=== PATIENT | male | born 1940 | race Caucasian/White ===

== ENCOUNTER → 2018-02-23 07:55 | Outpatient (CLI) | payer MEDICARE, SELFPAY ==
[2018-02-23 09:59] LABS: BUN Creatinine Ratio 23.3 (6-22); Blood Urea Nitrogen 21 mg/dL (9-20); Calcium 9.5 mg/dL (8.4-10.2); Carbon Dioxide 29 mmol/L (22-32); Chloride 104 mmol/L (98-107); Estimated Glomerular Filt Rate > 60.0 mL/min (>60); Glucose 141 mg/dL (80-110); HEMOLYSIS < 15 (0-50); Sodium 143 mmol/L (137-145)
== END ==
PROVIDERS: PCP Internal Medicine; Visit Provider Internal Medicine Cardiovascular Disease
DX: I10 Essential (primary) hypertension (principal)
CPT/HCPCS: 36415; 80048

== ENCOUNTER → 2018-03-13 13:53 | Outpatient (CLI) | payer MEDICARE, SELFPAY ==
--- NOTE | 2018-03-14 17:45 | DI.NM.S_ITS ---
DATE OF SERVICE: 03/13/2018 PROCEDURE: Exercise perfusion study. INDICATIONS: Shortness of breath during exertion with underlying diabetes mellitus, hypertension, and hyperlipidemia. RADIOPHARMACEUTICAL: 25.5 mCi of technetium-99m Myoview IV was injected at stress, and 25.0 mCi of technetium-99m Myoview IV was injected at rest. CARDIAC STRESS: Initially, patient attempted walking on Danny protocol. He walked for about 4 minutes 20 seconds; however, he developed hip discomfort and shortness of breath and couldn't walk much. Hence, stress test got converted to IV Lexiscan perfusion study. The patient received IV Lexiscan as per standard protocol under the supervision of an attending staff. Baseline rhythm was sinus with mild sinus bradycardia and first-degree AV block. Stress EKG did not reveal any obvious inducible ischemic changes. There were no significant arrhythmias. During walking, patient achieved about 61% of target heart rate. Blood pressure remained stable. RAW DATA: There was a hot spot seen near the inferolateral border of the heart. Soft tissue shadows seen around heart as well. The patient's weight is 203 pounds. GATED STUDY: Stress LV ejection fraction 66%. I don't see any obvious wall motion abnormalities. Resting end-diastolic volume 178 mL, suggestive of dilated left ventricle. No transient ischemic dilatation. TID ratio is 0.87, which is within normal limits. Lung/heart ratio is 0.31, which is within normal limits. On April 06, 2016, LV end-diastolic volume was about 165 mL. MYOCARDIAL PERFUSION SCAN: Stress supine and resting supine images revealed moderate-sized, moderately severe perfusion defect of the inferior wall and inferoapex extending into the distal inferolateral wall, which significantly improved during prone images. During prone images, there was mildly decreased perfusion of distal inferolateral wall. In addition to that, resting and stress supine images also revealed moderate-sized, moderately decreased perfusion of [id number] anterior wall extending into the distal anteroseptum, which also significantly improved; however, prone images remained to have mildly decreased perfusion of mid anterior wall. I don't see any reversible ischemia. CONCLUSION: No obvious reversible ischemia. Based on above-mentioned description, the patient has predominantly fixed mildly decreased perfusion of distal inferolateral wall as well as mid anterior wall, which was seen during prone images. Rest of the stress and resting supine perfusion defects got resolved during prone images. Mostly we are dealing with tissue attenuation artifact. There is a hot spot seen near the inferolateral border which is responsible for decreased count in the inferolateral area as well. Normal wall motion goes against a diagnosis of previous transmural myocardial infarction; however, one cannot rule out the possibility of small distal inferolateral and mid anterior wall infarction for sure. The patient had a perfusion study in March 2016. At that time, also, the patient had a hot spot. There was a persistent inferoapical defect. At that time, stress LV ejection fraction was 71% and end-diastolic volume 165 mL. Overall, perfusion scan appears to be a low risk myocardial perfusion scan. Clinical correlation is recommended. Delmar Hoff - MANJINDER/rachel/caroline doc#: [id number]/job#: [id number] dd: 03/14/2018 12:43:00 dt: 03/14/2018 17:22:00 DICTATING /COPIES TO: Flako Dejesus MD COPIES MNE: LANDEN
== END ==
PROVIDERS: PCP Internal Medicine; Visit Provider Internal Medicine Cardiovascular Disease
DX: R06.02 Shortness of breath (principal); E11.9 Type 2 diabetes mellitus without complications; I10 Essential (primary) hypertension; E78.5 Hyperlipidemia, unspecified
CPT/HCPCS: 78452; 93016; 93017; 93018; A9502; J2785

== ENCOUNTER → 2018-03-14 08:05 | Outpatient (CLI) | payer MEDICARE, SELFPAY ==
--- NOTE | 2018-03-14 | DI.ECHO.S_ITS ---
[facility] +---------+ : : [address] : [address] [place] : : : : [id number] : : : : Phone: [phone]+ Echocardiogram Report + + :Name: RUBY MEDLEY Study Date: 03/14/2018 Height: 73 in : :[facility] Weight: 207 lb : : Gender: Male BSA: 2.2 m2 : :: 1940 Age: 77 yrs BP: 120/50 mmHg: :Reason For Study: Dyspnea : :Ordering Physician: Laurie : :Andrea Harp Performed By: Carla Louis : :Referring: Dr. Darryl Damon : + + Interpretation Summary 1) Normal left ventricular size, wall motion, and systolic function (EF 55- 60%). 2) Mildly dilated right ventricle with normal function. 3) No significant valvular abnormalities. 4) Severely dilated left atrium. 5) Mildly dilated aortic root (diameter 4.1cm). 6) The right ventricular systolic pressure is estimated at 40 mmHg assuming a right atrial pressure of 3 mm Hg. 7) Compared to the echo done 04/05/2016, no significant change. Procedure: A two-dimensional transthoracic echocardiogram with color flow and Doppler was performed. The study quality was technically adequate. Comparison is made with the echocardiogram of 04-05-16. The heart rate ranged between 46-48 bpm during the study. Left Ventricle: The left ventricle is normal in size. Left ventricular wall thickness is at the upper limits of normal. The ejection fraction is estimated to be 55-60%. Left ventricular systolic function is normal without focal wall motion abnormalities. Right Ventricle: The right ventricle is mildly dilated. The right ventricular systolic function is normal. Atria: The left atrium is severely dilated. The right atrium is moderately dilated. The interatrial septum is intact with no evidence for an atrial septal defect. Mitral Valve: The mitral valve is grossly normal. There is mild mitral regurgitation. Aortic Valve: The aortic valve is trileaflet. The aortic valve opens well. There is no aortic valve stenosis. No aortic regurgitation is present. Tricuspid Valve: The tricuspid valve leaflets are thin and pliable. There is mild tricuspid regurgitation. The right ventricular systolic pressure is estimated at 40 mmHg assuming a right atrial pressure of 3 mm Hg. Pulmonic Valve: The pulmonic valve is not well seen, but is grossly normal. There is mild pulmonic regurgitation. Great Vessels: The aortic root is mildly dilated. The ascending aorta is at the upper limits of normal in size. The IVC is of normal diameter and collapses greater than 50% with a sniff. This suggests a low right atrial pressure of 3 mm Hg. Pericardium/ Pleura There is no pericardial effusion. There is no pleural effusion. MMode/2D Measurements & Calculations LVIDd: 5.7 cm Ao root diam: 4.2 cm LVIDs: 4.2 cm Aortic Jxn: 3.1 cm FS: 25.9 % asc Aorta Diam: 3.9 cm IVSd: 1.1 cm Ao Arch Diam (Prox Trans): 3.4 cm LVPWd: 0.95 cm LV chiu. diameter/BSA (cm/m^2): 2.6 LV sys. diameter/BSA (cm/m^2): 1.9 LA dimension: 5.1 cm RA long axis: 5.9 cm LA A2 area: 28.8 cm2 RA area: 26.2 cm2 LA A4 area: 34.1 cm2 RA vol: 98.3 ml LA length (vol): 6.7 cm RA : 45.0 ml/m2 LA vol: 124.9 ml IVC diam: 1.9 cm LA vol index: 57.2 ml/m2 RVDd major: 6.8 cm RVD1 (basal): 4.2 cm RVD2 (mid): 4.3 cm Doppler Measurements & Calculations Ao V2 max: 124.6 cm/sec MV E max ebenezer: 89.8 cm/sec Ao V2 mean: 79.3 cm/sec MV A max ebenezer: 41.0 cm/sec Ao max P.2 mmHg MV E/A: 2.2 Ao mean P.0 mmHg Med Peak E' Ebenezer: 5.6 cm/sec Ao V2 VTI: 32.1 cm E/E' med: 16.1 Lat Peak E' Ebenezer: 7.9 cm/sec E/E' lat: 11.4 E/e' average: 13.7 MV dec time: 0.26 sec MV P1/2t: 75.8 msec TR max ebenezer: 304.6 cm/sec MV P1/2t max ebenezer: 89.3 cm/sec TR max P.1 mmHg MVA(P1/2t): 2.9 cm2 PA V2 max: 81.2 cm/sec PA V2 mean: 55.1 cm/sec PA mean P.4 mmHg PA Accel Time: 0.17 sec Reading Physician:12:38 PM
== END ==
PROVIDERS: PCP Internal Medicine; Visit Provider Internal Medicine Cardiovascular Disease
DX: R06.00 Dyspnea, unspecified (principal)
CPT/HCPCS: 93306

== ENCOUNTER → 2018-04-08 07:50 | Outpatient (CLI) | payer MEDICARE, SELFPAY ==
[2018-04-08 08:42] LABS: Add Manual Diff / Slide Review NO; Basophils Percent Auto 0.2 % (0-2); Eosinophils Percent Auto 3.6 % (2-4); Hematocrit 39.9 % (41-53); Hemoglobin 13.7 g/dL (13.5-17.5); Lymphocytes Percent Auto 24.7 % (25-40); Mean Corpuscular HGB Conc 34.2 % (30-36); Mean Corpuscular Hemoglobin 31.4 PG (26-34); Mean Corpuscular Volume 91.9 fL (80-100); Monocytes Percent Auto 8.8 % (3-14); Neutrophils Absolute Auto 5000 /uL (3000-5900); Neutrophils Percent Auto 62.7 % (50-75); Platelet Count 153 X10^3/uL (150-400); Red Blood Cell Count 4.35 X10^6/uL (4.5-5.9); White Blood Cell Count 7.9 X10^3/uL (4.5-11.0)
[2018-04-08 09:02] LABS: Hemoglobin A1C% w Est Avg Glu 5.7 % (4.0-6.0)
[2018-04-08 09:08] LABS: Blood Urea Nitrogen 20 mg/dL (9-20); Calcium 9.3 mg/dL (8.4-10.2); Carbon Dioxide 27 mmol/L (22-32); Chloride 106 mmol/L (98-107); Estimated Glomerular Filt Rate > 60.0 mL/min (>60); Glucose 125 mg/dL (80-110); HEMOLYSIS < 15 (0-50); Potassium 4.4 mmol/L (3.4-5.1); Sodium 142 mmol/L (137-145)
== END ==
PROVIDERS: PCP Internal Medicine; Visit Provider Internal Medicine
DX: I10 Essential (primary) hypertension (principal); E11.311 Type 2 diabetes mellitus with unspecified diabetic retinopathy with macular edema
CPT/HCPCS: 36415; 80048; 83036; 85025

== ENCOUNTER → 2018-10-04 12:18 | Outpatient (CLI) | payer MEDICARE, SELFPAY ==
[2018-10-04 13:42] LABS: BUN Creatinine Ratio 24.5 (6-22); Blood Urea Nitrogen 27 mg/dL (9-20); Calcium 9.7 mg/dL (8.4-10.2); Carbon Dioxide 27 mmol/L (22-32); Chloride 108 mmol/L (98-107); Estimated Glomerular Filt Rate > 60.0 mL/min (>60); Glucose 120 mg/dL (80-110); HEMOLYSIS < 15 (0-50); Potassium 5.2 mmol/L (3.4-5.1); Sodium 141 mmol/L (137-145)
== END ==
PROVIDERS: PCP Internal Medicine; Visit Provider Internal Medicine
DX: I10 Essential (primary) hypertension (principal); E11.311 Type 2 diabetes mellitus with unspecified diabetic retinopathy with macular edema
CPT/HCPCS: 36415; 80048; 83036; 84550

== ENCOUNTER → 2019-02-17 07:47 | Outpatient (CLI) | payer MEDICARE, SELFPAY ==
[2019-02-17 09:09] LABS: Add Manual Diff / Slide Review NO; Basophils Absolute Auto 0 /uL (0-100); Basophils Percent Auto 0.2 % (0-2); Eosinophils Absolute Auto 300 /uL (0-450); Eosinophils Percent Auto 3.7 % (2-4); Hematocrit 39.4 % (41-53); Hemoglobin 13.3 g/dL (13.5-17.5); Lymphocytes Absolute Auto 1500 /uL (1100-4500); Lymphocytes Percent Auto 22.4 % (25-40); Mean Corpuscular HGB Conc 33.7 % (30-36); Monocytes Absolute Auto 600 /uL (0-900); Monocytes Percent Auto 9.1 % (3-14); Neutrophils Absolute Auto 4400 /uL (1500-7000); Neutrophils Percent Auto 64.6 % (50-75); Platelet Count 139 X10^3/uL (150-400); Red Blood Cell Count 4.28 X10^6/uL (4.5-5.9); Red Cell Distribution Width 14.1 % (11.6-14.8); White Blood Cell Count 6.9 X10^3/uL (4.5-11.0)
[2019-02-17 09:38] LABS: BUN Creatinine Ratio 25.5 (6-22); Blood Urea Nitrogen 28 mg/dL (9-20); Calcium 9.5 mg/dL (8.4-10.2); Carbon Dioxide 27 mmol/L (22-32); Chloride 107 mmol/L (98-107); Cholesterol 148 mg/dL (140-199); Estimated Glomerular Filt Rate > 60.0 mL/min (>60); Glucose 142 mg/dL (80-110); HDL Cholesterol 41 mg/dL (40-60); HEMOLYSIS < 15 (0-50); LDL Cholesterol Calculated 96 mg/dL (<100); Potassium 4.4 mmol/L (3.4-5.1); Sodium 140 mmol/L (137-145); Triglycerides 56 mg/dL (35-150)
== END ==
PROVIDERS: PCP Internal Medicine; Visit Provider Internal Medicine Cardiovascular Disease
DX: I10 Essential (primary) hypertension (principal)
CPT/HCPCS: 36415; 80048; 80061; 85025

== ENCOUNTER → 2019-06-02 09:00 | Outpatient (CLI) | payer MEDICARE, SELFPAY ==
[2019-06-02 11:06] LABS: Hemoglobin A1C% w Est Avg Glu 5.7 % (4.0-6.0)
[2019-06-02 11:16] LABS: Blood Urea Nitrogen 24 mg/dL (9-20); Calcium 9.4 mg/dL (8.4-10.2); Carbon Dioxide 26 mmol/L (22-32); Chloride 106 mmol/L (98-107); Estimated Glomerular Filt Rate > 60.0 mL/min (>60); Glucose 137 mg/dL (80-110); HEMOLYSIS < 15 (0-50); Potassium 4.8 mmol/L (3.4-5.1); Sodium 139 mmol/L (137-145)
== END ==
PROVIDERS: PCP Internal Medicine; Visit Provider Internal Medicine
DX: I10 Essential (primary) hypertension (principal)
CPT/HCPCS: 36415; 80048; 83036

== ENCOUNTER 2019-09-13 09:41 | Emergency (ER) | payer MEDICARE, SELFPAY ==
[2019-09-13] VITALS (9 sets, daily range): BP systolic 113–155; BP diastolic 48–98; PULSE 33–69; RESP 10–22; TEMP 36.5; O2SAT 98–99; BMI 28.4
--- NOTE | 2019-09-13 09:53 | ED_ITS ---
HPI - General Adult General Chief complaint: Dizziness Stated complaint: heart problems fluttering right now Time Seen by Provider: 09/13/19 09:46 Source: patient Mode of arrival: Ambulatory Limitations: no limitations History of Present Illness HPI narrative: 78-year-old male who states that he was in this emergency department within the past 2 months where he states that he was cardioverted. Discharged home. Since then has had episodes of fast heart rate and becoming lightheaded. He also saw a electric razor assembler. Was placed on Eliquis. He is also on amiodarone she takes in the morning. He states that for the past week he has had episodes where he feels like his heart is beating fast becomes lightheaded a lmost passes out. Is scheduled for an ablation in the middle of next month at the [facility]. Given this morning because he contacted his electric razor assembler who told him to come to the emergency department Related Data Home Medications Medication Instructions Recorded Confirmed allopurinol 300 mg PO BEDTIME 09/13/19 09/13/19 amiodarone 200 mg PO QAM 09/13/19 09/13/19 amlodipine 5 mg PO BEDTIME 09/13/19 09/13/19 apixaban [Eliquis] 5 mg PO BID 09/13/19 09/13/19 carvedilol 25 mg PO BID 09/13/19 09/13/19 lisinopril 40 mg PO BEDTIME 09/13/19 09/13/19 tamsulosin 0.4 mg PO BEDTIME 09/13/19 09/13/19 Allergies Allergy/AdvReac Type Severity Reaction Status Date / Time Sulfa (Sulfonamide AdvReac Mild EXACERBATES Verified 09/13/19 10:33 Antibiotics) GOUT [SULFA (SULFONAMIDE ANTIBIOTICS)] STATINS AdvReac Mild CAUSE PAIN Uncoded 12/26/17 11:59 IN LEGS - ELEC. SHOCK Review of Systems Constitutional Constitutional: Denies fever(s) Cardiovascular Cardiovascular: Denies chest pain, Reports rapid heart rate, Reports irregular heart rhythm, Reports lightheadedness and Reports palpitations Respiratory Respiratory: Denies cough Gastrointestinal Gastrointestinal: Denies abdominal pain, Denies nausea and Denies vomiting Musculoskeletal Musculoskeletal: Denies myalgias and Denies arthralgias Integumentary/Breasts Skin/Breast: Denies rash Neurologic Neurologic: Denies behavioral changes Psychiatric Psychiatric: Denies behavioral changes Endocrine Endocrine: Reports palpitations Hematologic/Lymphatic Comments: On anticoagulation Patient History Medical History Hypertension (Acute) Social History Smoking Status: Never smoker Exam Initial Vital Signs Initial Vital Signs: Vital Signs Temperature 97.7 F 09/13/19 09:48 Pulse Rate 69 09/13/19 09:48 Respiratory Rate 18 09/13/19 09:48 Blood Pressure 155/98 H 09/13/19 09:48 Pulse Oximetry 98 09/13/19 09:48 Const General: cooperative and comfortable Orientation: alert and awake HENMT Head: normal to inspection and normocephalic Resp Effort & Inspection: normal respiratory effort Auscultation: clear to auscultation bilaterally Cardio Rate: regular rate Rhythm: abnormal rhythm Pulses: radial pulses present GI Inspection: non-distended Palpation: soft Skin Lesions: no lesions Rashes: no rashes Neuro General: alert, awake and oriented x3 Extrem General: normal to inspection and capillary refill normal Psych Appearance: grossly normal and well kempt Course Orders Ordered: ED Orders 09/13/19 09:46 EKG-12 Lead Stat 09/13/19 09:49 Complete Blood Count AUTO DIFF Stat Comprehensive Metabolic Panel Stat Lipase Stat Partial Thromboplastin Time Stat Prothrombin Time INR Stat Troponin & CK Cardiac Panel Stat 09/13/19 09:52 XR chest 1V Stat Discontinued Medications Sodium Chloride (Normal Saline 0.9%) 1,000 mls @ 1,000 mls/hr IV BOLUS ONE Stop: 09/13/19 11:54 Last Infusion: 09/13/19 12:14 Dose: 0 mls/hr Documented by: Admin: 09/13/19 10:59 Dose: 1,000 mls/hr Documented by: CRISTINO Vital Signs Vital signs: Vital Signs - 8 hr 09/13/19 09:48 09/13/19 10:04 09/13/19 10:25 Temperature 97.7 F Pulse Rate 69 62 33 L Respiratory Rate 18 22 16 Blood Pressure 155/98 H Blood Pressure [Right Arm] 127/85 Pulse Oximetry 98 09/13/19 10:30 09/13/19 10:44 09/13/19 11:00 Temperature Pulse Rate 56 L 57 L 65 Respiratory Rate 18 10 L 18 Blood Pressure Blood Pressure [Right Arm] 113/48 L 128/51 L 120/57 L Pulse Oximetry 99 99 09/13/19 11:30 09/13/19 12:00 09/13/19 12:30 Temperature Pulse Rate 64 54 L 54 L Respiratory Rate 10 L 15 16 Blood Pressure Blood Pressure [Right Arm] 127/60 131/63 128/61 Pulse Oximetry Medical Decision Making Lab Data Lab results reviewed: Yes I reviewed the patient's lab results. Result diagrams: 09/13/19 09:49 09/13/19 09:49 Labs: Lab Results 09/13/19 09/13/19 09/13/19 Range/Units 09:49 09:49 09:49 WBC 7.6 (4.5-11.0) X10^3/uL RBC 4.67 (4.5-5.9) X10^6/uL Hgb 14.6 (13.5-17.5) g/dL Hct 42.4 (41-53) % MCV 90.8 (80-100) fL MCH 31.3 (26-34) PG MCHC 34.4 (30-36) % RDW 13.9 (11.6-14.8) % Plt Count 151 (150-400) X10^3/uL Neut % (Auto) 64.6 (50-75) % Lymph % (Auto) 20.8 L (25-40) % Cooper % (Auto) 9.6 (3-14) % Eos % (Auto) 4.5 H (2-4) % Baso % (Auto) 0.5 (0-2) % Neut # (Auto) 4900 (8515-0980) /uL Lymph # (Auto) 1600 (4407-2394) /uL Cooper # (Auto) 700 (0-900) /uL Eos # (Auto) 300 (0-450) /uL Baso # (Auto) 0 (0-100) /uL PT 15.5 H (10.1-12.7) SECONDS INR 1.3 (0.9-1.3) APTT 42 H (26.4-36.2) SECONDS Sodium 141 (137-145) mmol/L Potassium 4.7 (3.4-5.1) mmol/L Chloride 106 (98-107) mmol/L Carbon Dioxide 27 (22-32) mmol/L BUN 29 H (9-20) mg/dL Creatinine 1.40 H (0.66-1.25) mg/dL Estimated GFR 48.9 L (>60) mL/min BUN/Creatinine Ratio 20.7 (6-22) Glucose 135 H (80-110) mg/dL Calcium 9.7 (8.4-10.2) mg/dL Total Bilirubin 0.5 (0.2-1.3) mg/dL AST 23 (17-59) IU/L ALT 19 (<50) IU/L Alkaline Phosphatase 82 (38-126) U/L Total Creatine Kinase 49 L (55-170) U/L CK-MB (CK-2) TNP CK-MB (CK-2) Rel Index TNP Troponin I 0.022 (0.01-0.034) ng/mL Total Protein 7.2 (6.3-8.2) g/dL Albumin 4.5 (3.5-5.0) g/dL Globulin 2.7 (1.7-4.1) g/dL Albumin/Globulin Ratio 1.7 (1.0-2.8) Lipase 65 (23-300) U/L Imaging Data Chest x-ray: Radiologist's Impression: [address] [address] XRay Report Signed Patient: Delmar Hoff MMR#: [id number] : 1940Acct:[id number] Age/Sex: 78 / MDate of Service: 09/13/19 Loc: ED Accession Number: [id number] Procedure: XR chest 1V Ordering Provider: Andrew Macias D.O. PROCEDURE: XR CHEST 1V INDICATIONS: chest pain TECHNIQUE: One view of the chest was acquired. COMPARISON: [facility], CR, CHEST 2 VIEW, 06/22/2009, 10:09. [facility], CT, PE STUDY (CTA CHEST), 11/30/2011, 22:01. [facility], CR, CHEST 1 VIEW, 03/07/2016, 6:03. FINDINGS: Surgical changes and devices: None. Lungs and pleura: An incomplete inspiratory result is noted, causing a crowded appearance to the lung markings. No focal infiltrates are seen. No pneumothorax or significant pleural effusions are seen. Mediastinum: Mediastinal contours appear normal. Heart size is at the upper limits of normal. Bones and chest wall: No suspicious bony lesions. Age-appropriate bony degenerative changes are seen. Overlying soft tissues appear unremarkable. IMPRESSION: Limited portable chest examination, without a significant cardiopulmonary abnormality identified. Dictated by: Amando Shoemaker M.D. on 09/13/2019 at 9:25 Approved by: Amando Shoemaker M.D. on 09/13/2019 at 9:26 ECG Data Attestation: I personally reviewed and interpreted this ECG as follows: Prior ECG tracings: not available for review Interpretation: Atrial flutter Ventricular rate 82 QRS [address] T wave changes MDM Narrative Medical decision making narrative: Patient with a flutter on his EKG.. Was in a normal rate. Did have episodes of bradycardia into the 30s some which did seem to correspond to the symptoms the patient was having. I did discuss the case with Dr. Dejesus who recommended cutting the patient's cardiovascular medicines and half. I then discussed the case with Dr. Gallardo who who agreed with this. The patient was able to ambulate. He was observed in the ER was given fluids. Had no further episodes. He is scheduled for a cardioversion next month in an ablation next month. He was given return precautions and follow-up instructions. He expressed understanding and agreement with plan. Discharge Plan Departure Patient Disposition: Home Clinical Impression: Bradycardia Atrial flutter Qualifiers: Atrial flutter type: unspecified Qualified Code(s): I48.92 - Unspecified atrial flutter Instructions: DI for Atrial Flutter Activity Restrictions/Additional Instructions: After discussion with the electric razor assembler the recommendations are that you decrease your carvedilol to 12.5 mg 2 times a day. This is a decrease from the 20/5 mg 2 times a day your taking. They also recommended that you decrease your amiodarone to 100 mg in the morning. This is a decrease from your current dose of 200 mg in the morning. They also recommend that you stop your amlodipine. Keep all of your scheduled medical appointments. Return to the emergency department for any new or worsening symptoms Prescriptions: No Action carvedilol 25 mg tablet 25 mg PO BID RF: 0 amiodarone 200 mg tablet 200 mg PO QAM RF: 0 amlodipine 5 mg tablet 5 mg PO BEDTIME RF: 0 tamsulosin 0.4 mg capsule 0.4 mg PO BEDTIME RF: 0 allopurinol 300 mg tablet 300 mg PO BEDTIME RF: 0 lisinopril 40 mg tablet 40 mg PO BEDTIME RF: 0 Eliquis 5 mg tablet 5 mg PO BID RF: 0 Referrals: Darryl Damon MD [Primary Care Provider] -
[2019-09-13 09:59] LABS: Add Manual Diff / Slide Review NO; Basophils Absolute Auto 0 /uL (0-100); Basophils Percent Auto 0.5 % (0-2); Eosinophils Absolute Auto 300 /uL (0-450); Eosinophils Percent Auto 4.5 % (2-4); Hematocrit 42.4 % (41-53); Hemoglobin 14.6 g/dL (13.5-17.5); Lymphocytes Absolute Auto 1600 /uL (1100-4500); Lymphocytes Percent Auto 20.8 % (25-40); Mean Corpuscular HGB Conc 34.4 % (30-36); Mean Corpuscular Hemoglobin 31.3 PG (26-34); Mean Corpuscular Volume 90.8 fL (80-100); Monocytes Absolute Auto 700 /uL (0-900); Monocytes Percent Auto 9.6 % (3-14); Neutrophils Absolute Auto 4900 /uL (1500-7000); Neutrophils Percent Auto 64.6 % (50-75); Platelet Count 151 X10^3/uL (150-400); Red Blood Cell Count 4.67 X10^6/uL (4.5-5.9); Red Cell Distribution Width 13.9 % (11.6-14.8); White Blood Cell Count 7.6 X10^3/uL (4.5-11.0)
[2019-09-13 10:05] LABS: INR 1.3 (0.9-1.3); Prothrombin Time 15.5 SECONDS (10.1-12.7)
[2019-09-13 10:08] LABS: PTT Partial Thromboplastin Tim 42 SECONDS (26.4-36.2)
[2019-09-13 10:09] LABS: Alanine Aminotransferase 19 IU/L (<50); Albumin 4.5 g/dL (3.5-5.0); Albumin Globulin Ratio 1.7 (1.0-2.8); Alkaline Phosphatase 82 U/L (38-126); Aspartate Aminotransferase 23 IU/L (17-59); BUN Creatinine Ratio 20.7 (6-22); Bilirubin Total 0.5 mg/dL (0.2-1.3); Blood Urea Nitrogen 29 mg/dL (9-20); Calcium 9.7 mg/dL (8.4-10.2); Carbon Dioxide 27 mmol/L (22-32); Chloride 106 mmol/L (98-107); Creatine Kinase 49 U/L (55-170); Estimated Glomerular Filt Rate 48.9 mL/min (>60); Globulin 2.7 g/dL (1.7-4.1); Glucose 135 mg/dL (80-110); HEMOLYSIS < 15 (0-50); Lipase 65 U/L (23-300); Potassium 4.7 mmol/L (3.4-5.1); Sodium 141 mmol/L (137-145); Total Protein 7.2 g/dL (6.3-8.2)
[2019-09-13 10:21] LABS: Troponin I 0.022 ng/mL (0.01-0.034)
[2019-09-13] MEDS: SODIUM CHLORIDE 0.9% 1,000 ML 1000 ML IV (10:59)
== END 2019-09-13 13:18 | disposition home or self-care (01) ==
PROVIDERS: Emergency Provider Emergency Medicine; PCP Internal Medicine
DX: I48.91 Unspecified atrial fibrillation (principal); R00.1 Bradycardia, unspecified
CPT/HCPCS: 36415; 71045; 80053; 82550; 83690; 84484; 85025; 85610; 85730; 93005; 96360; 99284; 99285

== ENCOUNTER 2019-10-13 08:04 | Emergency (ER) | payer MEDICARE, SELFPAY ==
[2019-10-13] VITALS (7 sets, daily range): BP systolic 149–206; BP diastolic 64–89; PULSE 60–66; RESP 13–23; TEMP 36.9; O2SAT 93–98
--- NOTE | 2019-10-13 08:20 | DI.RAD.S_ITS ---
PROCEDURE: XR CHEST 1V INDICATIONS: chest pain TECHNIQUE: One view of the chest was acquired. COMPARISON: [facility], [place], XR CHEST 1V, 09/13/2019, 10:07. [facility], [place], CHEST 1 VIEW, 03/07/2016, 6:03. FINDINGS: Surgical changes and devices: None. Lungs and pleura: Lungs are moderately edematous. No pleural effusions or pneumothorax. Mediastinum: Mediastinal contours appear normal. Heart size is mildly enlarged. Bones and chest wall: No suspicious bony lesions. Overlying soft tissues appear unremarkable. IMPRESSION: Acute exacerbation of chronic CHF pattern. Dictated by: Mello Jones M.D. on 10/13/2019 at 8:59 Approved by: Mello Jones M.D. on 10/13/2019 at 9:00
--- NOTE | 2019-10-13 08:29 | ED.WEAKNESS ---
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 The patient has had multiple cardioversions as well as ablations in the past for atrial fibrillation and rapid ventricular rate. The patient had an ablation 3 days ago at the [facility]. His amiodarone was discontinued. He is currently on Eliquis. He is also on carvedilol and lisinopril. His current monitor reveals that he is in atrial fibrillation with a ventricular rate of 66. He denies any chest pain shortness of breath in theED. However the patient states that when he woke up he was short of breath and walking down a flight of stairs to take care of the dog and he became very weak and tired and could hardly do it. At that time he became very short of breath and he felt lightheaded. He denies any tachycardia or sweating nausea vomiting abdominal pain diarrhea change in bowel habits. He has had no melena hematochezia no urinary symptoms. He denies any fever chills or sweats. His machine operator picker is Dr. Martinez at phone: [phone]. He spoke to Karena this morning who sent him into the emergency department. Related Data Home Medications Medication Instructions Recorded Confirmed allopurinol 300 mg PO BEDTIME 09/13/19 10/13/19 apixaban [Eliquis] 5 mg PO BID 09/13/19 10/13/19 carvedilol 12.5 mg PO BID 09/13/19 10/13/19 lisinopril 40 mg PO BEDTIME 09/13/19 10/13/19 tamsulosin 0.4 mg PO BEDTIME 09/13/19 10/13/19 Allergies Allergy/AdvReac Type Severity Reaction Status Date / Time Sulfa (Sulfonamide AdvReac Mild EXACERBATES Verified 09/13/19 10:33 Antibiotics) GOUT [SULFA (SULFONAMIDE ANTIBIOTICS)] STATINS AdvReac Mild CAUSE PAIN Uncoded 12/26/17 11:59 IN LEGS - ELEC. SHOCK Review of Systems Review of Systems Narrative: The patient is awake alert oriented coherent. All review of systems were negative except for those mentioned in the history of present illness. Patient History Social History Smoking Status: Never smoker Smoking Status: Never smoker Substance Use Type: does not use Exam Narrative Exam Narrative: PHYSICAL EXAM: CONSTITUTIONAL: Awake, Alert, Oriented, Coherent, Cooperative in NAD. Does not appear toxic or ill. HEAD: AT/NC EENT: PERRL, FROM of eyes, no discharge, no nystagmus No epistaxis or nasal drainage Oral mucosa is moist and pink, posterior pharynx is without erythema or exudate. NECK: Supple, no obvious JVD, Trachea is midline without stridor, no palpable LN or masses. SPINE: No gross deformity, no palpable tenderness of the cervical, thoracic, lumbar or sacral spine. No CVA tenderness. THORAX: No deformity, retractions, chest wall tenderness, subcutaneous air or crepitice. LUNGS: Clear with symmetrical breath sounds without respiratory distress HEART: The patient's heart rate is low distant and muffled. It is irregular irregular with variable S1 and S2. I do not appreciate any murmur at this time. ABDOMEN: Soft, non-tender, normal bowel sounds without guarding, rebound, rigidity or palpable mass. EXTREMITIES: No edema, cyanosis, deformity or tenderness. The patient states that he still has plugs in his groin from the ablation. SKIN: No rash, bruising, petechiae or purpura. NEURO: Awake, alert, oriented, conversive, cranial nerves II-XII are symmetrical and normal, moves all 4 extremities and is ambulatory Initial Vital Signs Initial Vital Signs: Vital Signs Temperature 98.5 F 10/13/19 08:05 Pulse Rate 66 10/13/19 08:05 Respiratory Rate 14 10/13/19 08:05 Blood Pressure 160/78 H 10/13/19 08:05 Pulse Oximetry 95 10/13/19 08:05 Course Course Course Narrative: 0900 I spoke with the patient's machine operator picker Dr. Martinez at who does not think that the patient needs [facility] at [facility]. The patient has a history of a prolonged first-degree AV block and does not believe that the patient needs to be put on a anti arrhythmic since covered the low is controlling his rate. An anti rhythmic may cause him to have developed complete heart heart block. He is not concerned about his elevated troponin at 0.467 which is the result of cell from his ablation. He recommends that the patient be cardioverted without and anti arrhythmic. Check to make sure that the patient has received his morning Eliquis and has not missed a dose of Eliquis. Discussed the patient with his local machine operator picker. 0908 the patient's machine operator picker is Dr. Harp who I will call. Dr. Ferrer did not feel that the patient needed to be cardioverted emergently but needs to be cardioverted. I will discuss this with Dr. Harp. The patient insists that he took his his Eliquis this morning. He is awake alert oriented in no acute distress at this time. 0918 on closer examination of the patient's EKG it looked like it was initially in atrial fibrillation but the patient has P waves in leads V1 and V2 that are very prolonged. However I do not see P-waves in the other leads. There are multiple PVCs. On the monitor the patient looks like he is in normal sinus rhythm with a first-degree AV block. We are repeating the EKG with a rhythm strip before I talked to his local cardilogist Dr. Harp. 0939 repeat EKG shows a sinus rhythm with a left bundle branch block and a prolonged first-degree AV block. His HI interval 325 QRS is 140 milliseconds QTC is 457 milliseconds. [place] is left. There are no acute diagnostic ST segment changes no Sgarboza Criteria. A prolonged rhythm strip on the EKG shows that the patient has persistent P waves in leads V1 and V2 with multiple PVCs and a prolonged first-degree AV block. I will discuss the patient with his machine operator picker Dr. Harp. [address] Martinez. Agrees that the patient can be discharged home but follow-up with Dr. Harp his local machine operator picker by the end of the week call and make an appointment. Orders Ordered: Discontinued Medications Sodium Chloride (Normal Saline 0.9%) 1,000 mls @ 150 mls/hr IV CONT IZABEL Last Admin: 10/13/19 09:11 Dose: Not Given Documented by: CRISTINO Vital Signs Vital signs: Vital Signs - 8 hr 10/13/19 08:05 10/13/19 08:30 10/13/19 09:00 Temperature 98.5 F Pulse Rate 66 63 64 Respiratory Rate 14 22 21 Blood Pressure 160/78 H Blood Pressure [Left Arm] 167/64 H 206/86 H Pulse Oximetry 95 95 93 10/13/19 09:30 10/13/19 11:02 10/13/19 11:53 Temperature Pulse Rate 60 63 64 Respiratory Rate 22 13 16 Blood Pressure Blood Pressure [Left Arm] 149/65 H 161/89 H 164/68 H Pulse Oximetry 93 94 98 MDM - Weakness Lab Data Attestation: I reviewed the patient's lab results. Result diagrams: 10/13/19 08:20 10/13/19 08:15 Labs: Lab Results 10/13/19 10/13/19 10/13/19 Range/Units 08:15 08:15 08:15 WBC Cancelled RBC Cancelled Hgb Cancelled Hct Cancelled MCV Cancelled MCH Cancelled MCHC Cancelled RDW Cancelled Plt Count Cancelled Neut % (Auto) Cancelled Lymph % (Auto) Cancelled [place] % (Auto) Cancelled Eos % (Auto) Cancelled Baso % (Auto) Cancelled Neut # (Auto) Cancelled Lymph # (Auto) Cancelled [place] # (Auto) Cancelled Eos # (Auto) Cancelled Baso # (Auto) Cancelled PT 18.5 H (10.1-12.7) SECONDS INR 1.6 H (0.9-1.3) APTT 36 D (26.4-36.2) SECONDS Sodium 139 (137-145) mmol/L Potassium 3.9 (3.4-5.1) mmol/L Chloride 105 (98-107) mmol/L Carbon Dioxide 26 (22-32) mmol/L BUN 19 (9-20) mg/dL Creatinine 1.10 (0.66-1.25) mg/dL Estimated GFR > 60.0 (>60) mL/min BUN/Creatinine Ratio 17.3 (6-22) Glucose 185 H (80-110) mg/dL Calcium 9.4 (8.4-10.2) mg/dL Total Bilirubin 0.8 (0.2-1.3) mg/dL AST 37 (17-59) IU/L ALT 28 (<50) IU/L Alkaline Phosphatase 79 (38-126) U/L Total Creatine Kinase 69 (55-170) U/L CK-MB (CK-2) TNP CK-MB (CK-2) Rel Index TNP Troponin I 0.467 H* (0.01-0.034) ng/mL B-Natriuretic Peptide (<100) Total Protein 6.9 (6.3-8.2) g/dL Albumin 4.0 (3.5-5.0) g/dL Globulin 2.9 (1.7-4.1) g/dL Albumin/Globulin Ratio 1.4 (1.0-2.8) Lipase 47 (23-300) U/L 10/13/19 10/13/19 Range/Units 08:20 08:20 WBC 9.4 RBC 4.09 L Hgb 13.0 L Hct 38.1 L MCV 93.0 MCH 31.7 MCHC 34.1 RDW 14.5 Plt Count 128 L Neut % (Auto) 71.8 Lymph % (Auto) 12.3 L [place] % (Auto) 14.8 H Eos % (Auto) 0.9 L Baso % (Auto) 0.2 Neut # (Auto) 6800 Lymph # (Auto) 1200 [place] # (Auto) 1400 H Eos # (Auto) 100 Baso # (Auto) 0 PT (10.1-12.7) SECONDS INR (0.9-1.3) APTT (26.4-36.2) SECONDS Sodium (137-145) mmol/L Potassium (3.4-5.1) mmol/L Chloride (98-107) mmol/L Carbon Dioxide (22-32) mmol/L BUN (9-20) mg/dL Creatinine (0.66-1.25) mg/dL Estimated GFR (>60) mL/min BUN/Creatinine Ratio (6-22) Glucose (80-110) mg/dL Calcium (8.4-10.2) mg/dL Total Bilirubin (0.2-1.3) mg/dL AST (17-59) IU/L ALT (<50) IU/L Alkaline Phosphatase (38-126) U/L Total Creatine Kinase (55-170) U/L CK-MB (CK-2) CK-MB (CK-2) Rel Index Troponin I (0.01-0.034) ng/mL B-Natriuretic Peptide 149 H (<100) Total Protein (6.3-8.2) g/dL Albumin (3.5-5.0) g/dL Globulin (1.7-4.1) g/dL Albumin/Globulin Ratio (1.0-2.8) Lipase (23-300) U/L ECG Data Attestation: I personally reviewed and interpreted this ECG as follows: Interpretation: The patient's EKG of October 13, 2019 reveals a ventricular rate of 67 with atrial fibrillation as the rhythm. There are premature ventricular complexes present. The QRS duration is prolonged at 139 milliseconds. QTC is borderline at 456 milliseconds left axis deviation. There are nonspecific ST segment changes within inverted T-wave in lead V1. There are no acute diagnostic ischemic ST segment changes. Discharge Plan Departure Patient Disposition: Home Clinical Impression: Weakness Dyspnea Qualifiers: Dyspnea type: dyspnea on exertion Qualified Code(s): R06.09 - Other forms of dyspnea Congestive heart failure Qualifiers: Heart failure type: unspecified Heart failure chronicity: chronic Qualified Code(s): I50.9 - Heart failure, unspecified Discharge Date/Time: 10/13/19 12:16 Instructions: DI for Heart Failure, DI for Atrial Fibrillation, DI for Arrhythmias, DI for Shortness of Breath, DI for Paroxysmal Supraventricular Tachycardia Activity Restrictions/Additional Instructions: Continue current medications as prescribed by your machine operator picker Dr. Martinez. Follow-up with your local machine operator picker Dr. Harp by the end of the week to evaluate your shortness of breath and possible congestive heart failure. No new medications at this time. Prescriptions: No Action carvedilol 25 mg tablet 12.5 mg PO BID RF: 0 tamsulosin 0.4 mg capsule 0.4 mg PO BEDTIME RF: 0 allopurinol 300 mg tablet 300 mg PO BEDTIME RF: 0 lisinopril 40 mg tablet 40 mg PO BEDTIME RF: 0 Eliquis 5 mg tablet 5 mg PO BID RF: 0 Referrals: Darryl Damon MD [Primary Care Provider] -
[2019-10-13 08:36] LABS: Add Manual Diff / Slide Review NO; Basophils Absolute Auto 0 /uL (0-100); Basophils Percent Auto 0.2 % (0-2); Eosinophils Absolute Auto 100 /uL (0-450); Eosinophils Percent Auto 0.9 % (2-4); Hematocrit 38.1 % (41-53); Lymphocytes Absolute Auto 1200 /uL (1100-4500); Lymphocytes Percent Auto 12.3 % (25-40); Mean Corpuscular HGB Conc 34.1 % (30-36); Mean Corpuscular Hemoglobin 31.7 PG (26-34); Monocytes Absolute Auto 1400 /uL (0-900); Monocytes Percent Auto 14.8 % (3-14); Neutrophils Absolute Auto 6800 /uL (1500-7000); Neutrophils Percent Auto 71.8 % (50-75); Platelet Count 128 X10^3/uL (150-400); Red Blood Cell Count 4.09 X10^6/uL (4.5-5.9); Red Cell Distribution Width 14.5 % (11.6-14.8); White Blood Cell Count 9.4 X10^3/uL (4.5-11.0)
[2019-10-13 08:41] LABS: Alanine Aminotransferase 28 IU/L (<50); Albumin Globulin Ratio 1.4 (1.0-2.8); Alkaline Phosphatase 79 U/L (38-126); Aspartate Aminotransferase 37 IU/L (17-59); BUN Creatinine Ratio 17.3 (6-22); Bilirubin Total 0.8 mg/dL (0.2-1.3); Blood Urea Nitrogen 19 mg/dL (9-20); Calcium 9.4 mg/dL (8.4-10.2); Carbon Dioxide 26 mmol/L (22-32); Chloride 105 mmol/L (98-107); Creatine Kinase 69 U/L (55-170); Estimated Glomerular Filt Rate > 60.0 mL/min (>60); Globulin 2.9 g/dL (1.7-4.1); Glucose 185 mg/dL (80-110); HEMOLYSIS < 15 (0-50); Lipase 47 U/L (23-300); Potassium 3.9 mmol/L (3.4-5.1); Sodium 139 mmol/L (137-145); Total Protein 6.9 g/dL (6.3-8.2)
[2019-10-13 08:42] LABS: INR 1.6 (0.9-1.3); PTT Partial Thromboplastin Tim 36 SECONDS (26.4-36.2); Prothrombin Time 18.5 SECONDS (10.1-12.7)
[2019-10-13 08:55] LABS: Troponin I 0.467 ng/mL (0.01-0.034)
--- NOTE | 2019-10-13 09:53 | DI.CT.S_ITS ---
PROCEDURE: CT ANGIO CHEST INDICATIONS: S/P ablation [facility] SOB r/o AV fistula per Dr. Rivera TECHNIQUE: After the administration of intravenous contrast, 2 mm thick sections acquired from the pulmonary apices to the posterior costophrenic angles. 3-dimensional maximum intensity projection (MIP) coronal and sagittal reformats were then acquired through the thorax. For radiation dose reduction, the following was used: automated exposure control, adjustment of mA and/or kV according to patient size. COMPARISON: [facility], EC, EC ECHO DOPPLER COMPLETE, 03/14/2018, 9:42. [facility], CR, XR CHEST 1V, 09/13/2019, 10:07. [facility], CR, XR CHEST 1V, 10/13/2019, 8:37. [facility], CT, PE STUDY (CTA CHEST), 11/30/2011, 22:01. FINDINGS: Image quality: Excellent. Pulmonary arteries: Pulmonary arteries are normal in size, and demonstrate no intraluminal filling defects to suggest central pulmonary embolism. Lungs and pleura: Lungs are minimally abnormal with a slight degree of interstitial prominence as seen on prior chest plain film imaging, and there also is a finding of bilateral small to moderate water density pleural effusions measuring up to 3.5 cm in maximal thickness bilaterally. No pneumothorax. Central and peripheral airways are patent. Note is made of a subsolid 1.1 cm peripheral radiodensity at the right apex, not previously present and also a similar focal radiodensity at the right upper lobe laterally, axial level corresponding to that of the xochitl, measuring up to 1.1 cm. Mediastinum: Heart size is normal, with only a very small pericardial effusion. No mediastinal or hilar adenopathy. Thoracic aorta is normal in caliber and enhancement. Note is made of a supernumerary pulmonary vein bilaterally, tracking to intersect the superior border of each superior pulmonary vein (point of intersection series 4 image 62 on the right and series 4 image 64 on the left). No cardiac chamber, hilar, or mediastinal arteriovenous shunt is suspected. Esophagus is normal in caliber, without hiatal hernia. Bones and chest wall: No suspicious bony lesions. Ribs and thoracic spine appear intact throughout. Thyroid gland appears normal. No axillary or supraclavicular adenopathy. Abdomen: Visualized upper abdominal solid organs appear normal in the early arterial phase of enhancement. IMPRESSION: 1. There is an unexpected finding of 2 separate 1.1 cm subsolid focal radiodensities within the right upper lobe, one near the lateral apex and the second more inferiorly. Each of these may simply represent a focus of inflammatory change. Followup in 6 months is recommended by noncontrast CT scanning. 2. The clinical history indicates that a cardiac ablation procedure has been performed, and there is no evidence of arteriovenous shunt at the cardiac chambers, at the mediastinal vessels, or at the hilar vessels bilaterally. 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 3. Mild interstitial prominence, perhaps reflecting of chronic CHF pattern. Bilateral small to moderate pleural effusions, simple in character. Small pericardial effusion. Dictated by: Mello Jones M.D. on 10/13/2019 at 10:41 Approved by: Mello Jones M.D. on 10/13/2019 at 10:54
[2019-10-13 10:39] LABS: B Type Natriuretic Peptide 149 (<100)
--- NOTE | 2019-10-13 19:45 | PC.NURSE ---
Pt's daughter called stating pt was confused and appears short of breath on the phone. I encouraged her to have patient return to ED for further evaluation.
== END 2019-10-13 12:16 | disposition home or self-care (01) ==
PROVIDERS: Emergency Provider Emergency Medicine; PCP Internal Medicine
DX: R53.1 Weakness (principal); R06.09 Other forms of dyspnea; I50.9 Heart failure, unspecified; R00.0 Tachycardia, unspecified
CPT/HCPCS: 36415; 71045; 71275; 80053; 82550; 83690; 83880; 84484; 85025; 85610; 85730; 93005; 99284; 99285; Q9967

== ENCOUNTER → 2019-10-23 08:13 | Outpatient (CLI) | payer MEDICARE, SELFPAY ==
[2019-10-23 09:03] LABS: BUN Creatinine Ratio 20.9 (6-22); Blood Urea Nitrogen 23 mg/dL (9-20); Carbon Dioxide 28 mmol/L (22-32); Chloride 104 mmol/L (98-107); Estimated Glomerular Filt Rate > 60.0 mL/min (>60); Glucose 142 mg/dL (80-110); HEMOLYSIS < 15 (0-50); Potassium 4.6 mmol/L (3.4-5.1); Sodium 139 mmol/L (137-145)
[2019-10-23 09:21] LABS: Calcium 9.6 mg/dL (8.4-10.2)
== END ==
PROVIDERS: PCP Internal Medicine; Referring Provider Internal Medicine Cardiovascular Disease; Visit Provider Internal Medicine Cardiovascular Disease
DX: I50.32 Chronic diastolic (congestive) heart failure (principal)
CPT/HCPCS: 36415; 80048

== ENCOUNTER → 2019-12-29 09:31 | Outpatient (CLI) | payer MEDICARE, SELFPAY ==
[2019-12-29 10:45] LABS: Blood Urea Nitrogen 25 mg/dL (9-20); Calcium 9.9 mg/dL (8.4-10.2); Carbon Dioxide 30 mmol/L (22-32); Chloride 104 mmol/L (98-107); Estimated Glomerular Filt Rate > 60.0 mL/min (>60); Glucose 135 mg/dL (80-110); HEMOLYSIS < 15 (0-50); Potassium 4.4 mmol/L (3.4-5.1); Sodium 138 mmol/L (137-145)
[2019-12-29 10:50] LABS: Hemoglobin A1C% w Est Avg Glu 6.5 % (4.0-6.0)
== END ==
PROVIDERS: PCP Internal Medicine; Referring Provider Internal Medicine; Visit Provider Internal Medicine
DX: E11.311 Type 2 diabetes mellitus with unspecified diabetic retinopathy with macular edema (principal)
CPT/HCPCS: 36415; 80048; 83036

== ENCOUNTER → 2020-02-11 10:12 | Outpatient (CLI) | payer MEDICARE, SELFPAY ==
--- NOTE | 2020-02-12 05:19 | DI.NM.S_ITS ---
DATE OF SERVICE: 02/11/2020 PROCEDURE: Perfusion study. DATE OF STUDY: 02/11/2020. INDICATIONS: Shortness of breath, history of AFIB, hypertension, hyperlipidemia. RADIOPHARMACEUTICAL: 25.5 millicurie technetium-99m Myoview intravenous was injected at stress and 12.5 millicurie technetium-99m Myoview intravenous was injected at rest. This is a one day protocol. CARDIAC STRESS: The patient initially attempted to walk on treadmill. He was started on modified Danny protocol. However, he was not able to exercise. His balance was poor. He started to go down. He was able to walk only for about a minute. Hence, exercise stress test was changed to pharmacological stress test. The patient received intravenous Lexiscan as per protocol. He remained hemodynamically stable. Baseline rhythm was sinus with first-degree AV block. During stress, patient has frequent PACs without any obvious sustained atrial fibrillation or ventricular tachycardia. Nonspecific ST/T changes. No convincing ischemic changes seen. RAW DATA: There is increased subdiaphragmatic activity. Soft shadow seen around the heart as well. GATED STUDY: Resting LV ejection fraction 57 percent and stress LV ejection fraction 61 percent without any obvious wall motion abnormalities. Resting end- diastolic volume 184 mL. TID ratio 1.17, which is within normal limits. Lung heart ratio 0.39 which is within normal limits. MYOCARDIAL PERFUSION SCAN: Stress supine, resting supine and stress prone images were compared to each other. Stress supine and resting supine images revealed moderate-size moderate to severely decreased perfusion of inferior wall and inferior apex which got significantly improved during prone images. However, distal inferior wall defect got partially improved. In addition to that, resting and stress supine images also reveal moderate size moderately decreased perfusion of mid to distal anterior wall extending into the septum as well. During prone images, septal as well as anterior wall defect got significantly improved as well. However, mid anterior wall remained to have mildly decreased perfusion. No significant reversible ischemia. CONCLUSION: 1. No obvious reversible ischemia. 2. There is significant improvement in inferior wall, septal, as well as anterior wall defect on prone images. However, prone images showed persistently decreased perfusion of distal inferior wall and mid anterior wall. There are no wall motion abnormalities on gated study. Normal wall motion goes against the diagnosis of previous transmural myocardial infarction. The patient's weight is 190 pounds. There is a possibility of persistent tissue attenuation artifact. However, one cannot rule out small non transmural myocardial infarction in distal inferior wall and mid anterior wall. 3. The patient had a perfusion study in February 2018, as well as in March 2016, and that time also he had similar perfusion defect. In February 2018 end-diastolic volume was 178 mL. In this study, 184 mL. As far as perfusion scan is concerned overall, this is not a high risk perfusion scan. Clinical correlation is recommended. Delmar Hoff - MANJINDER/rachel/rgioberto doc#: [id number]/job#: [id number] dd: 02/11/2020 17:07:00 dt: 02/12/2020 05:06:00 DICTATING MD/COPIES TO: Flako Dejesus MD COPIES MNE: LANDEN;
== END ==
PROVIDERS: PCP Internal Medicine; Referring Provider Internal Medicine Cardiovascular Disease; Visit Provider Internal Medicine Cardiovascular Disease
DX: R06.02 Shortness of breath (principal); R06.09 Other forms of dyspnea; I48.91 Unspecified atrial fibrillation; I10 Essential (primary) hypertension; E78.5 Hyperlipidemia, unspecified
CPT/HCPCS: 78452; 93017; A9502; J2785

== ENCOUNTER → 2021-01-11 11:30 | Outpatient (CLI) | payer MEDICARE, SELFPAY ==
[2021-01-11 12:28] LABS: Add Manual Diff / Slide Review NO; Basophils Absolute Auto 0 /uL (0-100); Basophils Percent Auto 0.2 % (0-2); Eosinophils Absolute Auto 300 /uL (0-450); Eosinophils Percent Auto 3.9 % (2-4); Hematocrit 40.2 % (41-53); Hemoglobin 13.5 g/dL (13.5-17.5); Lymphocytes Absolute Auto 1700 /uL (1100-4500); Lymphocytes Percent Auto 26.1 % (25-40); Mean Corpuscular HGB Conc 33.5 % (30-36); Mean Corpuscular Hemoglobin 30.9 PG (26-34); Mean Corpuscular Volume 92.1 fL (80-100); Monocytes Absolute Auto 700 /uL (0-900); Monocytes Percent Auto 10.1 % (3-14); Neutrophils Absolute Auto 4000 /uL (1500-7000); Neutrophils Percent Auto 59.7 % (50-75); Platelet Count 141 X10^3/uL (150-400); Red Blood Cell Count 4.36 X10^6/uL (4.5-5.9); Red Cell Distribution Width 13.7 % (11.6-14.8); White Blood Cell Count 6.7 X10^3/uL (4.5-11.0)
[2021-01-11 13:04] LABS: Alanine Aminotransferase 17 IU/L (<50); Albumin 3.9 g/dL (3.5-5.0); Albumin Globulin Ratio 1.5 (1.0-2.8); Alkaline Phosphatase 80 U/L (38-126); Aspartate Aminotransferase 25 IU/L (17-59); BUN Creatinine Ratio 24.8 (6-22); Bilirubin Total 0.2 mg/dL (0.2-1.3); Blood Urea Nitrogen 26 mg/dL (9-20); Calcium 9.7 mg/dL (8.4-10.2); Carbon Dioxide 28 mmol/L (22-32); Chloride 105 mmol/L (98-107); Estimated Glomerular Filt Rate > 60.0 mL/min (>60); Globulin 2.6 g/dL (1.7-4.1); Glucose 128 mg/dL (80-110); HEMOLYSIS < 15 (0-50); Potassium 4.5 mmol/L (3.4-5.1); Sodium 139 mmol/L (137-145); Total Protein 6.5 g/dL (6.3-8.2)
== END ==
PROVIDERS: PCP Internal Medicine; Referring Provider Internal Medicine; Visit Provider Internal Medicine
DX: E11.311 Type 2 diabetes mellitus with unspecified diabetic retinopathy with macular edema (principal); I10 Essential (primary) hypertension; M10.00 Idiopathic gout, unspecified site
CPT/HCPCS: 36415; 80053; 85025

== ENCOUNTER → 2021-02-10 12:19 | Outpatient (CLI) | payer MEDICARE, SELFPAY ==
[2021-02-10 14:34] LABS: Add Manual Diff / Slide Review NO; Basophils Absolute Auto 0 /uL (0-100); Basophils Percent Auto 0.2 % (0-2); Eosinophils Absolute Auto 200 /uL (0-450); Eosinophils Percent Auto 2.8 % (2-4); Hematocrit 41.4 % (41-53); Lymphocytes Absolute Auto 2100 /uL (1100-4500); Lymphocytes Percent Auto 25.1 % (25-40); Mean Corpuscular HGB Conc 33.8 % (30-36); Mean Corpuscular Hemoglobin 31.3 PG (26-34); Mean Corpuscular Volume 92.6 fL (80-100); Monocytes Absolute Auto 800 /uL (0-900); Monocytes Percent Auto 8.9 % (3-14); Neutrophils Absolute Auto 5300 /uL (1500-7000); Platelet Count 141 X10^3/uL (150-400); Red Blood Cell Count 4.47 X10^6/uL (4.5-5.9); Red Cell Distribution Width 14.3 % (11.6-14.8); White Blood Cell Count 8.4 X10^3/uL (4.5-11.0)
[2021-02-10 14:49] LABS: BUN Creatinine Ratio 25.5 (6-22); Blood Urea Nitrogen 26 mg/dL (9-20); Calcium 9.8 mg/dL (8.4-10.2); Carbon Dioxide 26 mmol/L (22-32); Chloride 108 mmol/L (98-107); Estimated Glomerular Filt Rate > 60.0 mL/min (>60); Glucose 92 mg/dL (80-110); HEMOLYSIS < 15 (0-50); Potassium 5.1 mmol/L (3.4-5.1); Sodium 139 mmol/L (137-145)
== END ==
PROVIDERS: PCP Internal Medicine; Referring Provider Internal Medicine Cardiovascular Disease; Visit Provider Internal Medicine Cardiovascular Disease
DX: I50.32 Chronic diastolic (congestive) heart failure (principal)
CPT/HCPCS: 36415; 80048; 85025

== ENCOUNTER 2021-03-09 19:51 | Inpatient (IN) | payer MEDICARE, SELFPAY ==
[2021-03-09 19:54] VITALS: BP 136/92; PULSE 88; RESP 20; TEMP 37.2; O2SAT 99
--- NOTE | 2021-03-09 21:31 | DI.CT.S_ITS ---
PROCEDURE: CT STROKE INDICATIONS: altered mental status, gait instability, word finding diffic TECHNIQUE: Noncontrast 4.5 mm thick angled axial sections acquired from the foramen magnum to the vertex, with coronal reformats. For radiation dose reduction, the following was used: automated exposure control, adjustment of mA and/or kV according to patient size. COMPARISON: [facility], MR, BRAIN WITHOUT CONTRAST, 05/06/2014, 11:53. FINDINGS: Image quality: Excellent. CSF spaces: Basal cisterns are patent. No extra-axial fluid collections. Lateral ventricles are prominent size, similar to 2013. Brain: No midline shift. No intracranial masses or hemorrhage. No area of hypodensity in a large vascular distribution to suggest acute infarction. Periventricular hypodensity consistent with chronic microvascular ischemic change. Age-related parenchymal loss. Skull and face: Calvarium and visualized facial bones are intact, without suspicious lesions. Sinuses: Mucosal thickening in the left maxillary sinus. Mastoids are clear. IMPRESSION: No acute intracranial abnormality. Comment: Findings were discussed with Carey Ruiz at 9:56 p.m. This study fulfills neurological imaging criteria for inclusion or exclusion of acute stroke therapies based on available published neurological imaging guidelines. Dictated by: Lenin Jain M.D. on 03/09/2021 at 21:55 Approved by: Lenin Jain M.D. on 03/09/2021 at 21:59
--- NOTE | 2021-03-09 21:31 | ED.AMS ---
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 This gentleman lives with his who notes that this morning he seems like his gait was less steady and he was perhaps having some mild dysphagia and word-finding difficulties. The 2 of them thought that he may have been having a stroke so they helped him back into bed where he slept a couple more hours this morning. Between he and his they report no fevers, cough, chills he does no chronic palpitations that are not painful or troublesome, no dyspnea or orthopnea. Apparently his son who lives in [place] called him this afternoon and was concerned enough about his cognitive state that he called 911. Patient and his were surprised when medics showed up but were amenable to coming to the hospital for further evaluation. Related Data Home Medications Medication Instructions Recorded Confirmed allopurinol 300 mg PO BEDTIME 09/13/19 10/13/19 apixaban [Eliquis] 5 mg PO BID 09/13/19 10/13/19 carvedilol 12.5 mg PO BID 09/13/19 10/13/19 lisinopril 40 mg PO BEDTIME 09/13/19 10/13/19 tamsulosin 0.4 mg PO BEDTIME 09/13/19 10/13/19 Allergies Allergy/AdvReac Type Severity Reaction Status Date / Time Sulfa (Sulfonamide AdvReac Mild EXACERBATES Verified 09/13/19 10:33 Antibiotics) GOUT [SULFA (SULFONAMIDE ANTIBIOTICS)] STATINS AdvReac Mild CAUSE PAIN Uncoded 12/26/17 11:59 IN LEGS - ELEC. SHOCK Review of Systems Review of Systems Narrative: Remainder of complete review of systems is otherwise unremarkable except for that included in the HPI. Patient History Medical History Atrial fibrillation and flutter Hyperlipidemia Hypertension Social History household members: spouse Smoking Status: Never smoker alcohol intake: current Smoking Status: Never smoker Substance Use Type: does not use Exam Narrative Exam Narrative: General: Healthy appearing, in no acute distress. Disheveled and unable to stay focused with conversation and questions HEENT: Moist mucous membranes, normal sclera with reactive pupils, extraocular eye movement is intact. No facial droop appreciated Neck: No JVD, supple Respiratory: Lungs are clear to auscultation, no wheezing no rales no rhonchi. Full and symmetrical air movement Cardiac: Iregular rate and rhythm no murmurs no bruits Abdomen: Soft, nontender, good bowel tones, no flank pain Skin: Warm and dry, no rashes Neurologic: Mild word-finding difficulties very minimal dysarthria, wide-based gait somewhat unstable however no gross weakness appreciated in upper lower extremities. NIH score equals 2. Extremities: No trauma, well perfused Psych: confused, tangential, perseverating, poor insight overall Initial Vital Signs Initial Vital Signs: Vital Signs Temperature 99.0 F 03/09/21 19:54 Pulse Rate 88 03/09/21 19:54 Respiratory Rate 20 03/09/21 19:54 Blood Pressure 136/92 H 03/09/21 19:54 Pulse Oximetry 99 03/09/21 19:54 Course Orders Ordered: ED Orders 03/09/21 20:00 Complete Blood Count AUTO DIFF Stat Comprehensive Metabolic Panel Stat Troponin & CK Cardiac Panel Stat 03/09/21 21:31 CT Stroke Stat Urine Drug Screen, Rapid Stat EKG-12 Lead Stat 03/09/21 21:47 COVID19 - ADMIT (RUG LAYER swab/PCR) Stat 03/10/21 01:45 Urinalysis and Microscopic Stat Acetaminophen (Acetaminophen 325 Mg Tablet) 650 mg PO Q6HR PRN PRN Reason: Fever/Mild Pain (1-3) Apixaban (Apixaban 5 Mg Tablet) 5 mg PO BID [facility] Aspirin (Aspirin Ec 81 Mg Tablet) 81 mg PO DAILY I[facility] Atorvastatin Calcium (Atorvastatin 20 Mg Tablet) 80 mg PO BEDTIME I[facility]EL Carvedilol (Carvedilol 12.5 Mg Tablet) 12.5 mg PO BID I[facility]ABEL Sodium Chloride (Normal Saline 0.9%) 1,000 mls @ 150 mls/hr IV CONT IZABEL Last Infusion: 03/10/21 01:34 Dose: 150 mls/hr Documented by: Admin: 03/09/21 21:43 Dose: 150 mls/hr Documented by: CHATA Lisinopril (Lisinopril 20 Mg Tablet) 40 mg PO BEDTIME I[facility]ABEL Naloxone HCl (Naloxone 0.4 Mg/Ml Vial) 0.2 mg IV Q2MIN PRN PRN Reason: Opiate Reversal Ondansetron HCl (Ondansetron 4 Mg/2 Ml Inj) 4 mg IV Q8HR PRN PRN Reason: Nausea And Vomiting Tamsulosin HCl (Tamsulosin 0.4 Mg Capsule) 0.4 mg PO BEDTIME IZABEL Discontinued Medications Non-Formulary Medication (Carvedilol) 12.5 mg PO BID [facility] Ondansetron HCl (Ondansetron 4 Mg/2 Ml Inj) 4 mg IV NOW ONE Stop: 03/09/21 21:38 Last Admin: 03/09/21 21:43 Dose: 4 mg Documented by: CHATA Vital Signs Vital signs: Vital Signs - 8 hr 03/09/21 19:54 03/09/21 21:51 03/09/21 22:00 Temperature 99.0 F Pulse Rate 88 72 69 Respiratory Rate 20 25 H 21 Blood Pressure 136/92 H Pulse Oximetry 99 99 98 03/09/21 22:30 03/09/21 23:00 03/09/21 23:30 Temperature Pulse Rate 70 66 60 Respiratory Rate 12 15 20 Blood Pressure Pulse Oximetry 92 97 93 03/10/21 00:09 Temperature Pulse Rate Respiratory Rate Blood Pressure 143/66 H Pulse Oximetry MDM - Altered Mental Status Medical Records Attestation: I reviewed the patient's medical records. Lab Data Attestation: I reviewed the patient's lab results. Result diagrams: 03/10/21 02:55 03/09/21 20:00 Labs: Lab Results 03/09/21 03/09/21 03/09/21 Range/Units 20:00 20:00 20:00 WBC 10.1 (4.5-11.0) X10^3/uL RBC 4.62 (4.5-5.9) X10^6/uL Hgb 14.3 (13.5-17.5) g/dL Hct 42.7 (41-53) % MCV 92.3 (80-100) fL MCH 31.0 (26-34) PG MCHC 33.6 (30-36) % RDW 13.9 (11.6-14.8) % Plt Count 142 L (150-400) X10^3/uL Neut % (Auto) 80.5 H (50-75) % Lymph % (Auto) 13.3 L (25-40) % [place] % (Auto) 5.7 (3-14) % Eos % (Auto) 0.3 L (2-4) % Baso % (Auto) 0.2 (0-2) % Neut # (Auto) 8200 H (1484-6744) /uL Lymph # (Auto) 1300 (2383-6355) /uL [place] # (Auto) 600 (0-900) /uL Eos # (Auto) 0 (0-450) /uL Baso # (Auto) 0 (0-100) /uL Sodium 138 (137-145) mmol/L Potassium 4.4 (3.4-5.1) mmol/L Chloride 109 H (98-107) mmol/L Carbon Dioxide 22 (22-32) mmol/L BUN 19 (9-20) mg/dL Creatinine 0.82 (0.66-1.25) mg/dL Estimated GFR > 60.0 (>60) mL/min BUN/Creatinine Ratio 23.2 H (6-22) Glucose 159 H (80-110) mg/dL Calcium 9.7 (8.4-10.2) mg/dL Total Bilirubin 1.2 (0.2-1.3) mg/dL AST 70 H (17-59) IU/L ALT 44 (<50) IU/L Alkaline Phosphatase 75 (38-126) U/L Total Creatine Kinase 895 H (55-170) U/L CK-MB (CK-2) 15.40 H (<2.37) ng/mL CK-MB (CK-2) Rel Index 1.7 (1.5-5.0) % Troponin I 0.090 H (0.01-0.034) ng/mL Total Protein 6.8 (6.3-8.2) g/dL Albumin 4.1 (3.5-5.0) g/dL Globulin 2.7 (1.7-4.1) g/dL Albumin/Globulin Ratio 1.5 (1.0-2.8) Ethyl Alcohol < 10 ( - 10) mg/dL SARS-CoV-2 (PCR) (Negative) 03/09/21 Range/Units 21:47 WBC (4.5-11.0) X10^3/uL RBC (4.5-5.9) X10^6/uL Hgb (13.5-17.5) g/dL Hct (41-53) % MCV (80-100) fL MCH (26-34) PG MCHC (30-36) % RDW (11.6-14.8) % Plt Count (150-400) X10^3/uL Neut % (Auto) (50-75) % Lymph % (Auto) (25-40) % [place] % (Auto) (3-14) % Eos % (Auto) (2-4) % Baso % (Auto) (0-2) % Neut # (Auto) (8939-3256) /uL Lymph # (Auto) (5848-8979) /uL [place] # (Auto) (0-900) /uL Eos # (Auto) (0-450) /uL Baso # (Auto) (0-100) /uL Sodium (137-145) mmol/L Potassium (3.4-5.1) mmol/L Chloride (98-107) mmol/L Carbon Dioxide (22-32) mmol/L BUN (9-20) mg/dL Creatinine (0.66-1.25) mg/dL Estimated GFR (>60) mL/min BUN/Creatinine Ratio (6-22) Glucose (80-110) mg/dL Calcium (8.4-10.2) mg/dL Total Bilirubin (0.2-1.3) mg/dL AST (17-59) IU/L ALT (<50) IU/L Alkaline Phosphatase (38-126) U/L Total Creatine Kinase (55-170) U/L CK-MB (CK-2) (<2.37) ng/mL CK-MB (CK-2) Rel Index (1.5-5.0) % Troponin I (0.01-0.034) ng/mL Total Protein (6.3-8.2) g/dL Albumin (3.5-5.0) g/dL Globulin (1.7-4.1) g/dL Albumin/Globulin Ratio (1.0-2.8) Ethyl Alcohol ( - 10) mg/dL SARS-CoV-2 (PCR) Negative (Negative) Imaging Data CT scan - head: Radiologist's Impression: FINDINGS: Image quality: Excellent. CSF spaces: Basal cisterns are patent. No extra-axial fluid collections. Lateral ventricles are prominent size, similar to 2014. Brain: No midline shift. No intracranial masses or hemorrhage. No area of hypodensity in a large vascular distribution to suggest acute infarction. Periventricular hypodensity consistent with chronic microvascular ischemic change. Age-related parenchymal loss. Skull and face: Calvarium and visualized facial bones are intact, without suspicious lesions. Sinuses: Mucosal thickening in the left maxillary sinus. Mastoids are clear. IMPRESSION: No acute intracranial abnormality. Comment: Findings were discussed with Carey Ruiz at 9:56 p.m. This study fulfills neurological imaging criteria for inclusion or exclusion of acute stroke therapies based on available published neurological imaging guidelines. Dictated by: Lenin Jain M.D. on 03/09/2021 at 21:55 ECG Data Attestation: I personally reviewed and interpreted this ECG as follows: Interpretation: Atrial fibrillation at a rate of 77 Interventricular conduction delay Normal axis No acute ischemic changes MDM Narrative Medical decision making narrative: 80-year-old gentleman with altered mental status, gait instability, mild word-finding difficulties and mild dysarthria. He and his seem to agree that it probably got worse this morning but neither of them are definitive regarding this. His son noted that he was clearly different this afternoon and son initiated a [address] does not show masses, edema or intracranial hemorrhage. No suggestion of sepsis or acute infection. 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 Because the diagnosis is unclear and timing is 12-18 hours prior to arrival, he is not a tPA candidate He will be admitted to the medicine service for further evaluation and anticipation of MRI scanning tomorrow. Discharge Plan Departure Patient Disposition: Admitted As Inpatient Clinical Impression: Acute alteration in mental status, Anticoagulated Stroke Qualifiers: CVA mechanism: unspecified Qualified Code(s): I63.9 - Cerebral infarction, unspecified Atrial fibrillation Qualifiers: Atrial fibrillation type: longstanding persistent Qualified Code(s): I48.11 - Longstanding persistent atrial fibrillation Admit Date/Time: 03/10/21 00:13 Admit Provider: Joana Roland
[2021-03-09] MEDS: SODIUM CHLORIDE 0.9% 1,000 ML 150 ML IV (21:43)
[2021-03-09] MEDS: ONDANSETRON 4 MG/2 ML INJ IV (21:43)
[2021-03-09 21:51] VITALS: PULSE 72; RESP 25; O2SAT 99
[2021-03-09 22:00] VITALS: PULSE 69; RESP 21; O2SAT 98
[2021-03-09 22:21] LABS: Add Manual Diff / Slide Review NO; Basophils Absolute Auto 0 /uL (0-100); Basophils Percent Auto 0.2 % (0-2); Eosinophils Absolute Auto 0 /uL (0-450); Eosinophils Percent Auto 0.3 % (2-4); Hematocrit 42.7 % (41-53); Hemoglobin 14.3 g/dL (13.5-17.5); Lymphocytes Absolute Auto 1300 /uL (1100-4500); Lymphocytes Percent Auto 13.3 % (25-40); Mean Corpuscular HGB Conc 33.6 % (30-36); Mean Corpuscular Volume 92.3 fL (80-100); Monocytes Absolute Auto 600 /uL (0-900); Monocytes Percent Auto 5.7 % (3-14); Neutrophils Absolute Auto 8200 /uL (1500-7000); Neutrophils Percent Auto 80.5 % (50-75); Platelet Count 142 X10^3/uL (150-400); Red Blood Cell Count 4.62 X10^6/uL (4.5-5.9); Red Cell Distribution Width 13.9 % (11.6-14.8); White Blood Cell Count 10.1 X10^3/uL (4.5-11.0)
[2021-03-09 22:30] VITALS: PULSE 70; RESP 12; O2SAT 92
[2021-03-09 22:55] LABS: COVID19 - ADMIT (NP swab/PCR) Negative (Negative)
[2021-03-09 23:00] VITALS: PULSE 66; RESP 15; O2SAT 97
[2021-03-09 23:20] LABS: Alanine Aminotransferase 44 IU/L (<50); Albumin 4.1 g/dL (3.5-5.0); Albumin Globulin Ratio 1.5 (1.0-2.8); Alkaline Phosphatase 75 U/L (38-126); BUN Creatinine Ratio 23.2 (6-22); Bilirubin Total 1.2 mg/dL (0.2-1.3); Blood Urea Nitrogen 19 mg/dL (9-20); Calcium 9.7 mg/dL (8.4-10.2); Carbon Dioxide 22 mmol/L (22-32); Chloride 109 mmol/L (98-107); Creatine Kinase 895 U/L (55-170); Estimated Glomerular Filt Rate > 60.0 mL/min (>60); Globulin 2.7 g/dL (1.7-4.1); Glucose 159 mg/dL (80-110); HEMOLYSIS 102 (0-50); Sodium 138 mmol/L (137-145); Total Protein 6.8 g/dL (6.3-8.2)
[2021-03-09 23:21] LABS: Aspartate Aminotransferase 70 IU/L (17-59)
[2021-03-09 23:22] LABS: Potassium 4.4 mmol/L (3.4-5.1)
[2021-03-09 23:30] VITALS: PULSE 60; RESP 20; O2SAT 93
[2021-03-09 23:35] LABS: CKMB % Relative Index 1.7 % (1.5-5.0)
[2021-03-10] VITALS (9 sets, daily range): BP systolic 129–154; BP diastolic 56–68; PULSE 48–68; RESP 16–20; TEMP 36.4–36.9; O2SAT 94–97; BMI 26.1
--- NOTE | 2021-03-10 02:17 | DI.MRI.S_ITS ---
PROCEDURE: MR STROKE Pre- and post-contrast brain MRI, non-contrast brain MR angiogram, pre- and postcontrast neck MR angiogram INDICATIONS: Mental status changes, word finding TECHNIQUE: Brain: Noncontrast axial T1 spin echo, axial T2 fast spin echo, sagittal and axial FLAIR, coronal T2 fast spin echo, axial gradient echo, axial diffusion and ADC through the brain. After the administration of contrast, axial 3D VIBE of the cranial vasculature and brain. Brain MRA: Non-contrast 3-D time of flight MR angiogram, with multiple izfhhnb-jwkhkvrds-ibqhsqrzxr (MIP) reformats performed. Neck MRA: Axial and sagittal TruFISP through the neck. Coronal dynamic MR angiogram during administration of contrast in the arterial and venous phases, with 3-dimenstional xwdcqzp-apweonqnx-yrowngaqyn (MIP) reformats constructed from subtraction images. COMPARISON: MR, BRAIN WITH AND WITHOUT CONTRAS, 04/17/2011, 6:52. [facility], MR, BRAIN WITHOUT CONTRAST, 05/06/2014, 11:53. [facility], CT, CT STROKE, 03/09/2021, 21:40. FINDINGS: Image quality: Excellent. BRAIN: CSF spaces: Ventricles are normal in size and shape. Basal cisterns are patent. No extra-axial fluid collections. Brain: No intracranial bleeds or mass effects. Rios-white matter interface is normal. Diffusion weighted images show no acute ischemic insults. Brainstem appears normal. Normal intravascular flow voids are present. No abnormal intracranial enhancement. Skull and face: Calvarial marrow signal is normal. Orbits appear normal. Sinuses: Mild mucosal thickening noted in the left maxillary sinus. The mastoids are clear. BRAIN MR ANGIOGRAM: Anterior circulation: Intracranial internal carotid arteries are normal in size and enhancement. The flow within the paired anterior cerebral arteries is normal and symmetric. The flow within the middle cerebral arteries is normal and symmetric. The anterior communicating artery is seen. No stenoses, occlusions, or aneurysms. Posterior circulation: The visualized portions of the vertebral arteries demonstrate normal caliber, and join to form a normal appearing basilar artery. The flow within the posterior cerebral arteries is normal and symmetric. No stenoses, occlusions, or aneurysms. NECK MR ANGIOGRAM: Carotids: Great vessels demonstrate a conventional anatomy as they arise from the aortic arch. The origins of the common carotid arteries appear patent. The calibers and courses of both common carotid arteries are normal. The bifurcation regions appear normal bilaterally. The internal carotid arteries demonstrate normal course and caliber. Posterior circulation: The origins of the vertebral arteries appear patent. More superior portions of both vertebral arteries demonstrate normal course and caliber, and join to form a normal appearing basilar artery. Miscellaneous: Subclavian arteries appear patent. Pre-contrast images through the neck show no soft tissue abnormalities. IMPRESSION: BRAIN MRI: 1. No acute intracranial disease process. 2. No areas of acute or chronic infarction. 3. No abnormal intracranial mass or mass effect. 4. No suspicious postcontrast enhancement. 5. Mild, diffuse cerebral volume loss. 6. Mild periventricular and subcortical white matter chronic microvascular ischemic changes. BRAIN MR ANGIOGRAM: Negative examination. NECK MR ANGIOGRAM: Negative examination. Dictated by: Adeline Norwood MD, PhD on 03/10/2021 at 8:14 Approved by: Adeline Norwood MD, PhD on 03/10/2021 at 8:22
[2021-03-10 02:19] LABS: UR Morphine/Opiate cutoff 300 Positive (Negative); Ur Creatinine 20 (Normal); Ur Specific Gravity 1.025 (Normal); Urine Amphetamines Negative (Negative); Urine Barbiturates Negative (Negative); Urine Benzodiazepines Negative (Negative); Urine Cocaine Negative (Negative); Urine MDMA Negative (Negative); Urine Methamphetamines Negative (Negative); Urine Phencyclidine Negative (Negative); Urine Tetrahydrocannabinol Negative (Negative); Urine pH 5 (Normal)
[2021-03-10 02:20] LABS: Urine Methadone Negative (Negative); Urine Oxycodone Positive (Negative); Urine Tricyclic Antidepressant Negative (Negative)
[2021-03-10 02:23] LABS: Bacteria Urine None Seen; WBC Urine None Seen (0-5/HPF)
[2021-03-10 02:25] LABS: Appearance Urine UA CLEAR; Bilirubin Urine UA NEGATIVE (NEGATIVE); Color Urine UA YELLOW; Glucose Urine UA NEGATIVE (Negative); Ketones Urine UA TRACE (NEGATIVE); Leukocyte Esterase Urine UA NEGATIVE (NEGATIVE); Nitrite Urine UA NEGATIVE (Negative); Occult Blood Urine UA 2+ (Negative); Protein Urine UA 2+ (Negative); Specific Gravity Urine UA 1.025 (1.000-1.035); Urobilinogen Urine UA 0.2 E.U./dL (0.2); pH Urine UA 5.5 (4.5-8.0)
[2021-03-10 02:40] LABS: Culture Indicated Urine Cult Not Indicated; Mucus Urine 1+ (Negative); RBC Urine 1-5/HPF (0-5/HPF)
[2021-03-10 02:48] LABS: Ethanol (ETOH) < 10 mg/dL
--- NOTE | 2021-03-10 02:55 | P.HP_ITS ---
History of Present Illness History of Present Illness Date Patient Seen: 03/10/21 Time Patient Seen: 01:00 Chief complaint: Confusion Narrative: Delmar Hoff is an 80-year-old male with a history of cardiac ablation and anticoagulated on apixaban was apparently brought to the emergency department at the request of a friend of his named Nicolas due to what appears to be approximately 2-day-old history of acute mental status changes. Patient is unable to give me history, he has a very tangential speech pattern and perseverates on events that have happened years ago. 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 Per the emergency room provider the patient appeared to be quite confused and was having difficulty word finding. After discussing the patient's case with Lily Hoff his daughter and Andrew Hoff his son, the patient has had word-finding difficulties for the past year or so. They state that his tangential speech pattern has been ongoing for many years and is a source of annoyance to the family. Per his son who speaks to the patient almost daily, the patient was discussing plans to visit the son and his family in the [facility] area and appeared to be very confused on the day of admission. The patient was asking him who he was, who himself was, where he was. Patient per son continues to drive during the day but would of taken a local airport her shuttle to [facility] and then flown to [place] and this is been a trip the patient is made without any issues in the past. Per the emergency room provider, the , Jennifer was present and she was not noted to be fully coherent either. The emergency room provider felt that she was not a very reliable historian. Per his son Andrew when he was on the phone with him yesterday he stated that the patient sounded like he was drugged. He then called back a few minutes later and the patient still continued to be confused and disoriented and did not appear to improve until after he was in the emergency department for several hours. The son states that he believes that the patient's has severe pain issues and is very depressed. Prior to the paramedics arriving at the patient's house, the patient contacted the local police department and told them that they had authorization to enter the house forcibly if necessary to reach his father. The son is very concerned about the 's significant depression and pain issues and when informed that the patient had had a positive toxicology screen for oxycodone the son stated that the patient was very well aware of pain medications, did not take them, and wondered if the might have given him 1 of her medications. During the time I was discussing his changes with his daughter and son, the patient admitted to his nurse that he had oxycodone left over from a prior surgery and had taken the whole bottle in a suicide attempt. I went into see the patient and he informed me that he had been wanting to do this for over 40 years. He states that he had leftover medications from prior surgery of which he never took any of them postoperatively. He states he does not know the amount but he took the whole bottle. States he dissolve thumb in water and drink the water. States when he was woken up by his he was wondering why he was still alive. He cannot guarantee a safe plan. He asked that the nurse and I not share this with anyone else. The patient does endorse having memory issues that seem to have been going on for a long time. He also is hard of hearing of which his right side is is better year, he has a left-sided visual defect and is having issues with his right sided vision. He did state that he had an eaten or drank fluids for the last 2 days. I was not able to obtain any more information for review of systems from him or current symptoms. Head CT in the emergency department did not indicate any acute changes. The patient was afebrile, blood pressure 147/63, heart rate 68, respiratory rate 16, oxygen saturation 96% on room air, he weighs 88.5 kg with a BMI of 26.1. Of concern is rising troponin of 0.090 on admission, 6 hour troponin is 0.154. WBC is 9.9, RBC 4.38, hemoglobin 13.4, hematocrit 39.8, platelet count is a 127, chemistries are unremarkable with exception of a mildly elevated glucose at 1:21 a.m., his hemoglobin A1c is 5.9, magnesium 2.0, AST 70, CK-MB is 15.4, lipid panel largely within normal limits with the exception of a total cholesterol of 124, and a low HDL of 37, UA is negative for a UTI, he was positive for oxycodone in his urine despite not being prescribed this medication nor being administered this medication in the ED, and COVID 19 PCR is negative. Per the patient's son, he does not see his internal medicine provider as ?the patient hates his doctor?. The patient does see Dr. Harp technical producer. Patient History Medical History Atrial fibrillation and flutter Hyperlipidemia Hypertension Surgical History H/O cervical spine surgery Family & Social History Family History Mother Colon cancer Father Unknown family medical history Social History: household members spouse Prior Living Arrangements House Safety & Behavioral: Feels Safe in Current Yes Environment Been Physically Hurt or No Threatened By a Person Suicidal Ideation Description None Suicide Plan Description No Plan Tobacco & Substance use: Smoking Status Never smoker alcohol intake current alcohol intake frequency holiday/special occasion Substance Use Type does not use Meds Home Medications and Allergies Home Medications Medication Instructions Recorded Confirmed Type allopurinol 300 mg PO BEDTIME 09/13/19 03/10/21 History apixaban [Eliquis] 5 mg PO BID 09/13/19 03/10/21 History carvedilol 12.5 mg PO BID 09/13/19 03/10/21 History lisinopril 40 mg PO BEDTIME 09/13/19 03/10/21 History tamsulosin 0.4 mg PO BEDTIME 09/13/19 03/10/21 History furosemide 20 mg PO DAILY 03/10/21 03/10/21 History Allergies Allergy/AdvReac Type Severity Reaction Status Date / Time Sulfa (Sulfonamide AdvReac Mild EXACERBATES Verified 09/13/19 10:33 Antibiotics) GOUT [SULFA (SULFONAMIDE ANTIBIOTICS)] STATINS AdvReac Mild CAUSE PAIN Uncoded 12/26/17 11:59 IN LEGS - ELEC. SHOCK Review of Systems Review of Systems ROS: Yes All systems reviewed with the patient and are negative except as otherwise documented Exam Vital Signs (past 8 hours): - 03/09/21 19:54 03/09/21 21:51 03/09/21 22:00 Temperature 99.0 F Pulse Rate 88 72 69 Respiratory Rate 20 25 H 21 Blood Pressure 136/92 H Pulse Oximetry 99 99 98 03/09/21 22:30 03/09/21 23:00 03/09/21 23:30 Temperature Pulse Rate 70 66 60 Respiratory Rate 12 15 20 Blood Pressure Pulse Oximetry 92 97 93 03/10/21 00:09 Temperature Pulse Rate Respiratory Rate Blood Pressure 143/66 H Pulse Oximetry Oxygen Delivery Method Room Air Narrative Exam Narrative: Gen: Alert, oriented, well-developed 80 y.o. male, appeared to be mildly confused HEENT: normocephalic, atraumatic, conjunctiva clear, sclera non-icteric, oral mucosa pink and moist Neck: supple, full ROM, no JVD, trachea is midline Resp: Lungs CTA, non-labored breathing CV: RRR, no murmur or rubs Abd: soft, non-tender, normoactive BTs Skin: no lesions or rashes, dry and intact Neuro: Alert and oriented X 4 w/no focal deficits. Speech clear and coherent. Extremities: moves all 4 extremities, is ambulatory, negative Perez?s sign Psyche: Tangential speech pattern, easy to redirect but does not stay on point, currently with suicidal ideation. Objective Labs Result Diagrams: 03/10/21 02:55 03/10/21 02:55 Labs: Laboratory Results - last 24 hr 03/09/21 03/09/21 03/09/21 20:00 20:00 20:00 WBC 10.1 RBC 4.62 Hgb 14.3 Hct 42.7 MCV 92.3 MCH 31.0 MCHC 33.6 RDW 13.9 Plt Count 142 L Neut % (Auto) 80.5 H Lymph % (Auto) 13.3 L Lipscomb % (Auto) 5.7 Eos % (Auto) 0.3 L Baso % (Auto) 0.2 Neut # (Auto) 8200 H Lymph # (Auto) 1300 Lipscomb # (Auto) 600 Eos # (Auto) 0 Baso # (Auto) 0 Sodium 138 Potassium 4.4 Chloride 109 H Carbon Dioxide 22 BUN 19 Creatinine 0.82 Estimated GFR > 60.0 BUN/Creatinine Ratio 23.2 H Glucose 159 H Calcium 9.7 Total Bilirubin 1.2 AST 70 H ALT 44 Alkaline Phosphatase 75 Total Creatine Kinase 895 H CK-MB (CK-2) 15.40 H CK-MB (CK-2) Rel Index 1.7 Troponin I 0.090 H Total Protein 6.8 Albumin 4.1 Globulin 2.7 Albumin/Globulin Ratio 1.5 Urine Color Urine Appearance Urine pH Ur Specific [place] Urine Protein Urine Glucose (UA) Urine Ketones Urine Occult Blood Urine Nitrate Urine Bilirubin Urine Urobilinogen Ur Leukocyte Esterase Urine RBC Urine WBC Urine Bacteria Urine Mucus Ur Culture Indicated? U Opiates 300ng/mL cut Ur Oxycodone Screen Urine Methadone Screen Ur Barbiturates Screen U Tricyclic Antidepress Ur Phencyclidine Scrn Ur Amphetamines Screen U Methamphetamines Scrn Ur MDMA Scrn (Ecstasy) U Benzodiazepines Scrn Urine Cocaine Screen U Marijuana (THC) Screen Ethyl Alcohol < 10 SARS-CoV-2 (PCR) 03/09/21 03/10/21 03/10/21 21:47 01:45 01:45 WBC RBC Hgb Hct MCV MCH MCHC RDW Plt Count Neut % (Auto) Lymph % (Auto) Lipscomb % (Auto) Eos % (Auto) Baso % (Auto) Neut # (Auto) Lymph # (Auto) Lipscomb # (Auto) Eos # (Auto) Baso # (Auto) Sodium Potassium Chloride Carbon Dioxide BUN Creatinine Estimated GFR BUN/Creatinine Ratio Glucose Calcium Total Bilirubin AST ALT Alkaline Phosphatase Total Creatine Kinase CK-MB (CK-2) CK-MB (CK-2) Rel Index Troponin I Total Protein Albumin Globulin Albumin/Globulin Ratio Urine Color Yellow Urine Appearance Clear Urine pH 5.5 Ur Specific [place] 1.025 Urine Protein 2+ H Urine Glucose (UA) Negative Urine Ketones Trace H Urine Occult Blood 2+ H Urine Nitrate Negative Urine Bilirubin Negative Urine Urobilinogen 0.2 Ur Leukocyte Esterase Negative Urine RBC 1-5/hpf Urine WBC None seen Urine Bacteria None seen Urine Mucus 1+ H Ur Culture Indicated? Cult not indicated U Opiates 300ng/mL cut Positive H Ur Oxycodone Screen Positive H Urine Methadone Screen Negative Ur Barbiturates Screen Negative U Tricyclic Antidepress Negative Ur Phencyclidine Scrn Negative Ur Amphetamines Screen Negative U Methamphetamines Scrn Negative Ur MDMA Scrn (Ecstasy) Negative U Benzodiazepines Scrn Negative Urine Cocaine Screen Negative U Marijuana (THC) Screen Negative Ethyl Alcohol SARS-CoV-2 (PCR) Negative Assessment & Plan Assessment & Plan narrative: Delmar Hoff is an 80-year-old male with a history of atrial fibrillation previously ablated and anticoagulated on apixaban, hypertension, and hypercholesterolemia is admitted to the inpatient service for what was initially thought to be a CVA and now is likely to be due to an unsuccessful suicide attempt. 1. Suicide attempt, acute, admitted admission interview * Presence of opioids on toxicology screen, not prescribed or administered in the ED * Patient will be moved to an ICU room as I believe there is a shortage of one-to-one sitters * Have placed consult request to Dr. murrieta and to social work * Family will need to be informed of this development as the son is concerned that the might have given him the medication. 1. CVA ruleout, acute, present on admission * Cardiac telemetry * NIH score greater than 5 no * NIH scoring and neuro checks q 4 hours * Dual antiplatelet therapy: No currently anticoagulated w/apixaban * MR stroke scheduled for 03/10 * Complete Echo with bubble study for 03/10 * PT/OT/ST evaluation Hypertension, acute with an admission bp of [], present on admission * Allow for permissive hypertension of 220/110 HR 60 to allow for brain perfusion HLD * Lipid panel indicates low HDL and borderline high total cholesterol * He has an intolerance to statins, so may consider Zetia Risk stratification * A1c 5.9% VTE prophylaxis: Wells risk score: 0 Bilateral SCDs Consults: Dr. Murrieta consult and involvement is appreciated. Patient is admitted under inpatient status with expected length of stay greater than 2 midnights due to severity of presenting symptoms, risk of adverse event, and complexity of treatment plan. FEN: saline lock, heart healthy diet, BMP and magnesium in the am. Dispo: Unknown at this time Code Status: Full Code as discussed with patient Jennifer Hoff his is his POA and surrogate, as stated by his son and daughter, Andrew and Lily Castanon Wells' Criteria for PE Clinical signs and symptoms of DVT: No PE is #1 Dx or equally likely: No Heart rate > 100: No Immobilization at least 3 days or surg in previous 4 weeks: No History of PE or DVT: No Hemoptysis: No Malignancy w/Treatment within 6 months or palliative: No Wells' PE Score total: 0 Quality VTE Deep Vein Thrombosis/Pulmonary Embolism Present on Admission: No MIPS - Admit I confirm the patient?s Advance Care Plan is present, Code status is documented, Surrogate decision maker is in patient?s record [If Yes, STOP here]: Yes
[2021-03-10 03:09] LABS: Add Manual Diff / Slide Review NO; Basophils Absolute Auto 0 /uL (0-100); Basophils Percent Auto 0.3 % (0-2); Eosinophils Absolute Auto 100 /uL (0-450); Eosinophils Percent Auto 1.1 % (2-4); Hematocrit 39.8 % (41-53); Hemoglobin 13.4 g/dL (13.5-17.5); Lymphocytes Absolute Auto 2100 /uL (1100-4500); Lymphocytes Percent Auto 21.5 % (25-40); Mean Corpuscular HGB Conc 33.7 % (30-36); Mean Corpuscular Hemoglobin 30.6 PG (26-34); Mean Corpuscular Volume 90.9 fL (80-100); Monocytes Absolute Auto 900 /uL (0-900); Neutrophils Absolute Auto 6700 /uL (1500-7000); Neutrophils Percent Auto 68.1 % (50-75); Platelet Count 127 X10^3/uL (150-400); Red Blood Cell Count 4.38 X10^6/uL (4.5-5.9); Red Cell Distribution Width 14.1 % (11.6-14.8); White Blood Cell Count 9.9 X10^3/uL (4.5-11.0)
[2021-03-10 03:18] LABS: BUN Creatinine Ratio 19.8 (6-22); Blood Urea Nitrogen 17 mg/dL (9-20); Calcium 9.1 mg/dL (8.4-10.2); Carbon Dioxide 27 mmol/L (22-32); Chloride 109 mmol/L (98-107); Cholesterol 124 mg/dL (140-199); Estimated Glomerular Filt Rate > 60.0 mL/min (>60); Glucose 121 mg/dL (80-110); HDL Cholesterol 37 mg/dL (40-60); HEMOLYSIS < 15 (0-50); LDL Cholesterol Calculated 75 mg/dL (<100); Potassium 3.9 mmol/L (3.4-5.1); Sodium 139 mmol/L (137-145); Triglycerides 59 mg/dL (35-150)
[2021-03-10 04:35] LABS: Troponin I 0.154 ng/mL (0.01-0.034)
[2021-03-10 04:45] LABS: Hemoglobin A1C% w Est Avg Glu 5.9 % (4.0-6.0)
[2021-03-10] MEDS: SODIUM CHLORIDE 0.9% 1,000 ML 150 ML IV (06:59)
--- NOTE | 2021-03-10 07:23 | PC.ADMIT ---
[email or web address] Edgardo Stone Admission Note: Patient arrived to floor able to scoot from stretcher to bed. Acutely confused, able to state name, , age, location, but not situation nor year. Patient speaks clearly but tends to follow tangential lines of thought that does not pertain to the current conversation. Patient repetitive and forgetful but able to follow commands. Patient had difficulty finding words and would replace words when talking- for instance, when discussing his visual deficit, patient would refer to his ears instead of eyes. When discussing living situation, patient was unable to describe where he lived/how to get to his house. In no apparent cardiovascular or respiratory distress. Patient becomes dizzy on standing/sitting up. Denies chest pain or shortness of breath. Able to urinate with no difficulty. NIHSS 3. +CSM ROM, no deficits. No facial droop. Visual portion of NIHSS compromised due to pre-existing retinopathy. A urine sample was obtained and sent down to laboratory for analysis. UDS results came back positive for opiates and oxycodone. Patient experienced bout of confusion after lab ameya blood- patient was convinced that he had been given a medication via the PIV stick. Patient resistant to reassurance that no medication was given and insisted that he had been getting medications against his will. Patient reassured when shown MAR showing Zofran as the only drug administered that night. NIHSS remained 3 and fingerstick glucose measured to be 116. Laboratory called this RN to report increased troponin level of 0.154. Provider Roland informed, and ordered STAT EKG. As this RN was setting up the EKG, this RN decided to ask the patient about any possible opiate use. The patient informed this RN that he had taken an unknown amount of opiates, oxycodone from a prior surgery, and a cocaine derivative in order to commit suicide. It should be noted that prior to this, patient had answered no to questions about substance abuse and any suicidal ideation. This RN further questioned the patient. The patient is the only one that knew about the suicide attempt. The patient was actively trying to kill himself and expresses desire to do so again. The patient does not endorse audio, visual, tactile, or olfactory hallucinations. The patient denies HI and endorses active SI. The patient requested that this RN not tell anyone, however this RN informed him that this must be reported for his own safety and requested that the patient do no further harm to himself. Provider Luan notified, and returned to the room to question the patient. Coordinator made aware of patient safety risk. Patient seemingly more lucid and less confused, answering questions appropriately. When PAIGE Arvizu entered the room with this RN, patient appeared to be in a more confused state, but when PAIGE Arvizu left the room, patient returned to lucidity and once again asked this RN to not tell anyone of his SI. Patient able to confirm medications with this RN. Patient is more than willing to discuss rationale behind suicide attempt with this RN, and has detailed plans on his next attempt, which he states will happen, detailing the use of his boat and possible drowning. No current self-harm behaviors present. This RN remains at bedside 1:1. The patient,Delmar Hoff,80 y/o, was given written information regarding hospital policies, unit procedures and contact persons. Patient's smoking status: Never smoker. Vital Signs - 8 hr 03/09/21 23:30 03/10/21 00:09 03/10/21 00:29 Temperature 97.6 F Pulse Rate 60 68 Respiratory Rate 20 16 Blood Pressure 143/66 H 147/63 H Pulse Oximetry 93 96 03/10/21 07:00 Temperature 98.4 F Pulse Rate 54 L Respiratory Rate 16 Blood Pressure 136/56 L Pulse Oximetry 96
--- NOTE | 2021-03-10 08:22 | PC.NURSE ---
Addendum entered by Shanika Guidry R.N. 03/10/21 10:03: Patient discussing most recent SI attempt with Jennifer at bedside. 1:1 sitter at bedside. Addendum entered by Shanika Guidry R.N. 03/10/21 09:33: Patient seeing TRUCK HOPPER. Patient rec'd phone call from son. This RN called son back during pt's session with TRUCK HOPPER, where son expressed desire to be contacted first regarding patient's care d/t potential unavailability of daughter Lily. Original Note: Patient in bed after MRI, eating breakfast with no difficulty. Passed swallow eval in both ED and AC units. IVF running to provider order. Calm, in no apparent physical distress. Wants to contact but cannot remember phone number.
[2021-03-10] MEDS: carvediloL 12.5 MG TABLET PO (09:55)
[2021-03-10] MEDS: APIXABAN 5 MG TABLET PO (09:55)
[2021-03-10] MEDS: ASPIRIN EC 81 MG TABLET PO (09:55)
--- NOTE | 2021-03-10 10:22 | ST.IPSLE ---
Visit Care Team Role Provider Type Darryl Damon MD Primary Care Provider Physician Specialty: Internal Medicine Address: [address] [place] [address], [address] Email: [email or web address] Paulo Tate MD Other Providers Physician Specialty: Psychiatry Address: [address] [place] [address], [place], [address] Email: [email or web address] Carey Ruiz MD Emergency Provider Physician Referring Provider Specialty: Emergency Medicine Address: [address] [place] [address], [id number] Email: HUMERA Ragland Admit Provider Physician Attending Provider Specialty: Internal Medicine Address: [address] [place] [address], [id number] Email: [email or web address] Current Diagnoses Altered mental status, unspecified (03/10/21) Past Medical History (Last Reviewed 03/10/21 @ 07:44 by HUMERA Ragland) Atrial fibrillation and flutter (Medical) Failed prior cardiac ablation currently on Eliquis Hyperlipidemia (Medical) Hypertension (Medical) Speech-Language Pathology Speech/Language Eval TELEVISION WRITER Adult Cognitive Linguistic Eval Start: 03/10/21 10:07 Freq: Status: Active Protocol: Document 03/10/21 10:07 TLC (Rec: 03/10/21 10:22 TLC [id number]) Adult Cognitive Linguistic Evaluation Session Time Visit Start Time 09:10 Visit Stop Time 09:35 Total Visit Minutes 25 Visit Information Visit Number [address] 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 Shanika GIBSON sitting in room 1:1 with patient. Mental Status Alert,Responsive Assessment Oral Motor Examination Completed Yes Results No motor speech impairments observed. Face and tongue symmetrical at rest. Informal Assessment Receptive Language Normal Yes Expressive Language Normal No Expressive Language Impairment(s) Expression of complex thoughts /ideas Pragmatic Language Normal No Pragmatic Language Impairment(s) Topic maintenance Speech Normal Yes Cognition Normal No Cognitive Impairment(s) Thought organization Formal Assessment Standardized Test/Screener Type Quick Aphasia Battery (QAB) Administration Complete Results The Quick Aphasia Battery ( QAB) aims to provide a reliable and multidimensional assessment of language function in about a quarter of an hour, bridging the gap between comprehensive batteries that are time- consuming to administer, and rapid screening instruments that provide limited detail regarding individual profiles of deficits. The QAB is made up of eight subtests, each comprising sets of items that probe different language domains, vary in difficulty, and are scored with a graded system to maximize the informativeness of each item. From the eight subtests, eight summary measures are derived, which constitute a multidimensional profile of language function, quantifying strengths and weaknesses across core language domains. Word comprehension - 1010 Sentence comprehension - 5.83/ 10 Word finding - 7.67/10 grammtical construction - 9.88/ 10 Speech motor programming - Repetition - 9.58/10 Reading - 06/26 QAB Overall - - mild impairment Findings/Results Language Function Mildly impaired Findings Findings indicate mild linguistic deficits which appear to be patient's baseline according to family members. Patient is tangential in his speech and has mild- moderate word finding difficulty. Patient reports this began ~1 year ago. He says he will get stuck on words/names and will be woken up in the middle of the night when they finally come to him. Patient was oriented to place and time. Ongoing cognitive assessment such as SLUMs is recommended. Cognitive Communication Deficits Self-awareness of Cognitive- Situational awareness ( Communication Deficits recognition of problem in context;in real time) Concomitant Factors Concomitant Factors Hearing loss Impact on Functioning Activity Limits/Particip.Rest. Mild: General Tasks and Demands Household Tasks Community Mod: Interpersonal Interactions Safety Risks Mild: Being Left Alone at Home Reacting to Emergency Mod: Managing Medication Traveling Alone in Community Plan of Care Speech-Language Treatment Yes Frequency 1x/day Patient/Caregiver Education Described results of evaluation Short Term Goals Patient will participate in cognitive assessment to guide plan of care. Patient will participate in various word finding exercises to improve overall communicative effectiveness. Discharge Recommendations Home with Home Health vs. outpatient
--- NOTE | 2021-03-10 12:30 | PC.NURSE ---
pt was doing fine to me, pt was talking about his past job,things he liked to do,his kids,his kids job. pt was present from 11 and left about 12;30 and said she will coming back later today. Pt was talking to his daughter through phone pt daughter was asking about what is really going on and daughter also asks why there was police involved and pt answers to his daughter was (I don't know), pt also mentioned to his daughter that his confused,he can talk good but remembering things is been hard for him to put together and walking is hard for him as well.
[2021-03-10 12:40] LABS: Troponin I 0.169 ng/mL (0.01-0.034)
--- NOTE | 2021-03-10 13:20 | PC.NURSE ---
13:10 Dr. Tate is talking with the patient.
--- NOTE | 2021-03-10 13:33 | PC.NURSE ---
left room at 13:30
--- NOTE | 2021-03-10 13:49 | DI.ECHO.S_ITS ---
Version: 1 Study ID: [id number] [place] [id number] Name: RUBY MEDLEY Study Date: 03/11/2021, 8: 17 AM : 1940 BP: 147 / 63 mmHg Gender: Male Height: 72 in Age: 80 Years Weight: 195 lb BSA: 2.11 mA? Ordering: ATUL LIAO Referring: ATUL LIAO Clinician: Eugene Yepez Reason For Study: Elevated Troponin History: Summary Statements Sinus bradycardia with heart rate 54-60 bpm. Mildly dilated left ventricle with mild global hypokinesis. Ejection fraction is 45-50%. Stage II diastolic dysfunction. No significant valvular abnormalities. Normal chamber sizes. There is a small pericardial effusion. Estimated PA systolic pressure is 69 mmHg assuming right atrial pressure 15 mmHg. Compared to prior study LV is slightly less dynamic and more dilated. PA systolic pressure is up from 53 mmHg to 69 mmHg. Procedure: A two-dimensional transthoracic echocardiogram with color flow and Doppler was performed. The study quality was technically adequate. Comparison is made with the echocardiogram of 10/22/2019. The patient was in sinus rhythm with heart rates between 54-60 bpm during the exam. Left Ventricle: Diastolic parameters suggest a pseudonormalization pattern, consistent with probable elevated filling pressures. Left ventricular systolic function is mildly reduced. The ejection fraction is estimated to be 45-50%. The left ventricle is mildly dilated. There is mild concentric left ventricular hypertrophy. There is mild global hypokinesis of the left ventricle. Right Ventricle: The right ventricle is normal in size and function. Atria: There is no Doppler evidence for an interatrial shunt. Both atria are mildly dilated. Mitral Valve: There is mild mitral regurgitation. The mitral valve is normal in structure and function. Aortic Valve: There is trace aortic regurgitation. The aortic valve is normal in structure and function. Tricuspid Valve: There is mild tricuspid regurgitation. The right ventricular systolic pressure is estimated to be at least 69 mmHg based on an estimated right atrial pressure of 15 mm Hg. The tricuspid valve is normal in structure and function. Pulmonic Valve: There is mild pulmonic regurgitation. The pulmonic valve is normal in structure and function. Great Vessels: The dimensions of the ascending aorta are normal. The aortic root is normal size. The IVC is dilated (diameter is greater than 2.1 cm) and it collapses less than 50% with a sniff. This suggests a high right atrial pressure of 15 mm Hg. Pericardium/ Pleura: There is a small pericardial effusion that is circumferential. There is no pleural effusion. 2D and M-Mode Measurements and Calculations LVIDd: 6.0 cm LVOT diam: 2.26 cm LVIDs: 4.6 cm Ao root diam: 3.9 cm IVSd: 1.34 cm asc Aorta Diam: 3.6 cm LVPWd: 1.21 cm LV chiu. diameter/BSA (cm/m^2): 2.8 LV sys. diameter/BSA (cm/m^2): 2.19 TAPSE: 2.09 cm IVC diam: 2.6 cm LA A4 area: 26.4 clerical adjuster? RA area: 22.2 clerical adjuster? LA A2 area: 21.6 clerical adjuster? RA long axis: 6.1 cm LA length (vol): 6.4 cm RA vol: 68.9 ml LA vol: 75.1 ml RA : 32.7 ml/mA? LA vol index: 35.6 ml/mA? Doppler Measurements and Calculations Ao V2 max: 108.0 cm/sec LVOT Max Ebenezer: 80.9 cm/sec Ao V2 mean: 75.2 cm/sec LV V1 max P.6 mmHg Ao V2 VTI: 23.9 cm LV V1 VTI: 20.2 cm Ao max P.7 mmHg Ao mean P.5 mmHg MICHAEL(I,D): 3.4 clerical adjuster? MICHAEL(V,D): 3.0 clerical adjuster? MICHAEL indexed to BSA (cm^2/m^2): 1.60 sev ratio: 0.85 MV E max ebenezer: 88.0 cm/sec MV dec time: 0.23 sec MV A max ebenezer: 47.5 cm/sec MV E/A: 1.85 Med Peak E' Ebenezer: 5.1 cm/sec Lat Peak E' Ebenezer: 5.4 cm/sec E/e' average: 16.9 TR max ebenezer: 365.7 cm/sec PA mean P.29 mmHg TR max P.5 mmHg PA V2 max: 95.7 cm/sec Electronically signed by: Mary Ronquillo M.D. 03/11/2021, 4: 48 PM
--- NOTE | 2021-03-10 14:11 | PC.NURSE ---
Patient is confused and agitation is increasing due to the care and testing he is/or not receiving.
--- NOTE | 2021-03-10 14:29 | PC.NURSE ---
Clarified with MD no IV heparin bolus to be given with start of heparin gtt. Lab in at this time to draw baseline labs per protocol. EKG completed. Nikolas Blanca CNA at bedside for safety.
--- NOTE | 2021-03-10 14:38 | PT-IP ANOTE ---
Physical therapy order received and chart reviewed. Pt has positive Troponin today and is trending up. Will hold evaluation until more medically stable.
[2021-03-10 14:41] LABS: INR 1.3 (0.9-1.3); Prothrombin Time 14.7 SECONDS (10.1-12.7)
[2021-03-10 14:44] LABS: PTT Partial Thromboplastin Tim 38 SECONDS (26.4-36.2)
--- NOTE | 2021-03-10 14:44 | OT.IPNOTE ---
Hold OT eval as tropinins levels trending up, therefore to check on pt tomorrow if pt appropriate for OT eval.
[2021-03-10] MEDS: HEPARIN DRIP 25,000 UNIT/500 ML IV.SOLN 20 UNIT IV (15:09)
--- NOTE | 2021-03-10 16:29 | PC.NURSE ---
Patient arrived at 1600 and patient napping. Few minutes later,patient woke up and had a discussion with about his suicidal attemp. in tears and went sit by the the window, patient continue napping.
--- NOTE | 2021-03-10 17:44 | PC.NURSE ---
Patient woke up for dinner .Up to the bathroom ,refused to use walker and gait. Back in bed continue eating, at bedside. and son called. Dr murrieta arrived at this time.
--- NOTE | 2021-03-10 18:14 | PC.NURSE ---
Dr. Tate left the room and at bedside.
--- NOTE | 2021-03-10 18:21 | PC.NURSE ---
Addendum entered by Natalia Cardona R.N. 03/10/21 21:37: PTT reported as 59. No change in heparin infusion per protocol. Continue with 20 cc/hr[place] [address]/11. Addendum entered by Natalia Cardona R.N. 03/10/21 21:19: Lab in to draw 2100 PTT. Pt is resting quietly in bed with eyes closed, but rouses easily to voice. States able to sleep. Discussion with pt re medication zoloft as prescribed. Pt refuses to take this stating will talk to MD tomorrow. Pt has required several conversations with this typewriter assembly and parts inspector this evening re heparin infusion and plan for this intervention. Addendum entered by Natalia Cardona R.N. 03/10/21 19:40: Heparin infusing as per dayshift initiation 20 cc/hr. PTT @ 2100 and will adjust accordingly. Addendum entered by Natalia Cardona R.N. 03/10/21 19:22: Pt remains 1:1 continuously. Pt is hard of hearing and exhibits some difficulty with word finding. Able to perform NIH reading/word/description list perfectly as pt states, This is the fifth time I have done this. 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 BL calf scd's in place. Pt admits to chest discomfort with deep inspiration and states this is not constant, but intermittent. Pt's spouse has left for the evening. Pt continues with heparin infusion and required multiple explanations for this plan of care. Original Note: Pt's son, Gopi, called @ the beginning of this shift to inquire about pt's condition and situation. I'd like an update. This typewriter assembly and parts inspector provided no information to this individual. Gopi requests update from neurocritical care physician. This message was relayed to Katerine EASLEY. Informed by KORTNEY son Gopi phoned again and spoke with Analia SHEETS, making same inquiry. Katerine was then contacted by Analia SHEETS, who states son was informed care management will speak with pt tomorrow and if given permission by pt, will return sonGopi's, phone call. Dr. Tate in to see patient.
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
[2021-03-10] MEDS: TAMSULOSIN 0.4 MG CAPSULE PO (21:04)
[2021-03-10] MEDS: lisinopriL 20 MG TABLET 40 MG PO (21:05)
[2021-03-10] MEDS: SODIUM CHLORIDE 0.9% FLUSH 10 ML IV (21:06)
[2021-03-10 21:22] LABS: PTT Partial Thromboplastin Tim 59 SECONDS (26.4-36.2)
--- NOTE | 2021-03-10 23:05 | PC.NURSE ---
Addendum entered by Jess Tran 03/11/21 02:56: ending watch @ 03:00 HUMAN RESOURCE ANALYST will be taking over once finished with rounds at 03:00. patient is sleeping. bed alarm on and bed rails up. IV fluids running. patient has been tossing and turning in bed over the last hour. Addendum entered by Jess Tran 03/11/21 01:51: patient taken to the restroom, stand by assist with myself and RN. IV fluids still running. patient seemed a bit confused about how to use the restroom. compression cuffs disconnected and connected. warm blankets given to patient once back in bed. patient calm and understanding. RN taking vitals and checking up on patient. bed alarm on and bed rails up. patient unable to tell RN what year and month it is. slightly confused on his current location. Addendum entered by Jess Tran 03/11/21 01:05: patient is sleeping, bed rails up and bed alarm on. IV fluids running. patient viewed by HUMAN RESOURCE ANALYST and RN. Addendum entered by Jess Tran 03/11/21 00:12: patient is sleeping. bed rails up and bed alarm on. IV fluids running. Addendum entered by Jess Tran 03/10/21 23:36: patient was taken to the restroom, stand by assist with myself and HUMAN RESOURCE ANALYST. IV fluid still running. patient seemed confused and very hard of hearing. compression cuffs disconnected and connected. warm blankets given to patient once put back to bed. Original Note: starting watch @ 23:00 JUAQUIN has updated me on patient and the care he will need. patient is asleep in bed. bed alarm is on. IV fluids are running.
[2021-03-11] VITALS (11 sets, daily range): BP systolic 117–169; BP diastolic 62–78; PULSE 48–59; RESP 16–20; TEMP 36.4–36.9; O2SAT 92–98
[2021-03-11 06:11] LABS: Add Manual Diff / Slide Review NO; Basophils Absolute Auto 0 /uL (0-100); Basophils Percent Auto 0.3 % (0-2); Eosinophils Absolute Auto 300 /uL (0-450); Eosinophils Percent Auto 3.6 % (2-4); Hematocrit 39.1 % (41-53); Hemoglobin 13.2 g/dL (13.5-17.5); Lymphocytes Absolute Auto 2100 /uL (1100-4500); Lymphocytes Percent Auto 26.6 % (25-40); Mean Corpuscular HGB Conc 33.7 % (30-36); Mean Corpuscular Volume 91.8 fL (80-100); Monocytes Absolute Auto 700 /uL (0-900); Monocytes Percent Auto 9.3 % (3-14); Neutrophils Absolute Auto 4800 /uL (1500-7000); Neutrophils Percent Auto 60.2 % (50-75); Platelet Count 121 X10^3/uL (150-400); Red Blood Cell Count 4.25 X10^6/uL (4.5-5.9); Red Cell Distribution Width 14.3 % (11.6-14.8)
[2021-03-11 06:16] LABS: PTT Partial Thromboplastin Tim 41 SECONDS (26.4-36.2)
[2021-03-11 06:21] LABS: BUN Creatinine Ratio 23.9 (6-22); Blood Urea Nitrogen 21 mg/dL (9-20); Calcium 9.2 mg/dL (8.4-10.2); Carbon Dioxide 26 mmol/L (22-32); Chloride 109 mmol/L (98-107); Estimated Glomerular Filt Rate > 60.0 mL/min (>60); Glucose 106 mg/dL (80-110); HEMOLYSIS 16 (0-50); Sodium 140 mmol/L (137-145)
[2021-03-11 06:33] LABS: Troponin I 0.116 ng/mL (0.01-0.034)
[2021-03-11 06:48] LABS: Thyroid Stimulating Hormone 0.841 uIU/mL (0.47-4.68)
--- NOTE | 2021-03-11 07:25 | PC.NURSE ---
Patient does not recognize this RN from prior night. Patient believes IV catheter extends to shoulder, reassured this is not the case. Patient was not willing to take new Rx of zoloft yesterday, but expresses desire to do so today. Patient's son has called again requesting that the social media intern contact him.
--- NOTE | 2021-03-11 09:08 | OT.IPNOTE ---
Pt tropinin level trending down from .169 to .154 yesterday and now at .116. PT spoke to nursing and best to hold pt this morning and wait for another reading.
--- NOTE | 2021-03-11 09:08 | PC.NURSE ---
While patient was eating his Breakfast, he became Dizzy. RN notified.
--- NOTE | 2021-03-11 09:11 | PT-IP ANOTE ---
Physical therapy eval pending. His Troponins continue to be elevated. Spoke with his nurse this morning. Will hold physical therapy this morning and check back in the afternoon to see if he medically stable enough to increase his activity. He has been up to the bathroom with nursing using with FWW.
[2021-03-11] MEDS: SODIUM CHLORIDE 0.9% FLUSH 10 ML IV ×2 (09:15→20:40)
[2021-03-11] MEDS: ASPIRIN EC 81 MG TABLET PO (09:15)
[2021-03-11] MEDS: carvediloL 12.5 MG TABLET PO (09:15)
--- NOTE | 2021-03-11 10:39 | PC.NURSE ---
Patient's arrived approx. 10:15, patient up to the BR then back to bed but sitting on the edge. Recommended sitting up in the chair, patient is now sitting in the chair talking with his
--- NOTE | 2021-03-11 11:41 | PC.NURSE ---
Patient wanted to take a walk in the hallway. Went from North to South and back to room. No issues with ambulation as long as patient is using the FWW.
--- NOTE | 2021-03-11 12:36 | ST.IPTN ---
Visit Care Team Role Provider Type Darryl Damon MD Primary Care Provider Physician Address: [address] [place] [address], [place], [address] Paulo Tate MD Other Providers Physician Address: [address] [place] [address], [address], [place], [address] Carey Ruiz MD Emergency Provider Physician Referring Provider Address: [address] [place] [address], [id number] HUMERA Ragland Admit Provider Physician Attending Provider Address: [address] [place] [address], [id number] LIFE TEACHER Treatment Note LIFE TEACHER Treatment Note Start: 03/10/21 10:07 Freq: Status: Active Protocol: Document 03/11/21 12:20 MG (Rec: 03/11/21 12:36 MG [id number]) Speech Pathology Treatment Note Session Time Visit Start Time 11:40 Visit Stop Time 12:10 Total Visit Minutes 30 Visit Information Visit Number 2 Setting Treatment Setting Acute Care Visit Type Note Type Treatment Note Next Note Type Next Note Type Treatment Note General Information General Information Pt is an 80-year-old male with a history of cardiac ablation and anticoagulated on apixaban was apparently brought to the emergency department at the request of a friend of his named Nicolas due to what appears to be approximately 2-day-old history of acute mental status changes. Patient is unable to give me history, he has a very tangential speech pattern and perseverates on events that have happened years ago. 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 Pt admitted to his nurse in the ER that he had oxycodone left over from a prior surgery and had taken the whole bottle in a suicide attempt. Doctor went in to see the patient and he informed the doctor that he had been wanting to do this for over 40 years. The patient does endorse having memory issues that seem to have been going on for a long time. He also is hard of hearing of which his right side is his better ear, he has a left- sided visual defect and is having issues with his right sided vision. Subjective Identification Type Name,ID Wristband Others Present Family Observations/Patient Presentation Pt was sitting in chair next to bedside with and 1:1 nurse present in room. Pt was agreeable to ST entering the room to conduct further assessment and treatment. Chief Complaint(s) Language,Cognitive Patient Knowledge/Awareness of LIFE TEACHER Role Good in Treatment Parent/Caretake Knowledge/Awareness of Good LIFE TEACHER Role in Treatment Patient/Caregiver Compliance with Home Good Exercise Program Objective Short Term Goals Pt will participate in various word finding exercises to improve overall communicative effectiveness. Pt will utilize word finding strategies with minimal verbal cueing in order to improve expressive language abilities and reduce frustration. General Assembler Installer Goals Pt will utilize word finding strategies independently in order to improve expressive language abilities and reduce frustration. Treatment Activities SLUMS was administered to the pt on this day. Pt scored 12/ 30. Pt is aware of difficulties and often when prompted with a test question would say, I know I won't remember any of this. Pt reported that he has had memory issues for years and didn't know what to do. LIFE TEACHER went over exercise protocol and word finding strategies to implement when he experiences difficulty. Pt did experience word finding difficulties during treatment session, and implemented the strategy of talking around the word, which appeared to help him find the word he wanted to say (i.e., vaccine). Assessment Patient Response to Treatment Good Rehab Potential Good Impairments Identified Cognitive-Linguistic Skills, Memory - Short Term,Memory - Working Additional Impairments Identified Word finding Progress Towards Goals Good Progress Assessment of Overall Progress Improving Assessment of Improvement Pt reported to the LIFE TEACHER that he has been making improvements in his speech/language skills since being admitted. Pt appeared interested in continuing treatment once discharged from the hospital. Reviewed with Patient Goals,Progress Being Made,Home Exercise Program Patient/Caregiver Understanding Good Plan Therapeutic Contents Cognitive-Linguistic Training, Other Additional Areas of Treatment Word finding abilities Provided Patient/Caregiver Instruction Home Exercise Program,Plan of Care Therapy Recommendations Continue with Current Program Comment Home with Home Health vs. outpatient ST
[2021-03-11 13:19] LABS: PTT Partial Thromboplastin Tim 62 SECONDS (26.4-36.2)
--- NOTE | 2021-03-11 14:56 | PT.IIE ---
Current Diagnoses Vascular dementia with behavioral disturbance (03/10/21) Dementia in other diseases classified elsewhere without behavioral disturbance (03/10/21) Major depressive disorder, single episode, unspecified (03/10/21) Altered mental status, unspecified (03/10/21) Suicide attempt, initial encounter (03/10/21) Surgical History (Last Reviewed 03/10/21 @ 19:09 by Paulo Tate MD) H/O cervical spine surgery Medical History (Last Reviewed 03/10/21 @ 19:09 by Paulo Tate MD) Atrial fibrillation and flutter Hyperlipidemia Hypertension Physical Therapy Inpatient Evaluation/Re-Eval M1 PT/OT-IP Prior Functional Status Start: 03/11/21 18:34 Freq: NEEDED Status: Active Protocol: Document 03/11/21 14:56 DLM (Rec: 03/11/21 18:55 DLM [id number]) Medical Review Prior Functional Status Medical History Reviewed Yes Diet/Fluid Consistency Regular Communication WFL, hard of hearing, has aids but does not like to wear them, impaired cognition Mobility and Gait Independent without a device Activities of Daily Living and IADL's Independent, drives Prior Functional Level (Other details) chart notes indicate family stressors lately in his life Social History Household Members spouse Living Arrangements House Number of Floors (Floors) One Floor Employment Status Retired Additional Social History 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 PT-IP Current Condition Start: 03/11/21 18:34 Freq: NEEDED Status: Active Protocol: Document 03/11/21 14:56 DLM (Rec: 03/11/21 18:55 DLM [id number]) Physical Therapy Current Condition Current Condition Evaluation Date 03/11/21 Treatment Diagnosis Over-dose, confusion, impaired balance and gait Onset Date 03/10/21 Precautions Other Precautions high fall risk M3 PT-IP Subjective Start: 03/11/21 18:34 Freq: NEEDED Status: Active Protocol: Document 03/11/21 14:56 DLM (Rec: 03/11/21 18:55 DLM [id number]) Subjective Physical Therapy Visit Type Type Initial Evaluation Visit Start Time 14:00 Visit Stop Time 14:56 Total Visit Minutes 56 Number of TRACK OILER Visits 0 Physical Therapy Visit Comments Patient Comments He wants to go home tomorrow Patient Goals discharge home with his M4 PT-IP Mobility and Gait Start: 03/11/21 18:34 Freq: NEEDED Status: Active Protocol: Document 03/11/21 14:56 [facility] (Rec: 03/11/21 18:55 DL [id number]) PT-Bed Mobility Assessment Rolling Type of Rolling Bilateral Level of Assist Independent Supine to Sit Supine to Sit Independent Sit to Supine Sit to Supine Independent Scooting Scooting to Edge of Bed Independent PT-Transfer Assessment Sit to and From Stand Sit to and from Stand Standby Assistance Equipment Transfer Assistive Device Gait Belt,Front Wheeled Walker Transfers Transfer Destination Bed Transfer Technique Stand Step Pivot Transfer Ability Level of Assist Contact Guard Assistance,Use of Upper Extremities Comments Mobility Comments If he attempts to stand without the fWW he is very unsteady and loses his balance posteriorly Gait Assessment Gait Gait Assistance Required: Standby Assistance Distance (Feet) 120 Assistive Devices Assistive Device Gait Belt,Front Wheeled Walker Gait Deviations General Gait Pattern Flexed Trunk Factors Limiting Gait Function Factors Limiting Gait Function Decreased Activity Tolerance Comments Gait Comments pt has significant UE support on FWW to manage his balance, without the FWW he loses his balance posteriorly and can not catch himself, mild shortness of breath after gait PT-Balance Assessment Sitting Balance and Reactions Static Sitting Balance Ability Good Dynamic Sitting Balance Ability Good Standing Balance and Reactions Static Standing Balance Ability Poor Dynamic Standing Balance Ability Poor Device Used none Balance Tests Single Limb Standing unable Romberg falls eyes open and closed Tandem Standing unable Comments Other Balance Tests/Deviations/Treatment in static standing he loses : his balance posteriorly, he can not prevent this even with wider base of support and flexing his knees, he is aware of his balance impairment and attempts to compensate but can not keep himself errect without UE support M5 PT-IP Objective Assessments Start: 03/11/21 18:34 Freq: NEEDED Status: Active Protocol: Document 03/11/21 14:56 [facility] (Rec: 03/11/21 18:55 [facility] [id number]) Orientation Orientation/Cognition Level of Alertness Alert Orientation Name,Birthday,Month,Year,Place ,Situation Language Function Ability Expressive Aphasia,Hard of Hearing Safety Awareness Decreased Safety Awareness Memory Description Short Term Impaired Comments tangential in conversation, reluctant to wear his hearing aids but having difficulty hearing staff, pt had difficulty placing his hearing aids in his ears and attempted to put two of them in his right ear but could corrected it with cuing. 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 Coordination Assessment Gross Coordination Gross Coordination WNL Sensation Assessment Sensation Gross Sensation WNL Muscle Tone Muscle Tone WNL Yes M6 PT-IP Treatment Start: 03/11/21 18:34 Freq: NEEDED Status: Active Protocol: Document 03/11/21 14:56 DLM (Rec: 03/11/21 18:55 DLM [id number]) Physical Therapy Treatment Education Education Provided Safety M7 PT-IP Assessment and Plan Start: 03/11/21 18:34 Freq: NEEDED Status: Active Protocol: Document 03/11/21 14:56 DLM (Rec: 03/11/21 18:55 DLM [id number]) PT Summary Assessment and Plan Potential Rehabilitation Potential Good Status of Condition at Evaluation Evolving Summary Impairments Strength,Balance,Cognition, Transfers,Gait,Activity Tolerance Assessment Summary Delmar is alert and cooperative with physical therapy treatment. It is difficult to get a clear picture of his functional status before this admission but it appears he was independent and active. He presents with bilateral LE weakness this visit with significant standing balance impairments that interfere with his gait. He has losses of balance posteriorly and needs UE support on the FWW to prevent losses of balance. He had an episode of increased tingling in right UE that may be related to his UE support on his FWW and prior right shoulder injury. Noted pt has mild shortness of breath with gait related to fatigue. He verbalizes his activity is a lot lower than his baseline. His is aware of his LE weakness. He is a high fall risk at this time due to his new balance impairments. He is determined to discharge home. He is agreeable to doing more physical therapy to address his strength and balance. His reports she can get him a FWW for home use. Goals Bed Mobility Goal Independent Transfer Goal Independent,Front Wheeled Walker Gait Goal Standby Assistance,Front Wheel Walker Gait Distance 200 feet Days to Meet Goals 3 Frequency of Treatment Frequency Of Treatment Twice a Day Treatment Plan Physical Therapy Treatment Plan Bed Mobility Training,Transfer Training,Gait Training, Therapeutic Exercise,Balance Retraining,Discharge Planning, Neuromuscular Re-ed Recommendations To Nursing Amount of Assist Needed 1 Person Assist Discharge Recommendations PT Discharge Recommendations Home with 09/04 Assist Available,Home Health Equipment Needed for Home Before needs FWW for home use Discharge Transportation Needs at Discharge Private Vehicle
--- NOTE | 2021-03-11 15:50 | PM.PN.1 ---
Subjective Subjective Date Patient Seen: 03/11/21 Time Patient Seen: 08:50 Interval history: Today he says he is feeling better. His is at bedside and think he looks much improved. While he appears to have memory issues and word finding difficulty at the moment, his says this is his baseline. He feels he is a bit unsteady. Otherwise he is having no chest pain or shortness of breath currently. Exam Vital Signs (past 8 hours): - 03/11/21 08:45 03/11/21 09:15 03/11/21 12:15 Temperature 98.4 F 98.0 F Pulse Rate 59 L 59 L 48 L Respiratory Rate 18 18 Blood Pressure 169/75 H 169/75 H 117/62 Pulse Oximetry 95 98 03/11/21 15:30 Temperature 97.6 F Pulse Rate 52 L Respiratory Rate 16 Blood Pressure 133/69 Pulse Oximetry 92 Oxygen Delivery Method Room Air Oxygen Flow Rate 0 Narrative Exam Narrative: Gen: no acute distress Resp: Lungs clear bilaterally CV: regular rate and rhythm with no murmurs Abd: soft, non-tender, normal bowel sounds Skin: no lesions or rashes, dry and intact Neuro: alert and oriented, has word finding difficulties and memory difficulties which per is at baseline Extremities: moves all 4 extremities, is ambulatory, negative Perez?s sign Psyche: Tangential speech pattern, easy to redirect but does not stay on point, currently with suicidal ideation. Objective Labs Result Diagrams: 03/11/21 06:00 03/11/21 06:00 Labs: Laboratory Results - last 24 hr 03/10/21 03/11/21 03/11/21 21:03 06:00 06:00 WBC 8.0 RBC 4.25 L Hgb 13.2 L Hct 39.1 L MCV 91.8 MCH 31.0 MCHC 33.7 RDW 14.3 Plt Count 121 L Neut % (Auto) 60.2 Lymph % (Auto) 26.6 Brown % (Auto) 9.3 Eos % (Auto) 3.6 Baso % (Auto) 0.3 Neut # (Auto) 4800 Lymph # (Auto) 2100 Brown # (Auto) 700 Eos # (Auto) 300 Baso # (Auto) 0 APTT 59 H D Sodium Potassium Chloride Carbon Dioxide BUN Creatinine Estimated GFR BUN/Creatinine Ratio Glucose Calcium Troponin I 0.116 H TSH 03/11/21 03/11/21 03/11/21 06:00 06:00 06:00 WBC RBC Hgb Hct MCV MCH MCHC RDW Plt Count Neut % (Auto) Lymph % (Auto) Brown % (Auto) Eos % (Auto) Baso % (Auto) Neut # (Auto) Lymph # (Auto) Brown # (Auto) Eos # (Auto) Baso # (Auto) APTT 41 H D Sodium 140 Potassium 4.0 Chloride 109 H Carbon Dioxide 26 BUN 21 H Creatinine 0.88 Estimated GFR > 60.0 BUN/Creatinine Ratio 23.9 H Glucose 106 Calcium 9.2 Troponin I TSH 0.841 03/11/21 13:00 WBC RBC Hgb Hct MCV MCH MCHC RDW Plt Count Neut % (Auto) Lymph % (Auto) Brown % (Auto) Eos % (Auto) Baso % (Auto) Neut # (Auto) Lymph # (Auto) Brown # (Auto) Eos # (Auto) Baso # (Auto) APTT 62 H D Sodium Potassium Chloride Carbon Dioxide BUN Creatinine Estimated GFR BUN/Creatinine Ratio Glucose Calcium Troponin I [facility]SH [facility] Medical History Atrial fibrillation and flutter Hyperlipidemia Hypertension Surgical History H/O cervical spine surgery Family History Mother Colon cancer Father Unknown family medical history Social History household members: spouse Smoking Status: Never smoker alcohol intake: current Assessment & Plan Assessment & Plan narrative: Mr. Hoff is an 80M with PMH of atrial fibrillation previously ablated and anticoagulated on apixaban, hypertension, and hypercholesterolemia admitted for confusion and found to have elevated troponin. 1. Suicide attempt, acute, with depression -Presence of opioids on toxicology screen, not prescribed or administered in the ED -consulted with psychiatry, Dr. Tate, appreciate recs -started zoloft -sw consult placed -may need placement per psychiatry once medically stable 2. CVA ruled out, acute, present on admission -Cardiac telemetry -MRI head showed no stroke -ECHO pending -ordered for PT/OT/ST 3. NSTEMI, acute -patient noted to have elevated troponin that was rising from 0.090 to 0.169 -cardiology contacted and recommended IV heparin -ECHO to evaluate for wall motion abnormality -plan to continue heparin for 48 hours unless ECHO shows wall motion abnormality which then he may need angiogram -ordered for aspirin -has allery to statin -A1c 5.9% 4. Hypertension, acute with an admission bp of [], present on admission -Allow for permissive hypertension of 220/110 HR 60 to allow for brain perfusion 5. HLD - Lipid panel indicates low HDL and borderline high total cholesterol - He has an intolerance to statins, so may consider Zetia 6. Bradycardia -will decrease carvedilol as patient states he has gotten dizzy and has had episodes of bradycardia 7. Mild anemia -hemoglobin 13.2, no need for transfusion -continue to monitor 8. Thrombocytopenia -continue to monitor, currently platelets of 121, appears chronically low -no need for transfusion Consults: Dr. Tate consult and involvement is appreciated. Patient is admitted under inpatient status with expected length of stay greater than 2 midnights due to severity of presenting symptoms, risk of adverse event, and complexity of treatment plan. FEN: saline lock, heart healthy diet, BMP and magnesium in the am. Dispo: Unknown at this time Code Status: Full Code as discussed with patient Jennifer Hoff his is his POA and surrogate, as stated by his son and daughter, Dick Adarsh VTE Deep Vein Thrombosis/Pulmonary Embolism Present on Admission: No
--- NOTE | 2021-03-11 16:03 | OT.IPNOTE ---
Pt not wanting to do OT eval at this time, therefore to check on pt tomorrow.
--- NOTE | 2021-03-11 17:34 | PC.NURSE ---
Addendum entered by Natalia Cardona R.N. 03/11/21 18:40: Pt's spouse now returns to pt's room and pt requests privacy to speak with spouse. Heparin infusing to right ac iv site @ 21cc/hr as per protocol. Assessment deferred at this time. ELECTRICAL ELECTRONICS ENGINEER continues 1:1 monitoring of pt throught slightly opened door. Addendum entered by Natalia Cardona R.N. 03/11/21 17:51: Pt now on telephone and requests privacy. ELECTRICAL ELECTRONICS ENGINEER continues to observe pt through slightly opened door. Original Note: Pt awake and alert in bed @ beginning of shift. 1:1 monitoring with ELECTRICAL ELECTRONICS ENGINEER. Female visitor in room. Pt to chair for evening meal. Dr. Ronquillo, sports recruiter, phones this jingle writer to discuss pt's echo. Dr. Moura was placed in touch with this physician.
[2021-03-11] MEDS: HEPARIN DRIP 25,000 UNIT/500 ML IV.SOLN 21 UNIT IV (18:27)
[2021-03-11] MEDS: SERTRALINE 50 MG TABLET 25 MG PO (20:42)
[2021-03-11] MEDS: lisinopriL 20 MG TABLET 40 MG PO (20:43)
[2021-03-11] MEDS: TAMSULOSIN 0.4 MG CAPSULE PO (20:43)
[2021-03-11] MEDS: carvediloL 3.125 MG TABLET PO (20:45)
[2021-03-12] VITALS (12 sets, daily range): BP systolic 133–165; BP diastolic 61–114; PULSE 45–61; RESP 14–18; TEMP 36–36.3; O2SAT 92–99
[2021-03-12 06:32] LABS: Hematocrit 39.6 % (41-53); Hemoglobin 13.3 g/dL (13.5-17.5); Mean Corpuscular HGB Conc 33.6 % (30-36); Mean Corpuscular Hemoglobin 30.6 PG (26-34); Mean Corpuscular Volume 91.1 fL (80-100); Platelet Count 117 X10^3/uL (150-400); Red Blood Cell Count 4.35 X10^6/uL (4.5-5.9); Red Cell Distribution Width 13.9 % (11.6-14.8); White Blood Cell Count 8.5 X10^3/uL (4.5-11.0)
[2021-03-12 06:44] LABS: PTT Partial Thromboplastin Tim 67 SECONDS (26.4-36.2)
[2021-03-12 06:46] LABS: BUN Creatinine Ratio 26.4 (6-22); Blood Urea Nitrogen 19 mg/dL (9-20); Calcium 9.5 mg/dL (8.4-10.2); Carbon Dioxide 23 mmol/L (22-32); Chloride 109 mmol/L (98-107); Estimated Glomerular Filt Rate > 60.0 mL/min (>60); Glucose 142 mg/dL (80-110); HEMOLYSIS 27 (0-50); Sodium 138 mmol/L (137-145)
--- NOTE | 2021-03-12 08:42 | PC.NURSE ---
Patient woke up this morning at 08:25, got him up to the bathroom and then to the chair for breakfast. Patient's arrived at 08:43
[2021-03-12] MEDS: ASPIRIN EC 81 MG TABLET PO (09:03)
--- NOTE | 2021-03-12 10:17 | PC.NURSE ---
Patient became tired and worn out towards the end of the walk in the hallway. From the South end towards the North. After walking around North and all the way to the South.
--- NOTE | 2021-03-12 10:30 | OT.IP.EVAL ---
Current Diagnoses Vascular dementia with behavioral disturbance (03/10/21) Dementia in other diseases classified elsewhere without behavioral disturbance (03/10/21) Major depressive disorder, single episode, unspecified (03/10/21) Altered mental status, unspecified (03/10/21) Suicide attempt, initial encounter (03/10/21) Past Medical History (Last Reviewed 03/10/21 @ 19:09 by Paulo Tate MD) Atrial fibrillation and flutter Hyperlipidemia Hypertension Surgical History (Last Reviewed 03/10/21 @ 19:09 by Paulo Tate MD) H/O cervical spine surgery Occupational Therapy Inpatient Evaluation/Re-Eval M1 PT/OT-IP Prior Functional Status Start: 03/11/21 18:34 Freq: NEEDED Status: Active Protocol: Document 03/12/21 15:18 CGR (Rec: 03/12/21 15:36 CGR [id number]) Medical Review Prior Functional Status Medical History Reviewed Yes Diet/Fluid Consistency Regular Communication WFL, hard of hearing, has aids but does not like to wear them, impaired cognition Mobility and Gait Independent without a device Activities of Daily Living and IADL's Independent, drives Prior Functional Level (Other details) chart notes indicate family stressors lately in his life Social History Household Members spouse Living Arrangements House Number of Floors (Floors) One Floor Home Environment Standard Height Toilet,Tub/ Shower Employment Status 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 Prior Functional Status Start: 03/12/21 15:17 Freq: NEEDED Status: Active Protocol: Document 03/12/21 15:18 CGR (Rec: 03/12/21 15:36 CGR [id number]) Medical Review Prior Functional Status Medical History Reviewed Yes Diet/Fluid Consistency Regular Communication WFL, hard of hearing, has aids but does not like to wear them, impaired cognition Mobility and Gait Independent without a device Activities of Daily Living and IADL's Independent, drives Prior Functional Level (Other details) chart notes indicate family stressors lately in his life Social History Household Members spouse Living Arrangements House Number of Floors (Floors) One Floor Home Environment Standard Height Toilet,Tub/ Shower Employment Status 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 Current Condition Start: 03/12/21 15:17 Freq: Status: Active Protocol: Document 03/12/21 15:18 CGR (Rec: 03/12/21 15:36 CGR [id number]) Occupational Therapy Current Condition Current Condition Evaluation Date 03/12/21 Treatment Diagnosis AMS s/p suicide attempt, baseline cog/word finding deficit Diagnosis Onset Date 03/10/21 M3 OT- IP Subjective and Pain Start: 03/12/21 15:17 Freq: Status: Active Protocol: Document 03/12/21 15:18 CGR (Rec: 03/12/21 15:36 CGR [id number]) OT- Subjective Occupational Therapy Visit Type Type Initial Evaluation Visit Start Time 09:59 Visit Stop Time 10:30 Total Visit Minutes 31 Notes Pt's spouse present for first half of session. OT Pain Assessment Pain When Pain Assessed At Rest Pain Present Pain Present Denied Pain M4 OT- IP ADL's Start: 03/12/21 15:17 Freq: Status: Active Protocol: Document 03/12/21 15:18 CGR (Rec: 03/12/21 15:36 CGR [id number]) OT [id number] Comments OT Self-Feeding Comments Not meal time OT ADL-Grooming Comments OT Grooming Comments Pt declined to perform OT ADL-Oral Care Comments Oral Care Comments Pt declined to perform OT ADL-Dressing General Eval Upper Body Dressing Ability Standby Assistance Lower Body Dressing Ability Standby Assistance Areas Needing Assistance Underpants/Brief,Socks Comments OT Dressing Comments Hospital gown, socks and brief after shower. OT ADL-Toileting Comments OT Toileting Comments not performed OT ADL-Bathing Bathing Type Bathing Type Shower General Evaluation Bathing Ability Moderate Assistance Areas Needing Assistance Retrieving/Setting Up Items, Wash/Dry Back Devices Bathing Equipment Hand Held Shower Sprayer, Shower Chair with Arms,Grab Bars Comments OT Bathing Comments Pt needed VC to initiate washing each part of his body. M5 OT- IP IADL's Start: 03/12/21 15:17 Freq: Status: Active Protocol: Document 03/12/21 15:18 CGR (Rec: 03/12/21 15:36 CGR [id number]) OT-Instrumental Activities of Daily Living Deficits IADL Deficits Identified Deficits Home Safety Awareness Awareness of Need for Assistance at Home Decreased Awareness Ability to Problem Solve Emergency Unable to Problem Solve Situations Medication Management Medication Management Comments Concerns for pts ability to manage. Money Management Money Management Comments Concerns for pts ability to manage. Meal Preparation Meal Preparation Comments Concerns for pts ability to manage. Outcomes Analyst Outcomes Analyst Comments Concerns for pts ability to manage. Driving Driving Concerns Identified Regarding Safety M6 OT- IP Functional Cognition Start: 03/12/21 15:17 Freq: Status: Active Protocol: Document 03/12/21 15:18 CGR (Rec: 03/12/21 15:36 CGR [id number]) Cognitive Factors Limiting Selfcare Function Cognitive Ability Level of Alertness Alert Patient Orientation Name,Age,Birthday,Month,Year, Place,Situation Attention Span Ability Capable of Focused Attention, Capable of Sustained Attention Ability to Follow Commands Able to Follow One Step Commands with Increased Time, Able to Follow One Step Commands with Repetition Cognitive Comments Cognitive Assessment Comments Pt would benefit from a formal cog assessment OT- Vision and Hearing OT- Hearing Assessment OT- Hearing Assessment Hearing Impaired OT- Vision Assessment Visual Attentiveness WFL Occular Pursuits WFL M7 OT- IP Mobility and Balance Start: 03/12/21 15:17 Freq: Status: Active Protocol: Document 03/12/21 15:18 CGR (Rec: 03/12/21 15:36 CGR [id number]) OT-Transfer Assessment Sit to and From Stand Sit to and from Stand Contact Guard Assistance Transfers Transfer Ability Contact Guard Assistance Technique Transfer Destination Bedside Commode,Chair Transfer Technique Stand Step Pivot Devices Transfer Assistive Devices Gait Belt,Front Wheeled Walker Comments Mobility Comments Mobility with the walker. 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 and has some atrophy noted OT- Coordination Assessment Upper Extremity Finger to Nose Test Within Functional Limits Finger Tapping Test Within Functional Limits OT-Muscle Tone Assessment Muscle Tone WNL Yes OT Sensation Assessment Edema Edema Absent M9 OT- IP Assessment and Plan Start: 03/12/21 15:17 Freq: Status: Active Protocol: Document 03/12/21 15:18 CGR (Rec: 03/12/21 15:36 CGR [id number]) OT Summary Assessment and Plan Potential Rehabilitation Potential Good Analytic Complexity at Evaluation Moderate Summary OT Impairments Balance,Functional Cognition, Functional Mobility,Grooming, Dressing,Toileting,Bathing, Toilet Transfers,Shower Transfers,Activity Tolerance Progress Towards Goals Slow Progress due to Cognition Assessment Summary Pt presents as a moderate complexity evaluation s/p admit for AMS after intentional overdose. Pt participated with shower on this date but displays poor balance and need for mod to max vc to initiate each step of an activity. Pt will require 24/7 physical/visual assist for his safety at this time. Recommend rehab. Goals Grooming Goal Independent Dressing Goal Independent Toileting Goal Independent Bathing Goal Independent Toilet Transfer Goal Independent Shower Transfer Goal Independent Days to Meet Goals 15 Frequency of Treatment Frequency Of Treatment Once a Day Treatment Plan OT Treatment Plan ADL Training,Functional Cognition Training,Functional Mobility,Patient/Family Education,Discharge Planning Other Treatment Recommendations and Next ADLs standing. Treatment Focus Discharge Recommendations Other Discharge Recommendations Psych rehab vs SNF Transportation Needs at Discharge Private Vehicle
--- NOTE | 2021-03-12 10:50 | PC.NURSE ---
Addendum entered by Brandy Gonzalez R.N. 03/12/21 14:37: Patient attempting to have a bowel movement. Just went to check on him and his is helping wipe patient. As soon as patient out the bathroom, we will attempt to give him his medication. Addendum entered by Brandy Gonzalez R.N. 03/12/21 14:02: Patient talked with social insurance specialist today, and she gently discussing psychiatric care for patient, as he has had some behaviors and suicidal ideation when being admitted to the hospital. He stated to here that he will not go there and did become somewhat agitated. talked with patient one to one and he as been agreeable to stay here for now and start on a medication for some anxiety. Patients pulse has been in the 40s and 50s today, carvedilol held per . We will give him his bowel medications, and other meds as soon as he wakes up from his nap. Up to the bathroom with front wheel walker and one person assist and patient has been voiding. He has not had a bowel movement for about 3 days and patient received a pruine juice cocktail and senna and bonnie just ordered. Denies any pain or discomfort, heparin gtt continues to infuse at 21cc/hr and will be d/cd around 2100 tonight and patient will be starting his po eloquis then. Original Note: Assess- Patient is alert but disoriented x1. He is enterprise, and can heare best in his r.ear. Patients is in the room visiting and attentive to patients needs. He has not made any suicidal ideations or mentioned wanting to . Patient has been appropriate, ambulated in the halls and did get tired towards the end of the walk. He just showered with OT and did decent. He has a heparin drip infusing at 21cc/hr which is equivalent to 1050
--- NOTE | 2021-03-12 12:20 | PT-IP ANOTE ---
Holding physical therapy treatment at this time. Pt agitated. Will continue to monitor today.
--- NOTE | 2021-03-12 13:06 | PC.NURSE ---
Patient is currently sleeping
--- NOTE | 2021-03-12 13:48 | CM.SWNOTE ---
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 Patient was admitted to the medical floor, stroke ruled out by MRI, patient found to have acute NSTEMI, PMH includes atrial fibrillation currently on apixaban, chronic heart failure with preserved ejection fraction, hyperlipidemia, hypertension and some word finding difficulties, short term memory loss at baseline. Patient considered medically stable today per Dr Moura. Reviewed psychiatry consult note by Dr Tate completed 03.10.21, reviewed this case w/ Dr Tate who is suggesting patient be considered for detainment/[facility]LIN to a asia-psych unit and explains patient is gravely disabled, danger to self, and is likely to reattempt suicide. Dr Tate also feels patient is decisional and will not be a good bhupendra voluntary Met w/patient, introduced social work role. Patient is A+O throughout our conversation. Patient admits this was a suicide attempt, and that he had been struggling w/depression/anxiety for years, states he has had suicidal thoughts for years. Asked patient about events and life situations leading up to this attempt and patient often drifts as patient put it, off to other topics and stories but can be easily redirected to the topic or question at hand. Patient admits to this BOX TENDER that he doesn't like answering the questions about his suicide attempt. Patient admits that things were piling up and reviews a month long h/o family arguments about settling estates in [facility]. Patient also describes feeling isolated by his and he having different interests and that spouse is part of the [employer] and patient is not. Patient outlines his experiences and is very articulate, he describes how it felt to lose his chocolate lab a year ago, my best friend and describes a life of solitude, he also reviews how tumultuous his marriage has been and reviews his childhood as being very punitive, both in his home and in the [employer] school he attended. Patient denies h/o psychiatric care or counseling. His mother was a psychiatrist who practiced in [place], patient eludes to suspicion re: psychiatric care and medication. Patient denies illicit drug use, excessive ETOH use, and denies outstanding legal involvement. Asked patient if he felt safe returning home w/spouse Jennifer and patient said absolutely! patient denied any h/o abuse between he and spouse and denied family allegations about spouse drugging him and/or being a part of patient's suicide attempt. This BOX TENDER suggested that patient had likely been living w/a fairly severe depression for awhile and w/recent life stressors, patient felt overwhelmed to the point of not identifying a reason to live and/or an alternative to taking his own life, patient agreed. This BOX TENDER also suggested that there might be a better quality of life for patient if he had his depression and anxiety properly treatment. Patient did not agree completely w/this BOX TENDER. Then suggested inpatient psychiatric hospitalization and patient adamantly refused. Suggested to patient that this BOX TENDER and medical team were concerned enough for his safety that patient may be considered for detainment to a psychiatric facility. At that time, patient became very upset. Patient told this BOX TENDER that if this BOX TENDER, the hospitalist , psychiatrist or anyone else tries to take him it will be over my body, I'm not going patient continued to say that this BOX TENDER was making him very upset, stating I will take you out and anyone else you tries to force me there this BOX TENDER left the room at this time to discuss w/hospitalist Dr Moura. Ayesha Gamble, DEE
--- NOTE | 2021-03-12 14:31 | P.PN_ITS ---
Subjective Subjective Date Patient Seen: 03/12/21 Time Patient Seen: 08:31 Interval history: Today he feels better. His weakness is improving and he thinks he is walking better. He has no chest pain or shortness of breath. He denies that he is suicidal currently, and says he is feeling much more positive. Exam Vital Signs (past 8 hours): - 03/12/21 08:30 03/12/21 10:00 03/12/21 10:25 Temperature 97.4 F L Pulse Rate 54 L 48 L Respiratory Rate 16 18 Blood Pressure 150/66 H 164/61 H Pulse Oximetry 97 99 99 03/12/21 12:00 Temperature Pulse Rate 45 L Respiratory Rate 16 Blood Pressure 140/63 Pulse Oximetry 98 Oxygen Delivery Method Room Air Oxygen Flow Rate 0 Narrative Exam Narrative: Gen: no acute distress Resp: Lungs clear bilaterally CV: regular rate and rhythm with no murmurs Abd: soft, non-tender, normal bowel sounds Skin: no lesions or rashes, dry and intact Neuro: alert and oriented, has word finding difficulties and memory difficulties Extremities: moves all 4 extremities Psyche: Tangential, pleasant, denies suicidal ideation. Objective Labs Result Diagrams: 03/12/21 06:10 03/12/21 06:10 Labs: Laboratory Results - last 24 hr 03/12/21 03/12/21 03/12/21 06:10 06:10 06:10 WBC 8.5 RBC 4.35 L Hgb 13.3 L Hct 39.6 L MCV 91.1 MCH 30.6 MCHC 33.6 RDW 13.9 Plt Count 117 L APTT 67 H Sodium 138 Potassium 4.0 Chloride 109 H Carbon Dioxide 23 BUN 19 Creatinine 0.72 Estimated GFR > 60.0 BUN/Creatinine Ratio 26.4 H Glucose 142 H Calcium 9.5 PFSH Medical History Atrial fibrillation and flutter Hyperlipidemia Hypertension Surgical History H/O cervical spine surgery Family History Mother Colon cancer Father Unknown family medical history Social History household members: spouse Smoking Status: Never smoker alcohol intake: current Assessment & Plan Assessment & Plan narrative: Mr. Hoff is an 80M with PMH of atrial fi brillation previously ablated and anticoagulated on apixaban, hypertension, and hypercholesterolemia admitted for confusion and found to have elevated troponin. 1. Suicide attempt, acute, with depression -Presence of opioids on toxicology screen, not prescribed or administered in the ED -consulted with psychiatry, Dr. Tate, appreciate recs -recommended DCR evaluation to consider placement for psychiatry -started zoloft -started zyprexa -sw consult placed -may need placement for inpatient psychiatry 2. CVA ruled out, -Cardiac telemetry -MRI head showed no stroke -ECHO pending -ordered for PT/OT/ST 3. NSTEMI, ruled out, likely cardiac demand from medications during overdose -patient noted to have elevated troponin that was rising from 0.090 to 0.169 -cardiology contacted and recommended IV heparin for 48 hours to be completed 03/12 PM -ECHO to evaluate for wall motion abnormality, did not show any focal abnormality, per cardiology does not need angiogram -ECHO did show mild global hypokinesis with EF 45-50% -holding beta-amada due to bradycardia in the 40s -per cardiology has speckled appearance to myocardium, concern for possible cardiac amyloid, recommend spep/upep/light chains which have been ordered ----patient has been bradycardiac and dizzy which could be secondary to amyloid -ordered for aspirin -has allergy to statin -A1c 5.9% 4. Hypertension, acute with an admission bp of [], present on admission -Allow for permissive hypertension of 220/110 HR 60 to allow for brain perfusion 5. HLD - Lipid panel indicates low HDL and borderline high total cholesterol - He has an intolerance to statins, so may consider Zetia 6. Bradycardia -will stop beta-amada given bradycardia, and presyncopal symptoms -concern for possible cardiac amyloid as etiology 7. Mild anemia -hemoglobin 13.2, no need for transfusion -continue to monitor 8. Thrombocytopenia -continue to monitor, currently platelets of 121, appears chronically low -no need for transfusion Consults: Dr. Tate consult and involvement is appreciated. Patient is admitted under inpatient status with expected length of stay greater than 2 midnights due to severity of presenting symptoms, risk of adverse event, and complexity of treatment plan. FEN: saline lock, heart healthy diet, BMP and magnesium in the am. Dispo: Unknown at this time Code Status: Full Code as discussed with patient Jennifer Hoff his is his POA and surrogate, as stated by his son and daughter, Andrew and Lily Adarsh VTE Deep Vein Thrombosis/Pulmonary Embolism Present on Admission: No
--- NOTE | 2021-03-12 14:37 | CM.SWNOTE ---
Addendum entered by DEE Saba 03/12/21 15:49: This PIG STICKER brought I pad device into patient's room, ESPINOZA Alfred was connected via zoom. Ipad held up to patient's ear to hear better. Patient remains A+O w/baseline slowed speech and some word finding difficulty. Sharyn reviewed POC with patient. Patient denies being suicidal, states after waking up from his suicide attempt and talking with his he feels better. According to ESPINOZA Alfred, patient does not meet criteria to be detained and has agreed to answering the phone from someone to talk and so less restrictive option is the suggestion; ie home w/spouse and [facility] w/recommended psychiatric f/u. In addition, there are no asia psych beds available today Discussed w/Dr Moura. Plan is to keep patient this evening, attempt contact w/ Dr Tate Sunday if available by phone, will likely need to work on outpatient plan tomorrow...if patient is denying active suicidal ideation and can safety plan for less restrictive, outpatient plan. VALDO Original Note: PIG STICKER Note After discussion w/Dr Moura, placed call to [facility] to request [facility] dispatch. faxed signed and completed [facility] medical attestation to [facility] Spoke w/ ESPINOZA Alfred, reviewed details of this case and faxed clinical information to F . Now preparing to connect w/Sharyn and patient in room w/ESPINOZA Ipad device to complete assessment for possible detainment VALDO
[2021-03-12] MEDS: OLANZapine ODT 10 MG TAB 5 MG PO (14:49)
[2021-03-12] MEDS: AMLODIPINE 5 MG TABLET PO (14:49)
[2021-03-12] MEDS: DOCUSATE 100 MG CAPSULE PO ×2 (14:50→20:38)
[2021-03-12] MEDS: SENNOSIDES 8.6 MG TABLET 17.2 MG PO (14:51)
[2021-03-12] MEDS: TAMSULOSIN 0.4 MG CAPSULE PO (20:37)
[2021-03-12] MEDS: lisinopriL 20 MG TABLET 40 MG PO (20:37)
[2021-03-12] MEDS: OLANZapine 2.5 MG TABLET 5 MG PO (20:37)
[2021-03-12] MEDS: APIXABAN 5 MG TABLET PO (20:38)
[2021-03-12] MEDS: SERTRALINE 50 MG TABLET 25 MG PO (20:38)
[2021-03-12] MEDS: SODIUM CHLORIDE 0.9% FLUSH 10 ML IV (21:04)
--- NOTE | 2021-03-12 22:01 | PC.NURSE ---
Came in to give 2100 medications and patient seemed very confused. I explained what medications we were giving him, how we were changing his heparin drip to oral eliquis. Delmar was not understanding and kept repeating I dont know. He could not tell me what was confusing him but he eventually took all his medication. Discussed with HUMERA Malik as his mentation has declined over the shift. No new orders. Will continue to monitor.
[2021-03-13] MEDS: SODIUM CHLORIDE 0.9% FLUSH 10 ML IV ×2 (01:32→08:55)
[2021-03-13 05:09] VITALS: BP 144/61; PULSE 48; RESP 13; TEMP 36.6; O2SAT 95
[2021-03-13 06:07] LABS: Hematocrit 37.7 % (41-53); Hemoglobin 12.9 g/dL (13.5-17.5); Mean Corpuscular HGB Conc 34.1 % (30-36); Mean Corpuscular Hemoglobin 31.1 PG (26-34); Mean Corpuscular Volume 91.4 fL (80-100); Platelet Count 125 X10^3/uL (150-400); Red Blood Cell Count 4.13 X10^6/uL (4.5-5.9); White Blood Cell Count 7.2 X10^3/uL (4.5-11.0)
[2021-03-13 06:19] LABS: BUN Creatinine Ratio 16.9 (6-22); Blood Urea Nitrogen 13 mg/dL (9-20); Calcium 9.3 mg/dL (8.4-10.2); Carbon Dioxide 26 mmol/L (22-32); Chloride 111 mmol/L (98-107); Estimated Glomerular Filt Rate > 60.0 mL/min (>60); Glucose 110 mg/dL (80-110); HEMOLYSIS < 15 (0-50); Potassium 3.7 mmol/L (3.4-5.1); Sodium 141 mmol/L (137-145)
[2021-03-13 07:31] VITALS: BP 159/67; PULSE 54; RESP 18; TEMP 36.4; O2SAT 95
--- NOTE | 2021-03-13 08:29 | P.DS_ITS ---
History of Present Illness History of Present Illness Chief complaint: Confusion Narrative: Per Joana Roland: Delmar Hoff is an 80-year-old male with a history of cardiac ablation and anticoagulated on apixaban was apparently brought to the emergency department at the request of a friend of his named Nicolas due to what appears to be approximately 2-day-old history of acute mental status changes. Patient is un able to give me history, he has a very tangential speech pattern and perseverates on events that have happened years ago. 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 Per the emergency room provider the patient appeared to be quite confused and was having difficulty word finding. After discussing the patient's case with Lily Hoff his daughter and Andrew Hoff his son, the patient has had word-finding difficulties for the past year or so. They state that his tangential speech pattern has been ongoing for many years and is a source of annoyance to the family. Per his son who speaks to the patient almost daily, the patient was discussing plans to visit the son and his family in the [facility] area and appeared to be very confused on the day of admission. The patient was asking him who he was, who himself was, where he was. Patient per son continues to drive during the day but would of taken a local airport her shuttle to [facility] and then flown to [place] and this is been a trip the patient is made without any issues in the past. Per the emergency room provider, the , Jennifer was present and she was not noted to be fully coherent either. The emergency room provider felt that she was not a very reliable historian. Per his son Andrew when he was on the phone with him yesterday he stated that the patient sounded like he was drugged. He then called back a few minutes later and the patient still continued to be confused and disoriented and did not ap pear to improve until after he was in the emergency department for several hours. The son states that he believes that the patient's has severe pain issues and is very depressed. Prior to the paramedics arriving at the patient's house, the patient contacted the local police department and told them that they had authorization to enter the house forcibly if necessary to reach his father. The son is very concerned about the 's significant depression and pain issues and when informed that the patient had had a positive toxicology screen for oxycodone the son stated that the patient was very well aware of pain medications, did not take them, and wondered if the might have given him 1 of her medications. During the time I was discussing his changes with his daughter and son, the patient admitted to his nurse that he had oxycodone left over from a prior surgery and had taken the whole bottle in a suicide attempt. I went into see the patient and he informed me that he had been wanting to do this for over 40 years. He states that he had leftover medications from prior surgery of which he never took any of them postoperatively. He states he does not know the amount but he took the whole bottle. States he dissolve thumb in water and drink the water. States when he was woken up by his he was wondering why he was still alive. He cannot guarantee a safe plan. He asked that the nurse and I not share this with anyone else. The patient does endorse having memory issues that seem to have been going on for a long time. He also is hard of hearing of which his right side is is better year, he has a left-sided visual defect and is having issues with his right sided vision. He did state that he had an eaten or drank fluids for the last 2 days. I was not able to obtain any more information for review of systems from him or current symptoms. Head CT in the emergency department did not indicate any acute changes. The patient was afebrile, blood pressure 147/63, heart rate 68, respiratory rate 16, oxygen saturation 96% on room air, he weighs 88.5 kg with a BMI of 26.1. Of concern is rising troponin of 0.090 on admission, 6 hour troponin is 0.154. WBC is 9.9, RBC 4.38, hemoglobin 13.4, hematocrit 39.8, platelet count is a 127, chemistries are unremarkable with exception of a mildly elevated glucose at 1:21 a.m., his hemoglobin A1c is 5.9, magnesium 2.0, AST 70, CK-MB is 15.4, lipid panel largely within normal limits with the exception of a total cholesterol of 124, and a low HDL of 37, UA is negative for a UTI, he was positive for oxycodone in his urine despite not being prescribed this medication nor being administered this medication in the ED, and COVID 19 PCR is negative. Per the patient's son, he does not see his internal medicine provider as ?the patient hates his doctor?. The patient does see Dr. Harp computer aided drafter. Discharge Providers Provider Date of admission: 03/10/21 00:13 Discharge Date: 03/14/21 Primary care physician: Darryl Damon MD Consults: 03/10/21 02:17 Consult to Discharge Planning Routine Comment: Consult to Occupational Therapy Evaluate & Treat Comment: Physician Instructions: Evaluate and treat Consult to Physical Therapy Evaluate & Treat Comment: Physician Instructions: Evaluate and Treat Consult to Speech Therapy Evaluate & Treat Comment: Physician Instructions: Evaluate and treat 03/10/21 04:38 Consult to FINANCIAL SERVICE PROFESSIONAL - Foot Cutter Routine Comment: Son concerned may have given to pt. 03/10/21 05:38 Consult to Physician Routine Comment: Consulting Provider: Paulo Tate Reason for consultation: Suicide attempt Has provider been notified: Yes Discharge provider: Spencer Moura MD Summary Hospital Course Discharge Diagnosis: 1. Suicide attempt by overdose with oxycodone 2. Depression 3. Demand ischemia with troponin elevation 4. Hypertension 5. Hyperlipidemia 6. Bradycardia 7. Question of cardiac amyloid 8. Mild anemia 9. Chronic thrombocytopenia 10. Probable mild dementia 11. Paroxysmal atrial fibrillation Hospital Course: Mr. Hoff was initially admitted with confusion and weakness, and once in the hospital admitted to an intentional suicidal attempt by taking leftover oxycodone pills. He was seen by psychiatry here and was started on Zoloft. Recommendation was made for consideration of inpatient psychiatric placement. This was discussed with the patient who was adamantly against this. DCR was contacted who evaluated the patient and determined that patient did nto meet criteria for involuntary placement for inpatient psychiatry. Dr. Tate was also in agreement. This was because patient was no denying any suicidal ideation or plan after initially coming in to the hospital. He was willing to work with DCR and follow up Dr. Tate as an outpatient. There were also concerns mentioned by family about patient's safety with his . However patient was adamant that he felt completely safe with his . In addition, patient was found to have elevated troponin without chest pain or EKG changes. Troponin peaked at 0.169. He was initially on heparin drip, cardiology consulted and recommended ECHO to determine if any focal wall motion abnormality. ECHO did not show this, but did show global dysfunction, mildly dilated LV and EF of 45-50%. [place] [facility] determined that no further workup was needed for NSTEMI. He was restarted on his eliquis. ECHO did not concern of possible cardiac amyloid with speckling in the myocardium. Cardiology recommended ordering SPEP, UPEP, and light chains, and he will follow up these results with cardiology. His beta-amada was stopped because of persistent bradycardia. Exam Vital Signs (past 8 hours): Oxygen Delivery Method Room Air Oxygen Flow Rate 0 Narrative Exam Narrative: Gen: no acute distress Resp: Lungs clear bilaterally CV: regular rate and rhythm with no murmurs Abd: soft, non-tender, normal bowel sounds Skin: no lesions or rashes, dry and intact Neuro: alert and oriented, has word finding difficulties and memory difficulties Extremities: moves all 4 extremities Psyche: Tangential, pleasant, denies suicidal ideation. Objective Labs Result Diagrams: 03/13/21 05:38 03/13/21 05:38 Labs: Laboratory Results - last 24 hr 03/13/21 03/13/21 05:38 05:38 WBC 7.2 RBC 4.13 L Hgb 12.9 L Hct 37.7 L MCV 91.4 MCH 31.1 MCHC 34.1 RDW 14.0 Plt Count 125 L Sodium 141 Potassium 3.7 Chloride 111 H Carbon Dioxide 26 BUN 13 Creatinine 0.77 Estimated GFR > 60.0 BUN/Creatinine Ratio 16.9 Glucose 110 Calcium 9.3 PFSH Medical History Atrial fibrillation and flutter Hyperlipidemia Hypertension Surgical History H/O cervical spine surgery Family History Mother Colon cancer Father Unknown family medical history Social History household members: spouse Smoking Status: Never smoker alcohol intake: current Discharge Plan Discharge Plan Patient Disposition: Home Provider Discharge Comment: Mr. Hoff came in with confusion. He admitted to an intentional overdose with oxycodone. He was also noted to have an elevated troponin. He was seen by psychiatry and started on zoloft. He was evaluated for possible need for inpatient psychiatry by crisis response; however, he stated he was no longer suicidal, and he was deemed not to need inpatient psychiatry per crisis response, and psychiatry agreed. He had an elevated troponin, but this was thought to be in setting of cardiac demand, he had no wall motion abnormality on ECHO. He had a question of possible cardiac amyloid that was possible on ECHO, and he had labs done, which will be followed by his computer aided drafter Dr. Harp. Discharge orders & Medications Prescriptions: New amlodipine [Norvasc] 5 mg Tablet 5 mg PO DAILY Qty: 30 RF: 0 sertraline [Zoloft] 50 mg Tablet 25 mg PO BEDTIME Qty: 30 RF: 0 Continued furosemide 20 mg tablet 20 mg PO DAILY RF: 0 tamsulosin 0.4 mg capsule 0.4 mg PO BEDTIME RF: 0 allopurinol 300 mg tablet 300 mg PO BEDTIME RF: 0 lisinopril 40 mg tablet 40 mg PO BEDTIME RF: 0 Eliquis 5 mg tablet 5 mg PO BID RF: 0 Discontinued carvedilol 25 mg tablet 12.5 mg PO BID RF: 0 Follow up/Referrals: Darryl Damon MD [Primary Care Provider] - Discharge Health Status Multidrug resistant organism: No MDRO Diet/Activity/Treatments Diet: Regular Visit Report/Discharge Packet Instructions: DI for Depression -- Adult, Dementia: Know the Warning Signs Discharge Data Primary Care Provider: Darryl Damon Quality VTE Deep Vein Thrombosis/Pulmonary Embolism Present on Admission: No MIPS - DC The patient has current or prior documentation of left ventricular ejection fr action (LVEF) less than 40%, or moderate or severely depressed left ventricular systolic function.: No
[2021-03-13] MEDS: OLANZapine 2.5 MG TABLET 5 MG PO (08:54)
[2021-03-13] MEDS: APIXABAN 5 MG TABLET PO (08:54)
[2021-03-13] MEDS: AMLODIPINE 5 MG TABLET PO (08:54)
[2021-03-13] MEDS: FUROSEMIDE 20 MG TABLET PO (08:54)
[2021-03-13] MEDS: ASPIRIN EC 81 MG TABLET PO (08:54)
[2021-03-13 11:04] VITALS: O2SAT 99
[2021-03-13 11:42] VITALS: BP 135/53; PULSE 47; RESP 18; TEMP 36.1; O2SAT 97
--- NOTE | 2021-03-13 12:14 | PT.IPTN ---
Current Diagnoses Vascular dementia with behavioral disturbance (03/10/21) Dementia in other diseases classified elsewhere without behavioral disturbance (03/10/21) Major depressive disorder, single episode, unspecified (03/10/21) Altered mental status, unspecified (03/10/21) Suicide attempt, initial encounter (03/10/21) Physical Therapy Treatment Note M2 PT-IP Current Condition Start: 03/11/21 18:34 Freq: NEEDED Status: Active Protocol: Document 03/11/21 14:56 DLM (Rec: 03/11/21 18:55 DLM [id number]) Physical Therapy Current Condition Current Condition Evaluation Date 03/11/21 Treatment Diagnosis Over-dose, confusion, impaired balance and gait Onset Date 03/10/21 Precautions Other Precautions high fall risk M3 PT-IP Subjective Start: 03/11/21 18:34 Freq: NEEDED Status: Active Protocol: Document 03/13/21 11:56 JEFFERY (Rec: 03/13/21 12:14 LJ [id number]) Subjective Physical Therapy Visit Type Type Treatment Note Visit Start Time 11:06 Visit Stop Time 11:28 Total Visit Minutes 22 Number of GRINDER MACHINE SETTER Visits 1 Physical Therapy Visit Comments Patient Comments Feeling better and wants to go home M4 PT-IP Mobility and Gait Start: 03/11/21 18:34 Freq: NEEDED Status: Active Protocol: Document 03/13/21 11:56 LJ (Rec: 03/13/21 12:14 LJ [id number]) PT-Transfer Assessment Sit to and From Stand Sit to and from Stand Contact Guard Assistance Equipment Transfer Assistive Device Gait Belt,Front Wheeled Walker Transfers Transfer Destination Chair Transfer Technique ambulated to chair w/FWW Transfer Ability Level of Assist Contact Guard Assistance,Use of Upper Extremities Comments Mobility Comments Pushed off chair with BUEs. CGA to assist with balance once pt was up. Returning to chair after ambulation, pt reached back with BUEs and slowly lowered himself down. Gait Assessment Gait Gait Assistance Required: Standby Assistance Distance (Feet) 300 Assistive Devices Assistive Device Gait Belt,Front Wheeled Walker Gait Deviations General Gait Pattern Flexed Trunk Factors Limiting Gait Function Factors Limiting Gait Function Decreased Activity Tolerance Comments Gait Comments Decreased reliance on FWW and improved posture when reminded . Pt occasionally let go of FWW to show he could stand without it and pushed it ahead of himself to show he didn't need to hang onto it for ambulation. Pt was steady on his feet but took 3 rest breaks due to fatigue. Pt reminded that he still needs to use FWW during ambulation. Stair Climbing Assessment Evaluation Level of Assist On Stairs Standby Assistance Devices Stair Climbing Assistive Devices Left Railing Technique/Endurance Stair Climbing Direction Ascend and Descend Stair Climbing Technique Step Over Step,Step to Step Number of Steps Climbed 3 Stair Climbing Set # Repetitions (reps) 2 Comments Stair Climbing Comments Pt able to navigate stairs safely using single rail. Step -over pattern ascending and step-to pattern for descending . M5 PT-IP Objective Assessments Start: 03/11/21 18:34 Freq: NEEDED Status: Active Protocol: Document 03/11/21 14:56 DLM (Rec: 03/11/21 18:55 DLM [id number]) Orientation Orientation/Cognition Level of Alertness Alert Orientation Name,Birthday,Month,Year,Place ,Situation Language Function Ability Expressive Aphasia,Hard of Hearing Safety Awareness Decreased Safety Awareness Memory Description Short Term Impaired Comments tangential in conversation, reluctant to wear his hearing aids but having difficulty hearing staff, pt had difficulty placing his hearing aids in his ears and attempted to put two of them in his right ear but could corrected it with cuing. 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 Coordination Assessment Gross Coordination Gross Coordination WNL Sensation Assessment Sensation Gross Sensation WNL Muscle Tone Muscle Tone WNL Yes M6 PT-IP Treatment Start: 03/11/21 18:34 Freq: NEEDED Status: Active Protocol: Document 03/13/21 11:56 JEFFERY (Rec: 03/13/21 12:14 JEFFERY [id number]) Physical Therapy Treatment Education Education Provided Safety M7 PT-IP Assessment and Plan Start: 03/11/21 18:34 Freq: NEEDED Status: Active Protocol: Document 03/13/21 11:56 JEFFERY (Rec: 03/13/21 12:14 JEFFERY [id number]) PT Summary Assessment and Plan Potential Rehabilitation Potential Good Status of Condition at Evaluation Evolving Summary Impairments Strength,Balance,Cognition, Activity Tolerance Assessment Summary Pt has made improvement in mobility. He has walked with nursing 400+ feet and with PT 300+ feet with good posture, FWW management, and balance. Reducing him to 1xday treatment and will reassess tomorrow treatment to see whether he can be DC with instructions to continue walking with nursing. Pt showed no sign of SOB during ambulation and stated he felt normal with his breathing. Goals Bed Mobility Goal Independent Transfer Goal Independent,Front Wheeled Walker Gait Goal Standby Assistance,Front Wheel Walker Gait Distance 200 feet Days to Meet Goals 3 Frequency of Treatment Frequency Of Treatment Once a Day Treatment Plan Physical Therapy Treatment Plan Gait Training,Therapeutic Exercise,Balance Retraining, Discharge Planning, Neuromuscular Re-ed Recommendations To Nursing Amount of Assist Needed 1 Person Assist Discharge Recommendations PT Discharge Recommendations Home with 09/04 Assist Available,Home Health
--- NOTE | 2021-03-13 14:40 | CM.DPNOTE ---
DC Note Discussed case w/DR Moura this morning; patient will be DC home today as long as patient and spouse agree to a safety plan. Dr Tate aware that patient is returning home and can see patient in the outpatient setting if patient/spouse call to schedule. Met w/patient, spouse Jennifer and PAIGE Hazel at bedside, attempted to review events leading up to this admission, events during admission and discuss a plan to keep patient safe as he gets ready to DC. In actuality, the conversation was about the disease progression of dementia and tips/recommendations for spouse Jennifer to help keep patient safe at home. Jennifer admits patient is still driving. Encouraged Jennifer to remove keys immediately or someone may get seriously hurt. Patient admitted he could not remember events yesterday, admitted he has recognized for quite some time that the forgetfulness, disorientation and word finding difficulties are not normal aging but progressive dementia, which has contributed to his severe depression. This PLUMBING AND HEATING MECHANIC and PAIGE Hazel explained that patient's cognitive status will continue to decline. Discussed this PLUMBING AND HEATING MECHANIC's concern that as patient's memory gets worse and as he gets increasingly disoriented, he will begin to wander frequently at night and possibly throughout the day, he will forget to turn off electrical items which can be very dangerous, and the chance of patient or someone else getting hurt will increase. Patient says he already does these things. 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 Spouse Jennifer laughs inappropriately throughout this conversation, at first denies patient's dementia stating It's just part of being 80 and never admits there is a problem. Jennifer states multiple times that there are many medical review specialist in the family, she plans to consult these family members to make recommendations for patient. This PLUMBING AND HEATING MECHANIC recommends patient/spouse get appts w/local providers, not family members, both Dr Tate, psychiatrist, and Dr Damon, PCP ( or someone in that practice) to review outpatient recommendations. Patient says he feels better and wants to return home, states I'll go see someone. Patient exhibits tangential thinking, cannot finish a sentence or story accurately, and seems to catch himself stating no that's not right, I've got that wrong. Again encouraged patient and spouse to consider making outpatient appts tomorrow morning for close f/u. Attempted to get spouse's collaboration in safety planning but spouse never discussed the suicide attempt and would not admit there was a problem or that patient was a safety risk. Reviewed case w/ RN Yasemin outside of patient's room. Patient is still considered a decisional adult, even though dementia appears moderate-severe today, review of SLUMS score is 12/30. In addition, spouse Jennifer is DPOA. Patient/spouse want to return home and deny need for resources at this time. There are no grounds on which to keep patient admitted and so patient is DC home Plan: DC home w/spouse via private vehicle. Close Outpatient f/u recommended DEE Saba
--- NOTE | 2021-03-13 15:34 | PC.NURSE ---
Pt A&O X3 but forgetful and confused with word finding and problem solving; flat affect; , Jennifer in room for COMBAT INFORMATION CENTER OFFICER conversation about dementia and depression; Jennifer is somewhat dismissive or minimizing of pt status, but patient is clear that he has trouble with word finding, remembering what he is doing, where he has placed items. Pt's loses conversation mid-sentence, switching between subjects and forgetting original thought; Jennifer and pt are instructed at d/c to f/u with PCP and with Dr Tate for evaluation and f/u care; d/c instructions also include read-through of symptoms of dementia, as well as instructions about depression; changes in Rx medication were discussed by this RN including stopping Coreg and starting Amlodopine, especially as they relate to bradycardia and HTN; @ 1515 pt escorted via wheelchair to private vehicle with personal belongings in hand
[2021-03-14 14:12] LABS: Free Kappa Lt Chains, Serum 24.1 mg/L (3.3-19.4); Free Lambda Lt Chains,Serum 14.2 mg/L (5.7-26.3)
[2021-03-15 12:36] LABS: Alpha-1 Globulin, Ur 4.8 % (.); Beta Globulin, Ur 7.5 % (.); Gamma Globulin, Ur 2.9 % (.); M-Spike % Not Observed % (Not Observed); Urine Total Protein 43.7 mg/dL (Not Estab.)
[2021-03-15 14:08] LABS: Albumin 3.5 g/dL (2.9-4.4); Alpha-1-Globulin 0.2 g/dL (0.0-0.4); Alpha-2-Globulin 0.5 g/dL (0.4-1.0); Gamma Globulin 0.8 g/dL (0.4-1.8); Globulin Total 2.2 g/dL (2.2-3.9); Protein, Total 5.7 g/dL (6.0-8.5)
== END 2021-03-13 15:35 | disposition home or self-care (01) | DRG 918 ==
LOC: ED 20:55 → AC 03-10 03:18
PROVIDERS: Internal Medicine; Admitting Provider Nurse Practitioner Family; Emergency Provider Emergency Medicine; PCP Internal Medicine; Referring Provider Emergency Medicine; Visit Provider Nurse Practitioner Family
DX: T40.2X2A Poisoning by other opioids, intentional self-harm, initial encounter (principal); F02.81 Dementia in other diseases classified elsewhere, unspecified severity, with behavioral disturbance; I24.8 Other forms of acute ischemic heart disease; E85.4 Organ-limited amyloidosis; I43 Cardiomyopathy in diseases classified elsewhere; F32.9 Major depressive disorder, single episode, unspecified; R00.1 Bradycardia, unspecified; D69.6 Thrombocytopenia, unspecified; I10 Essential (primary) hypertension; E78.5 Hyperlipidemia, unspecified; I48.0 Paroxysmal atrial fibrillation; F03.90 Unspecified dementia, unspecified severity, without behavioral disturbance, psychotic disturbance, mood disturbance, and anxiety; Y92.009 Unspecified place in unspecified non-institutional (private) residence as the place of occurrence of the external cause; Z79.01 Long term (current) use of anticoagulants; Z20.822 Contact with and (suspected) exposure to COVID-19
CPT/HCPCS: 36415; 70450; 70548; 70553; 80048; 80053; 80061; 80305; 80320; 81001; 82550; 82553; 82962; 83036; 83735; 83883; 84155; 84156; 84165; 84166; 84443; 84484; 85025; 85027; 85610; 85730; 87635; 90792; 92507; 92523; 93005; 93010; 93306; 96361; 96374; 97112; 97116; 97162; 97166; 97535; 99284; C9803; A9579; J1644; J2405

== ENCOUNTER → 2021-04-18 15:53 | Outpatient (CLI) | payer MEDICARE, SELFPAY ==
[2021-03-10 00:29] VITALS: BMI 26.1
--- NOTE | 2021-04-18 | DI.RAD.S_ITS ---
PROCEDURE: XR CHEST 2V INDICATIONS: COUGH TECHNIQUE: 2 views of the chest were acquired. COMPARISON: [facility], CR, XR CHEST 1V, 10/13/2019, 8:37. FINDINGS: Surgical changes and devices: None. Lungs and pleura: Lungs are clear. No pleural effusions or pneumothorax. Mediastinum: Mediastinal contours are normal. Heart size is enlarged as before. Bones and chest wall: No suspicious bony abnormalities. Soft tissues appear unremarkable. IMPRESSION: No acute cardiopulmonary disease. Dictated by: Robert Chau [facility] Interpreted: Mello Jones MD on 04/18/2021 at 16:29 Transcribed by: TED on 04/18/2021 at 16:30 Approved by: Mello Jones M.D. on 04/18/2021 at 17:23
== END ==
PROVIDERS: PCP Internal Medicine; Referring Provider Internal Medicine; Visit Provider Internal Medicine
DX: R05 Cough (principal)
CPT/HCPCS: 71046

== ENCOUNTER → 2021-05-02 17:34 | Outpatient (CLI) | payer MEDICARE, SELFPAY ==
[2021-04-19 10:06] VITALS: BMI 26.1
[2021-05-02 18:30] LABS: COVID19 -Nasal RAPID Negative (Negative)
== END ==
PROVIDERS: PCP Internal Medicine; Referring Provider Physician Assistant; Visit Provider Physician Assistant
DX: Z20.822 Contact with and (suspected) exposure to COVID-19 (principal)
CPT/HCPCS: 87635

== ENCOUNTER → 2021-05-18 14:52 | Outpatient (CLI) | payer MEDICARE, SELFPAY ==
[2021-04-19 10:06] VITALS: BMI 26.1
[2021-05-18 16:36] LABS: Add Manual Diff / Slide Review NO; Basophils Absolute Auto 0 /uL (0-100); Basophils Percent Auto 0.2 % (0-2); Eosinophils Absolute Auto 200 /uL (0-450); Eosinophils Percent Auto 2.6 % (2-4); Hemoglobin 13.2 g/dL (13.5-17.5); Lymphocytes Absolute Auto 2400 /uL (1100-4500); Lymphocytes Percent Auto 27.7 % (25-40); Mean Corpuscular HGB Conc 33.7 % (30-36); Mean Corpuscular Hemoglobin 31.1 PG (26-34); Mean Corpuscular Volume 92.2 fL (80-100); Monocytes Absolute Auto 600 /uL (0-900); Monocytes Percent Auto 7.4 % (3-14); Neutrophils Absolute Auto 5300 /uL (1500-7000); Neutrophils Percent Auto 62.1 % (50-75); Platelet Count 209 X10^3/uL (150-400); Red Blood Cell Count 4.23 X10^6/uL (4.5-5.9); White Blood Cell Count 8.6 X10^3/uL (4.5-11.0)
[2021-05-18 17:02] LABS: BUN Creatinine Ratio 27.8 (6-22); Blood Urea Nitrogen 35 mg/dL (9-20); Calcium 9.6 mg/dL (8.4-10.2); Carbon Dioxide 25 mmol/L (22-32); Chloride 107 mmol/L (98-107); Cholesterol 121 mg/dL (140-199); Estimated Glomerular Filt Rate 54.9 mL/min (>60); Glucose 100 mg/dL (80-110); HDL Cholesterol 38 mg/dL (40-60); HEMOLYSIS < 15 (0-50); LDL Cholesterol Calculated 72 mg/dL (<100); Potassium 4.9 mmol/L (3.4-5.1); Sodium 138 mmol/L (137-145); Triglycerides 56 mg/dL (35-150)
== END ==
PROVIDERS: PCP Internal Medicine; Referring Provider Internal Medicine Cardiovascular Disease; Visit Provider Internal Medicine Cardiovascular Disease
DX: E78.5 Hyperlipidemia, unspecified (principal); I50.32 Chronic diastolic (congestive) heart failure; Z79.01 Long term (current) use of anticoagulants
CPT/HCPCS: 36415; 80048; 80061; 85025

== ENCOUNTER 2021-06-24 14:08 | Inpatient (IN) | payer MEDICARE, SELFPAY ==
[2021-04-19 10:06] VITALS: BMI 26.1
[2021-06-24] VITALS (14 sets, daily range): BP systolic 143–167; BP diastolic 63–93; PULSE 58–68; RESP 12–28; TEMP 35.9–36.8; O2SAT 96–99; BMI 26.3
--- NOTE | 2021-06-24 14:11 | DI.RAD.S_ITS ---
PROCEDURE: XR CHEST 1V INDICATIONS: Chest pain TECHNIQUE: One view of the chest was acquired. COMPARISON: [facility], CR, XR CHEST 1V, 10/13/2019, 8:37. FINDINGS: Surgical changes and devices: None. Lungs and pleura: Lungs are clear. No pleural effusions or pneumothorax. Mediastinum: Mediastinal contours appear normal. Heart size is normal. Bones and chest wall: No suspicious bony lesions. Overlying soft tissues appear unremarkable. IMPRESSION: No acute cardiopulmonary process demonstrated radiographically. Dictated by: Tariq Adams M.D. on 06/24/2021 at 14:43 Approved by: Tariq Adams M.D. on 06/24/2021 at 14:43
[2021-06-24 14:40] LABS: Add Manual Diff / Slide Review NO; Basophils Absolute Auto 0 /uL (0-100); Basophils Percent Auto 0.4 % (0-2); Eosinophils Absolute Auto 200 /uL (0-450); Eosinophils Percent Auto 2.2 % (2-4); Hematocrit 38.4 % (41-53); Hemoglobin 12.8 g/dL (13.5-17.5); Lymphocytes Absolute Auto 1900 /uL (1100-4500); Lymphocytes Percent Auto 22.4 % (25-40); Mean Corpuscular HGB Conc 33.3 % (30-36); Mean Corpuscular Hemoglobin 31.2 PG (26-34); Mean Corpuscular Volume 93.7 fL (80-100); Monocytes Absolute Auto 900 /uL (0-900); Monocytes Percent Auto 10.2 % (3-14); Neutrophils Absolute Auto 5500 /uL (1500-7000); Neutrophils Percent Auto 64.8 % (50-75); Platelet Count 171 X10^3/uL (150-400); Red Cell Distribution Width 14.6 % (11.6-14.8); White Blood Cell Count 8.5 X10^3/uL (4.5-11.0)
[2021-06-24 14:46] LABS: Alanine Aminotransferase 18 IU/L (<50); Albumin 4.6 g/dL (3.5-5.0); Albumin Globulin Ratio 1.7 (1.0-2.8); Alkaline Phosphatase 90 U/L (38-126); Aspartate Aminotransferase 25 IU/L (17-59); BUN Creatinine Ratio 24.1 (6-22); Bilirubin Total 0.6 mg/dL (0.2-1.3); Blood Urea Nitrogen 28 mg/dL (9-20); Calcium 10.2 mg/dL (8.4-10.2); Carbon Dioxide 25 mmol/L (22-32); Chloride 107 mmol/L (98-107); Creatine Kinase 65 U/L (55-170); Estimated Glomerular Filt Rate > 60.0 mL/min (>60); Globulin 2.7 g/dL (1.7-4.1); Glucose 111 mg/dL (80-110); HEMOLYSIS < 15 (0-50); Lipase 85 U/L (23-300); Magnesium 1.9 mg/dL (1.6-2.3); Potassium 4.6 mmol/L (3.4-5.1); Sodium 141 mmol/L (137-145); Total Protein 7.3 g/dL (6.3-8.2)
[2021-06-24 14:47] LABS: Lactate (Lactic Acid) 1.5 mmol/L (0.7-2.1)
[2021-06-24 14:55] LABS: COVID19 -Nasal RAPID Negative (Negative)
[2021-06-24 14:57] LABS: Troponin I 0.076 ng/mL (0.01-0.034)
[2021-06-24 15:16] LABS: Procalcitonin 0.05 ng/mL (<0.5)
--- NOTE | 2021-06-24 15:24 | ED.CHESTPAIN ---
HPI - Chest Pain <Robert Cruz PA-C - Last Filed: 06/24/21 20:09> General Chief Complaint: Chest Pain Stated Complaint: heart problems/visibly shaking Time Seen by Provider: 06/24/21 14:56 Source: patient Mode of arrival: Family Vehicle Limitations: no limitations History of Present Illness HPI narrative: Delmar presents today with chief complaint of acute episode of right-sided chest pain, right arm tingling, feeling faint, and short of breath that came on suddenly at about 1400 today. He was working on a truck with his friend and they were trying to put a door back onto the truck when he experienced the sudden symptoms. His friend immediately put him in the vehicle and they drove here to the emergency department. His pain lasted all the way until he got here into the room at the emergency department. Overall duration of symptoms was approximately 1 hour. He currently denies any chest pain, lightheadedness, feeling faint, nausea, diaphoresis or any other acute concerns or complaints. He has longstanding history of atrial fibrillation with multiple ablations in the past. Seems to be relatively well controlled at this time. He has been taking all of his medications as prescribed and denies any recent dosage adjustments. Manager Of Software Development is Dr. Harp at [facility]. Related Data Home Medications Medication Instructions Recorded Confirmed allopurinol 300 mg tablet 300 mg PO BEDTIME 09/13/19 06/24/21 apixaban 5 mg tablet (Eliquis) 5 mg PO BID 09/13/19 06/24/21 lisinopril 40 mg tablet 40 mg PO BEDTIME 09/13/19 06/24/21 tamsulosin 0.4 mg capsule 0.4 mg PO BEDTIME 09/13/19 06/24/21 furosemide 20 mg tablet 20 mg PO DAILY PRN 06/08/21 06/24/21 Previous Rx's Medication Instructions Recorded amlodipine 5 mg tablet (Norvasc) 5 mg PO DAILY #30 tab 03/13/21 sertraline 50 mg tablet (Zoloft) 75 mg PO BEDTIME #60 tab 06/08/21 Allergies Allergy/AdvReac Type Severity Reaction Status Date / Time Lzrezxi-Spp-Lch Reductase AdvReac Mild CAUSES Verified 06/24/21 14:36 Inhibitor PAIN IN LEGS - ELECTRIC SHOCK Sulfa (Sulfonamide AdvReac Mild EXACERBATES Verified 06/24/21 14:36 Antibiotics) GOUT [SULFA (SULFONAMIDE ANTIBIOTICS)] Review of Systems <Robert Cruz PA-C - Last Filed: 06/24/21 20:09> Review of Systems Narrative: As per HPI Patient History <Robert Cruz PA-C - Last Filed: 06/24/21 20:09> Medical History (Updated 06/25/21 @ 00:42 [facility] Atrial fibrillation and flutter History of drug overdose Hyperlipidemia Hypertension Surgical History (Updated 06/25/21 @ 00:42 [facility] H/O cervical spine surgery History of cardiac radiofrequency ablation Family History Mother Colon cancer Father Unknown family medical history Social History household members: spouse Smoking Status: Never smoker alcohol intake: current Smoking Status: Never smoker alcohol intake frequency: holidays/special occasions only Substance Use Type: does not use Exam <Robert Cruz PA-C - Last Filed: 06/24/21 20:09> Narrative Exam Narrative: Exam Narrative: Const General: cooperative, healthy appearing, comfortable, no acute distress, well developed and well groomed Nutritional Appearance: average body habitus Orientation: alert and oriented x3 HENMT Head: normal to inspection and atraumatic Ears: hearing grossly normal bilaterally Nose: external nose normal and nares normal Face and sinus: normal facial exam Neck Neck: normal visual inspection and supple Resp Effort & Inspection: normal respiratory effort, able to speak in complete sentences, no audible wheezes, not labored, no nasal flaring and no respiratory distress, clear to auscultation bilateral Cardiac Regular rate, irregular rhythm, no discernible murmurs, rubs or gallops. Chest No significant chest wall tenderness with palpation, grossly normal to inspection GI Nondistended, normal bowel sounds, nontender to palpation Neuro General: alert, oriented x3, gait normal, tone normal and moves all extremities Cognition: normal cognition Speech: speech normal Gait: normal gait Psych Appearance: grossly normal and well kempt Mental Status: mental status grossly normal Speech and Movement: speech and movement normal Mood: congruent mood Affect: normal affect Initial Vital Signs Initial Vital Signs: Vital Signs Temperature 98.2 F 06/24/21 14:33 Pulse Rate 68 06/24/21 14:33 Respiratory Rate 18 06/24/21 14:33 Blood Pressure 147/65 H 06/24/21 14:33 Pulse Oximetry 99 06/24/21 14:33 <Cierra Waters DO - Last Filed: 06/30/21 00:41> Initial Vital Signs Initial Vital Signs: Vital Signs Temperature 98.2 F 06/24/21 14:33 Pulse Rate 68 06/24/21 14:33 Respiratory Rate 18 06/24/21 14:33 Blood Pressure 147/65 H 06/24/21 14:33 Pulse Oximetry 99 06/24/21 14:33 Course <Robert Cruz PA-C - Last Filed: 06/24/21 20:09> Course Course Narrative: Initial troponin was noted to be slightly elevated. Cardiology was paged. I spoke with Dr. Savage and discussed the patient's case. He is currently asymptomatic at this time. We gave single dose of aspirin and he is already anticoagulated on Eliquis. She recommended trending troponins and transferring to [facility] at this time. We will initiate transfer and look for beds. I spoke with Dr. Riya alford after 2nd troponin came back. Second troponin is slightly less than the initial troponin drawn. Patient remains asymptomatic here in the emergency department. There are no beds at [facility] at this time and patient does not want to transfer to any other hospital. Manager Of Software Development thought that it would be appropriate to admit him here and continue to trend out his troponins with echocardiogram in the morning. Heparin has been initiated for anticoagulation. I spoke with the hospitalist here, HUMERA Camejo and she agreed to admit the patient at this time. Orders Ordered: Discontinued Medications Acetaminophen (Acetaminophen 325 Mg Tablet) 650 mg PO Q6HR PRN PRN Reason: Fever/Mild Pain (1-3) Al Hydrox/Mg Hydrox/Simethicone (Mag Hydrox/Alum/Simeth 30 Ml Udc) 30 ml PO Q4HR PRN PRN Reason: Dyspepsia Last Admin: 06/25/21 14:27 Dose: 30 ml Documented by: SOCRATES Allopurinol (Allopurinol 300 Mg Tablet) 300 mg PO BEDTIME IZABEL Last Admin: 06/26/21 20:51 Dose: 300 mg Documented by: Admin: 06/25/21 20:25 Dose: 300 mg Documented by: Admin: 06/24/21 22:22 Dose: 300 mg Documented by: MERLYN Amlodipine Besylate (Amlodipine 5 Mg Tablet) 5 mg PO DAILY [facility] Last Admin: 06/27/21 10:24 Dose: 5 mg Documented by: Admin: 06/26/21 08:45 Dose: 5 mg Documented by: Admin: 06/25/21 09:32 Dose: 5 mg Documented by: SOCRATES Apixaban (Apixaban 5 Mg Tablet) 5 mg PO BID [facility] Aspirin (Aspirin 81 Mg Chew Tab) 324 mg PO NOW ONE Stop: 06/24/21 15:27 Last Admin: 06/24/21 15:32 Dose: 324 mg Documented by: ELIN Aspirin (Aspirin Ec 81 Mg Tablet) 81 mg PO DAILY [facility] Last Admin: 06/27/21 10:24 Dose: 81 mg Documented by: Admin: 06/26/21 08:45 Dose: 81 mg Documented by: Admin: 06/25/21 09:32 Dose: 81 mg Documented by: SOCRATES Ezetimibe (Ezetimibe 10 Mg Tablet) 10 mg PO BEDTIME [facility] Last Admin: 06/26/21 20:50 Dose: 10 mg Documented by: VITOR Furosemide (Furosemide 20 Mg Tablet) 20 mg PO DAILY PRN PRN Reason: edema Heparin Sodium (Porcine) (Heparin 5,000 Unit/Ml Vial) 5,000 unit IV NOW ONE Stop: 06/24/21 21:56 Last Admin: 06/25/21 00:59 Dose: 5,000 unit Documented by: YULISSA Heparin Sodium/Dextrose (Heparin Drip) 25,000 unit in 500 mls @ 21.108 mls/hr IV CONT [facility]; Protocol Stop: 06/26/21 21:59 Last Titration: 06/26/21 22:13 Dose: 0 units/kg/hr, 0 mls/hr Documented by: Admin: 06/26/21 05:11 Dose: 10.23 units/kg/hr, 18 mls/hr Documented by: Titration: 06/26/21 04:34 Dose: 10.23 units/kg/hr, 18 mls/hr Documented by: Titration: 06/25/21 10:09 Dose: 10.23 units/kg/hr, 18 mls/hr Documented by: Titration: 06/25/21 09:26 Dose: 0 units/kg/hr, 0 mls/hr Documented by: Admin: 06/25/21 01:00 Dose: 11.37 units/kg/hr, 20 mls/hr Documented by: YULISSA Lisinopril (Lisinopril 20 Mg Tablet) 40 mg PO BEDTIME [facility] Last Admin: 06/26/21 20:50 Dose: 40 mg Documented by: Admin: 06/25/21 20:25 Dose: 40 mg Documented by: Admin: 06/24/21 22:22 Dose: 40 mg Documented by: MERLYN Lorazepam (Lorazepam 0.5 Mg Tablet) 0.5 mg PO Q4HR PRN PRN Reason: Anxiety Morphine Sulfate (Morphine 2 Mg/Ml Inj) 2 mg IV Q5MIN PRN PRN Reason: Chest Pain Morphine Sulfate (Morphine 2 Mg/Ml Inj) 2 mg IV NOW ONE Stop: 06/25/21 15:35 Last Admin: 06/25/21 15:54 Dose: 2 mg Documented by: VITOR Naloxone HCl (Naloxone 0.4 Mg/Ml Vial) 0.2 mg IV Q2MIN PRN PRN Reason: Opiate Reversal Nitroglycerin (Nitroglycerin 0.4 Mg Sl Tab) 0.4 mg SL [id number] PRN PRN Reason: Chest Pain Last Admin: 06/25/21 15:04 Dose: 0.4 mg Documented by: Admin: 06/25/21 14:47 Dose: 0.4 mg Documented by: Admin: 06/25/21 07:07 Dose: 0.4 mg Documented by: Admin: 06/25/21 06:59 Dose: 0.4 mg Documented by: YULISSA Ondansetron HCl (Ondansetron 4 Mg/2 Ml Inj) 4 mg IV Q8HR PRN PRN Reason: Nausea And Vomiting Sertraline HCl (Sertraline 50 Mg Tablet) 75 mg PO BEDTIME [facility] Last Admin: 06/26/21 20:51 Dose: 75 mg Documented by: Admin: 06/25/21 20:25 Dose: 75 mg Documented by: Admin: 06/24/21 22:22 Dose: 75 mg Documented by: MERLYN Sodium Chloride (Sodium Chloride 0.9% Flush) 10 ml IV PRN PRN PRN Reason: Flush Sodium Chloride (Sodium Chloride 0.9% Flush) 10 ml IV BID [facility] Last Admin: 06/27/21 10:25 Dose: 10 ml Documented by: Admin: 06/26/21 20:42 Dose: 10 ml Documented by: Admin: 06/26/21 08:46 Dose: 10 ml Documented by: Admin: 06/25/21 20:25 Dose: 10 ml Documented by: Admin: 06/25/21 09:32 Dose: 10 ml Documented by: SOCRATES Tamsulosin HCl (Tamsulosin 0.4 Mg Capsule) 0.4 mg PO BEDTIME [facility] Admin: 06/26/21 20:51 Dose: 0.4 mg Documented by: Admin: 06/25/21 20:25 Dose: 0.4 mg Documented by: Admin: 06/24/21 22:22 Dose: 0.4 mg Documented by: MERLYN Vital Signs Vital signs: Vital Signs - 8 hr 06/24/21 14:33 06/24/21 15:41 06/24/21 16:01 Temperature 98.2 F Pulse Rate 68 60 59 L Respiratory Rate 18 22 Blood Pressure 147/65 H 167/70 H 154/63 H Pulse Oximetry 99 99 99 06/24/21 16:30 06/24/21 17:00 06/24/21 17:01 Temperature Pulse Rate 61 58 L 58 L Respiratory Rate 28 H 19 18 Blood Pressure 158/65 H Pulse Oximetry 98 96 97 06/24/21 17:30 06/24/21 18:00 06/24/21 18:30 Temperature Pulse Rate 58 L 58 L 60 Respiratory Rate 17 12 19 Blood Pressure 143/93 H 161/71 H Pulse Oximetry 96 98 06/24/21 19:00 Temperature Pulse Rate 61 Respiratory Rate 19 Blood Pressure Pulse Oximetry <Cierra Waters, - Last Filed: 06/30/21 00:41> Orders Ordered: Discontinued Medications Acetaminophen (Acetaminophen 325 Mg Tablet) 650 mg PO Q6HR PRN PRN Reason: Fever/Mild Pain (1-3) Al Hydrox/Mg Hydrox/Simethicone (Mag Hydrox/Alum/Simeth 30 Ml Udc) 30 ml PO Q4HR PRN PRN Reason: Dyspepsia Last Admin: 06/25/21 14:27 Dose: 30 ml Documented by: SOCRATES Allopurinol (Allopurinol 300 Mg Tablet) 300 mg PO BEDTIME [facility] Last Admin: 06/26/21 20:51 Dose: 300 mg Documented by: Admin: 06/25/21 20:25 Dose: 300 mg Documented by: Admin: 06/24/21 22:22 Dose: 300 mg Documented by: MERLYN Amlodipine Besylate (Amlodipine 5 Mg Tablet) 5 mg PO DAILY [facility] Last Admin: 06/27/21 10:24 Dose: 5 mg Documented by: Admin: 06/26/21 08:45 Dose: 5 mg Documented by: Admin: 06/25/21 09:32 Dose: 5 mg Documented by: SOCRATES Apixaban (Apixaban 5 Mg Tablet) 5 mg PO BID [facility] Aspirin (Aspirin 81 Mg Chew Tab) 324 mg PO NOW ONE Stop: 06/24/21 15:27 Last Admin: 06/24/21 15:32 Dose: 324 mg Documented by: ELIN Aspirin (Aspirin Ec 81 Mg Tablet) 81 mg PO DAILY [facility] Last Admin: 06/27/21 10:24 Dose: 81 mg Documented by: Admin: 06/26/21 08:45 Dose: 81 mg Documented by: Admin: 06/25/21 09:32 Dose: 81 mg Documented by: SOCRATES Ezetimibe (Ezetimibe 10 Mg Tablet) 10 mg PO BEDTIME [facility] Last Admin: 06/26/21 20:50 Dose: 10 mg Documented by: VITOR Furosemide (Furosemide 20 Mg Tablet) 20 mg PO DAILY PRN PRN Reason: edema Heparin Sodium (Porcine) (Heparin 5,000 Unit/Ml Vial) 5,000 unit IV NOW ONE Stop: 06/24/21 21:56 Last Admin: 06/25/21 00:59 Dose: 5,000 unit Documented by: YULISSA Heparin Sodium/Dextrose (Heparin Drip) 25,000 unit in 500 mls @ 21.108 mls/hr IV CONT [facility]; Protocol Stop: 06/26/21 21:59 Last Titration: 06/26/21 22:13 Dose: 0 units/kg/hr, 0 mls/hr Documented by: Admin: 06/26/21 05:11 Dose: 10.23 units/kg/hr, 18 mls/hr Documented by: Titration: 06/26/21 04:34 Dose: 10.23 units/kg/hr, 18 mls/hr Documented by: Titration: 06/25/21 10:09 Dose: 10.23 units/kg/hr, 18 mls/hr Documented by: Titration: 06/25/21 09:26 Dose: 0 units/kg/hr, 0 mls/hr Documented by: Admin: 06/25/21 01:00 Dose: 11.37 units/kg/hr, 20 mls/hr Documented by: YULISSA Lisinopril (Lisinopril 20 Mg Tablet) 40 mg PO BEDTIME [facility] Last Admin: 06/26/21 20:50 Dose: 40 mg Documented by: Admin: 06/25/21 20:25 Dose: 40 mg Documented by: Admin: 06/24/21 22:22 Dose: 40 mg Documented by: MERLYN Lorazepam (Lorazepam 0.5 Mg Tablet) 0.5 mg PO Q4HR PRN PRN Reason: Anxiety Morphine Sulfate (Morphine 2 Mg/Ml Inj) 2 mg IV Q5MIN PRN PRN Reason: Chest Pain Morphine Sulfate (Morphine 2 Mg/Ml Inj) 2 mg IV NOW ONE Stop: 06/25/21 15:35 Last Admin: 06/25/21 15:54 Dose: 2 mg Documented by: VITOR Naloxone HCl (Naloxone 0.4 Mg/Ml Vial) 0.2 mg IV Q2MIN PRN PRN Reason: Opiate Reversal Nitroglycerin (Nitroglycerin 0.4 Mg Sl Tab) 0.4 mg SL [id number] PRN PRN Reason: Chest Pain Last Admin: 06/25/21 15:04 Dose: 0.4 mg Documented by: Admin: 06/25/21 14:47 Dose: 0.4 mg Documented by: Admin: 06/25/21 07:07 Dose: 0.4 mg Documented by: Admin: 06/25/21 06:59 Dose: 0.4 mg Documented by: YULISSA Ondansetron HCl (Ondansetron 4 Mg/2 Ml Inj) 4 mg IV Q8HR PRN PRN Reason: Nausea And Vomiting Sertraline HCl (Sertraline 50 Mg Tablet) 75 mg PO BEDTIME [facility] Admin: 06/26/21 20:51 Dose: 75 mg Documented by: Admin: 06/25/21 20:25 Dose: 75 mg Documented by: Admin: 06/24/21 22:22 Dose: 75 mg Documented by: MERLYN Sodium Chloride (Sodium Chloride 0.9% Flush) 10 ml IV PRN PRN PRN Reason: Flush Sodium Chloride (Sodium Chloride 0.9% Flush) 10 ml IV BID [facility] Admin: 06/27/21 10:25 Dose: 10 ml Documented by: Admin: 06/26/21 20:42 Dose: 10 ml Documented by: Admin: 06/26/21 08:46 Dose: 10 ml Documented by: Admin: 06/25/21 20:25 Dose: 10 ml Documented by: Admin: 06/25/21 09:32 Dose: 10 ml Documented by: SOCRATES Tamsulosin HCl (Tamsulosin 0.4 Mg Capsule) 0.4 mg PO BEDTIME [facility] Admin: 06/26/21 20:51 Dose: 0.4 mg Documented by: Admin: 06/25/21 20:25 Dose: 0.4 mg Documented by: Admin: 06/24/21 22:22 Dose: 0.4 mg Documented by: MERLYN Vital Signs Vital signs: Vital Signs - 8 hr 06/24/21 14:33 06/24/21 15:41 06/24/21 16:01 Temperature 98.2 F Pulse Rate 68 60 59 L Respiratory Rate 18 22 Blood Pressure 147/65 H 167/70 H 154/63 H Pulse Oximetry 99 99 99 06/24/21 16:30 06/24/21 17:00 06/24/21 17:01 Temperature Pulse Rate 61 58 L 58 L Respiratory Rate 28 H 19 18 Blood Pressure 158/65 H Pulse Oximetry 98 96 97 06/24/21 17:30 06/24/21 18:00 06/24/21 18:30 Temperature Pulse Rate 58 L 58 L 60 Respiratory Rate 17 12 19 Blood Pressure 143/93 H 161/71 H Pulse Oximetry 96 98 06/24/21 19:00 Temperature Pulse Rate 61 Respiratory Rate 19 Blood Pressure Pulse Oximetry MDM - Chest Pain <Robert Cruz PA-C - Last Filed: 06/24/21 20:09> Lab Data Result diagrams: 06/27/21 04:40 06/27/21 04:40 Labs: Lab Results 06/24/21 06/24/21 06/24/21 Range/Units 14:15 14:20 14:20 WBC 8.5 (4.5-11.0) X10^3/uL RBC 4.10 L (4.5-5.9) X10^6/uL Hgb 12.8 L (13.5-17.5) g/dL Hct 38.4 L (41-53) % MCV 93.7 (80-100) fL MCH 31.2 (26-34) PG MCHC 33.3 (30-36) % RDW 14.6 (11.6-14.8) % Plt Count 171 (150-400) X10^3/uL Neut % (Auto) 64.8 (50-75) % Lymph % (Auto) 22.4 L (25-40) % [place] % (Auto) 10.2 (3-14) % Eos % (Auto) 2.2 (2-4) % Baso % (Auto) 0.4 (0-2) % Neut # (Auto) 5500 (4755-8946) /uL Lymph # (Auto) 1900 (4950-3149) /uL [place] # (Auto) 900 (0-900) /uL Eos # (Auto) 200 (0-450) /uL Baso # (Auto) 0 (0-100) /uL APTT (26.4-36.2) SECONDS Sodium 141 (137-145) mmol/L Potassium 4.6 (3.4-5.1) mmol/L Chloride 107 (98-107) mmol/L Carbon Dioxide 25 (22-32) mmol/L BUN 28 H (9-20) mg/dL Creatinine 1.16 (0.66-1.25) mg/dL Estimated GFR > 60.0 (>60) mL/min BUN/Creatinine Ratio 24.1 H (6-22) Glucose 111 H (80-110) mg/dL Lactate (0.7-2.1) mmol/L Calcium 10.2 (8.4-10.2) mg/dL Magnesium 1.9 (1.6-2.3) mg/dL Total Bilirubin 0.6 (0.2-1.3) mg/dL AST 25 (17-59) IU/L ALT 18 (<50) IU/L Alkaline Phosphatase 90 (38-126) U/L Total Creatine Kinase 65 (55-170) U/L CK-MB (CK-2) TNP CK-MB (CK-2) Rel Index TNP Troponin I 0.076 H (0.01-0.034) ng/mL Total Protein 7.3 (6.3-8.2) g/dL Albumin 4.6 (3.5-5.0) g/dL Globulin 2.7 (1.7-4.1) g/dL Albumin/Globulin Ratio 1.7 (1.0-2.8) Lipase 85 (23-300) U/L Procalcitonin (<0.5) ng/mL SARS-CoV-2 (PCR) Negative (Negative) 06/24/21 06/24/21 06/24/21 Range/Units 14:20 14:20 14:20 WBC (4.5-11.0) X10^3/uL RBC (4.5-5.9) X10^6/uL Hgb (13.5-17.5) g/dL Hct (41-53) % MCV (80-100) fL MCH (26-34) PG MCHC (30-36) % RDW (11.6-14.8) % Plt Count (150-400) X10^3/uL Neut % (Auto) (50-75) % Lymph % (Auto) (25-40) % [place] % (Auto) (3-14) % Eos % (Auto) (2-4) % Baso % (Auto) (0-2) % Neut # (Auto) (5255-5025) /uL Lymph # (Auto) (1080-6560) /uL [place] # (Auto) (0-900) /uL Eos # (Auto) (0-450) /uL Baso # (Auto) (0-100) /uL APTT 39 H D (26.4-36.2) SECONDS Sodium (137-145) mmol/L Potassium (3.4-5.1) mmol/L Chloride (98-107) mmol/L Carbon Dioxide (22-32) mmol/L BUN (9-20) mg/dL Creatinine (0.66-1.25) mg/dL Estimated GFR (>60) mL/min BUN/Creatinine Ratio (6-22) Glucose (80-110) mg/dL Lactate 1.5 (0.7-2.1) mmol/L Calcium (8.4-10.2) mg/dL Magnesium (1.6-2.3) mg/dL Total Bilirubin (0.2-1.3) mg/dL AST (17-59) IU/L ALT (<50) IU/L Alkaline Phosphatase (38-126) U/L Total Creatine Kinase (55-170) U/L CK-MB (CK-2) CK-MB (CK-2) Rel Index Troponin I (0.01-0.034) ng/mL Total Protein (6.3-8.2) g/dL Albumin (3.5-5.0) g/dL Globulin (1.7-4.1) g/dL Albumin/Globulin Ratio (1.0-2.8) Lipase (23-300) U/L Procalcitonin 0.05 (<0.5) ng/mL SARS-CoV-2 (PCR) (Negative) 06/24/21 06/24/21 Range/Units 16:23 18:40 WBC (4.5-11.0) X10^3/uL RBC (4.5-5.9) X10^6/uL Hgb (13.5-17.5) g/dL Hct (41-53) % MCV (80-100) fL MCH (26-34) PG MCHC (30-36) % RDW (11.6-14.8) % Plt Count (150-400) X10^3/uL Neut % (Auto) (50-75) % Lymph % (Auto) (25-40) % [place] % (Auto) (3-14) % Eos % (Auto) (2-4) % Baso % (Auto) (0-2) % Neut # (Auto) (9855-6378) /uL Lymph # (Auto) (4649-2452) /uL [place] # (Auto) (0-900) /uL Eos # (Auto) (0-450) /uL Baso # (Auto) (0-100) /uL APTT 38 H (26.4-36.2) SECONDS Sodium (137-145) mmol/L Potassium (3.4-5.1) mmol/L Chloride (98-107) mmol/L Carbon Dioxide (22-32) mmol/L BUN (9-20) mg/dL Creatinine (0.66-1.25) mg/dL Estimated GFR (>60) mL/min BUN/Creatinine Ratio (6-22) Glucose (80-110) mg/dL Lactate (0.7-2.1) mmol/L Calcium (8.4-10.2) mg/dL Magnesium (1.6-2.3) mg/dL Total Bilirubin (0.2-1.3) mg/dL AST (17-59) IU/L ALT (<50) IU/L Alkaline Phosphatase (38-126) U/L Total Creatine Kinase (55-170) U/L CK-MB (CK-2) CK-MB (CK-2) Rel Index Troponin I 0.071 H (0.01-0.034) ng/mL Total Protein (6.3-8.2) g/dL Albumin (3.5-5.0) g/dL Globulin (1.7-4.1) g/dL Albumin/Globulin Ratio (1.0-2.8) Lipase (23-300) U/L Procalcitonin (<0.5) ng/mL SARS-CoV-2 (PCR) (Negative) MDM Narrative Medical decision making narrative: Patient has been well-appearing here in the emergency department during his entire course. However, his presentation is highly concerning for acute coronary syndrome in addition to his history. Elevation in troponin is also quite concerning. I considered PE, musculoskeletal etiology, pneumothorax, but think that these were all less likely at this time. <Cierra Waters, DO - Last Filed: 06/30/21 00:41> Lab Data Labs: Lab Results 06/24/21 06/24/21 06/24/21 Range/Units 14:15 14:20 14:20 WBC 8.5 (4.5-11.0) X10^3/uL RBC 4.10 L (4.5-5.9) X10^6/uL Hgb 12.8 L (13.5-17.5) g/dL Hct 38.4 L (41-53) % MCV 93.7 (80-100) fL MCH 31.2 (26-34) PG MCHC 33.3 (30-36) % RDW 14.6 (11.6-14.8) % Plt Count 171 (150-400) X10^3/uL Neut % (Auto) 64.8 (50-75) % Lymph % (Auto) 22.4 L (25-40) % [place] % (Auto) 10.2 (3-14) % Eos % (Auto) 2.2 (2-4) % Baso % (Auto) 0.4 (0-2) % Neut # (Auto) 5500 (5669-1272) /uL Lymph # (Auto) 1900 (1357-0731) /uL [place] # (Auto) 900 (0-900) /uL Eos # (Auto) 200 (0-450) /uL Baso # (Auto) 0 (0-100) /uL APTT (26.4-36.2) SECONDS Sodium 141 (137-145) mmol/L Potassium 4.6 (3.4-5.1) mmol/L Chloride 107 (98-107) mmol/L Carbon Dioxide 25 (22-32) mmol/L BUN 28 H (9-20) mg/dL Creatinine 1.16 (0.66-1.25) mg/dL Estimated GFR > 60.0 (>60) mL/min BUN/Creatinine Ratio 24.1 H (6-22) Glucose 111 H (80-110) mg/dL Lactate (0.7-2.1) mmol/L Calcium 10.2 (8.4-10.2) mg/dL Magnesium 1.9 (1.6-2.3) mg/dL Total Bilirubin 0.6 (0.2-1.3) mg/dL AST 25 (17-59) IU/L ALT 18 (<50) IU/L Alkaline Phosphatase 90 (38-126) U/L Total Creatine Kinase 65 (55-170) U/L CK-MB (CK-2) TNP CK-MB (CK-2) Rel Index TNP Troponin I 0.076 H (0.01-0.034) ng/mL Total Protein 7.3 (6.3-8.2) g/dL Albumin 4.6 (3.5-5.0) g/dL Globulin 2.7 (1.7-4.1) g/dL Albumin/Globulin Ratio 1.7 (1.0-2.8) Lipase 85 (23-300) U/L Procalcitonin (<0.5) ng/mL SARS-CoV-2 (PCR) Negative (Negative) 06/24/21 06/24/21 06/24/21 Range/Units 14:20 14:20 14:20 WBC (4.5-11.0) X10^3/uL RBC (4.5-5.9) X10^6/uL Hgb (13.5-17.5) g/dL Hct (41-53) % MCV (80-100) fL MCH (26-34) PG MCHC (30-36) % RDW (11.6-14.8) % Plt Count (150-400) X10^3/uL Neut % (Auto) (50-75) % Lymph % (Auto) (25-40) % [place] % (Auto) (3-14) % Eos % (Auto) (2-4) % Baso % (Auto) (0-2) % Neut # (Auto) (6669-2960) /uL Lymph # (Auto) (7116-5002) /uL [place] # (Auto) (0-900) /uL Eos # (Auto) (0-450) /uL Baso # (Auto) (0-100) /uL APTT 39 H D (26.4-36.2) SECONDS Sodium (137-145) mmol/L Potassium (3.4-5.1) mmol/L Chloride (98-107) mmol/L Carbon Dioxide (22-32) mmol/L BUN (9-20) mg/dL Creatinine (0.66-1.25) mg/dL Estimated GFR (>60) mL/min BUN/Creatinine Ratio (6-22) Glucose (80-110) mg/dL Lactate 1.5 (0.7-2.1) mmol/L Calcium (8.4-10.2) mg/dL Magnesium (1.6-2.3) mg/dL Total Bilirubin (0.2-1.3) mg/dL AST (17-59) IU/L ALT (<50) IU/L Alkaline Phosphatase (38-126) U/L Total Creatine Kinase (55-170) U/L CK-MB (CK-2) CK-MB (CK-2) Rel Index Troponin I (0.01-0.034) ng/mL Total Protein (6.3-8.2) g/dL Albumin (3.5-5.0) g/dL Globulin (1.7-4.1) g/dL Albumin/Globulin Ratio (1.0-2.8) Lipase (23-300) U/L Procalcitonin 0.05 (<0.5) ng/mL SARS-CoV-2 (PCR) (Negative) 06/24/21 06/24/21 Range/Units 16:23 18:40 WBC (4.5-11.0) X10^3/uL RBC (4.5-5.9) X10^6/uL Hgb (13.5-17.5) g/dL Hct (41-53) % MCV (80-100) fL MCH (26-34) PG MCHC (30-36) % RDW (11.6-14.8) % Plt Count (150-400) X10^3/uL Neut % (Auto) (50-75) % Lymph % (Auto) (25-40) % [place] % (Auto) (3-14) % Eos % (Auto) (2-4) % Baso % (Auto) (0-2) % Neut # (Auto) (1296-8271) /uL Lymph # (Auto) (9755-6942) /uL [place] # (Auto) (0-900) /uL Eos # (Auto) (0-450) /uL Baso # (Auto) (0-100) /uL APTT 38 H (26.4-36.2) SECONDS Sodium (137-145) mmol/L Potassium (3.4-5.1) mmol/L Chloride (98-107) mmol/L Carbon Dioxide (22-32) mmol/L BUN (9-20) mg/dL Creatinine (0.66-1.25) mg/dL Estimated GFR (>60) mL/min BUN/Creatinine Ratio (6-22) Glucose (80-110) mg/dL Lactate (0.7-2.1) mmol/L Calcium (8.4-10.2) mg/dL Magnesium (1.6-2.3) mg/dL Total Bilirubin (0.2-1.3) mg/dL AST (17-59) IU/L ALT (<50) IU/L Alkaline Phosphatase (38-126) U/L Total Creatine Kinase (55-170) U/L CK-MB (CK-2) CK-MB (CK-2) Rel Index Troponin I 0.071 H (0.01-0.034) ng/mL Total Protein (6.3-8.2) g/dL Albumin (3.5-5.0) g/dL Globulin (1.7-4.1) g/dL Albumin/Globulin Ratio (1.0-2.8) Lipase (23-300) U/L Procalcitonin (<0.5) ng/mL SARS-CoV-2 (PCR) (Negative) Imaging Data Chest x-ray: Radiologist's Impression: [address] [address] XRay Report Signed Patient: Delmar Hoff MR#: [id number] : 1940 Acct:[id number] Age/Sex: 80 / M Date of Service: 06/24/21 Loc: ED Accession Number: [id number] ?? Procedure: XR chest 1V Ordering Provider: Cierra Waters D.O. PROCEDURE:? XR CHEST 1V ? INDICATIONS:? Chest pain ? TECHNIQUE:? One view of the chest was acquired.? ? COMPARISON:? [facility], CR, XR CHEST 1V, 10/13/2019, 8:37. ? FINDINGS:? ? Surgical changes and devices:? None.? ? Lungs and pleura:? Lungs are clear.? No pleural effusions or pneumothorax.? ? Mediastinum:? Mediastinal contours appear normal.? Heart size is normal.? ? Bones and chest wall:? No suspicious bony lesions.? Overlying soft tissues appear unremarkable.? ? IMPRESSION:? No acute cardiopulmonary process demonstrated radiographically. ? ? Dictated by: Tariq Adams M.D. on 06/24/2021 at 14:43 ? ? Approved by: Tariq Adams M.D. on 06/24/2021 at 14:43?? ECG Data Attestation: I personally reviewed and interpreted this ECG as follows: Prior ECG tracings: available for review Interpretation: Sinus rhythm first-degree AV block with occasional premature complexes. No acute changes appreciated patient has prior EKG from 03/10/2021 which appears to have similar ST segments overall. Discharge Plan Departure Patient Disposition: Admitted As Inpatient Clinical Impression: Acute non-ST elevation myocardial infarction (NSTEMI) Chest pain Qualifiers: Chest pain type: unspecified Qualified Code(s): R07.9 - Chest pain, unspecified Admit Date/Time: 06/24/21 19:10 Admit Provider: Aleja Camejo <Cierra Waters DO - Last Filed: 06/30/21 00:41> Cosign ED Attending Cosignature Attestation: I was immediately available in the department for consultation. Documentation has been reviewed. Case was discussed, EKG and labs reviewed. Cardiology was consulted recommendations included and discussed with our hospitalist who accepts for admission.
[2021-06-24] MEDS: ASPIRIN 81 MG CHEW TAB 324 MG PO (15:32)
[2021-06-24 16:53] LABS: Troponin I 0.071 ng/mL (0.01-0.034)
[2021-06-24 19:37] LABS: PTT Partial Thromboplastin Tim 39 SECONDS (26.4-36.2)
--- NOTE | 2021-06-24 19:58 | DI.ECHO.S_ITS ---
[facility]---------+ [facility] +---------+ : : [address] : [place] [address] : : : : [id number] : : : : Phone: [phone]+ Echocardiogram Report + + :Name: RUBY MEDLEY Study Date: 06/25/2021 Height: 72 in : :[facility] ReadingLocation: Weight: 193 lb: : Gender: Male BSA: 2.1 m2 : :: 1940 Age: 80 yrs : :Reason For Study: CP, R/O NSTEMI : : Performed By: YVETTE HE : :Referring: KOLBY SHORT : + + Interpretation Summary The left ventricle is normal in size. The ejection fraction is estimated to be 55-60%. Previous LVEF 45 to 50%. There is improvement in LV function. The right ventricle is mildly dilated. The right ventricular systolic function is normal. There is mild tricuspid regurgitation. No significant change in TR severity. The right ventricular systolic pressure is estimated to be at least 43 mmHg based on an estimated right atrial pressure of 8 mm Hg. Previously it was 69 mmHg. Compared to the prior echo exam, there has been a decrease in the severity of pulmonary hypertension. Procedure: A two-dimensional transthoracic echocardiogram with color flow and Doppler was performed. The study quality was technically adequate. Comparison is made with the echocardiogram of 03/11/2021. The patient was in normal sinus rhythm during the exam. Left Ventricle: The left ventricle is normal in size. Proximal septal thickening is noted. There is no thrombus. The ejection fraction is estimated to be 55-60%. There are no focal wall motion abnormalities. MV E/A: 2.4 Med Peak E' Ebenezer: 5.8 cm/sec E/E' med: 13.2. Right Ventricle: The right ventricle is mildly dilated. The right ventricular systolic function is normal. Atria: The left atrium is mildly dilated. The left atrium has remained unchanged in size since the prior echo exam. The right atrium is moderately dilated. A prominent eustachian valve is noted. There is no Doppler evidence for an interatrial shunt. The atrial septum is aneurysmal. Mitral Valve: The mitral valve is normal. There is mild mitral regurgitation. Compared to the prior echo study, there has been no change in the severity of mitral regurgitation. Aortic Valve: The aortic valve is trileaflet. The aortic valve opens well. There is no aortic valve stenosis. There is trace aortic regurgitation. Tricuspid Valve: The tricuspid valve is normal. There is mild tricuspid regurgitation. The right ventricular systolic pressure is estimated to be at least 43 mmHg based on an estimated right atrial pressure of 8 mm Hg. Compared to the prior echo exam, there has been a decrease in the severity of pulmonary hypertension. Pulmonic Valve: The pulmonic valve leaflets are thin and pliable; valve motion is normal. There is a trace or physiologic amount of pulmonic regurgitation. Great Vessels: The aortic root is borderline dilated. The ascending aorta is at the upper limits of normal in size. The aortic arch is at the upper limits of normal in size. The IVC is dilated (diameter is greater than 2.1 cm) yet it collapses greater than 50% with a sniff. This suggests a right atrial pressure of 8 mm Hg. Pericardium/ Pleura There is an anterior echo-free space consistent with a fat pad. There is a trivial to small pericardial effusion noted. There are no echocardiographic indications of cardiac tamponade. This is unchanged compared to the previous study. There is no pleural effusion. MMode/2D Measurements & Calculations LVIDd: 5.4 cm LVOT diam: 2.2 cm LVIDs: 4.2 cm Ao root diam: 3.6 cm FS: 22.2 % asc Aorta Diam: 3.7 cm IVSd: 1.2 cm Ao Arch Diam (Prox Trans): 3.4 cm LVPWd: 1.5 cm LV chiu. diameter/BSA (cm/m^2): 2.6 LV sys. diameter/BSA (cm/m^2): 2.0 LA A2 area: 22.7 cm2 RA long axis: 5.3 cm LA A4 area: 26.1 cm2 RA area: 26.7 cm2 LA length (vol): 6.0 cm RA vol: 114.6 ml LA vol: 83.5 ml RA : 54.6 ml/m2 LA vol index: 39.8 ml/m2 RVD1 (basal): 5.2 cm TAPSE: 2.7 cm Doppler Measurements & Calculations Ao V2 max: 121.0 cm/sec LVOT Max Ebenezer: 100.1 cm/sec Ao V2 mean: 83.2 cm/sec LV V1 max P.0 mmHg Ao max P.9 mmHg LV V1 VTI: 22.0 cm Ao mean P.0 mmHg MICHAEL(I,D): 3.4 cm2 Ao V2 VTI: 24.0 cm MICHAEL(V,D): 3.1 cm2 sev ratio: 0.92 MICHAEL indexed to BSA (cm^2/m^2): 1.6 MV E max ebenezer: 76.5 cm/sec TR max ebenezer: 300.0 cm/sec MV A max ebenezer: 31.7 cm/sec TR max P.0 mmHg MV E/A: 2.4 PA V2 max: 82.8 cm/sec Med Peak E' Ebenezer: 5.8 cm/sec PA V2 mean: 58.4 cm/sec E/E' med: 13.2 PA mean P.5 mmHg Lat Peak E' Ebenezer: 5.6 cm/sec PA pr(Accel): 32.8 mmHg E/E' lat: 13.7 E/e' average: 13.5 MV dec time: 0.31 sec MR VTI: 173.2 cm SV(LVOT): 82.1 ml Reading Physician:01:59 PM
[2021-06-24 21:26] LABS: NT-proBNP (BNP-Adult 18+) 646 pg/mL (<450)
[2021-06-24 21:29] LABS: Troponin I 0.082 ng/mL (0.01-0.034)
[2021-06-24 22:10] LABS: PTT Partial Thromboplastin Tim 38 SECONDS (26.4-36.2)
[2021-06-24] MEDS: lisinopriL 20 MG TABLET 40 MG PO (22:22)
[2021-06-24] MEDS: SERTRALINE 50 MG TABLET 75 MG PO (22:22)
[2021-06-24] MEDS: TAMSULOSIN 0.4 MG CAPSULE PO (22:22)
[2021-06-24] MEDS: allopurinoL 300 MG TABLET PO (22:22)
[2021-06-24 23:45] LABS: Ur Creatinine 20 (Normal); Ur Specific Gravity 1.015 (Normal)
[2021-06-24 23:46] LABS: UR Morphine/Opiate cutoff 300 Negative (Negative); Urine Amphetamines Negative (Negative); Urine Barbiturates Negative (Negative); Urine Benzodiazepines Negative (Negative); Urine Cocaine Negative (Negative); Urine MDMA Negative (Negative); Urine Methadone Negative (Negative); Urine Methamphetamines Negative (Negative); Urine Oxycodone Negative (Negative); Urine Phencyclidine Negative (Negative); Urine Tetrahydrocannabinol Negative (Negative); Urine Tricyclic Antidepressant Negative (Negative); Urine pH 5 (Normal)
--- NOTE | 2021-06-24 23:58 | PM.HP.1 ---
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 His friend immediately put him in the vehicle and they drove here to the emergency department.? His pain lasted all the way until he got here into the room at the emergency department.? Overall duration of symptoms was approximately 1 hour.?Upon admit patient currently denies chest pain, SOB, BORREGO, new changes in vision, lightheadedness, feeling faint/dizziness, abd pain, nausea, vomiting, diaphoresis, Diarrhea, recent illness, injury, changes in medication, or trauma. He has been taking all of his medications as prescribed and denies any recent dosage adjustments.? Manager Chemistry is Dr. Harp at [facility]. Patient was last admitted on 02/2021 for CVA rule out and was found to have demand ischemia with elevated troponins peak 0.16 and attempted overdose/ suicide with OxyContin and was subsequently seen and treated by Dr. murrieta for depression and started on Zoloft. The patient today during interview appears quite anxious and agitated, but denies anxiety or depressive symptoms at this time. Patient also rambles extensively about his health challenges, with a significant amount of implied anxiety & depression- but still denies symptoms. Patient's vitals are stable with a BP of 161/71, heart rate of 61, RR 19, O2 saturation 98% on room air. Patient's labs for the most part are unremarkable lactate, lipase, and procalcitonin are all WNL. Troponins 1. 0.076, 2. 0.071. Troponins are not as elevated has last hospitalization. EKG from ED not available for review-reported to have had no ST changes. Chest x-ray negative for acute cardiopulmonary processes. Last Echo 62,021 noted global dysfunction, mildly dilated LV, with an EF of 45-50% with Dr. Savage Cardiology who recommended Transfer to [facility] where the patients Manager Chemistry Dr. Dejesus is loacted. [facility] had no beds available-Consulted Dr. Ritter who then recommended placing patient on a heparin drip x 48hrs, trend troponins, and echo in the AM. Transfer out if patient becomes symptomatic. Patient admitted for acute Chest pain possible NSTEMI. Patient History Medical History (Updated 06/25/21 @ 00:42 by [facility] Atrial fibrillation and flutter History of drug overdose Hyperlipidemia Hypertension Surgical History (Updated 06/25/21 @ 00:42 by ASIF Quiros) H/O cervical spine surgery History of cardiac radiofrequency ablation Family & Social History Family History Mother Colon cancer Father Unknown family medical history Social History: household members Lives with spouse. 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 Prior Living Arrangements House Safety & Behavioral: Feels Safe in Current Yes Environment Been Physically Hurt or No Threatened By a Person Suicidal Ideation Description None Suicide Plan Description No Plan Tobacco & Substance use: Smoking Status Never smoker alcohol intake current alcohol intake frequency holiday/special occasion Substance Use Type does not use Meds Home Medications and Allergies Home Medications Medication Instructions Recorded Confirmed Type allopurinol 300 mg tablet 300 mg PO BEDTIME 09/13/19 06/24/21 History apixaban 5 mg tablet (Eliquis) 5 mg PO BID 09/13/19 06/24/21 History lisinopril 40 mg tablet 40 mg PO BEDTIME 09/13/19 06/24/21 History tamsulosin 0.4 mg capsule 0.4 mg PO BEDTIME 09/13/19 06/24/21 History amlodipine 5 mg tablet (Norvasc) 5 mg PO DAILY #30 tab 03/13/21 06/24/21 Rx furosemide 20 mg tablet 20 mg PO DAILY PRN 06/08/21 06/24/21 History sertraline 50 mg tablet (Zoloft) 75 mg PO BEDTIME #60 tab 06/08/21 06/24/21 Rx Allergies Allergy/AdvReac Type Severity Reaction Status Date / Time [id number]-[id number] Reductase AdvReac Mild CAUSES Verified 06/24/21 14:36 Inhibitor PAIN IN LEGS - ELECTRIC SHOCK Sulfa (Sulfonamide AdvReac Mild EXACERBATES Verified 06/24/21 14:36 Antibiotics) GOUT [SULFA (SULFONAMIDE ANTIBIOTICS)] Review of Systems Review of Systems Narrative: All 12 point systems reviewed with the patient and are negative except otherwise documented. Exam Vital Signs (past 8 hours): - 06/24/21 16:01 06/24/21 16:30 06/24/21 17:00 Temperature Pulse Rate 59 L 61 58 L Respiratory Rate 22 28 H 19 Blood Pressure 154/63 H Pulse Oximetry 99 98 96 06/24/21 17:01 06/24/21 17:30 06/24/21 18:00 Temperature Pulse Rate 58 L 58 L 58 L Respiratory Rate 18 17 12 Blood Pressure 158/65 H 143/93 H 161/71 H Pulse Oximetry 97 96 98 06/24/21 18:30 06/24/21 19:00 06/24/21 19:57 Temperature 96.7 F L Pulse Rate 60 61 60 Respiratory Rate 19 19 17 Blood Pressure 148/91 H Pulse Oximetry 98 06/24/21 21:42 06/24/21 22:22 Temperature Pulse Rate 60 Respiratory Rate Blood Pressure 148/91 H Pulse Oximetry 98 Oxygen Delivery Method Room Air Oxygen Flow Rate 0 Narrative Exam Narrative: General: Patient is a well-developed, well-nourished male, in no distress at this time. HEENT: Normocephalic, atraumatic, extraocular muscles intact, oral pharynx is clear and mucous membranes are dry. Neck is supple and symmetric, trachea is midline, no adenopathy, no thyroid enlargement, nontender, no masses palpated. Negative for JVD Chest: Normal AP diameter and contour without kyphoscoliosis, no nasal flaring, retractions, or tachypneic labored breathing. Lungs: Auscultation of all lung garcia are clear without adventitious sounds, wheezes, rhonchi, or rales. Cardio: regular rate and rhythm without murmur, rubs, or gallops, no carotid bruit, no cardiac pulsations present. Abdomen: Soft nontender, negative for organomegaly, or masses. Bowel sounds are present in all 4 quadrants without guarding or rebound, no CVA tenderness. Musculoskeletal: Muscle strength and tone are equal within normal limits, no deformity, crepitus, effusions, cyanosis, clubbing or edema present. Full range of motion intact radial and pedal pulses are normal. Skin: Warm dry and intact without rashes, ulcerations or petechiae. Neuro: Alert and orientated x3, word finding difficulties, mild slurred speach which is reported to be the patients base line. strength is +5/5 in all extremities, sensation to touch intact. Psych: Patient has a well-kept appearance, ?Tangential speech pattern, easy to redirect but does not stay on point, currently without suicidal ideation. Objective Labs Result Diagrams: 06/24/21 14:20 06/24/21 14:20 Labs: Laboratory Results - last 24 hr 06/24/21 06/24/21 06/24/21 14:15 14:20 14:20 WBC 8.5 RBC 4.10 L Hgb 12.8 L Hct 38.4 L MCV 93.7 MCH 31.2 MCHC 33.3 RDW 14.6 Plt Count 171 Neut % (Auto) 64.8 Lymph % (Auto) 22.4 L [place] % (Auto) 10.2 Eos % (Auto) 2.2 Baso % (Auto) 0.4 Neut # (Auto) 5500 Lymph # (Auto) 1900 [place] # (Auto) 900 Eos # (Auto) 200 Baso # (Auto) 0 APTT Sodium 141 Potassium 4.6 Chloride 107 Carbon Dioxide 25 BUN 28 H Creatinine 1.16 Estimated GFR > 60.0 BUN/Creatinine Ratio 24.1 H Glucose 111 H Lactate Calcium 10.2 Magnesium 1.9 Total Bilirubin 0.6 AST 25 ALT 18 Alkaline Phosphatase 90 Total Creatine Kinase 65 CK-MB (CK-2) TNP CK-MB (CK-2) Rel Index TNP Troponin I 0.076 H NT-Pro-B Natriuret Pep Total Protein 7.3 Albumin 4.6 Globulin 2.7 Albumin/Globulin Ratio 1.7 Lipase 85 Procalcitonin U Opiates 300ng/mL cut Ur Oxycodone Screen Urine Methadone Screen Ur Barbiturates Screen U Tricyclic Antidepress Ur Phencyclidine Scrn Ur Amphetamines Screen U Methamphetamines Scrn Ur MDMA Scrn (Ecstasy) U Benzodiazepines Scrn Urine Cocaine Screen U Marijuana (THC) Screen SARS-CoV-2 (PCR) Negative 06/24/21 06/24/21 06/24/21 14:20 14:20 14:20 WBC RBC Hgb Hct MCV MCH MCHC RDW Plt Count Neut % (Auto) Lymph % (Auto) [place] % (Auto) Eos % (Auto) Baso % (Auto) Neut # (Auto) Lymph # (Auto) [place] # (Auto) Eos # (Auto) Baso # (Auto) APTT 39 H D Sodium Potassium Chloride Carbon Dioxide BUN Creatinine Estimated GFR BUN/Creatinine Ratio Glucose Lactate 1.5 Calcium Magnesium Total Bilirubin AST ALT Alkaline Phosphatase Total Creatine Kinase CK-MB (CK-2) CK-MB (CK-2) Rel Index Troponin I NT-Pro-B Natriuret Pep Total Protein Albumin Globulin Albumin/Globulin Ratio Lipase Procalcitonin 0.05 U Opiates 300ng/mL cut Ur Oxycodone Screen Urine Methadone Screen Ur Barbiturates Screen U Tricyclic Antidepress Ur Phencyclidine Scrn Ur Amphetamines Screen U Methamphetamines Scrn Ur MDMA Scrn (Ecstasy) U Benzodiazepines Scrn Urine Cocaine Screen U Marijuana (THC) Screen SARS-CoV-2 (PCR) 06/24/21 06/24/21 06/24/21 16:23 18:40 20:30 WBC RBC Hgb Hct MCV MCH MCHC RDW Plt Count Neut % (Auto) Lymph % (Auto) [place] % (Auto) Eos % (Auto) Baso % (Auto) Neut # (Auto) Lymph # (Auto) [place] # (Auto) Eos # (Auto) Baso # (Auto) APTT 38 H Sodium Potassium Chloride Carbon Dioxide BUN Creatinine Estimated GFR BUN/Creatinine Ratio Glucose Lactate Calcium Magnesium Total Bilirubin AST ALT Alkaline Phosphatase Total Creatine Kinase CK-MB (CK-2) CK-MB (CK-2) Rel Index Troponin I 0.071 H 0.082 H NT-Pro-B Natriuret Pep Total Protein Albumin Globulin Albumin/Globulin Ratio Lipase Procalcitonin U Opiates 300ng/mL cut Ur Oxycodone Screen Urine Methadone Screen Ur Barbiturates Screen U Tricyclic Antidepress Ur Phencyclidine Scrn Ur Amphetamines Screen U Methamphetamines Scrn Ur MDMA Scrn (Ecstasy) U Benzodiazepines Scrn Urine Cocaine Screen U Marijuana (THC) Screen SARS-CoV-2 (PCR) 06/24/21 06/24/21 20:30 22:30 WBC RBC Hgb Hct MCV MCH MCHC RDW Plt Count Neut % (Auto) Lymph % (Auto) [place] % (Auto) Eos % (Auto) Baso % (Auto) Neut # (Auto) Lymph # (Auto) [place] # (Auto) Eos # (Auto) Baso # (Auto) APTT Sodium Potassium Chloride Carbon Dioxide BUN Creatinine Estimated GFR BUN/Creatinine Ratio Glucose Lactate Calcium Magnesium Total Bilirubin AST ALT Alkaline Phosphatase Total Creatine Kinase CK-MB (CK-2) CK-MB (CK-2) Rel Index Troponin I NT-Pro-B Natriuret Pep 646 H Total Protein Albumin Globulin Albumin/Globulin Ratio Lipase Procalcitonin U Opiates 300ng/mL cut Negative Ur Oxycodone Screen Negative Urine Methadone Screen Negative Ur Barbiturates Screen Negative U Tricyclic Antidepress Negative Ur Phencyclidine Scrn Negative Ur Amphetamines Screen Negative U Methamphetamines Scrn Negative Ur MDMA Scrn (Ecstasy) Negative U Benzodiazepines Scrn Negative Urine Cocaine Screen Negative U Marijuana (THC) Screen Negative SARS-CoV-2 (PCR) Assessment & Plan Assessment & Plan narrative: Delmar Hoff is a 80 yr old male with a history of retinal disease, proximal atrial fibrillation (multiple ablations), 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 Patient admitted for acute chest pain, possible NSTEMI. 1.Acute sudden onset Chest Pain with elevated troponin, r/o, possible NSTEMI, acute, in the setting of recent history of demand ischemia with elevated troponin, present on admission -Rule out myocardial ischemia, ACS, CAD, aortic dissection, demand ischemia with elevated tropinin -patient noted to have elevated troponin that was rising from #1 0.076, #2 0.071, #3 0.082 -cardiology Consulted and recommended IV heparin for 48 hours to be completed 06/27/2021 PM-PTT/H&H per protocol -Previous 02/2021 ECHO: to evaluate for wall motion abnormality, did not show any focal abnormality, per cardiology does not need angiogram, mild global hypokinesis with EF 45-50% -per cardiology has speckled appearance to myocardium, concern for possible cardiac amyloid. On previous admit spep/upep/light chains were ordered for outpatient follow up ----patient has been consistently bradycardiac and dizzy which could be secondary to amyloid -ordered for aspirin 81mg Qday -has allergy to statin -AM Labs:A1c, CBC, BNP, PT/INR. Lipids. Blood clx pending -Risk stratification 2. Hypertension, essential, acute on chronic, in the setting of Proximal Atrial Fibrillation, chronic, present on admission-uncontrolled -Initial 167/70, 154/63, 161/71 -Allow for permissive hypertension, HR 60 to allow for brain perfusion -patient on telemedicine currently not in atrial fibrillation on monitor -hold patient's Eliquis, continue lisinopril, Lasix, amolodipine 3. 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 q.4 hours as needed 4. Hyperlipidemia, chronic, present on admission-control unknown - Lipids ordered in am - He has an intolerance to statins, so may consider Zetia 5. Bradycardia Chronic, acute on chronic, present on admission -HR remains [id number] tolerating well -concern for possible cardiac amyloid as etiology -Previously beta amada had been stopped due to bradycardia -Orthostats 6. Mild anemia chronic, acute on chronic, present on admission -Since 03/10/2021 HGB 13.2-12.9, HCT 39.8-37.7. Initial Hgb 12.8, Hct 38.4-stable -hemoglobin 12.8, no need for transfusion- will closely monitor for bleeding while on heparin. -continue to monitor 7. Gout, chronic, present on admission -continue patient's allopurinol 8. BPH, chronic, present on admission -continue patient's tamsulosin Code status:Full Surrogate decision maker: Spouse Jennifer Hoff COVID PCR:Negative COVID vaccination: Has been Vaccinated 2020 DVT/VTE prophylaxis:Heparin drip , SCD's Disposition: Patient admitted for chest pain rule out possible STEMI, 48 hours heparin drip and echocardiogram tomorrow estimated length of stay greater than 2 midnights. I have utilized all available immediate resources to obtain, update, or review the patient's current medications. I confirmed that the patient's advanced care plan is present, Code status is documented and/or surrogate decision maker is listed in the patient's medical record. Time Spent With Patient Critical Care time: I spent a total of [] minutes of critical care time on this patient's care today; this time is exclusive of procedural time. Quality VTE Deep Vein Thrombosis/Pulmonary Embolism Present on Admission: No
[2021-06-25] VITALS (17 sets, daily range): BP systolic 109–146; BP diastolic 50–71; PULSE 51–67; RESP 16–23; TEMP 36.2–36.8; O2SAT 94–100
[2021-06-25 00:41] LABS: PTT Partial Thromboplastin Tim 39 SECONDS (26.4-36.2)
[2021-06-25] MEDS: HEPARIN 5,000 UNIT/ML VIAL 5000 UNIT IV (00:59)
[2021-06-25] MEDS: HEPARIN DRIP 25,000 UNIT/500 ML IV.SOLN 20 UNIT IV (01:00)
[2021-06-25 04:42] LABS: Add Manual Diff / Slide Review NO; Basophils Absolute Auto 0 /uL (0-100); Basophils Percent Auto 0.4 % (0-2); Eosinophils Absolute Auto 400 /uL (0-450); Eosinophils Percent Auto 5.7 % (2-4); Hematocrit 35.5 % (41-53); Hemoglobin 11.8 g/dL (13.5-17.5); Lymphocytes Absolute Auto 2300 /uL (1100-4500); Lymphocytes Percent Auto 37.2 % (25-40); Mean Corpuscular HGB Conc 33.4 % (30-36); Mean Corpuscular Hemoglobin 31.3 PG (26-34); Mean Corpuscular Volume 93.8 fL (80-100); Monocytes Absolute Auto 600 /uL (0-900); Monocytes Percent Auto 9.9 % (3-14); Neutrophils Absolute Auto 2900 /uL (1500-7000); Neutrophils Percent Auto 46.8 % (50-75); Platelet Count 137 X10^3/uL (150-400); Red Blood Cell Count 3.79 X10^6/uL (4.5-5.9); Red Cell Distribution Width 14.3 % (11.6-14.8); White Blood Cell Count 6.3 X10^3/uL (4.5-11.0)
[2021-06-25 05:55] LABS: BUN Creatinine Ratio 27.4 (6-22); Blood Urea Nitrogen 23 mg/dL (9-20); Calcium 9.4 mg/dL (8.4-10.2); Carbon Dioxide 25 mmol/L (22-32); Chloride 110 mmol/L (98-107); Cholesterol 127 mg/dL (140-199); Estimated Glomerular Filt Rate > 60.0 mL/min (>60); Glucose 103 mg/dL (80-110); HDL Cholesterol 43 mg/dL (40-60); HEMOLYSIS < 15 (0-50); LDL Cholesterol Calculated 74 mg/dL (<100); Potassium 3.9 mmol/L (3.4-5.1); Sodium 140 mmol/L (137-145); Triglycerides 48 mg/dL (35-150)
[2021-06-25 06:24] LABS: Hemoglobin A1C% w Est Avg Glu 5.3 % (4.0-6.0)
[2021-06-25] MEDS: NITROGLYCERIN 0.4 MG SL TAB SL ×4 (06:59→15:04)
--- NOTE | 2021-06-25 07:01 | PC.NURSE ---
Addendum entered by Shanika Guidry R.N. 06/25/21 07:20: Pain persists. BP 109/56 HR 54 SPO2 94% RA. STAT EKG ordered by ramsey GIBSON, morphine declined by pt. Rationale explained, pt professed understanding. Addendum entered by Shanika Guidry R.N. 06/25/21 07:09: Pt reports pain persisting, 6/10. BP 132/61 HR 53 SPO2 99% RA. Given 1x dose 0.4 mg SL nitro for a TOTAL of 2 doses. Original Note: At approx 0655 pt reported r sided substernal chest pain dull throbbing 5/10 radiating to limb accompanied by numbness and tingling of limb. BP 145/64, HR 60, AOx4, no difficulty breathing. Given 1x dose 0.4 mg SL nitroglycerin at 0700. Provider contacted and informed, no orders rec'd at time of writing note.
[2021-06-25 09:20] LABS: INR 1.2 (0.9-1.3)
[2021-06-25 09:23] LABS: PTT Partial Thromboplastin Tim 92 SECONDS (26.4-36.2)
[2021-06-25 09:25] LABS: Prothrombin Time 13.4 SECONDS (10.1-12.7)
[2021-06-25] MEDS: ASPIRIN EC 81 MG TABLET PO (09:32)
[2021-06-25] MEDS: SODIUM CHLORIDE 0.9% FLUSH 10 ML IV ×2 (09:32→20:25)
[2021-06-25] MEDS: AMLODIPINE 5 MG TABLET PO (09:32)
[2021-06-25 12:48] LABS: Troponin I 0.071 ng/mL (0.01-0.034)
--- NOTE | 2021-06-25 14:21 | DI.US.S_ITS ---
PROCEDURE: US ABDOMEN LIMITED INDICATIONS: POST PRANDIAL RUQ PAIN TECHNIQUE: Real-time focused scanning was performed of the abdomen, with image documentation. COMPARISON: [facility], CT, ABDOMEN/PELVIS WITH CONTRAST, 07/30/2015, 9:08. [facility], US, ABDOMEN COMPLETE, 06/18/2015, 8:35. FINDINGS: The liver demonstrates prominent size. The liver demonstrates normal overall echogenicity. The main portal vein demonstrates normal size and demonstrates normal appearing, hepatopetal flow. The gallbladder has been removed. There is no biliary dilatation, the common bile duct measures 8 mm. The pancreas is not seen, secondary to overlying bowel gas. IMPRESSION: Status post cholecystectomy, without biliary dilatation. Prominent liver, without a focal liver abnormality. Dictated by: Amando Shoemaker M.D. on 06/25/2021 at 16:22 Approved by: Amando Shoemaker M.D. on 06/25/2021 at 16:24
[2021-06-25] MEDS: MAG HYDROX/ALUM/SIMETH 30 ML UDC PO (14:27)
--- NOTE | 2021-06-25 14:54 | CM.DANOTE ---
Patient is an 80 yo male who was admitted on 06/24/21 for Chest Pain/Shaking. Pt has [facility] and [employer] for insurance and his PCP is Dr. Darryl Damon. EMR was reviewed. Per MD, pt with hx of dementia with behavioral disturbances, hx of suicide attempt, and admitted for chest pain r/o NSTEMI. Per MD, no current concerns of suicidal ideation or plan. MD awaiting Disability Counselor Consult with Dr. Dejesus to determine if hospital transfer needed for higher level of care. Per RN, pt now complaining of more chest pain again but declined medication for chest pain but was ageeable to try reflux meds. Spouse has been bedside. Per [employer] notes from pt's last admit in February 2021 for intentional overdose, pt lives with spouse of 50 yrs and has a possible challenging dynamic between the two of them and pt has 2 adult children from previous marriage and has increased depression due to his awareness of his decreased independence, memory issues, lack of control over these medical complexities. Dr. Tate Psychiatrist had been consulted and felt pt needed Inpt MH tx but pt was not voluntarily willing to go and DCR assessed pt for Involuntary Placement but pt did not meet criteria for detainment and was able to safety plan for d/c home with spouse and close outpt follow up with Dr. Tate Psychiatrist for med management. Pt had session with Dr. Tate at [facility] in Jun 08, 2021 a couple weeks ago and continued to work on cognitive behavioral and therapeutic interventions and increased his Zoloft with scheduled f/u appt in a couple weeks in June. SW attempted to meet bedside with pt and explained role, pt quite [employer]DE and needed to read SW lips, and was only able to focus on his increased chest pain and concerns. SW got RN and updated her and she will now provide pt with other medication and stat EKG being placed and MD notified. kindergartners helper continuing to attempt to see if any availability for hospital transfer. Plan: SW to follow closely to determine if pt will be transferred for higher level of Cardiac care vs remain here and possible need for PT eval and more assessment to determine d/c planning needs with pt and spouse. DEE Gutierrez Discharge Planning/Care Management CM Discharge Assessment Start: 06/25/21 14:50 Freq: Status: Active Protocol: Document 06/25/21 14:51 BF (Rec: 06/25/21 14:54 MARIA ISABEL [id number]) Discharge Planning Assessment Assigned Desk Representative DEE Cifuentes Advance Directives? Yes Advance Directives on File No: Pateint unable to recall History Provided By Patient,Significant Other, Medical Record Has Patient been admitted in last 30 No days? Prior Living Arrangements House Household Members spouse Comment Was driving still in February 2021 but recommendations were that driving was a big safety concern for himself and others due to dementia and depression. Independent with ADL's Yes Is patient alert and oriented? No: dementia Needs Assistance With Meal Prep,Managing Medications ,Home Chores / Shopping Caregiver for Another No Comment Pending pt's hospital course of possible transfer higher level of care vs remain and would order PT/OT when more medically appropriate Barriers to Discharge No Discharge Plan Home Transportation Arrangement Spouse is bedside and if safe for home can provide transport Additional Comment Pending EKG and possible hospital transfer Review Status In Process Please Provide Date Initial DC 06/25/21 Assessment Was Performed Next Review Type Continued Stay Review
[2021-06-25] MEDS: MORPHINE 2 MG/ML INJ IV (15:54)
[2021-06-25 15:55] LABS: PTT Partial Thromboplastin Tim 52 SECONDS (26.4-36.2)
[2021-06-25 16:09] LABS: Troponin I 0.074 ng/mL (0.01-0.034)
--- NOTE | 2021-06-25 16:19 | PC.NURSE ---
1615 pt c/o transverse upper abdominal and R shoulder/arm pain 8/10 at start of shift. RR was in the 20s, pt appearing anxious. Medicated with SL nitro for the same by off going RN (reference EMAR). VSS. notified by this RN at 1530 of the same. 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 Pt's spouse states concern that he's not even on a heart monitor, I don't see a rhythm anywhere here (VS machine). Pt and spouse educated that tele transmits to ICU and we are indeed monitoring it. Troponin and APTT drawn at 1530. APTT currently 52 so heparin drip remains at 18ml/hr. Pt medicated with 2mg Morphine IVP to aid with pain (pt currently rated at 5/10, improved slightly with nitro) and elevated RR (23). Pt able to voice needs/questions/concerns and encouraged to continue to do the same. supportive spouse at bedside.
--- NOTE | 2021-06-25 16:46 | DI.CT.S_ITS ---
PROCEDURE: CT ANGIO CHEST PE PROTOCOL INDICATIONS: pleuritic R chest pain, shortness of breath, clinical concern for PE TECHNIQUE: After the administration of intravenous contrast, 2 mm thick sections acquired from the pulmonary apices to the posterior costophrenic angles. 3-dimensional maximum intensity projection (MIP) coronal and sagittal reformats were then acquired through the thorax. For radiation dose reduction, the following was used: automated exposure control, adjustment of mA and/or kV according to patient size. COMPARISON: [facility], CT, ABDOMEN/PELVIS WITH CONTRAST, 07/30/2015, 9:08. [facility], US, US ABDOMEN LIMITED, 06/25/2021, 17:03. [facility], CT, CT ANGIO CHEST, 10/13/2019, 9:59. FINDINGS: Image quality: Excellent. Pulmonary arteries: Pulmonary arteries are normal in size, and demonstrate no intraluminal filling defects to suggest central pulmonary embolism. Lungs and pleura: Mild apparent dependent atelectasis can be seen. No pleural effusions or pneumothorax. Central and peripheral airways are patent. Mediastinum: Heart size is moderately enlarged. There is a moderate to large pericardial effusion. Borderline prominent mediastinal lymph nodes can be seen. No mediastinal or hilar adenopathy. Moderate coronary artery calcification is seen. Thoracic aorta is normal in caliber and enhancement. Esophagus is normal in caliber, without hiatal hernia. Bones and chest wall: No suspicious bony lesions. Ribs and thoracic spine appear intact throughout. Age-appropriate bony degenerative changes are seen. Thyroid gland demonstrates no significant abnormality. No axillary or supraclavicular adenopathy. Abdomen: Cholecystectomy clips are seen. Visualized upper abdominal solid organs appear normal in the early arterial phase of enhancement. IMPRESSION: Negative for pulmonary embolism. A moderate to large pericardial effusion is seen, which is increased in size compared to 2019. Continued moderate cardiomegaly. The previously seen right upper lobe soft tissue nodules have resolved. Incidental note is made of: Moderate coronary artery calcification Cholecystectomy Dictated by: Amando Shoemaker M.D. on 06/25/2021 at 17:06 Approved by: Amando Shoemaker M.D. on 06/25/2021 at 17:10
--- NOTE | 2021-06-25 17:12 | P.PN_ITS ---
Subjective Subjective Date Patient Seen: 06/25/21 Time Patient Seen: 17:13 Interval history: Very early this AM he complained of chest pain. EKG showed no acute changes, troponin peaked at 0.09. He remains on heparin infusion. 2 hours after lunch complained of R shoulder pain and weakness along with RUQ / R lower chest pain, severe to 8/10, with shortness of breath. Repeat EKG without changes. TTE from today with improved EF compared to prior and no focal wall m otion abnormalities. US abdomen and CT angio chest ordered. Exam Vital Signs (past 8 hours): - 06/25/21 11:25 06/25/21 14:16 06/25/21 14:47 Temperature 98.2 F Pulse Rate 51 L 53 L 59 L Respiratory Rate 18 Blood Pressure 126/51 L 146/56 H 146/56 H Pulse Oximetry 100 06/25/21 15:00 06/25/21 15:04 06/25/21 16:13 Temperature 97.7 F Pulse Rate 60 53 L Respiratory Rate 23 Blood Pressure 131/56 L 137/57 L Pulse Oximetry 99 100 Oxygen Delivery Method Room Air Oxygen Flow Rate 0 Narrative Exam Narrative: General:? Patient is a well-developed, well-nourished male, mild distress due to pain. HEENT:? Normocephalic, atraumatic, extraocular muscles intact, oral pharynx is clear and mucous membranes are moist.? Neck is supple and symmetric, trachea is midline, no adenopathy, no thyroid enlargement, nontender, no masses palpated.? Negative for JVD Chest:? Normal AP diameter and contour without kyphoscoliosis, no nasal flaring, retractions, or tachypneic labored breathing. Lungs:? Auscultation of all lung garcia are clear without adventitious sounds, wheezes, rhonchi, or rales. Cardio: regular rate and rhythm without murmur, rubs, or gallops, no carotid bruit, no cardiac pulsations present. Abdomen:?S, minimal tenderness RUQ and epigastrium Skin:? Warm dry and intact without rashes, ulcerations or petechiae.? Neuro:? Alert and orientated x3, word finding difficulties, mild slurred speach which is reported to be the patients base line.? strength is +5/5 in all extremities, sensation to touch intact. Psych:? Patient has a well-kept appearance, ?Tangential speech pattern, easy to redirect but does not stay on point, currently without suicidal ideation. Objective Labs Result Diagrams: 06/25/21 04:20 06/25/21 04:20 Labs: Laboratory Results - last 24 hr 06/24/21 06/24/21 06/24/21 14:20 18:40 20:30 WBC RBC Hgb Hct MCV MCH MCHC RDW Plt Count Neut % (Auto) Lymph % (Auto) Petroleum % (Auto) Eos % (Auto) Baso % (Auto) Neut # (Auto) Lymph # (Auto) Petroleum # (Auto) Eos # (Auto) Baso # (Auto) PT INR APTT 39 H D 38 H Sodium Potassium Chloride Carbon Dioxide BUN Creatinine Estimated GFR BUN/Creatinine Ratio Glucose Hemoglobin A1c Calcium Troponin I 0.082 H NT-Pro-B Natriuret Pep Triglycerides Cholesterol LDL Cholesterol, Calc HDL Cholesterol U Opiates 300ng/mL cut Ur Oxycodone Screen Urine Methadone Screen Ur Barbiturates Screen U Tricyclic Antidepress Ur Phencyclidine Scrn Ur Amphetamines Screen U Methamphetamines Scrn Ur MDMA Scrn (Ecstasy) U Benzodiazepines Scrn Urine Cocaine Screen U Marijuana (THC) Screen 06/24/21 06/24/21 06/25/21 20:30 22:30 00:10 WBC RBC Hgb Hct MCV MCH MCHC RDW Plt Count Neut % (Auto) Lymph % (Auto) Petroleum % (Auto) Eos % (Auto) Baso % (Auto) Neut # (Auto) Lymph # (Auto) Petroleum # (Auto) Eos # (Auto) Baso # (Auto) PT INR APTT 39 H Sodium Potassium Chloride Carbon Dioxide BUN Creatinine Estimated GFR BUN/Creatinine Ratio Glucose Hemoglobin A1c Calcium Troponin I NT-Pro-B Natriuret Pep 646 H Triglycerides Cholesterol LDL Cholesterol, Calc HDL Cholesterol U Opiates 300ng/mL cut Negative Ur Oxycodone Screen Negative Urine Methadone Screen Negative Ur Barbiturates Screen Negative U Tricyclic Antidepress Negative Ur Phencyclidine Scrn Negative Ur Amphetamines Screen Negative U Methamphetamines Scrn Negative Ur MDMA Scrn (Ecstasy) Negative U Benzodiazepines Scrn Negative Urine Cocaine Screen Negative U Marijuana (THC) Screen Negative 06/25/21 06/25/21 06/25/21 04:20 04:20 04:20 WBC 6.3 RBC 3.79 L Hgb 11.8 L Hct 35.5 L MCV 93.8 MCH 31.3 MCHC 33.4 RDW 14.3 Plt Count 137 L Neut % (Auto) 46.8 L Lymph % (Auto) 37.2 Petroleum % (Auto) 9.9 Eos % (Auto) 5.7 H Baso % (Auto) 0.4 Neut # (Auto) 2900 Lymph # (Auto) 2300 Petroleum # (Auto) 600 Eos # (Auto) 400 Baso # (Auto) 0 PT INR APTT Sodium 140 Potassium 3.9 Chloride 110 H Carbon Dioxide 25 BUN 23 H Creatinine 0.84 Estimated GFR > 60.0 BUN/Creatinine Ratio 27.4 H Glucose 103 Hemoglobin A1c Calcium 9.4 Troponin I 0.090 H NT-Pro-B Natriuret Pep Triglycerides 48 Cholesterol 127 L LDL Cholesterol, Calc 74 HDL Cholesterol 43 U Opiates 300ng/mL cut Ur Oxycodone Screen Urine Methadone Screen Ur Barbiturates Screen U Tricyclic Antidepress Ur Phencyclidine Scrn Ur Amphetamines Screen U Methamphetamines Scrn Ur MDMA Scrn (Ecstasy) U Benzodiazepines Scrn Urine Cocaine Screen U Marijuana (THC) Screen 06/25/21 06/25/21 06/25/21 04:20 08:30 12:10 WBC RBC Hgb Hct MCV MCH MCHC RDW Plt Count Neut % (Auto) Lymph % (Auto) Petroleum % (Auto) Eos % (Auto) Baso % (Auto) Neut # (Auto) Lymph # (Auto) Petroleum # (Auto) Eos # (Auto) Baso # (Auto) PT 13.4 H INR 1.2 APTT 92 H* D Sodium Potassium Chloride Carbon Dioxide BUN Creatinine Estimated GFR BUN/Creatinine Ratio Glucose Hemoglobin A1c 5.3 Calcium Troponin I 0.071 H NT-Pro-B Natriuret Pep Triglycerides Cholesterol LDL Cholesterol, Calc HDL Cholesterol U Opiates 300ng/mL cut Ur Oxycodone Screen Urine Methadone Screen Ur Barbiturates Screen U Tricyclic Antidepress Ur Phencyclidine Scrn Ur Amphetamines Screen U Methamphetamines Scrn Ur MDMA Scrn (Ecstasy) U Benzodiazepines Scrn Urine Cocaine Screen U Marijuana (THC) Screen 06/25/21 06/25/21 15:35 15:35 WBC RBC Hgb Hct MCV MCH MCHC RDW Plt Count Neut % (Auto) Lymph % (Auto) Petroleum % (Auto) Eos % (Auto) Baso % (Auto) Neut # (Auto) Lymph # (Auto) Petroleum # (Auto) Eos # (Auto) Baso # (Auto) PT INR APTT 52 H D Sodium Potassium Chloride Carbon Dioxide BUN Creatinine Estimated GFR BUN/Creatinine Ratio Glucose Hemoglobin A1c Calcium Troponin I 0.074 H NT-Pro-B Natriuret Pep Triglycerides Cholesterol LDL Cholesterol, Calc HDL Cholesterol U Opiates 300ng/mL cut Ur Oxycodone Screen Urine Methadone Screen Ur Barbiturates Screen U Tricyclic Antidepress Ur Phencyclidine Scrn Ur Amphetamines Screen U Methamphetamines Scrn Ur MDMA Scrn (Ecstasy) U Benzodiazepines Scrn Urine Cocaine Screen U Marijuana (THC) Screen [facility] Medical History (Updated 06/25/21 @ 00:42 by Aleja Camejo [facility]) Atrial fibrillation and flutter History of drug overdose Hyperlipidemia Hypertension Surgical History (Updated 06/25/21 @ 00:42 by Aleja Camejo [facility]) H/O cervical spine surgery History of cardiac radiofrequency ablation Family History Mother Colon cancer Father Unknown family medical history Social History household members: spouse Smoking Status: Never smoker alcohol intake: current Assessment & Plan Assessment & Plan narrative: Delmar Hoff is a 80 yr old male with a history of retinal disease, proximal atrial fibrillation (multiple ablations), 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 Patient admitted for acute chest pain, possible NSTEMI. 1.Acute sudden onset Chest Pain with elevated troponin and NSTEMI, acute -patient noted to have elevated troponin that was rising from #1 0.076, #2 0.071, #3 0.082, peaked at 0.09. -cardiology Consulted and recommended IV heparin for 48 hours to be completed 06/26/2021 PM -repeat TTE with improved EF, now normal. No focal wall abnormalities. Probable normal nuclear stress testing in 2019. -ordered for aspirin 81mg Qday, -has allergy to statin -discussed with cardiology. Recommended transfer to [facility], but no beds available. Discussed with Oleg today, patient can transfer, if still no beds and stable troponins / symptoms recommended stress testing on Sunday. -US abdomen and CT angio chest ordered today to assess for other possibilities given R sided nature and intermittent pain he is experiencing. 2. Hypertension, essential,? acute on chronic, in the setting of Proximal Atrial Fibrillation, chronic, present on admission-uncontrolled -hold patient's Eliquis, continue lisinopril, Lasix, amolodipine 3. 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 q.4 hours as needed 4. Hyperlipidemia, chronic, present on admission-control unknown - Lipids appear controlled, LDL 74, HDL 43. No prior dx of cardiac disease. - He has an intolerance to statins, so may consider Zetia 5. Bradycardia Chronic, acute on chronic, present on admission -HR remains 28-54gbw-kgrapdi tolerating well -concern for possible cardiac amyloid as etiology -Previously beta amada had been stopped due to bradycardia 6. Mild anemia chronic, acute on chronic, present on admission -Since 03/10/2021 HGB 13.2-12.9, HCT 39.8-37.7.? Initial Hgb 12.8, Hct 38.4- stable -hemoglobin 12.8, no need for transfusion- will closely monitor for bleeding while on heparin. -continue to monitor 7. Gout, chronic, present on admission -continue patient's allopurinol 8. BPH, chronic, present on admission -continue patient's tamsulosin Code status:Full Surrogate decision maker: Spouse Jennifer Hoff COVID PCR:Negative COVID vaccination: Has been Vaccinated 2020 DVT/VTE prophylaxis:Heparin drip , SCD's Disposition:? Possible transfer to [facility] for further evaluation of NSTEMI, outlined as in problem 1 above. Time Spent With Patient Critical Care time: I spent a total of [] minutes of critical care time on this patient's care today; this time is exclusive of procedural time. Quality VTE Deep Vein Thrombosis/Pulmonary Embolism Present on Admission: No
[2021-06-25] MEDS: TAMSULOSIN 0.4 MG CAPSULE PO (20:25)
[2021-06-25] MEDS: allopurinoL 300 MG TABLET PO (20:25)
[2021-06-25] MEDS: SERTRALINE 50 MG TABLET 75 MG PO (20:25)
[2021-06-25] MEDS: lisinopriL 20 MG TABLET 40 MG PO (20:25)
[2021-06-26] VITALS (10 sets, daily range): BP systolic 107–137; BP diastolic 47–81; PULSE 49–63; RESP 16–18; TEMP 36.2–36.4; O2SAT 94–99
[2021-06-26] MEDS: HEPARIN DRIP 25,000 UNIT/500 ML IV.SOLN 18 UNIT IV (05:11)
[2021-06-26 05:17] LABS: Add Manual Diff / Slide Review NO; Basophils Absolute Auto 0 /uL (0-100); Basophils Percent Auto 0.4 % (0-2); Eosinophils Absolute Auto 400 /uL (0-450); Eosinophils Percent Auto 6.2 % (2-4); Hematocrit 36.5 % (41-53); Lymphocytes Absolute Auto 2100 /uL (1100-4500); Lymphocytes Percent Auto 34.7 % (25-40); Mean Corpuscular HGB Conc 32.9 % (30-36); Mean Corpuscular Volume 94.3 fL (80-100); Monocytes Absolute Auto 600 /uL (0-900); Monocytes Percent Auto 9.3 % (3-14); Neutrophils Absolute Auto 3000 /uL (1500-7000); Neutrophils Percent Auto 49.4 % (50-75); Platelet Count 149 X10^3/uL (150-400); Red Blood Cell Count 3.87 X10^6/uL (4.5-5.9); Red Cell Distribution Width 14.6 % (11.6-14.8)
[2021-06-26 05:18] LABS: PTT Partial Thromboplastin Tim 64 SECONDS (26.4-36.2)
[2021-06-26 05:23] LABS: BUN Creatinine Ratio 26.4 (6-22); Blood Urea Nitrogen 24 mg/dL (9-20); Calcium 9.4 mg/dL (8.4-10.2); Carbon Dioxide 28 mmol/L (22-32); Chloride 107 mmol/L (98-107); Estimated Glomerular Filt Rate > 60.0 mL/min (>60); Glucose 97 mg/dL (80-110); HEMOLYSIS < 15 (0-50); Potassium 3.9 mmol/L (3.4-5.1); Sodium 139 mmol/L (137-145)
--- NOTE | 2021-06-26 05:43 | PC.NURSE ---
Denies chest pain all night, no SOB or C/O dyspnea RA SPO2 98% this morning. PTT 64 no change in Heparin gtt. dosing, next PTT ordered for next AM 06/27 @ 0500. Will continue plan of care & monitor.
[2021-06-26] MEDS: AMLODIPINE 5 MG TABLET PO (08:45)
[2021-06-26] MEDS: ASPIRIN EC 81 MG TABLET PO (08:45)
[2021-06-26] MEDS: SODIUM CHLORIDE 0.9% FLUSH 10 ML IV ×2 (08:46→20:42)
--- NOTE | 2021-06-26 15:09 | P.PN_ITS ---
Subjective Subjective Date Patient Seen: 06/26/21 Time Patient Seen: 15:10 Interval history: No recurrence of chest pain today. Awaiting possible bed at [facility], or plan for stress testing tomorrow. Heparin infusion to finish at 10 pm. He denies abdominal pain, nausea, vomiting. No dark stools, melena, or BRBPR. Exam Vital Signs (past 8 hours): - 06/26/21 07:30 06/26/21 11:25 Temperature 97.1 F L 97.2 F L Pulse Rate 56 L 55 L Pulse Rate [Orthostatic Lying] 56 L Pulse Rate [Orthostatic Sitting] 60 Pulse Rate [Orthostatic Standing] 63 Respiratory Rate 18 18 Blood Pressure 118/59 L 107/64 Blood Pressure [Orthostatic Lying] 118/59 L Blood Pressure [Orthostatic Sitting] 112/53 L Blood Pressure [Orthostatic Standing] 125/65 Pulse Oximetry 95 99 Oxygen Delivery Method Room Air Oxygen Flow Rate 0 Narrative Exam Narrative: General:? Patient is a well-developed, well-nourished male, mild distress due to pain. HEENT:? Normocephalic, atraumatic, extraocular muscles intact, oral pharynx is clear and mucous membranes are moist.? Neck is supple and symmetric, trachea is midline, no adenopathy, no thyroid enlargement, nontender, no masses palpated.? Negative for JVD Chest:? Normal AP diameter and contour without kyphoscoliosis, no nasal flaring, retractions, or tachypneic labored breathing. Lungs:? Auscultation of all lung garcia are clear without adventitious sounds, wheezes, rhonchi, or rales. Cardio: regular rate and rhythm without murmur, rubs, or gallops, no carotid bruit, no cardiac pulsations present. Abdomen:?S, minimal tenderness RUQ and epigastrium Skin:? Warm dry and intact without rashes, ulcerations or petechiae.? Neuro:? Alert and orientated x3, word finding difficulties, mild slurred speach which is reported to be the patients base line.? strength is +5/5 in all extremities, sensation to touch intact. Psych:? Patient has a well-kept appearance, ?Tangential speech pattern, easy to redirect but does not stay on point, currently without suicidal ideation. Objective Labs Result Diagrams: 06/26/21 04:45 06/26/21 04:45 Labs: Laboratory Results - last 24 hr 06/25/21 06/25/21 06/26/21 15:35 15:35 04:45 WBC RBC Hgb Hct MCV MCH MCHC RDW Plt Count Neut % (Auto) Lymph % (Auto) [place] % (Auto) Eos % (Auto) Baso % (Auto) Neut # (Auto) Lymph # (Auto) [place] # (Auto) Eos # (Auto) Baso # (Auto) APTT 52 H D 64 H D Sodium Potassium Chloride Carbon Dioxide BUN Creatinine Estimated GFR BUN/Creatinine Ratio Glucose Calcium Troponin I 0.074 H 06/26/21 06/26/21 04:45 04:45 WBC 6.0 RBC 3.87 L Hgb 12.0 L Hct 36.5 L MCV 94.3 MCH 31.0 MCHC 32.9 RDW 14.6 Plt Count 149 L Neut % (Auto) 49.4 L Lymph % (Auto) 34.7 [place] % (Auto) 9.3 Eos % (Auto) 6.2 H Baso % (Auto) 0.4 Neut # (Auto) 3000 Lymph # (Auto) 2100 [place] # (Auto) 600 Eos # (Auto) 400 Baso # (Auto) 0 APTT Sodium 139 Potassium 3.9 Chloride 107 Carbon Dioxide 28 BUN 24 H Creatinine 0.91 Estimated GFR > 60.0 BUN/Creatinine Ratio 26.4 H Glucose 97 Calcium 9.4 Troponin I [facility] Medical History (Updated 06/25/21 @ 00:42 [facility] Atrial fibrillation and flutter History of drug overdose Hyperlipidemia Hypertension Surgical History (Updated 06/25/21 @ 00:42 [facility] H/O cervical spine surgery History of cardiac radiofrequency ablation Family History Mother Colon cancer Father Unknown family medical history Social History household members: spouse Smoking Status: Never smoker alcohol intake: current Assessment & Plan Assessment & Plan narrative: Delmar Hoff is a 80 yr old male with a history of retinal disease, proximal atrial fibrillation (multiple ablations), 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 Patient admitted for acute chest pain, possible NSTEMI. 1.Acute sudden onset Chest Pain with elevated troponin and NSTEMI, acute -patient noted to have elevated troponin that was rising from #1 0.076, #2 0.071, #3 0.082, peaked at 0.09. -cardiology Consulted and recommended IV heparin for 48 hours to be completed 06/26/2021 PM. -repeat TTE with improved EF, now normal. No focal wall abnormalities. Probable normal nuclear stress testing in 2019. -continue aspirin 81mg Qday, -has allergy to statin -discussed with cardiology. Recommended transfer to [facility], but no beds available. Discussed with Oleg, patient can transfer, if still no beds and stable troponins / symptoms recommended stress testing on Sunday. -US abdomen and CT angio chest ordered to assess for other possibilities given R sided nature and intermittent pain he is experiencing. No overt cause found. Was noted to have pericardial effusion with discordant size noted on echo vs CT imaging. No tamponade physiology and has been present according to prior studie s. Unclear if this is contributory toward symptoms. 2. Hypertension, essential,? acute on chronic, in the setting of Proximal Atrial Fibrillation, chronic, present on admission-uncontrolled -hold patient's Eliquis for now while on heparin infusion, continue lisinopril, Lasix, amolodipine -restart eliquis after stress testing. 3. 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 q.4 hours as needed 4. Hyperlipidemia, chronic, present on admission-control unknown - Lipids appear controlled, LDL 74, HDL 43. No prior dx of cardiac disease. - He has an intolerance to statins, trial zetia this evening. 5. Bradycardia Chronic, acute on chronic, present on admission -HR remains [id number] tolerating well -concern for possible cardiac amyloid as etiology -Previously beta amada had been stopped due to bradycardia 6. Mild anemia chronic, acute on chronic, present on admission -Since 03/10/2021 HGB 13.2-12.9, HCT 39.8-37.7.? Initial Hgb 12.8, Hct 38.4- stable -hemoglobin 12.8, no need for transfusion- will closely monitor for bleeding while on heparin. -continue to monitor 7. Gout, chronic, present on admission -continue patient's allopurinol 8. BPH, chronic, present on admission -continue patient's tamsulosin Code status:Full Surrogate decision maker: Spouse Jennifer Hoff COVID PCR:Negative COVID vaccination: Has been Vaccinated 2020 DVT/VTE prophylaxis:Heparin drip , SCD's Disposition:? Possible transfer to [facility] for further evaluation of NSTEMI, outlined as in problem 1 above. Time Spent With Patient Critical Care time: I spent a total of [] minutes of critical care time on this patient's care today; this time is exclusive of procedural time. Quality VTE Deep Vein Thrombosis/Pulmonary Embolism Present on Admission: No
[2021-06-26] MEDS: EZETIMIBE 10 MG TABLET PO (20:50)
[2021-06-26] MEDS: lisinopriL 20 MG TABLET 40 MG PO (20:50)
[2021-06-26] MEDS: TAMSULOSIN 0.4 MG CAPSULE PO (20:51)
[2021-06-26] MEDS: allopurinoL 300 MG TABLET PO (20:51)
[2021-06-26] MEDS: SERTRALINE 50 MG TABLET 75 MG PO (20:51)
[2021-06-27] VITALS (7 sets, daily range): BP systolic 103–152; BP diastolic 59–69; PULSE 49–94; RESP 16–22; TEMP 36.3–36.6; O2SAT 94–99
[2021-06-27 05:03] LABS: Add Manual Diff / Slide Review NO; Basophils Absolute Auto 0 /uL (0-100); Basophils Percent Auto 0.3 % (0-2); Eosinophils Absolute Auto 300 /uL (0-450); Eosinophils Percent Auto 5.7 % (2-4); Hematocrit 38.5 % (41-53); Hemoglobin 12.8 g/dL (13.5-17.5); Lymphocytes Absolute Auto 1900 /uL (1100-4500); Lymphocytes Percent Auto 31.4 % (25-40); Mean Corpuscular HGB Conc 33.1 % (30-36); Mean Corpuscular Hemoglobin 31.3 PG (26-34); Mean Corpuscular Volume 94.4 fL (80-100); Monocytes Absolute Auto 500 /uL (0-900); Monocytes Percent Auto 8.9 % (3-14); Neutrophils Absolute Auto 3200 /uL (1500-7000); Neutrophils Percent Auto 53.7 % (50-75); Platelet Count 145 X10^3/uL (150-400); Red Blood Cell Count 4.08 X10^6/uL (4.5-5.9); Red Cell Distribution Width 14.1 % (11.6-14.8)
[2021-06-27 05:09] LABS: PTT Partial Thromboplastin Tim 35 SECONDS (26.4-36.2)
[2021-06-27 05:11] LABS: BUN Creatinine Ratio 27.6 (6-22); Blood Urea Nitrogen 24 mg/dL (9-20); Calcium 9.8 mg/dL (8.4-10.2); Carbon Dioxide 26 mmol/L (22-32); Chloride 108 mmol/L (98-107); Estimated Glomerular Filt Rate > 60.0 mL/min (>60); Glucose 113 mg/dL (80-110); HEMOLYSIS < 15 (0-50); Potassium 3.9 mmol/L (3.4-5.1); Sodium 139 mmol/L (137-145)
[2021-06-27] MEDS: AMLODIPINE 5 MG TABLET PO (10:24)
[2021-06-27] MEDS: ASPIRIN EC 81 MG TABLET PO (10:24)
[2021-06-27] MEDS: SODIUM CHLORIDE 0.9% FLUSH 10 ML IV (10:25)
--- NOTE | 2021-06-27 12:32 | PC.NURSE ---
0850- Pt c/o 02/24 midsternal CP described as sharp and worsens with deep inspiration. BP WNL. SB 1 degree AVB BBB on tele. EKG obtained which showed no acute changes from previous EKGs. Dr. Xiong notified and promptly arrived to bedside. Pt's CP resolved without intervention. Plan is for pt to undergo cardiac stress test today and go from there.
--- NOTE | 2021-06-27 12:45 | CM.DPC ---
DCP/continued: Reviewed chart. Stress test scheduled for today. Per provider if negative patient might be able to d/c home. P: Home when medically stable. APRYL
--- NOTE | 2021-06-27 15:07 | DIET.CONS2 ---
Dietary Inpatient Consultation Note Admission Date: 06/24/2021 19:10 80y M admitted for chest pain referred to nutrition for reported unintentional weight loss. Per chart review pt had suicide attempt in February 2021 secondary to being upset over declining ability to care for self and dementia. Pts weight loss began around this time with total 5.1% unintentional weight loss in 4mo (non-severe) with BMI 25.1. Pts POs are 50-100% this hospitalization. Getting stress test and if negative, able to d/c home. Diet: 06/26/21 Dinner Heart Healthy Diet Diet Modifications: no caffine including decaf, no chocolate Safety Tray needed?: No Sodium Level: 2 gm Sodium Nutrition Percent Meal Consumed 100% 06/27/21 15:00 Percent Meal Consumed 50% 06/26/21 18:06 Percent Meal Consumed 100% 06/26/21 08:00 No nutrition interventions warranted at this time. Electronically Signed by: Malu Eden 06/27/21 15:07 Clinical Dietitian [address] [address]
--- NOTE | 2021-06-27 17:02 | PM.DS.1 ---
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 His friend immediately put him in the vehicle and they drove here to the emergency department.? His pain lasted all the way until he got here into the room at the emergency department.? Overall duration of symptoms was approximately 1 hour.?Upon admit patient currently denies chest pain, SOB, BORREGO, new changes in vision, lightheadedness, feeling faint/dizziness, abd pain, nausea, vomiting, diaphoresis, Diarrhea, recent illness, injury, changes in medication, or trauma. He has been taking all of his medications as prescribed and denies any recent dosage adjustments.? Educational Interpreter is Dr. Harp at [facility].? Patient was last admitted on 02/2021 for CVA rule out and was found to have demand ischemia with elevated troponins peak 0.16 and? attempted overdose/ suicide with OxyContin and was subsequently seen and treated by Dr. murrieta for depression and started on Zoloft.? The patient today during interview appears quite anxious and agitated, but denies anxiety or depressive symptoms at this time.? Patient also rambles extensively about his health challenges, with a significant amount of implied anxiety & depression- but still denies symptoms. Patient's vitals are stable with a BP of 161/71, heart rate of 61, RR 19, O2 saturation 98% on room air.? Patient's labs for the most part are unremarkable lactate, lipase, and procalcitonin are all WNL.? Troponins 1.? 0.076, 2.? 0.071. Troponins are not as elevated has last hospitalization. EKG from ED not available for review-reported to have had no ST changes. Chest x-ray negative for acute cardiopulmonary processes.? Last Echo 62,021 noted global dysfunction, mildly dilated LV, with an EF of 45-50% with Dr. Savage Cardiology who recommended Transfer to [facility] where the patients Educational Interpreter Dr. Dejesus is loacted. [facility] had no beds available-Consulted Dr. Ritter who then recommended placing patient on a heparin drip x 48hrs, trend troponins, and echo in the AM.? Transfer out if patient becomes symptomatic.? Patient admitted for acute Chest pain possible NSTEMI. Discharge Providers Provider Date of admission: 06/24/21 19:10 Discharge Date: 06/27/21 Primary care physician: Darryl Damon MD Consults: 06/24/21 19:59 Consult to Physician Routine Comment: Consulting Provider: Laurie Harp Reason for consultation: Poss NSTEMI Has provider been notified: No 06/24/21 20:36 Consult to Dietitian, Adult Routine Comment: Reason For Exam: admits to poor appetite and weight loss 06/24/21 20:52 Consult to [facility] - Station Operator Routine Comment: Prior hospitalization for admitted overdose. Discharge provider: Tessa Xiong MD Summary Hospital Course Discharge Diagnosis: 1. Chest pain etiology unclear, no evidence of NSTEMI 2. Troponinemia, etiology unclear 3. He suspect chest pain related to pericarditis, as patient has trace pericardial fluid on echo 4. Persistent atrial fibrillation 5. History of retinal disease 6. Alzheimer's dementia 7. History of depression Hospital Course: Patient was admitted to the hospital for evaluation of chest pain. He describes substernal chest pain under the rib cage. As the patient had elevated troponins a cardiac echo was obtained which revealed: The left ventricle is normal in size. The ejection fraction is estimated to be 55-60%. Previous LVEF 45 to 50%. There is improvement in LV function. ? The right ventricle is mildly dilated. The right ventricular systolic function is normal. ? There is mild tricuspid regurgitation. No significant change in TR severity. The right ventricular systolic pressure is estimated to be at least 43 mmHg based on an estimated right atrial pressure of 8 mm Hg. Previously it was 69 mmHg. Compared to the prior echo exam, there has been a decrease in the severity of pulmonary hypertension. Patient underwent CT angio, which revealed no PE, and a moderate to large pericardial effusion. However echocardiogram revealed the pericardial effusion was small to minimal To have an elevated troponin, initial troponin on admission was 0.6076, it peaked at 0.090, and came down 2.0 7 4. As the patient had an echo which showed no wall motion abnormalities it was felt that this was likely noncardiac. However initially with the elevated troponins the patient was treated for an NSTEMI with IV heparin. He underwent a stress test which showed no evidence of ischemia. It was felt that the patient likely had troponin E [place] and not a NSTEMI. Patient continued to have chest pain. It was felt that this may represent pericarditis. He is instructed to use nonsteroidals. However as the patient is on Eliquis this is somewhat contrast indicated. He is also instructed to follow-up with his PCP, Dr. Damon and also his vocational education teacher in [facility]. The patient is currently pain-free. He is deemed appropriate for discharge. Arrangements will be made to discharge him home. Status at Discharge Cognitive/behavioral status at discharge: at baseline, confused Functional status at discharge: uses cane/walker Overall status at discharge: patient is progressing back to baseline Exam Vital Signs (past 8 hours): - 06/27/21 11:14 06/27/21 15:00 Temperature 97.5 F L 97.8 F Pulse Rate 55 L 55 L Pulse Rate [Orthostatic Lying] 53 L Pulse Rate [Orthostatic Sitting] 57 L Pulse Rate [Orthostatic Standing] 62 Respiratory Rate 16 16 Blood Pressure 127/59 L 116/62 Blood Pressure [Orthostatic Lying] 127/59 L Blood Pressure [Orthostatic Sitting] 124/59 L Blood Pressure [Orthostatic Standing] 103/61 Pulse Oximetry 99 98 Oxygen Delivery Method Room Air Oxygen Flow Rate 0 Narrative Exam Narrative: Pleasant elderly gentleman lying in bed in no obvious distress Resp Other: Lungs: Clear to auscultation Cardio Other: Cardiac exam: Irregularly irregular, normal S1-S2, no pericardial friction rub is noted GI Other: Abdomen soft nontender Extrem Other: Extremity no edema Objective Labs Result Diagrams: 06/27/21 04:40 06/27/21 04:40 Labs: Laboratory Results - last 24 hr 06/27/21 06/27/21 06/27/21 04:40 04:40 04:40 WBC 6.0 RBC 4.08 L Hgb 12.8 L Hct 38.5 L MCV 94.4 MCH 31.3 MCHC 33.1 RDW 14.1 Plt Count 145 L Neut % (Auto) 53.7 Lymph % (Auto) 31.4 [place] % (Auto) 8.9 Eos % (Auto) 5.7 H Baso % (Auto) 0.3 Neut # (Auto) 3200 Lymph # (Auto) 1900 [place] # (Auto) 500 Eos # (Auto) 300 Baso # (Auto) 0 APTT 35 D Sodium 139 Potassium 3.9 Chloride 108 H Carbon Dioxide 26 BUN 24 H Creatinine 0.87 Estimated GFR > 60.0 BUN/Creatinine Ratio 27.6 H Glucose 113 H Calcium 9.8 PFSH Medical History (Updated 06/25/21 @ 00:42 by NIKO Quiros-) Atrial fibrillation and flutter History of drug overdose Hyperlipidemia Hypertension Surgical History (Updated 06/25/21 @ 00:42 by ASIF Quiros) H/O cervical spine surgery History of cardiac radiofrequency ablation Family History Mother Colon cancer Father Unknown family medical history Social History household members: spouse Smoking Status: Never smoker alcohol intake: current Discharge Assessment & Plan Assessment and Plan Assessment: Impression 1. Chest pain, likely due to pericarditis no evidence of acute ischemia, no evidence of NSTEMI 2. Persistent atrial fibrillation 3. Alzheimer's dementia Plan of Treatment: Patient will be discharged home He is asked to follow-up with his primary care provider He will follow-up with cardiology Patient will take Tylenol for pain, should the pain persists consider colchicine for further treatment Discharge Plan Discharge Plan Patient Disposition: Home Discharge orders & Medications Prescriptions: Continued sertraline [Zoloft] 50 mg tablet 75 mg PO BEDTIME Qty: 60 RF: 3 amlodipine [Norvasc] 5 mg Tablet 5 mg PO DAILY Qty: 30 RF: 0 furosemide 20 mg tablet 20 mg PO DAILY PRN (Reason: edema) RF: 0 tamsulosin 0.4 mg capsule 0.4 mg PO BEDTIME RF: 0 allopurinol 300 mg tablet 300 mg PO BEDTIME RF: 0 lisinopril 40 mg tablet 40 mg PO BEDTIME RF: 0 Eliquis 5 mg tablet 5 mg PO BID RF: 0 Follow up/Referrals: Darryl Damon MD [Primary Care Provider] - Discharge Health Status Multidrug resistant organism: No MDRO Diet/Activity/Treatments Diet: Low-sodium Skin/Wound/Dressing Care Report to your healthcare provider any signs of infection, such as:: chills, fever and increased pain Discharge Data Primary Care Provider: Darryl Damon Quality VTE Deep Vein Thrombosis/Pulmonary Embolism Present on Admission: No
--- NOTE | 2021-06-27 17:31 | PC.NURSE ---
Discharge Note Patient A&O, VSS, RA. No complaints of pain/discomfort. Discharge packet reviewed with patient, all questions/concerns addressed. Patient/ reminded to follow-up with cardiology and PCP. Also reminded to return to ER if symptoms persists. TELE/PIV removed. All belongings packed and given to patient along with discharge packet. Patient taken down via wheelchair to POV.
--- NOTE | 2021-06-27 19:03 | DI.NM.S_ITS ---
DATE OF SERVICE: 06/27/2021 PROCEDURE PERFORMED: Pharmacologic vasodilator stress and rest myocardial perfusion imaging with gating to assess ejection fraction and regional wall motion. ORDERING PROVIDER: Jose Miguel Longoria D.O. INDICATIONS: The patient is an 80-year-old male admitted with atypical chest discomfort and mildly abnormal troponin. PHARMACOLOGIC VASODILATOR STRESS: Per protocol, 0.4 mg of regadenoson was infused with a normal hemodynamic response. He had no chest discomfort. His resting ECG shows probable sinus or ectopic rhythm with a first-degree AV block and frequent PACs, at times, in a trigeminal pattern. There were no significant ST-segment shifts or arrhythmias with pharmacologic stress. Per protocol, 25.5 millicuries of technetium-99m Myoview was injected. The patient was imaged 20 minutes later using a gated SPECT acquisition protocol. Earlier in the day while at rest, he had been injected with 12.5 millicuries of technetium-99m Myoview and had been imaged 30 minutes later, again using a gated SPECT acquisition protocol. FINDINGS: 1. Raw data: There is fair myocardial tracer uptake. There is clear evidence for diaphragmatic attenuation on the raw data images. However, the patient was unable to lie prone to assess for this. Lung/heart ratio was normal at 0.31 with a normal TID ratio of 0.86. 2. Quantitated gated SPECT: Post-stress ejection fraction was estimated to be 73% without any focal wall motion abnormality and specifically the inferior wall appears to have normal contractility. The resting ejection fraction was calculated at 52% but visually appears very similar to that of the post-stress images without any significant change. Left ventricular volumes are moderately increased with a resting end-diastolic volume of 169 mL. 3. Myocardial perfusion imaging: Post-stress supine images show a fairly normal myocardial perfusion pattern although with mildly reduced tracer activity throughout the entire inferior wall in a pattern that would be consistent with diaphragmatic attenuation, but this could not be assessed because the patient was unable to lie prone. The resting images show an identical perfusion pattern without any areas of improvement. IMPRESSION: 1. Probable normal myocardial perfusion study. 2. Mild fixed inferior wall perfusion defect that likely reflects diaphragmatic attenuation artifact although there are no prone images to confirm this. However, there are no regional wall motion abnormalities in this distribution and his previous perfusion study showed resolution of the defect on the prone images, also supporting diaphragmatic attenuation. There is no evidence for any significant myocardial ischemia. 3. Normal left ventricular systolic function without any focal wall motion abnormality with moderately increased left ventricular volumes. 4. No angina or ECG evidence of ischemia with pharmacologic vasodilator stress. He likely has an ectopic rhythm with frequent PACs. 5. Compared to the previous myocardial perfusion imaging study from 02/11/2020, a similar perfusion pattern is seen. On the previous images, prone imaging was available and showed resolution of the inferior defect. The previous ejection fraction was estimated at 57% with an end-diastolic volume of 184 mL, suggesting the absence of any significant change since the previous exam. Delmar Hoff - JULIOCESAR/rachel/lc doc#: [id number]/job#: [id number] dd: 06/27/2021 16:09:00 dt: 06/27/2021 17:20:00 DICTATING MD/COPIES TO: James Bergman MD; Jose Miguel Longoria M.D. COPIES MNE: DENYS;
== END 2021-06-27 17:30 | disposition home or self-care (01) | DRG 315 ==
LOC: ED 14:56 → AC 19:11
PROVIDERS: Emergency Medicine; Internal Medicine; Admitting Provider Nurse Practitioner Family; Emergency Provider Physician Assistant; PCP Internal Medicine; Referring Provider Physician Assistant; Visit Provider Nurse Practitioner Family
DX: I31.9 Disease of pericardium, unspecified (principal); F02.81 Dementia in other diseases classified elsewhere, unspecified severity, with behavioral disturbance; I48.19 Other persistent atrial fibrillation; G30.9 Alzheimer's disease, unspecified; R00.1 Bradycardia, unspecified; R79.89 Other specified abnormal findings of blood chemistry; I10 Essential (primary) hypertension; E78.5 Hyperlipidemia, unspecified; F32.A Depression, unspecified; M1A.9XX0 Chronic gout, unspecified, without tophus (tophi); N40.0 Benign prostatic hyperplasia without lower urinary tract symptoms; Z79.01 Long term (current) use of anticoagulants; Z20.822 Contact with and (suspected) exposure to COVID-19
CPT/HCPCS: 36415; 71045; 71275; 76705; 78452; 80048; 80053; 80061; 80305; 82550; 83036; 83605; 83690; 83735; 83880; 84145; 84484; 85025; 85610; 85730; 87040; 87635; 93005; 93010; 93017; 93306; 94760; 99284; C9803; A9502; J1644; J2270; J2785; Q9967

== ENCOUNTER → 2021-07-11 08:07 | Outpatient (CLI) | payer MEDICARE, SELFPAY ==
[2021-06-24 20:11] VITALS: BMI 26.3
[2021-07-11 09:48] LABS: Add Manual Diff / Slide Review NO; Basophils Absolute Auto 0 /uL (0-100); Basophils Percent Auto 0.1 % (0-2); Eosinophils Absolute Auto 400 /uL (0-450); Eosinophils Percent Auto 5.4 % (2-4); Hematocrit 36.8 % (41-53); Hemoglobin 12.5 g/dL (13.5-17.5); Lymphocytes Absolute Auto 1900 /uL (1100-4500); Lymphocytes Percent Auto 26.6 % (25-40); Mean Corpuscular Hemoglobin 31.6 PG (26-34); Mean Corpuscular Volume 92.9 fL (80-100); Monocytes Absolute Auto 500 /uL (0-900); Neutrophils Absolute Auto 4400 /uL (1500-7000); Neutrophils Percent Auto 60.9 % (50-75); Platelet Count 171 X10^3/uL (150-400); Red Blood Cell Count 3.96 X10^6/uL (4.5-5.9); Red Cell Distribution Width 13.6 % (11.6-14.8); White Blood Cell Count 7.2 X10^3/uL (4.5-11.0)
[2021-07-11 10:33] LABS: Erythrocyte Sedimentation Rate 6 MM/HR (0-15)
[2021-07-11 10:49] LABS: BUN Creatinine Ratio 21.5 (6-22); Blood Urea Nitrogen 23 mg/dL (9-20); C-Reactive Protein Quant < 0.5 mg/dL (<1.0); Calcium 9.7 mg/dL (8.4-10.2); Carbon Dioxide 26 mmol/L (22-32); Chloride 108 mmol/L (98-107); Estimated Glomerular Filt Rate > 60.0 mL/min (>60); Glucose 99 mg/dL (80-110); HEMOLYSIS < 15 (0-50); Potassium 4.5 mmol/L (3.4-5.1); Sodium 141 mmol/L (137-145)
== END ==
PROVIDERS: PCP Internal Medicine; Referring Provider Internal Medicine Cardiovascular Disease; Visit Provider Internal Medicine Cardiovascular Disease
DX: I30.0 Acute nonspecific idiopathic pericarditis (principal)
CPT/HCPCS: 36415; 80048; 85025; 85651; 86140

== ENCOUNTER 2021-08-12 11:54 | Emergency (ER) | payer MEDICARE, SELFPAY ==
[2021-06-24 20:11] VITALS: BMI 26.3
[2021-08-12 12:01] VITALS: BP 190/123; PULSE 69; RESP 16; TEMP 36.6; O2SAT 98; BMI 25.7
--- NOTE | 2021-08-12 12:05 | DI.RAD.S_ITS ---
PROCEDURE: XR RIBS LT MIN 3V W CXR1V INDICATIONS: fell, thinners, possibly hit head, poor historian TECHNIQUE: 2 views of the left ribs were acquired, along with a single view chest. COMPARISON: [facility], CT, CT ANGIO CHEST PE PROTOCOL, 06/25/2021, 17:11. FINDINGS: Surgical changes and devices: ACDF. Bones and chest wall: Minimal undulation of the left posterior 11th rib. This could represent nondisplaced fracture. No dislocations. No suspicious bony lesions. Overlying soft tissues appear unremarkable. Lungs and pleura: No pleural effusions or pneumothorax. Lungs appear clear. Mediastinum: Mediastinal contours appear normal. Heart size is normal. IMPRESSION: Minimal undulation of the left posterior 11th rib. This could represent nondisplaced fracture. Dictated by: Lenin Jain M.D. on 08/12/2021 at 12:31 Approved by: Lenin Jain M.D. on 08/12/2021 at 12:33
--- NOTE | 2021-08-12 13:19 | ED_ITS ---
HPI - General Adult General Chief complaint: Trauma Stated complaint: fell days might of cracked a rib, having breathi Time Seen by Provider: 08/12/21 12:35 Source: patient Mode of arrival: Ambulatory History of Present Illness HPI narrative: Patient is an 80-year-old male initial reports were that the patient is on Eliquis. That he fell after tripping while standing up off the couch yesterday landing on his left side on a table. Sustained some bruising over this area. Initially he told triage nursing that he was unsure if he hit his head however he told me that he did not hit his head and he is actually not on the Eliquis any longer. He is here for an x-ray of his chest to make sure he did not break any ribs. No problems breathing. No shortness of breath. Does have some discomfort with palpation of his left chest wall abdominal tenderness. He has not tried anything for symptoms prior to arrival. Related Data Home Medications Medication Instructions Recorded Confirmed allopurinol 300 mg tablet 300 mg PO BEDTIME 09/13/19 08/09/21 apixaban 5 mg tablet (Eliquis) 5 mg PO BID 09/13/19 08/09/21 lisinopril 40 mg tablet 40 mg PO BEDTIME 09/13/19 08/09/21 tamsulosin 0.4 mg capsule 0.4 mg PO BEDTIME 09/13/19 08/09/21 furosemide 20 mg tablet 20 mg PO DAILY PRN 06/08/21 08/09/21 Previous Rx's Medication Instructions Recorded amlodipine 5 mg tablet (Norvasc) 5 mg PO DAILY #30 tab 03/13/21 sertraline 50 mg tablet (Zoloft) 100 mg PO BEDTIME #60 tab 07/13/21 Allergies Allergy/AdvReac Type Severity Reaction Status Date / Time Vqzxpfn-FVF-NoN Reductase AdvReac Mild CAUSES Verified 08/09/21 09:23 Inhibitor PAIN IN [Hlthxwd-Zmx-Unu Reductase LEGS - Inhibitor] ELECTRIC SHOCK Sulfa (Sulfonamide AdvReac Mild EXACERBATES Verified 08/09/21 09:23 Antibiotics) GOUT [SULFA (SULFONAMIDE ANTIBIOTICS)] Review of Systems Constitutional Constitutional: Denies fever(s) Cardiovascular Cardiovascular: Reports as per HPI and Reports system reviewed and no additional complaints, except as documented Respiratory Respiratory: Reports as per HPI and Reports system reviewed and no additional complaints, except as documented Integumentary/Breasts Skin/Breast: Reports system reviewed and no additional complaints, except as documented and Reports as per HPI Neurologic Neurologic: Reports system reviewed and no additional complaints, except as documented Hematologic/Lymphatic On Anticoagulants: No Patient History Medical History Atrial fibrillation and flutter History of drug overdose Hyperlipidemia Hypertension Surgical History (Updated 06/25/21 @ 00:42 by ASIF Quiros) H/O cervical spine surgery History of cardiac radiofrequency ablation Family History Mother Colon cancer Father Unknown family medical history Social History household members: spouse Smoking Status: Never smoker alcohol intake: current Smoking Status: Never smoker alcohol intake frequency: holidays/special occasions only Substance Use Type: does not use Exam Initial Vital Signs Initial Vital Signs: Vital Signs Temperature 97.8 F 08/12/21 12:01 Pulse Rate 69 08/12/21 12:01 Respiratory Rate 16 08/12/21 12:01 Blood Pressure 190/123 H 08/12/21 12:01 Pulse Oximetry 98 08/12/21 12:01 Const General: cooperative HENMT Head: normal to inspection and normocephalic Chest Other: Left-sided chest wall lower rib discomfort to palpation no crepitus P Resp Effort & Inspection: normal respiratory effort Auscultation: clear to auscultation bilaterally Cardio Rate: regular rate Skin Other: Skin abrasions to the anterior aspect of the left chest wall. There is no tenderness to palpation over this area. Course Orders Ordered: ED Orders 08/12/21 12:05 XR ribs LT min 3V w CXR1V Stat Vital Signs Vital signs: Vital Signs - 8 hr 08/12/21 12:01 Temperature 97.8 F Pulse Rate 69 Respiratory Rate 16 Blood Pressure 190/123 H Pulse Oximetry 98 Medical Decision Making Imaging Data Rib x-ray : Radiologist's Impression: [address] [address] XRay Report Signed Patient: Delmar Hoff MR#: [id number] : 1940 Acct:[id number] Age/Sex: 80 / M Date of Service: 08/12/21 Loc: ED Accession Number: [id number] ?? Procedure: XR ribs LT min 3V w CXR1V Ordering Provider: Andrew Macias D.O. PROCEDURE:? XR RIBS LT MIN 3V W CXR1V ? INDICATIONS:? fell, thinners, possibly hit head, poor historian ? TECHNIQUE:? 2 views of the left ribs were acquired, along with a single view chest.? ? COMPARISON:? [facility], CT, CT ANGIO CHEST PE PROTOCOL, 06/25/2021, 17:11. ? FINDINGS:? ? Surgical changes and devices:? ACDF.? ? Bones and chest wall:? Minimal undulation of the left posterior 11th rib.? This could represent nondisplaced fracture.? No dislocations.? No suspicious bony lesions.? Overlying soft tissues appear unremarkable.? ? Lungs and pleura:? No pleural effusions or pneumothorax.? Lungs appear clear.? ? Mediastinum:? Mediastinal contours appear normal.? Heart size is normal.? ? IMPRESSION:? Minimal undulation of the left posterior 11th rib.? This could represent nondisplaced fracture.? Dictated by: Lenin Jain M.D. on 08/12/2021 at 12:31 ? ? Approved by: Lenin Jain M.D. on 08/12/2021 at 12:33? [facility] Narrative Medical decision making narrative: Patient does not have any crepitus. No respiratory distress. No fevers. He do es have some discomfort over the area of the fracture noted on the x-rays. I did discuss this with him. No further workup needed emergency department. Is given return precautions and follow-up instructions. Expressed understanding and agreement. Discharge Plan Departure Patient Disposition: Home Clinical Impression: Contusion of chest wall, Hyperlipidemia Instructions: DI for Contusion, How to Prevent Falls Activity Restrictions/Additional Instructions: There were no definite fractures noted on the x-rays. Continue to take all of your medications as directed. Contact your primary doctor for follow-up. Return to the emergency department for any new or worsening symptoms Prescriptions: No Action sertraline [Zoloft] 50 mg tablet 100 mg PO BEDTIME Qty: 60 3RF amlodipine [Norvasc] 5 mg Tablet 5 mg PO DAILY Qty: 30 0RF furosemide 20 mg tablet 20 mg PO DAILY PRN (Reason: edema) 0RF Label Comments: Patient states I take it when I notice my edema increasing tamsulosin 0.4 mg capsule 0.4 mg PO BEDTIME 0RF allopurinol 300 mg tablet 300 mg PO BEDTIME 0RF lisinopril 40 mg tablet 40 mg PO BEDTIME 0RF Eliquis 5 mg tablet 5 mg PO BID 0RF Referrals: Darryl Damon MD [Primary Care Provider] -
== END 2021-08-12 13:30 | disposition home or self-care (01) ==
PROVIDERS: Emergency Provider Emergency Medicine; PCP Internal Medicine
DX: S20.212A Contusion of left front wall of thorax, initial encounter (principal); W08.XXXA Fall from other furniture, initial encounter
CPT/HCPCS: 71101; 99283

== ENCOUNTER → 2021-09-20 12:36 | Outpatient (CLI) | payer MEDICARE, SELFPAY ==
[2021-06-24 20:11] VITALS: BMI 26.3
[2021-09-20 13:40] LABS: Add Manual Diff / Slide Review NO; Basophils Absolute Auto 0 /uL (0-100); Basophils Percent Auto 0.2 % (0-2); Eosinophils Absolute Auto 300 /uL (0-450); Eosinophils Percent Auto 4.1 % (2-4); Hematocrit 41.4 % (41-53); Hemoglobin 14.2 g/dL (13.5-17.5); Lymphocytes Absolute Auto 1700 /uL (1100-4500); Lymphocytes Percent Auto 20.5 % (25-40); Mean Corpuscular HGB Conc 34.3 % (30-36); Mean Corpuscular Hemoglobin 31.2 PG (26-34); Mean Corpuscular Volume 91.1 fL (80-100); Monocytes Absolute Auto 700 /uL (0-900); Monocytes Percent Auto 8.2 % (3-14); Neutrophils Absolute Auto 5400 /uL (1500-7000); Platelet Count 163 X10^3/uL (150-400); Red Blood Cell Count 4.55 X10^6/uL (4.5-5.9); Red Cell Distribution Width 13.8 % (11.6-14.8); White Blood Cell Count 8.1 X10^3/uL (4.5-11.0)
[2021-09-20 14:23] LABS: Blood Urea Nitrogen 21 mg/dL (9-20); Calcium 9.8 mg/dL (8.4-10.2); Carbon Dioxide 29 mmol/L (22-32); Chloride 109 mmol/L (98-107); Cholesterol 150 mg/dL (140-199); Estimated Glomerular Filt Rate > 60.0 mL/min (>60); Glucose 107 mg/dL (80-110); HDL Cholesterol 49 mg/dL (40-60); HEMOLYSIS < 15 (0-50); LDL Cholesterol Calculated 85 mg/dL (<100); Potassium 4.2 mmol/L (3.4-5.1); Sodium 143 mmol/L (137-145); Triglycerides 82 mg/dL (35-150)
== END ==
PROVIDERS: PCP Internal Medicine; Referring Provider Internal Medicine Cardiovascular Disease; Visit Provider Internal Medicine Cardiovascular Disease
DX: Z79.01 Long term (current) use of anticoagulants (principal); E78.5 Hyperlipidemia, unspecified; I50.32 Chronic diastolic (congestive) heart failure
CPT/HCPCS: 36415; 80048; 80061; 85025

== ENCOUNTER → 2021-09-27 10:50 | Outpatient (CLI) | payer MEDICARE, SELFPAY ==
[2021-06-24 20:11] VITALS: BMI 26.3
--- NOTE | 2021-09-27 10:52 | DI.ECHO.S_ITS ---
[place] [facility]---------+ [facility] +---------+ : : [address] : [place] [place] : : : : [id number] : : : : Phone: [phone] +---------+ Echocardiogram Report + + :Name: RUBY MEDLEY Study Date: 09/27/2021 Height: 71.5 in: :[facility] ReadingLocation: Weight: 181 lb : : Gender: Male BSA: 2.0 m2 : :: 1940 Age: 80 yrs BP: 150/74 mmHg: :Reason For Study: PERICARDIAL EFFUSION : :Ordering Physician: XAVIER, : :YAMILE Performed By: Katheryn Kirkpatrick : :Referring: YAMILE HARP : + + Interpretation Summary Limited Echo: There is a trivial to small pericardial effusion noted. Compared to the Echo done 06/30/2021, pericardial effusion has increased from trivial to trivial-small on this study. Procedure: A two-dimensional transthoracic echocardiogram with color flow and Doppler was performed in limited views only to assess pericardial effusion.. The study quality was technically good. Comparison is made with the echocardiogram of 06/30/2021. The heart rate ranged between 58-60 bpm during the study. Left Ventricle: The left ventricle is mildly dilated. Left ventricular wall thickness is borderline increased. The ejection fraction is estimated to be 50-55%. Right Ventricle: The right ventricle is mildly dilated. The right ventricular systolic function is normal. Atria: The left atrium is severely dilated. The right atrium is moderately dilated. Tricuspid Valve: There is mild tricuspid regurgitation. The right ventricular systolic pressure is estimated to be at least 46 mmHg based on an estimated right atrial pressure of 3 mm Hg. Great Vessels: The IVC is of normal diameter and collapses greater than 50% with a sniff. This suggests a low right atrial pressure of 3 mm Hg. Pericardium/ Pleura There is a trivial to small pericardial effusion noted. There is no pleural effusion. MMode/2D Measurements & Calculations LVIDd: 5.9 cm LA A2 area: 26.6 cm2 LVIDs: 4.4 cm LA A4 area: 30.8 cm2 FS: 25.1 % LA length (vol): 6.9 cm IVSd: 1.1 cm LA vol: 101.3 ml LVPWd: 0.90 cm LA vol index: 49.8 ml/m2 LV chiu. diameter/BSA (cm/m^2): 2.9 LV sys. diameter/BSA (cm/m^2): 2.2 RA long axis: 5.6 cm RVD1 (basal): 4.3 cm RA area: 23.3 cm2 TAPSE: 2.4 cm RA vol: 82.3 ml RA : 40.5 ml/m2 IVC diam: 2.0 cm Doppler Measurements & Calculations TR max olivia: 328.1 cm/sec TR max P.1 mmHg Reading Physician:12:11 PM
== END ==
PROVIDERS: PCP Internal Medicine; Referring Provider Internal Medicine Cardiovascular Disease; Visit Provider Internal Medicine Cardiovascular Disease
DX: I07.1 Rheumatic tricuspid insufficiency (principal); I31.3 Pericardial effusion (noninflammatory)
CPT/HCPCS: 93307

== ENCOUNTER → 2021-12-29 08:33 | Outpatient (CLI) | payer MEDICARE, SELFPAY ==
[2021-06-24 20:11] VITALS: BMI 26.3
--- NOTE | 2021-12-29 08:35 | DI.ECHO.S_ITS ---
[place] [facility]---------+ [facility] +---------+ : : [address] : [place] [place] : : : : [id number] : : : : Phone: [phone] +---------+ Echocardiogram Report + + :Name: RUBY MEDLEY Study Date: 12/29/2021 Height: 71 in : :[facility] ReadingLocation: Weight: 180 lb : : Gender: Male BSA: 2.0 m2 : :: 1940 Age: 81 yrs BP: 130/62 mmHg: :Reason For Study: PERICARDIAL EFFUSION : :Ordering Physician: XAVIER, : :YAMILE Performed By: Katheryn Kirkpatrick : :Referring: YAMILE HARP : + + Interpretation Summary Limited Echo: 1) Normal left ventricular size with low normal systolic function (EF 50-55%). 2) Mildly enlarged right ventricle with low normal function. 3) There is a trivial to small pericardial effusion noted. 4) The right ventricular systolic pressure is estimated to be at least 49 mmHg based on an estimated right atrial pressure of 3 mm Hg. 5) Compared to the Echo done 09/27/2021, no significant change. Procedure: A two-dimensional transthoracic echocardiogram with color flow and Doppler was performed in limited views only to assess pericardial effusion. The study quality was technically adequate. Comparison is made with the echocardiogram of 09/27/2021. Left Ventricle: The left ventricle is normal in size. Left ventricular wall thickness is borderline increased. The ejection fraction is estimated to be 50-55%. There are no obvious focal wall motion abnormalities noted but poor endocardial definition reduces the sensitivity for the detection of such. Right Ventricle: The right ventricle is mildly dilated. Right ventricular systolic function is at the lower limits of normal. Atria: The left atrium is severely dilated. The right atrium is severely dilated. Tricuspid Valve: The tricuspid valve is normal in structure and function. There is mild tricuspid regurgitation. The right ventricular systolic pressure is estimated to be at least 49 mmHg based on an estimated right atrial pressure of 3 mm Hg. Great Vessels: The IVC is of normal diameter and collapses greater than 50% with a sniff. This suggests a low right atrial pressure of 3 mm Hg. Pericardium/ Pleura There is a trivial to small pericardial effusion noted. There is no pleural effusion. MMode/2D Measurements & Calculations LVIDd: 5.7 cm asc Aorta Diam: 4.0 cm LVIDs: 4.2 cm FS: 26.0 % IVSd: 0.99 cm LVPWd: 1.1 cm LV chiu. diameter/BSA (cm/m^2): 2.8 LV sys. diameter/BSA (cm/m^2): 2.1 LA A2 area: 29.6 cm2 RA long axis: 5.8 cm LA A4 area: 29.4 cm2 RA area: 26.4 cm2 LA length (vol): 6.7 cm RA vol: 102.1 ml LA vol: 110.3 ml RA : 50.6 ml/m2 LA vol index: 54.7 ml/m2 IVC diam: 2.0 cm RVD1 (basal): 4.4 cm RVD2 (mid): 4.1 cm TAPSE: 1.8 cm Doppler Measurements & Calculations TR max olivia: 337.9 cm/sec TR max P.7 mmHg Reading Physician:09:29 AM
== END ==
PROVIDERS: PCP Internal Medicine; Referring Provider Internal Medicine Cardiovascular Disease; Visit Provider Internal Medicine Cardiovascular Disease
DX: I07.1 Rheumatic tricuspid insufficiency (principal); I31.3 Pericardial effusion (noninflammatory)
CPT/HCPCS: 93307

== ENCOUNTER → 2022-03-06 10:32 | Outpatient (CLI) | payer MEDICARE, SELFPAY ==
[2021-06-24 20:11] VITALS: BMI 26.3
[2022-03-06 10:59] LABS: Add Manual Diff / Slide Review NO; Basophils Absolute Auto 0 /uL (0-100); Basophils Percent Auto 0.2 % (0-2); Eosinophils Absolute Auto 300 /uL (0-450); Eosinophils Percent Auto 5.4 % (2-4); Hematocrit 39.2 % (41-53); Hemoglobin 13.3 g/dL (13.5-17.5); Lymphocytes Absolute Auto 1400 /uL (1100-4500); Lymphocytes Percent Auto 23.2 % (25-40); Mean Corpuscular Hemoglobin 30.9 PG (26-34); Mean Corpuscular Volume 91.1 fL (80-100); Monocytes Absolute Auto 400 /uL (0-900); Monocytes Percent Auto 6.6 % (3-14); Neutrophils Absolute Auto 3800 /uL (1500-7000); Neutrophils Percent Auto 64.6 % (50-75); Platelet Count 130 X10^3/uL (150-400); Red Cell Distribution Width 14.7 % (11.6-14.8)
[2022-03-06 11:56] LABS: BUN Creatinine Ratio 24.7 (6-22); Blood Urea Nitrogen 23 mg/dL (9-20); Calcium 9.4 mg/dL (8.4-10.2); Carbon Dioxide 28 mmol/L (22-32); Chloride 107 mmol/L (98-107); Estimated Glomerular Filt Rate > 60 mL/min (>60); Glucose 149 mg/dL (80-110); HEMOLYSIS < 15 (0-50); Sodium 141 mmol/L (137-145)
== END ==
PROVIDERS: PCP Internal Medicine; Referring Provider Internal Medicine Cardiovascular Disease; Visit Provider Internal Medicine Cardiovascular Disease
DX: I48.19 Other persistent atrial fibrillation (principal); I50.32 Chronic diastolic (congestive) heart failure
CPT/HCPCS: 36415; 80048; 85025

== ENCOUNTER → 2022-03-13 15:06 | Outpatient (CLI) | payer MEDICARE, SELFPAY ==
[2021-06-24 20:11] VITALS: BMI 26.3
--- NOTE | 2022-03-13 | DI.MRI.S_ITS ---
PROCEDURE: MR STROKE Pre- and post-contrast brain MRI, non-contrast brain MR angiogram, pre- and postcontrast neck MR angiogram INDICATIONS: Vascular dementia without behavioral disturbance TECHNIQUE: Brain: Noncontrast axial T1 spin echo, axial T2 fast spin echo, sagittal and axial FLAIR, coronal T2 fast spin echo, axial gradient echo, axial diffusion and ADC through the brain. After the administration of contrast, axial 3D VIBE of the cranial vasculature and brain. Brain MRA: Non-contrast 3-D time of flight MR angiogram, with multiple ecvgesh-qframdsbb-tiqnbqrkrw (MIP) reformats performed. Neck MRA: Axial and sagittal TruFISP through the neck. Coronal dynamic MR angiogram during administration of contrast in the arterial and venous phases, with 3-dimenstional pspgrqf-jtkhrqtgy-opmwfnsjif (MIP) reformats constructed from subtraction images. COMPARISON: [facility], MR, MR STROKE, 03/10/2021, 6:20. FINDINGS: Image quality: Excellent. BRAIN: The ventricular system and cortical sulci demonstrate atrophy, consistent for the patient's stated age. There is mild ventricular prominence in relation to gyral and sulcal atrophy. There are areas of increased T2/FLAIR signal intensity within the periventricular and subcortical white matter. There is no acute intra-or extra axial fluid collection. No acute hemorrhage, mass lesion or midline shift. Brainstem is unremarkable. There are no areas of restricted diffusion. Globes are symmetrical. Sinuses are aerated. Osseous structures are intact. BRAIN MR ANGIOGRAM: Anterior circulation: Intracranial internal carotid arteries are normal in size and enhancement. The flow within the paired anterior cerebral arteries is normal and symmetric. The flow within the middle cerebral arteries is normal and symmetric. The anterior communicating artery is seen. No stenoses, occlusions, or aneurysms. Posterior circulation: The posterior circulation demonstrates a right vertebral artery dominance. Basilar artery and posterior cerebral arteries demonstrate no areas of hemodynamically significant stenosis, vascular occlusion or aneurysmal dilation. Posterior communicating arteries are within normal limits. The visualized portions of the vertebral arteries demonstrate normal caliber, and join to form a normal appearing basilar artery. The flow within the posterior cerebral arteries is normal and symmetric. No stenoses, occlusions, or aneurysms. NECK MR ANGIOGRAM: Carotids: Great vessels demonstrate a conventional anatomy as they arise from the aortic arch. The origins of the common carotid arteries appear patent. The calibers and courses of both common carotid arteries are normal. The bifurcation regions appear normal bilaterally. The internal carotid arteries demonstrate normal course and caliber. Posterior circulation: The origins of the vertebral arteries appear patent. More superior portions of both vertebral arteries demonstrate normal course and caliber, and join to form a normal appearing basilar artery. Miscellaneous: Subclavian arteries appear patent. Pre-contrast images through the neck show no soft tissue abnormalities. IMPRESSION: 1. No acute intracranial process. 2. Moderate to severe atrophy and chronic microvascular ischemic changes. 3. Prominence of the ventricular system in relation to gyral and sulcal atrophy, unchanged. While this could represent a more central atrophy pattern, if clinically appropriate, evaluation for normal hydrocephalus should be considered. 4. No areas of hemodynamically significant stenosis, vascular occlusion or aneurysmal dilation within the anterior or posterior circulation. 5. No areas of hemodynamically significant stenosis, vascular occlusion or aneurysmal dilation within the neck vasculature. Dictated by: Holly Duff M.D. on 03/13/2022 at 17:33 Approved by: Holly Duff M.D. on 03/13/2022 at 17:36
== END ==
PROVIDERS: PCP Internal Medicine; Referring Provider Internal Medicine; Visit Provider Internal Medicine
DX: F01.50 Vascular dementia, unspecified severity, without behavioral disturbance, psychotic disturbance, mood disturbance, and anxiety (principal)
CPT/HCPCS: 70548; 70553; A9579

== ENCOUNTER 2022-04-13 17:15 | Emergency (ER) | payer MEDICARE, SELFPAY ==
[2021-06-24 20:11] VITALS: BMI 26.3
[2022-04-13] VITALS (16 sets, daily range): BP systolic 134–188; BP diastolic 64–86; PULSE 46–56; RESP 8–29; TEMP 36.8; O2SAT 96–100
--- NOTE | 2022-04-13 17:19 | DI.CT.S_ITS ---
PROCEDURE: CT STROKE INDICATIONS: speech difficulties, numbness b/l ext TECHNIQUE: Noncontrast 4.5 mm thick angled axial sections acquired from the foramen magnum to the vertex, with coronal reformats. For radiation dose reduction, the following was used: automated exposure control, adjustment of mA and/or kV according to patient size. COMPARISON: [facility], CT, CT STROKE, 03/09/2021, 21:40. FINDINGS: Image quality: Excellent. CSF spaces: Basal cisterns are patent. No extra-axial fluid collections. Ventricles are prominent, likely due to underlying atrophy, however a component of hydrocephalus is also possible. Brain: No midline shift. No intracranial masses or hemorrhage. Rios-white matter interface is normal. Skull and face: Calvarium and visualized facial bones are intact, without suspicious lesions. Sinuses: Visualized sinuses and mastoids are clear. IMPRESSION: 1. No acute intracranial abnormality. 2. Cerebral volume loss and small vessel ischemic changes. Findings were discussed with the emergency department at 17:39 This study fulfills neurological imaging criteria for inclusion or exclusion of acute stroke therapies based on available published neurological imaging guidelines. Dictated by: Jermain Bell M.D. on 04/13/2022 at 17:35 Approved by: Jermain Bell M.D. on 04/13/2022 at 17:41
--- NOTE | 2022-04-13 17:19 | DI.CT.S_ITS ---
PROCEDURE: CT ANGIO HEAD AND NECK INDICATIONS: speech issues, numbness b/l TECHNIQUE: Noncontrast images were performed earlier in the day and not repeated. After the administration of intravenous contrast, 1 mm thick sections acquired from the aortic arch through the [place] of [place]. Post-contrast 4.5 mm thick sections then re-acquired from the foramen magnum to the vertex. 3-dimensional hruruxv-lsrsyszwu-bpqtxgqbxd (MIP) and/or volume rendering reformats were acquired of the central intracranial vasculature and neck separately. For radiation dose reduction, the following was used: automated exposure control, adjustment of mA and/or kV according to patient size. COMPARISON: [facility], CT, CT STROKE, 03/09/2021, 21:40. [facility], MR, MR STROKE, 03/13/2022, 15:18. [facility], CT, CT STROKE, 04/13/2022, 17:11. FINDINGS: Image quality: Excellent. BRAIN: CSF spaces: Ventricles are normal in size and shape. Basal cisterns are patent. No extra-axial fluid collections. Brain: No midline shift. No intracranial bleeds or masses. Rios-white matter interface appears intact. Skull and face: Calvarium and facial bones appear intact, without suspicious lesions. Orbits appear normal. Sinuses: Sinuses and mastoids are clear. HEAD CT ANGIOGRAPHY: Anterior circulation: Intracranial internal carotid arteries are normal in size and flow. The flow within the paired anterior cerebral arteries is normal and symmetric. The flow within the middle cerebral arteries is normal and symmetric. The anterior communicating artery is seen. No aneurysms are seen. Posterior circulation: The right V4 segment is within normal limits. The left distal vertebral artery largely terminates in the left posterior inferior cerebellar artery. There is a normal appearing basilar artery. Bilateral type origins of the posterior cerebral arteries can be seen. Flow within the posterior cerebral arteries is normal and symmetric. No aneurysms are seen. NECK CT ANGIOGRAPHY: Carotid system: The great vessels demonstrate a conventional anatomy as they arise from the aortic arch. The origins of the common carotid arteries appear patent. The common carotid arteries demonstrate normal caliber and courses. The bifurcation regions are both widely patent. The internal carotid arteries demonstrate normal calibers and courses. Posterior circulation: The origins of the vertebral arteries both appear widely patent. The more superior extracranial portions of both vertebral arteries also demonstrate normal courses and calibers. They join to form a normal appearing basilar artery. Soft tissues: Visualized neck soft tissues demonstrate no suspicious abnormalities. Bones: No suspicious bony lesions. Visualized cervical spine appears normally aligned. Postoperative change can be seen anteriorly at the C3-C4 level. Relatively prominent cervical spine degenerative changes are seen. IMPRESSION: No significant intracranial arterial abnormality is seen. Within the arteries of the neck, no hemodynamically significant stenosis can be seen. Incidental note is made of: Okwjhk-zo-Bieiqm developmental anomalies. C3-C4 anterior fixation hardware Relatively prominent cervical spine degenerative change Any quantitative measurements of stenosis were performed using NASCET criteria. Dictated by: Amando Shoemaker M.D. on 04/13/2022 at 16:39 Approved by: Amando Shoemaker M.D. on 04/13/2022 at 16:43
--- NOTE | 2022-04-13 17:29 | ED_ITS ---
HPI - Neuro Symptoms/Deficit <Cierra Waters, DO - Last Filed: 04/14/22 19:38> General Chief Complaint: Altered Mental Status Stated Complaint: Bilateral arm and leg numbness Time Seen by Provider: 04/13/22 17:29 Source: patient Mode of arrival: EMS History of Present Illness HPI Narrative: This is an 81-year-old male brought with reported speech difficulties, bilateral extremity numbness and weakness by EMS. They state they saw him yesterday did not transport at that time but it was not the screw they did not see him. Per EMS he is having some word-finding difficulties this may have started at 4:20 p.m.. After further discussion with the she states that he woke up from a nap with symptoms although she states his speech has not changed, she states he was shaky but had ambulated into the room and she did not appreciate one-sided weakness. She states his mentation seems like his normal. There is no reported fevers, patient states he is had a long-time of having issues with his speech. He does feel weak today and has trouble lifting his arms and legs. He denies chest pain or shortness of breath, denies headache, denies any GI or urinary symptoms. Denies any current urinary symptoms. Patient has reportedly have a drug overdose in the past, has history of AFib status post ablation, atrial flutter, diabetes, hypertension and memory impairment. Patient is on Eliquis. Related Data Home Medications Medication Instructions Recorded Confirmed allopurinol 300 mg tablet 300 mg PO BEDTIME 09/13/19 08/09/21 apixaban 5 mg tablet (Eliquis) 5 mg PO BID 09/13/19 08/09/21 lisinopril 40 mg tablet 40 mg PO BEDTIME 09/13/19 08/09/21 tamsulosin 0.4 mg capsule 0.4 mg PO BEDTIME 09/13/19 08/09/21 furosemide 20 mg tablet 20 mg PO DAILY PRN edema 06/08/21 08/09/21 Previous Rx's Medication Instructions Recorded amlodipine 5 mg tablet (Norvasc) 5 mg PO DAILY #30 tabs 03/13/21 sertraline 50 mg tablet (Zoloft) 100 mg PO BEDTIME #60 tabs 07/13/21 Allergies Allergy/AdvReac Type Severity Reaction Status Date / Time Uczdkoi-NTR-YcT Reductase AdvReac Mild CAUSES Verified 08/09/21 09:23 Inhibitor PAIN IN [Cejppcj-Uwr-Ohj Reductase LEGS - Inhibitor] ELECTRIC SHOCK Sulfa (Sulfonamide AdvReac Mild EXACERBATES Verified 08/09/21 09:23 Antibiotics) GOUT [SULFA (SULFONAMIDE ANTIBIOTICS)] Review of Systems <Cierra Waters DO - Last Filed: 04/14/22 19:38> Review of Systems ROS Unobtainable: All systems reviewed & are unremarkable except as noted in HPI and below Patient History <Cierra Waters DO - Last Filed: 04/14/22 19:38> Medical History Atrial fibrillation and flutter History of drug overdose Hyperlipidemia Hypertension Surgical History H/O cervical spine surgery History of cardiac radiofrequency ablation Family History Mother Colon cancer Father Unknown family medical history Social History household members: spouse Smoking Status: Never smoker alcohol intake: current Smoking Status: Never smoker alcohol intake frequency: holidays/special occasions only Substance Use Type: does not use Exam <Cierra Waters DO - Last Filed: 04/14/22 19:38> Narrative Exam Narrative: GENERAL: Alert and oriented self, patient follows commands HEENT: Head normocephalic, atraumatic, EOMI, pupils reactive, face symmetric, moist mucous membranes, no facial droop. NECK: Supple, full range of motion CARDIOVASCULAR: Regular rate and rhythm without murmurs, rubs or gallops. RESPIRATORY: Breath sounds equal bilaterally, no wheezes rales or rhonchi. ABDOMEN: Soft, nontender. Normoactive bowel sounds all 4 quadrants. No guarding or rebound, rigidity, no mass : No CVA tenderness EXTREMITIES: Normal range of motion, no clubbing or edema. Neurovascularly intact. Patient appears have difficulty lifting his legs but when I perform Babinski reflex he lifts both legs off suddenly without any issue but does seem to have some mild weakness on the right with leg lift. Patient has equal strength bilateral upper extremities no drift is appreciated. Circuitry Negative Inspector are equal bilaterally. NEUROLOGICAL: Cranial nerves II through XII grossly intact. Moving all extremities. Patient has issues with very fine motor but is able to perform finger-nose bilaterally struggles with bilateral lower extremities heel-hatch. Patient's does have some expressive aphasia but no dysarthria appreciated. He has difficulty giving names for images and pictures but is able to read sentences without issue. SKIN: Warm, dry, no petechiae, no rashes or lesions. Initial Vital Signs Initial Vital Signs: Vital Signs Temperature 98.2 F 04/13/22 17:25 Pulse Rate 56 L 04/13/22 17:25 Respiratory Rate 18 04/13/22 17:25 Blood Pressure 179/81 H 04/13/22 17:25 Pulse Oximetry 100 04/13/22 17:25 Oxygen Delivery Method 04/13/22 17:25 <Topher Torres DO - Last Filed: 04/15/22 06:29> Initial Vital Signs Initial Vital Signs: Vital Signs Temperature 98.2 F 04/13/22 17:25 Pulse Rate 56 L 04/13/22 17:25 Respiratory Rate 18 04/13/22 17:25 Blood Pressure 179/81 H 04/13/22 17:25 Pulse Oximetry 100 04/13/22 17:25 Oxygen Delivery Method 04/13/22 17:25 Scores <Cierra Waters DO - Last Filed: 04/14/22 19:38> NIH Stroke Scale Level of Conciousness: Alert, keenly responsive Ask month/age: Answers one question correctly, intubated follow commands Open/close eyes, close hand: Performs both tasks correctly Best gaze horizontal: Normal Visual garcia: No visual loss Facial palsy: Normal symetrical movement Left arm drift: No drift for full 10 sec Right arm drift: No drift for full 10 sec Left leg drift: Drifts down, not to bed Right leg drift: Drifts down, not to bed Limb ataxia: Present in two limbs Sensory on face/arms/legs: Normal, no sensory loss Best language: Mild to moderate, slurs some words Dysarthria: Normal Extinction or inattention: No abnormality Total NIH Stroke scale score: 6 <Topher Torres DO - Last Filed: 04/15/22 06:29> NIH Stroke Scale Total NIH Stroke scale score: 6 Course <Cierra Waters DO - Last Filed: 04/14/22 19:38> Orders Ordered: Discontinued Medications Amlodipine Besylate (Amlodipine 5 Mg Tablet) 5 mg PO NOW ONE Stop: 04/14/22 07:04 Last Admin: 04/14/22 07:30 Dose: 5 mg Documented By: PORTER Sodium Chloride (Normal Saline 0.9%) 1,000 mls @ 150 mls/hr IV CONT IZABEL Last Infusion: 04/13/22 21:00 Dose: 0 mls/hr Documented By: Infusion: 04/13/22 20:07 Dose: 0 mls/hr Documented By: Admin: 04/13/22 18:08 Dose: 150 mls/hr Documented By: KIMI Consultations Consultation #1: Dr. Moura, hospitalist. Discussed for possible observation secondary to difficulty with ambulation which sounds to be longstanding as well as social issues. At this time my suspicion for acute stroke is quite low particularly after more discussion with patient's family. There does not appear to be any other clear infectious or metabolic cause of his symptoms has had a history of overdose but does not appear to have this as part of his clinical cause issues today. Dr. Shearer plans to evaluate patient before acceptance. Time: 20:30 Vital Signs Vital signs: Vital Signs - 8 hr 04/14/22 13:00 Pulse Rate 55 L Respiratory Rate 18 Blood Pressure 139/76 Pulse Oximetry 97 Oxygen Delivery Method Room Air <Topher Torres DO - Last Filed: 04/15/22 06:29> Orders Ordered: Discontinued Medications Amlodipine Besylate (Amlodipine 5 Mg Tablet) 5 mg PO NOW ONE Stop: 04/14/22 07:04 Last Admin: 04/14/22 07:30 Dose: 5 mg Documented By: PORTER Sodium Chloride (Normal Saline 0.9%) 1,000 mls @ 150 mls/hr IV CONT IZABEL Last Infusion: 04/13/22 21:00 Dose: 0 mls/hr Documented By: Infusion: 04/13/22 20:07 Dose: 0 mls/hr Documented By: Admin: 04/13/22 18:08 Dose: 150 mls/hr Documented By: KIMI Vital Signs Vital signs: Vital Signs - 8 hr 04/14/22 13:00 Pulse Rate 55 L Respiratory Rate 18 Blood Pressure 139/76 Pulse Oximetry 97 Oxygen Delivery Method Room Air MDM - Neuro Symptoms/Deficit <Cierraxiao Waters, DO - Last Filed: 04/14/22 19:38> Lab Data Result diagrams: 04/13/22 17:15 04/13/22 17:15 Labs: Lab Results 04/13/22 04/13/22 04/13/22 Range/Units 17:15 17:15 17:15 WBC 7.2 (4.5-11.0) X10^3/uL RBC 4.46 L (4.5-5.9) X10^6/uL Hgb 13.8 (13.5-17.5) g/dL Hct 40.1 L (41-53) % MCV 89.8 (80-100) fL MCH 30.9 (26-34) PG MCHC 34.5 (30-36) % RDW 13.7 (11.6-14.8) % Plt Count 155 (150-400) X10^3/uL Neut % (Auto) 55.0 (50-75) % Lymph % (Auto) 29.9 (25-40) % [place] % (Auto) 9.3 (3-14) % Eos % (Auto) 5.6 H (2-4) % Baso % (Auto) 0.2 (0-2) % Neut # (Auto) 4000 (2112-5767) /uL Lymph # (Auto) 2200 (6673-1980) /uL [place] # (Auto) 700 (0-900) /uL Eos # (Auto) 400 (0-450) /uL Baso # (Auto) 0 (0-100) /uL PT 11.0 (10.1-12.7) SECONDS INR 1.0 (0.9-1.3) APTT 33 (26.4-36.2) SECONDS Sodium 143 (137-145) mmol/L Potassium 4.3 (3.4-5.1) mmol/L Chloride 107 (98-107) mmol/L Carbon Dioxide 25 (22-32) mmol/L BUN 25 H (9-20) mg/dL Creatinine 0.99 (0.66-1.25) mg/dL Estimated GFR > 60 (>60) mL/min BUN/Creatinine Ratio 25.3 H (6-22) Glucose 102 (80-110) mg/dL Calcium 9.4 (8.4-10.2) mg/dL Total Creatine Kinase (55-170) U/L CK-MB (CK-2) CK-MB (CK-2) Rel Index Troponin I (0.01-0.034) ng/mL NT-Pro-B Natriuret Pep (<450) pg/mL Urine RBC (0-5/HPF) Urine WBC (0-5/HPF) Ur Squamous Epith Cells (0-5/HPF) Urine Bacteria (None) Ur Culture Indicated? U Opiates 300ng/mL cut (Negative) Ur Oxycodone Screen (Negative) Urine Methadone Screen (Negative) Ur Barbiturates Screen (Negative) U Tricyclic Antidepress (Negative) Ur Phencyclidine Scrn (Negative) Ur Amphetamines Screen (Negative) U Methamphetamines Scrn (Negative) Ur MDMA Scrn (Ecstasy) (Negative) U Benzodiazepines Scrn (Negative) Urine Cocaine Screen (Negative) U Marijuana (THC) Screen (Negative) SARS-CoV-2 (PCR) (Negative) 04/13/22 04/13/22 04/13/22 Range/Units 17:15 17:28 19:50 WBC (4.5-11.0) X10^3/uL RBC (4.5-5.9) X10^6/uL Hgb (13.5-17.5) g/dL Hct (41-53) % MCV (80-100) fL MCH (26-34) PG MCHC (30-36) % RDW (11.6-14.8) % Plt Count (150-400) X10^3/uL Neut % (Auto) (50-75) % Lymph % (Auto) (25-40) % [place] % (Auto) (3-14) % Eos % (Auto) (2-4) % Baso % (Auto) (0-2) % Neut # (Auto) (6438-0951) /uL Lymph # (Auto) (9559-0455) /uL [place] # (Auto) (0-900) /uL Eos # (Auto) (0-450) /uL Baso # (Auto) (0-100) /uL PT (10.1-12.7) SECONDS INR (0.9-1.3) APTT (26.4-36.2) SECONDS Sodium (137-145) mmol/L Potassium (3.4-5.1) mmol/L Chloride (98-107) mmol/L Carbon Dioxide (22-32) mmol/L BUN (9-20) mg/dL Creatinine (0.66-1.25) mg/dL Estimated GFR (>60) mL/min BUN/Creatinine Ratio (6-22) Glucose (80-110) mg/dL Calcium (8.4-10.2) mg/dL Total Creatine Kinase 42 L (55-170) U/L CK-MB (CK-2) TNP CK-MB (CK-2) Rel Index TNP Troponin I 0.085 H (0.01-0.034) ng/mL NT-Pro-B Natriuret Pep 883 H (<450) pg/mL Urine RBC (0-5/HPF) Urine WBC (0-5/HPF) Ur Squamous Epith Cells (0-5/HPF) Urine Bacteria (None) Ur Culture Indicated? U Opiates 300ng/mL cut Negative (Negative) Ur Oxycodone Screen Negative (Negative) Urine Methadone Screen Negative (Negative) Ur Barbiturates Screen Negative (Negative) U Tricyclic Antidepress Negative (Negative) Ur Phencyclidine Scrn Negative (Negative) Ur Amphetamines Screen Negative (Negative) U Methamphetamines Scrn Negative (Negative) Ur MDMA Scrn (Ecstasy) Negative (Negative) U Benzodiazepines Scrn Negative (Negative) Urine Cocaine Screen Negative (Negative) U Marijuana (THC) Screen Negative (Negative) SARS-CoV-2 (PCR) Negative (Negative) 04/13/22 04/13/22 Range/Units 19:55 20:30 WBC (4.5-11.0) X10^3/uL RBC (4.5-5.9) X10^6/uL Hgb (13.5-17.5) g/dL Hct (41-53) % MCV (80-100) fL MCH (26-34) PG MCHC (30-36) % RDW (11.6-14.8) % Plt Count (150-400) X10^3/uL Neut % (Auto) (50-75) % Lymph % (Auto) (25-40) % [place] % (Auto) (3-14) % Eos % (Auto) (2-4) % Baso % (Auto) (0-2) % Neut # (Auto) (1818-2252) /uL Lymph # (Auto) (7523-1853) /uL [place] # (Auto) (0-900) /uL Eos # (Auto) (0-450) /uL Baso # (Auto) (0-100) /uL PT (10.1-12.7) SECONDS INR (0.9-1.3) APTT (26.4-36.2) SECONDS Sodium (137-145) mmol/L Potassium (3.4-5.1) mmol/L Chloride (98-107) mmol/L Carbon Dioxide (22-32) mmol/L BUN (9-20) mg/dL Creatinine (0.66-1.25) mg/dL Estimated GFR (>60) mL/min BUN/Creatinine Ratio (6-22) Glucose (80-110) mg/dL Calcium (8.4-10.2) mg/dL Total Creatine Kinase (55-170) U/L CK-MB (CK-2) CK-MB (CK-2) Rel Index Troponin I 0.084 H (0.01-0.034) ng/mL NT-Pro-B Natriuret Pep (<450) pg/mL Urine RBC None seen (0-5/HPF) Urine WBC 0-1/hpf (0-5/HPF) Ur Squamous Epith Cells 0-1 /hpf (0-5/HPF) Urine Bacteria Occasional (0-1) (None) Ur Culture Indicated? Culture not indicate U Opiates 300ng/mL cut (Negative) Ur Oxycodone Screen (Negative) Urine Methadone Screen (Negative) Ur Barbiturates Screen (Negative) U Tricyclic Antidepress (Negative) Ur Phencyclidine Scrn (Negative) Ur Amphetamines Screen (Negative) U Methamphetamines Scrn (Negative) Ur MDMA Scrn (Ecstasy) (Negative) U Benzodiazepines Scrn (Negative) Urine Cocaine Screen (Negative) U Marijuana (THC) Screen (Negative) SARS-CoV-2 (PCR) (Negative) Point of Care Testing Glucose POC 118 Urine Dip Bedside Urine Glucose Negative Bedside Urine Bilirubin - Negative Bedside Urine Ketone - Negative Urine Specific Wright 1.010 Bedside Urine Occult Blood - Negative Bedside Urine pH 6 Bedside Urine Protein + 30 Bedside Urine Urobilinogen - Negative Bedside Urine Nitrite - Negative Bedside Urine Leukocytes - Negative Esterase Imaging Data CT scan - head: Radiologist's Impression: Close Head/Neck CTA 04/13/[address] (Signed) ArabellaJermain - 04/13/22 Brain MRI (Signed) Holly Duff - 03/13/22 Ribs X-Ray (Signed) Christian Jainn - 08/12/21 Radiology Report (Cancelled) James Bergman - 06/27/21 Myocardial Perfusion Scan Nuc Med (Signed) James Bergman - 06/27/21 Chest CTA (Signed) Amando Shoemaker - 06/25/21 Abdomen Ultrasound (Signed) Amando Shoemaker - 06/25/21 Echocardiogram Ultrasound (Signed) Flako Dejesus - 06/24/21 Telemetry Strips 06/24/21 Chest X-Ray (Signed) Tariq Adams - 06/24/21 Chest X-Ray (Signed) Mello Jones - 04/18/21 Echocardiogram Ultrasound (Signed) Mary Ronquillo - 03/10/21 Brain MRI (Signed) Adeline Norwood - 03/10/21 Telemetry Strips 03/10/[address] (Signed) Reggie Jainwn - 03/09/21 Radiology Report (Cancelled) Flako Dejesus - 02/12/20 Myocardial Perfusion Scan Nuc Med (Signed) Eyal Dejesusu - 02/12/20 Chest CTA (Signed) Mello Jones - 10/13/19 Chest X-Ray (Signed) Mello Jones - 10/13/19 Chest X-Ray (Signed) Amando Shoemaker - 09/13/19 Telemetry Strips 09/13/19 Radiology Report (Cancelled) Oleg,Maridhu - 03/14/18 Echocardiogram Ultrasound (Signed) Laurie Harp - 03/14/18 Myocardial Perfusion Scan Nuc Med (Signed) JaylaniwMari engdhu - 03/13/[address] [address] [address] Scan Report Signed Patient: Delmar Hoff MR#: [id number] : 1940 Acct:[id number] Age/Sex: 81 / M Date of Service: 04/13/22 Loc: ED Accession Number: [id number] ?? Procedure: CT Stroke Ordering Provider: Cierra Waters D.O. PROCEDURE:? CT STROKE ? INDICATIONS:? speech difficulties, numbness b/l ext ? TECHNIQUE:? Noncontrast 4.5 mm thick angled axial sections acquired from the foramen magnum to the vertex, with coronal reformats.? For radiation dose reduction, the following was used:? automated exposure control, adjustment of mA and/or kV according to patient size.? ? COMPARISON:? [facility], CT, CT STROKE, 03/09/2021, 21:40. ? FINDINGS:? Image quality:? Excellent.? ? CSF spaces:? Basal cisterns are patent.? No extra-axial fluid collections.? Ventricles are prominent, likely due to underlying atrophy, however a component of hydrocephalus is also possible. ? Brain:? No midline shift.? No intracranial masses or hemorrhage.? Rios-white matter interface is normal.? ? Skull and face:? Calvarium and visualized facial bones are intact, without suspicious lesions.? ? Sinuses:? Visualized sinuses and mastoids are clear.? ? IMPRESSION:? 1. No acute intracranial abnormality. 2. Cerebral volume loss and small vessel ischemic changes.? Findings were discussed with the emergency department at 17:39? ? This study fulfills neurological imaging criteria for inclusion or exclusion of acute stroke therapies based on available published neurological imaging guidelines.? ? ? Dictated by: Jermain Bell M.D. on 04/13/2022 at 17:35 ? ? Approved by: Jermain Bell M.D. on 04/13/2022 at 17:41?? CTA - brain/neck: Radiologist's Impression: Delmar Hoff??81??M??1940 ? Allergy/Adv: Vupivpw-GJX-QeG Reductase Inhibitor, Sulfa (Sulfonamide Antibiotics) (More??) Close Head/Neck CTA (Signed) Amando Shoemaker - 04/13/[address] (Signed) Jermain Bell - 04/13/22 Brain MRI (Signed) Holly Duff - 03/13/22 Ribs X-Ray (Signed) Lenin Jain - 08/12/21 Radiology Report (Cancelled) James Bergman - 06/27/21 Myocardial Perfusion Scan Nuc Med (Signed) James Bergman - 06/27/21 Chest CTA (Signed) Amando Shoemaker - 06/25/21 Abdomen Ultrasound (Signed) Amando Shoemaker - 06/25/21 Echocardiogram Ultrasound (Signed) Mari Dejesusdhu - 06/24/21 Telemetry Strips 06/24/21 Chest X-Ray (Signed) Tariq Adams - 06/24/21 Chest X-Ray (Signed) Mello Jones - 04/18/21 Echocardiogram Ultrasound (Signed) Mary Ronquillo - 03/10/21 Brain MRI (Signed) Adeline Norwood - 03/10/21 Telemetry Strips 03/10/[address] (Signed) Lenin Jain - 03/09/21 Radiology Report (Cancelled) Flako Dejesus - 02/12/20 Myocardial Perfusion Scan Nuc Med (Signed) Eyal Dejesusu - 02/12/20 Chest CTA (Signed) Mello Jones - 10/13/19 Chest X-Ray (Signed) Mello Jones - 10/13/19 Chest X-Ray (Signed) Amando Shoemaker - 09/13/19 Telemetry Strips 09/13/19 Radiology Report (Cancelled) Mari Dejesusdhu - 03/14/18 Echocardiogram Ultrasound (Signed) Laurie Harp - 03/14/18 Myocardial Perfusion Scan Nuc Med (Signed) Jaylaniwalbertina,Vidhu - 03/13/18 [place] [address] CT Scan Report Signed Patient: Delmar Hoff MR#: [id number] : 1940 Acct:[id number] Age/Sex: 81 / M Date of Service: 04/13/22 Loc: ED Accession Number: [id number] ?? Procedure: CT angio head and neck Ordering Provider: Cierra Waters D.O. PROCEDURE:? CT ANGIO HEAD AND NECK ? INDICATIONS:? speech issues, numbness b/l ? TECHNIQUE:? Noncontrast images were performed earlier in the day and not repeated.? ? After the administration of intravenous contrast, 1 mm thick sections acquired from the aortic arch through the [place] of [place]vin.? Post-contrast 4.5 mm thick sections then re- acquired from the foramen magnum to the vertex.? 3-dimensional ykicord-ptsmkowqs-neqbpgyrss (MIP) and/or volume rendering reformats were acquired of the central intracranial vasculature and neck separately. For radiation dose reduction, the following was used:? automated exposure control, adjustment of mA and/or kV according to patient size.? ? COMPARISON:? [facility], CT, CT STROKE, 03/09/2021, 21:40.? [facility], MR, MR STROKE, 03/13/2022, 15:18.? [facility], CT, CT STROKE, 04/13/2022, 17:11. ? FINDINGS:? Image quality:? Excellent.? ? BRAIN:? CSF spaces:? Ventricles are normal in size and shape.? Basal cisterns are patent.? No extra-axial fluid collections.? ? Brain:? No midline shift.? No intracranial bleeds or masses.? Rios-white matter interface appears intact.? ? Skull and face:? Calvarium and facial bones appear intact, without suspicious lesions.? Orbits appear normal.? ? Sinuses:? Sinuses and mastoids are clear.? ? HEAD CT ANGIOGRAPHY:? Anterior circulation:? Intracranial internal carotid arteries are normal in size and flow.? The flow within the paired anterior cerebral arteries is normal and sy mmetric.? The flow within the middle cerebral arteries is normal and symmetric.? The anterior communicating artery is seen.? No aneurysms are seen.? ? Posterior circulation:? The right V4 segment is within normal limits.? The left distal vertebral artery largely terminates in the left posterior inferior cerebellar artery.? There is a normal appearing basilar artery.? Bilateral type origins of the posterior cerebral arteries can be seen.? Flow within the posterior cerebral arteries is normal and symmetric.? No aneurysms are seen.? ? NECK CT ANGIOGRAPHY:? Carotid system:? The great vessels demonstrate a conventional anatomy as they arise from the aortic arch.? The origins of the common carotid arteries appear patent.? The common carotid arteries demonstrate normal caliber and courses.? The bifurcation regions are both widely patent.? The internal carotid arteries demonstrate normal calibers and courses.? ? Posterior circulation:? The origins of the vertebral arteries both appear widely patent.? The more superior extracranial portions of both vertebral arteries also demonstrate normal courses and calibers.? They join to form a normal appearing basilar artery.? ? Soft tissues:? Visualized neck soft tissues demonstrate no suspicious abnormalities.? ? Bones:? No suspicious bony lesions.? Visualized cervical spine appears normally aligned.? Postoperative change can be seen anteriorly at the C3-C4 level.? Relatively prominent cervical spine degenerative changes are seen. ? ? IMPRESSION:? No significant intracranial arterial abnormality is seen.? ? Within the arteries of the neck, no hemodynamically significant stenosis can be seen. ? Incidental note is made of: Ydnfcx-tm-Xwmzpo developmental anomalies. ? C3-C4 anterior fixation hardware Relatively prominent cervical spine degenerative change? ? Any quantitative measurements of stenosis were performed using NASCET criteria.? ? ? Dictated by: Amando Shoemaker M.D. on 04/13/2022 at 16:39 ? ? Approved by: Amando Shoemaker M.D. on 04/13/2022 at 16:43?? ECG Data Attestation: I personally reviewed and interpreted this ECG as follows: Prior ECG tracings: available for review Interpretation: Sinus bradycardia with first-degree AV block rate of 55 VA 326, QRS of 146 and QTC of 438. No acute ST changes noted. No acute changes from prior from 06/27/2021. EKG 2 sinus bradycardia with first-degree AV block rate of 53 VA 344 QRS of 138 QTC of 420. No acute changes appreciated. MDM Narrative Medical decision making narrative: This is an 81-year-old male who comes in with complaint of possible speech issues and bilateral arm and leg numbness/weakness. Patient states his speech is normal for him his indicates it is normal. Patient does seem to have some mild right lower extremity weakness in comparison to his other extremities this is noted in his cardiology visit that was faxed over. His states that he was walking at home before she called EMS and after his symptoms started. Patient onset is somewhat unclear but unable to establish less than 4-1/2 hour onset time so patient is not a tPA candidate and his NIH although 6 does not seem consistent with stroke. He had prior overdose although his clinical findings and exam are not consistent with this. UDS was obtained and is negative. Patient is covid negative. Patient does have a clear infectious change on exam. Troponin is indeterminate, plan for repeat and BNP slightly elevated. Patient denies any difficulty with breathing currently. Plan to repeat troponin to make sure not trending upwards. Patient attempted to ambulate very unsteady gait. I spoke with his daughter Yany who states that when she last saw he has a very unsteady gait this is new his speech changes are not new but there is quite a bit concerned about fall risk she feels like been a little bit more rapid progression than she would expect in terms of his memory and speech, he has been recommended to follow-up with neurology primary care has offered to send a referral but she lives in [place]. Spoke with hospitalist patient does have some issues with ambulation, there is also some social issues at play. Hospitalist will evaluate patient to see if appropriate for observation. [1800] (Brian) Patient received in sign out from [Evelin]. I have reviewed the clinical course and performed an independent history and physical exam. Awaiting evaluation by hospitalist, we sure the opinion that patient is inappropriate for discharge and unsafe to do so. Please see hospitalist note for details, patient will await evaluation by physical therapy and care management team in the morning in an effort to achieve safe disposition. 04/14/22 0538 Mank: Patient signed out to myself by Dr. Torres. Overnight patient was able to ambulate intermittently without issues then other times having more difficulty. Patient did not have any other issues overnight reported he was evaluated by the hospitalist who also spoke with his family this time not really appropriate for observation or inpatient admission plan for PT consult and AUTOMOTIVE BRAKE SPECIALIST evaluation today to assist with disposition. Patient is ambulating quite well this morning without issue. has returned from being home overnight. PT eval does not show any for home health care PT, patient is able to maintain his gait fairly well but secondary to his dementia and impulsive nature from this he does not always remember to use a walker or movements that would decrease his fall risk and improve his safety. AUTOMOTIVE BRAKE SPECIALIST did meet with the patient and his . At this time patient has been ambulating throughout the department all day he is medically cleared and discharged home. Stroke Core Measures Exclusion Criteria TPA in CVA: Symptom Onset >3 or 4.5 Hours <Topher Torres, - Last Filed: 04/15/22 06:29> Lab Data Labs: Lab Results 04/13/22 04/13/22 04/13/22 Range/Units 17:15 17:15 17:15 WBC 7.2 (4.5-11.0) X10^3/uL RBC 4.46 L (4.5-5.9) X10^6/uL Hgb 13.8 (13.5-17.5) g/dL Hct 40.1 L (41-53) % MCV 89.8 (80-100) fL MCH 30.9 (26-34) PG MCHC 34.5 (30-36) % RDW 13.7 (11.6-14.8) % Plt Count 155 (150-400) X10^3/uL Neut % (Auto) 55.0 (50-75) % Lymph % (Auto) 29.9 (25-40) % [place] % (Auto) 9.3 (3-14) % Eos % (Auto) 5.6 H (2-4) % Baso % (Auto) 0.2 (0-2) % Neut # (Auto) 4000 (8884-7538) /uL Lymph # (Auto) 2200 (7888-9061) /uL [place] # (Auto) 700 (0-900) /uL Eos # (Auto) 400 (0-450) /uL Baso # (Auto) 0 (0-100) /uL PT 11.0 (10.1-12.7) SECONDS INR 1.0 (0.9-1.3) APTT 33 (26.4-36.2) SECONDS Sodium 143 (137-145) mmol/L Potassium 4.3 (3.4-5.1) mmol/L Chloride 107 (98-107) mmol/L Carbon Dioxide 25 (22-32) mmol/L BUN 25 H (9-20) mg/dL Creatinine 0.99 (0.66-1.25) mg/dL Estimated GFR > 60 (>60) mL/min BUN/Creatinine Ratio 25.3 H (6-22) Glucose 102 (80-110) mg/dL Calcium 9.4 (8.4-10.2) mg/dL Total Creatine Kinase (55-170) U/L CK-MB (CK-2) CK-MB (CK-2) Rel Index Troponin I (0.01-0.034) ng/mL NT-Pro-B Natriuret Pep (<450) pg/mL Urine RBC (0-5/HPF) Urine WBC (0-5/HPF) Ur Squamous Epith Cells (0-5/HPF) Urine Bacteria (None) Ur Culture Indicated? U Opiates 300ng/mL cut (Negative) Ur Oxycodone Screen (Negative) Urine Methadone Screen (Negative) Ur Barbiturates Screen (Negative) U Tricyclic Antidepress (Negative) Ur Phencyclidine Scrn (Negative) Ur Amphetamines Screen (Negative) U Methamphetamines Scrn (Negative) Ur MDMA Scrn (Ecstasy) (Negative) U Benzodiazepines Scrn (Negative) Urine Cocaine Screen (Negative) U Marijuana (THC) Screen (Negative) SARS-CoV-2 (PCR) (Negative) 04/13/22 04/13/22 04/13/22 Range/Units 17:15 17:28 19:50 WBC (4.5-11.0) X10^3/uL RBC (4.5-5.9) X10^6/uL Hgb (13.5-17.5) g/dL Hct (41-53) % MCV (80-100) fL MCH (26-34) PG MCHC (30-36) % RDW (11.6-14.8) % Plt Count (150-400) X10^3/uL Neut % (Auto) (50-75) % Lymph % (Auto) (25-40) % [place] % (Auto) (3-14) % Eos % (Auto) (2-4) % Baso % (Auto) (0-2) % Neut # (Auto) (1963-4857) /uL Lymph # (Auto) (0029-2188) /uL [place] # (Auto) (0-900) /uL Eos # (Auto) (0-450) /uL Baso # (Auto) (0-100) /uL PT (10.1-12.7) SECONDS INR (0.9-1.3) APTT (26.4-36.2) SECONDS Sodium (137-145) mmol/L Potassium (3.4-5.1) mmol/L Chloride (98-107) mmol/L Carbon Dioxide (22-32) mmol/L BUN (9-20) mg/dL Creatinine (0.66-1.25) mg/dL Estimated GFR (>60) mL/min BUN/Creatinine Ratio (6-22) Glucose (80-110) mg/dL Calcium (8.4-10.2) mg/dL Total Creatine Kinase 42 L (55-170) U/L CK-MB (CK-2) TNP CK-MB (CK-2) Rel Index TNP Troponin I 0.085 H (0.01-0.034) ng/mL NT-Pro-B Natriuret Pep 883 H (<450) pg/mL Urine RBC (0-5/HPF) Urine WBC (0-5/HPF) Ur Squamous Epith Cells (0-5/HPF) Urine Bacteria (None) Ur Culture Indicated? U Opiates 300ng/mL cut Negative (Negative) Ur Oxycodone Screen Negative (Negative) Urine Methadone Screen Negative (Negative) Ur Barbiturates Screen Negative (Negative) U Tricyclic Antidepress Negative (Negative) Ur Phencyclidine Scrn Negative (Negative) Ur Amphetamines Screen Negative (Negative) U Methamphetamines Scrn Negative (Negative) Ur MDMA Scrn (Ecstasy) Negative (Negative) U Benzodiazepines Scrn Negative (Negative) Urine Cocaine Screen Negative (Negative) U Marijuana (THC) Screen Negative (Negative) SARS-CoV-2 (PCR) Negative (Negative) 04/13/22 04/13/22 Range/Units 19:55 20:30 WBC (4.5-11.0) X10^3/uL RBC (4.5-5.9) X10^6/uL Hgb (13.5-17.5) g/dL Hct (41-53) % MCV (80-100) fL MCH (26-34) PG MCHC (30-36) % RDW (11.6-14.8) % Plt Count (150-400) X10^3/uL Neut % (Auto) (50-75) % Lymph % (Auto) (25-40) % [place] % (Auto) (3-14) % Eos % (Auto) (2-4) % Baso % (Auto) (0-2) % Neut # (Auto) (1185-5044) /uL Lymph # (Auto) (8963-6888) /uL [place] # (Auto) (0-900) /uL Eos # (Auto) (0-450) /uL Baso # (Auto) (0-100) /uL PT (10.1-12.7) SECONDS INR (0.9-1.3) APTT (26.4-36.2) SECONDS Sodium (137-145) mmol/L Potassium (3.4-5.1) mmol/L Chloride (98-107) mmol/L Carbon Dioxide (22-32) mmol/L BUN (9-20) mg/dL Creatinine (0.66-1.25) mg/dL Estimated GFR (>60) mL/min BUN/Creatinine Ratio (6-22) Glucose (80-110) mg/dL Calcium (8.4-10.2) mg/dL Total Creatine Kinase (55-170) U/L CK-MB (CK-2) CK-MB (CK-2) Rel Index Troponin I 0.084 H (0.01-0.034) ng/mL NT-Pro-B Natriuret Pep (<450) pg/mL Urine RBC None seen (0-5/HPF) Urine WBC 0-1/hpf (0-5/HPF) Ur Squamous Epith Cells 0-1 /hpf (0-5/HPF) Urine Bacteria Occasional (0-1) (None) Ur Culture Indicated? Culture not indicate U Opiates 300ng/mL cut (Negative) Ur Oxycodone Screen (Negative) Urine Methadone Screen (Negative) Ur Barbiturates Screen (Negative) U Tricyclic Antidepress (Negative) Ur Phencyclidine Scrn (Negative) Ur Amphetamines Screen (Negative) U Methamphetamines Scrn (Negative) Ur MDMA Scrn (Ecstasy) (Negative) U Benzodiazepines Scrn (Negative) Urine Cocaine Screen (Negative) U Marijuana (THC) Screen (Negative) SARS-CoV-2 (PCR) (Negative) Point of Care Testing Glucose POC 118 Urine Dip Bedside Urine Glucose Negative Bedside Urine Bilirubin - Negative Bedside Urine Ketone - Negative Urine Specific [place] 1.010 Bedside Urine Occult Blood - Negative Bedside Urine pH 6 Bedside Urine Protein + 30 Bedside Urine Urobilinogen - Negative Bedside Urine Nitrite - Negative Bedside Urine Leukocytes - Negative Esterase MDM Narrative Medical decision making narrative: This is an 81-year-old male who comes in with complaint of possible speech issues and bilateral arm and leg numbness/weakness. Patient states his speech is normal for him his indicates it is normal. Patient does seem to have some mild right lower extremity weakness in comparison to his other extremities this is noted in his cardiology visit that was faxed over. His states that he was walking at home before she called EMS and after his symptoms started. Patient onset is somewhat unclear but unable to establish less than 4-1/2 hour onset time so patient is not a tPA candidate and his NIH although 6 does not seem consistent with stroke. He had prior overdose although his clinical findings and exam are not consistent with this. UDS was obtained and is negative. Patient is covid negative. Patient does have a clear infectious change on exam. Troponin is indeterminate, plan for repeat and BNP slightly elevated. Patient denies any difficulty with breathing currently. Plan to repeat troponin to make sure not trending upwards. Patient attempted to ambulate very unsteady gait. I spoke with his daughter Yany who states that when she last saw he has a very unsteady gait this is new his speech changes are not new but there is quite a bit concerned about fall risk she feels like been a little bit more rapid progression than she would expect in terms of his memory and speech, he has been recommended to follow-up with neurology primary care has offered to send a referral but she lives in [place]. [[id number]] (Brian) Patient received in sign out from [Evelin]. I have reviewed the clinical course and performed an independent history and physical exam. Awaiting evaluation by hospitalist, we sure the opinion that patient is inappropriate for discharge and unsafe to do so. Please see hospitalist note for details, patient will await evaluation by physical therapy and care management team in the morning in an effort to achieve safe disposition Discharge Plan Departure Patient Disposition: Home Clinical Impression: Dementia, Word finding difficulty Activity Restrictions/Additional Instructions: Please follow up with Dr. Gilman for recheck and I highly recommend that you follow up with neurology. Dr. Gilman is happy to assist with the referral for this as needed. You have met with physical therapy today as well as our family welfare social work professor Miranda. Continue your home medications as prescribed. Please return for new or concerning symptoms, sudden changes in mental status, passing out, chest pain or shortness of breath, persistent vomiting, increasing difficulty with ambulation or other new or concerning symptoms. Prescriptions: No Action sertraline [Zoloft] 50 mg tablet 100 mg PO BEDTIME Qty: 60 3RF amlodipine [Norvasc] 5 mg Tablet 5 mg PO DAILY Qty: 30 0RF furosemide 20 mg tablet 20 mg PO DAILY PRN (Reason: edema) Label Comments: Patient states I take it when I notice my edema increasing tamsulosin 0.4 mg capsule 0.4 mg PO BEDTIME allopurinol 300 mg tablet 300 mg PO BEDTIME lisinopril 40 mg tablet 40 mg PO BEDTIME Eliquis 5 mg tablet 5 mg PO BID Referrals: Darryl Damon MD [Primary Care Provider] - Visit Report Forms: Patient Portal/API
[2022-04-13 17:30] LABS: Add Manual Diff / Slide Review NO; Basophils Absolute Auto 0 /uL (0-100); Basophils Percent Auto 0.2 % (0-2); Eosinophils Absolute Auto 400 /uL (0-450); Eosinophils Percent Auto 5.6 % (2-4); Hematocrit 40.1 % (41-53); Hemoglobin 13.8 g/dL (13.5-17.5); Lymphocytes Absolute Auto 2200 /uL (1100-4500); Lymphocytes Percent Auto 29.9 % (25-40); Mean Corpuscular HGB Conc 34.5 % (30-36); Mean Corpuscular Hemoglobin 30.9 PG (26-34); Mean Corpuscular Volume 89.8 fL (80-100); Monocytes Absolute Auto 700 /uL (0-900); Monocytes Percent Auto 9.3 % (3-14); Neutrophils Absolute Auto 4000 /uL (1500-7000); Platelet Count 155 X10^3/uL (150-400); Red Blood Cell Count 4.46 X10^6/uL (4.5-5.9); Red Cell Distribution Width 13.7 % (11.6-14.8); White Blood Cell Count 7.2 X10^3/uL (4.5-11.0)
[2022-04-13 17:35] LABS: BUN Creatinine Ratio 25.3 (6-22); Blood Urea Nitrogen 25 mg/dL (9-20); Calcium 9.4 mg/dL (8.4-10.2); Carbon Dioxide 25 mmol/L (22-32); Chloride 107 mmol/L (98-107); Estimated Glomerular Filt Rate > 60 mL/min (>60); Glucose 102 mg/dL (80-110); HEMOLYSIS < 15 (0-50); Potassium 4.3 mmol/L (3.4-5.1); Sodium 143 mmol/L (137-145)
--- NOTE | 2022-04-13 17:40 | CM.MNRNOTE ---
pt arrives to ed via ems coming from home. transported directly to CT with RNs. Once back to room, MD and at bedside. LNK confirmed 1300 today by ; pt normal around 1300, then went down for a nap and woke around 1630 with all four extremity weakness/numbness and aphasia. pt alert, oriented to self. reports pt is confused at baseline, but seems worse today.
[2022-04-13 17:44] LABS: PTT Partial Thromboplastin Tim 33 SECONDS (26.4-36.2)
[2022-04-13 17:50] LABS: COVID19 -Nasal RAPID Negative (Negative)
[2022-04-13] MEDS: SODIUM CHLORIDE 0.9% 1,000 ML 150 ML IV (18:08)
[2022-04-13 18:58] LABS: Creatine Kinase 42 U/L (55-170)
[2022-04-13 19:11] LABS: NT-proBNP (BNP-Adult 18+) 883 pg/mL (<450); Troponin I 0.085 ng/mL (0.01-0.034)
--- NOTE | 2022-04-13 20:06 | PC.NURSE ---
attempted to ambulate, pt stood and became wobbly and unable to walk assisted pt back down to stretcher
[2022-04-13 20:07] LABS: Bacteria Urine Occasional (0-1); RBC Urine None Seen (0-5/HPF); Squamous Epithelial Cell Urine 0-1 /HPF (0-5/HPF); WBC Urine 0-1/HPF (0-5/HPF)
[2022-04-13 20:09] LABS: UR Morphine/Opiate cutoff 300 Negative (Negative); Ur Creatinine Normal (Normal); Ur Specific Gravity Normal (Normal); Urine Amphetamines Negative (Negative); Urine Barbiturates Negative (Negative); Urine Benzodiazepines Negative (Negative); Urine Cocaine Negative (Negative); Urine MDMA Negative (Negative); Urine Methadone Negative (Negative); Urine Methamphetamines Negative (Negative); Urine Oxycodone Negative (Negative); Urine Phencyclidine Negative (Negative); Urine Tetrahydrocannabinol Negative (Negative); Urine Tricyclic Antidepressant Negative (Negative); Urine pH Normal (Normal)
[2022-04-13 21:02] LABS: Troponin I 0.084 ng/mL (0.01-0.034)
--- NOTE | 2022-04-13 23:00 | PM.CN ---
History of Present Illness Consult details Date Patient Seen: 04/13/22 Time Patient Seen: 22:00 Chief complaint: Bilateral arm and leg numbness Narrative: Mr. Hoff is an 81M with H afib, dementia suspected Alzheimer's, suicide attempt, depression who presents today with weakness. The patient is clearly confused and perseverates on his inability to find words. He otherwise denies any other symptoms, but it is difficult to get a history from him. He denies headache, vision changes, fevers/chills. No chest pain, shortness of breath, abdominal pain, nausea, vomiting. There was some concern about numbness and weakness of his upper extremities but he denies this to me. Due to difficulty getting history additional information was acquired from chart reviewed and family. He has had a notable mental decline for at least a year, which has been notably more significant in the last few weeks. He has had multiple admissions previously, once for suicide attempt due suspected depression due to his awareness of his decline. He has been living with his , and has had poor follow up for his medical issues. He has been referred to a neurologist for his cognitive decline, but has not made an appointment. His daughter notes he continues to mentally decline but nothing is acutely different than his chronic issues. She notes that she believes he may benefit from placement but the patient has previously stated and currently states he does not want to be in a facility, and his daughter is certain he would never go under any circumstances. In the ED workup was done, vitals notable for bradycardia and elevated blood pressure which are chronic. Meds Home Medications and Allergies Home Medications Medication Instructions Recorded Confirmed Type allopurinol 300 mg tablet 300 mg PO BEDTIME 09/13/19 08/09/21 History apixaban 5 mg tablet (Eliquis) 5 mg PO BID 09/13/19 08/09/21 History lisinopril 40 mg tablet 40 mg PO BEDTIME 09/13/19 08/09/21 History tamsulosin 0.4 mg capsule 0.4 mg PO BEDTIME 09/13/19 08/09/21 History amlodipine 5 mg tablet (Norvasc) 5 mg PO DAILY #30 tabs 03/13/21 08/09/21 Rx furosemide 20 mg tablet 20 mg PO DAILY PRN edema 06/08/21 08/09/21 History sertraline 50 mg tablet (Zoloft) 100 mg PO BEDTIME #60 tabs 07/13/21 08/09/21 Rx Allergies Allergy/AdvReac Type Severity Reaction Status Date / Time Ofhyjbz-[id number]-HvL Reductase AdvReac Mild CAUSES Verified 08/09/21 09:23 Inhibitor PAIN IN [Tlbqvuy-Rvx-Nao Reductase LEGS - Inhibitor] ELECTRIC SHOCK Sulfa (Sulfonamide AdvReac Mild EXACERBATES Verified 08/09/21 09:23 Antibiotics) GOUT [SULFA (SULFONAMIDE ANTIBIOTICS)] Review of Systems Review of Systems Narrative: 14 systems reviewed and negative aside Exam Vital Signs (past 8 hours): - 04/13/22 17:25 04/13/22 17:27 04/13/22 17:28 Temperature 98.2 F Pulse Rate 56 L 54 L Respiratory Rate 18 16 Blood Pressure 179/81 H 179/81 H Pulse Oximetry 100 100 Oxygen Delivery Method Room Air 04/13/22 17:28 04/13/22 17:30 04/13/22 17:30 Temperature Pulse Rate 54 L 54 L Respiratory Rate 15 19 Blood Pressure 167/76 H Pulse Oximetry 100 100 Oxygen Delivery Method 04/13/22 17:45 04/13/22 17:45 04/13/22 18:00 Temperature Pulse Rate 56 L Respiratory Rate 23 Blood Pressure 188/86 H 150/67 H Pulse Oximetry 100 Oxygen Delivery Method 04/13/22 18:00 04/13/22 18:09 04/13/22 18:09 Temperature Pulse Rate 48 L 48 L Respiratory Rate 18 16 Blood Pressure 147/69 H Pulse Oximetry 99 98 Oxygen Delivery Method 04/13/22 18:15 04/13/22 18:15 04/13/22 18:30 Temperature Pulse Rate 46 L Respiratory Rate 15 Blood Pressure 146/66 H 144/64 H Pulse Oximetry 96 Oxygen Delivery Method 04/13/22 18:30 04/13/22 18:45 04/13/22 18:45 Temperature Pulse Rate 46 L 46 L Respiratory Rate 9 L 9 L Blood Pressure 141/67 H Pulse Oximetry 97 96 Oxygen Delivery Method 04/13/22 19:00 04/13/22 19:00 04/13/22 19:15 Temperature Pulse Rate 47 L Respiratory Rate 8 L Blood Pressure 134/64 140/66 Pulse Oximetry 96 Oxygen Delivery Method 04/13/22 19:15 04/13/22 19:30 04/13/22 19:31 Temperature Pulse Rate 46 L 48 L Respiratory Rate 10 L 14 Blood Pressure 174/76 H Pulse Oximetry 97 98 Oxygen Delivery Method 04/13/22 19:31 04/13/22 19:45 04/13/22 19:45 Temperature Pulse Rate 48 L 46 L Respiratory Rate 15 11 L Blood Pressure 154/70 H Pulse Oximetry 98 97 Oxygen Delivery Method 04/13/22 20:00 Temperature Pulse Rate 46 L Respiratory Rate 29 H Blood Pressure Pulse Oximetry 98 Oxygen Delivery Method Oxygen Delivery Method Room Air Narrative Exam Narrative: GEN: no acute distress, anxious HEENT: moist mucous membranes, PERRL NECK: trachea midline, no JVD PULM: clear bilaterally, no wheezes, rhonchi rales CV: irregular with no murmurs ABD: soft, nontender, nondistended, no organomegaly EXT: warm and well perfused, no edema NEURO: awake, alert, oriented, no focal deficits Objective Labs Result Diagrams: 04/13/22 17:15 04/13/22 17:15 Labs: Laboratory Results - last 24 hr 04/13/22 04/13/22 04/13/22 17:15 17:15 17:15 WBC 7.2 RBC 4.46 L Hgb 13.8 Hct 40.1 L MCV 89.8 MCH 30.9 MCHC 34.5 RDW 13.7 Plt Count 155 Neut % (Auto) 55.0 Lymph % (Auto) 29.9 [place] % (Auto) 9.3 Eos % (Auto) 5.6 H Baso % (Auto) 0.2 Neut # (Auto) 4000 Lymph # (Auto) 2200 [place] # (Auto) 700 Eos # (Auto) 400 Baso # (Auto) 0 PT 11.0 INR 1.0 APTT 33 Sodium 143 Potassium 4.3 Chloride 107 Carbon Dioxide 25 BUN 25 H Creatinine 0.99 Estimated GFR > 60 BUN/Creatinine Ratio 25.3 H Glucose 102 Calcium 9.4 Total Creatine Kinase CK-MB (CK-2) CK-MB (CK-2) Rel Index Troponin I NT-Pro-B Natriuret Pep Urine RBC Urine WBC Ur Squamous Epith Cells Urine Bacteria Ur Culture Indicated? U Opiates 300ng/mL cut Ur Oxycodone Screen Urine Methadone Screen Ur Barbiturates Screen U Tricyclic Antidepress Ur Phencyclidine Scrn Ur Amphetamines Screen U Methamphetamines Scrn Ur MDMA Scrn (Ecstasy) U Benzodiazepines Scrn Urine Cocaine Screen U Marijuana (THC) Screen SARS-CoV-2 (PCR) 04/13/22 04/13/22 04/13/22 17:15 17:28 19:50 WBC RBC Hgb Hct MCV MCH MCHC RDW Plt Count Neut % (Auto) Lymph % (Auto) [place] % (Auto) Eos % (Auto) Baso % (Auto) Neut # (Auto) Lymph # (Auto) [place] # (Auto) Eos # (Auto) Baso # (Auto) PT INR APTT Sodium Potassium Chloride Carbon Dioxide BUN Creatinine Estimated GFR BUN/Creatinine Ratio Glucose Calcium Total Creatine Kinase 42 L CK-MB (CK-2) TNP CK-MB (CK-2) Rel Index TNP Troponin I 0.085 H NT-Pro-B Natriuret Pep 883 H Urine RBC Urine WBC Ur Squamous Epith Cells Urine Bacteria Ur Culture Indicated? U Opiates 300ng/mL cut Negative Ur Oxycodone Screen Negative Urine Methadone Screen Negative Ur Barbiturates Screen Negative U Tricyclic Antidepress Negative Ur Phencyclidine Scrn Negative Ur Amphetamines Screen Negative U Methamphetamines Scrn Negative Ur MDMA Scrn (Ecstasy) Negative U Benzodiazepines Scrn Negative Urine Cocaine Screen Negative U Marijuana (THC) Screen Negative SARS-CoV-2 (PCR) Negative 04/13/22 04/13/22 19:55 20:30 WBC RBC Hgb Hct MCV MCH MCHC RDW Plt Count Neut % (Auto) Lymph % (Auto) [place] % (Auto) Eos % (Auto) Baso % (Auto) Neut # (Auto) Lymph # (Auto) [place] # (Auto) Eos # (Auto) Baso # (Auto) PT INR APTT Sodium Potassium Chloride Carbon Dioxide BUN Creatinine Estimated GFR BUN/Creatinine Ratio Glucose Calcium Total Creatine Kinase CK-MB (CK-2) CK-MB (CK-2) Rel Index Troponin I 0.084 H NT-Pro-B Natriuret Pep Urine RBC None seen Urine WBC 0-1/hpf Ur Squamous Epith Cells 0-1 /hpf Urine Bacteria Occasional (0-1) Ur Culture Indicated? Culture not indicate U Opiates 300ng/mL cut Ur Oxycodone Screen Urine Methadone Screen Ur Barbiturates Screen U Tricyclic Antidepress Ur Phencyclidine Scrn Ur Amphetamines Screen U Methamphetamines Scrn Ur MDMA Scrn (Ecstasy) U Benzodiazepines Scrn Urine Cocaine Screen U Marijuana (THC) Screen SARS-CoV-2 (PCR) PFSH Medical History Atrial fibrillation and flutter History of drug overdose Hyperlipidemia Hypertension Surgical History H/O cervical spine surgery History of cardiac radiofrequency ablation Family History Mother Colon cancer Father Unknown family medical history Social History household members: spouse Tobacco & Substance Use Smoking Status: Never smoker alcohol intake: current Assessment & Plan Assessment & Plan narrative: Mr. Hoff is an 81M with PMH progressing dementia, afib, depression who presents with chronically worsening symptoms of cognitive decline, gait unsteadiness, word finding difficulty. 1. Word finding difficulty, chronic -seems to be clearly progressing -he has been referred to neurology, but currently has no appointment, would encourage continued follow up -suspect this is secondary to dementia -MRI brain last month showed no stroke, but did show significant atrophy 2. Dementia -continue to progress -is at point where would benefit from additional help at home as he is adamant about not being placed in a facility 3. Chronically elevated troponin -no chest pain or shortness of breath -downtrending on repeat -no significant change from prior trops -does already follow up with cardiology Dispo: At this time there is no medical indication to admit to the hospital. Suspect that his entire presentation is secondary to progressive dementia. His workup show far shows no concern for infection or stroke. While he may benefit from placement, he is adamantly against this. Did attempt to call his to take patient home but no answer to the phone. If remains in hospital in morning could benefit from case management attempting to arrange additional home services. Time Spent With Patient Critical Care time: I spent a total of [] minutes of critical care time on this patient's care today; this time is exclusive of procedural time.
[2022-04-14] VITALS (14 sets, daily range): BP systolic 130–217; BP diastolic 64–100; PULSE 47–62; RESP 17–19; O2SAT 90–100
--- NOTE | 2022-04-14 04:40 | PC.NURSE ---
Pt ambulated independently to restroom. Pt provided with multiple warm blankets upon returning to bed. Pt thankful for this and proceeding to wish RN a justino.
--- NOTE | 2022-04-14 06:29 | PC.NURSE ---
Pt was up and amb to the BR with a SBA.
--- NOTE | 2022-04-14 07:01 | PC.NURSE ---
Pt called staff to room c/o sudden onset band-like chest pain that pt cannot articulate when it began or what it feels like. Provider notified, EKG ordered. Pt hypertensive, has been hypertensive while in ER.
[2022-04-14] MEDS: AMLODIPINE 5 MG TABLET PO (07:30)
--- NOTE | 2022-04-14 11:10 | PT.IIE ---
Surgical History (Last Reviewed 04/14/22 @ 01:32 by Spencer Moura MD) H/O cervical spine surgery History of cardiac radiofrequency ablation Medical History (Last Reviewed 04/14/22 @ 01:32 by Spencer Moura MD) Atrial fibrillation and flutter History of drug overdose Hyperlipidemia Hypertension Physical Therapy Inpatient Evaluation/Re-Eval M1 PT/OT-IP Prior Functional Status Start: 04/14/22 12:06 Freq: Status: Active Protocol: Document 04/14/22 11:10 AB (Rec: 04/14/22 12:19 AB [id number]) Medical Review Prior Functional Status Medical History Reviewed Yes Communication able to make needs known; very YOMBA SHOSHONE Mobility and Gait pt stated that he is independent with all mobilities and ambulation without AD; using a hiking pole for long distance ambulation Social History Household Members spouse Living Arrangements House Number of Floors (Floors) Two Floors Number of Stairs To Enter/Railing? pt stays on main level of the house 5 platform steps with wide rails to enter the house Home Environment Standard Height Toilet,Walk in Shower Home Equipment Hand Held Shower,Grab Bars Near Toilet,Grab Bars In Shower M2 PT-IP Current Condition Start: 04/14/22 12:06 Freq: Status: Active Protocol: Document 04/14/22 11:10 AB (Rec: 04/14/22 12:19 AB [id number]) Physical Therapy Current Condition Current Condition Evaluation Date 04/14/22 Treatment Diagnosis dementia; r/o CVA; difficulty in walking Onset Date 04/13/22 M3 PT-IP Subjective Start: 04/14/22 12:06 Freq: Status: Active Protocol: Document 04/14/22 11:10 AB (Rec: 04/14/22 12:19 AB [id number]) Subjective Physical Therapy Visit Type Type Initial Evaluation Visit Start Time 11:10 Visit Stop Time 11:40 Total Visit Minutes 30 Number of FIBRE TECHNOLOGIST Visits 0 Physical Therapy Visit Comments Patient Comments agreeable to do PT M4 PT-IP Mobility and Gait Start: 04/14/22 12:06 Freq: Status: Active Protocol: Document 04/14/22 11:10 AB (Rec: 04/14/22 12:19 AB [id number]) PT-Bed Mobility Assessment Supine to Sit Supine to Sit Independent Sit to Supine Sit to Supine Independent PT-Transfer Assessment Sit to and From Stand Sit to and from Stand Independent Equipment Transfer Assistive Device None Orthotic/Prosthetic Devices or Brace: No Comments Mobility Comments found pt standing by EOB with spouse in room. pt completed sit to supine independent. completed sit to stand independent and ambulated in room ~ 50 ft without AD SBA for safety. pt presents with stooped posture and unsteady gait but without LOB. pt can be impulsive. pt completed up/down step stool using 1 rail SBA. completed without use of rail but requires min A. recommending use of rail at this time. spouse stated that pt cannot see well on L eye. pt sat back on EOB. Left pt with spouse in room. Talked with ER doctor and no PT needs at this time. pt's unsteadiness is due to being impulsive and decrease safety awareness as well as decrease L eye vision. Gait Assessment Gait Gait Assistance Required: Standby Assistance Distance (Feet) 50 Able to Maintain Weight Bearing Status Yes During Gait Assistive Devices Assistive Device None Orthotic/Prosthetic Devices or Brace: No Gait Deviations General Gait Pattern Antalgic,Flexed Trunk Factors Limiting Gait Function Factors Limiting Gait Function Difficulty Following Directions,Poor Balance,Poor Safety Awareness Stair Climbing Assessment Evaluation Level of Assist On Stairs Standby Assistance,Contact Guard Assistance,1 Person Assistance Devices Stair Climbing Assistive Devices Left Railing,Right Railing Technique/Endurance Stair Climbing Direction Ascend and Descend Stair Climbing Technique Step to Step Number of Steps Climbed 1 Query Text: Stair Climbing Set # Repetitions (reps) 4 PT-Balance Assessment Sitting Balance and Reactions Static Sitting Balance Ability Normal Dynamic Sitting Balance Ability Good Standing Balance and Reactions Static Standing Balance Ability Good Dynamic Standing Balance Ability Fair Device Used without AD M5 PT-IP Objective Assessments Start: 04/14/22 12:06 Freq: Status: Active Protocol: Document 04/14/22 11:10 AB (Rec: 04/14/22 12:19 AB [id number]) Orientation Orientation/Cognition Level of Alertness Alert Orientation Name,Place,Situation Safety Awareness Decreased Safety Awareness Gross Range of Motion Lower Extremity ROM Assessment Within Functional Limits Strength Lower Extremity Strength Assessment Within Functional Limits Muscle Tone Muscle Tone WNL Yes M6 PT-IP Treatment Start: 04/14/22 12:06 Freq: Status: Active Protocol: Document 04/14/22 11:10 AB (Rec: 04/14/22 12:19 AB [id number]) Physical Therapy Treatment Education Education Provided Safety M7 PT-IP Assessment and Plan Start: 04/14/22 12:06 Freq: Status: Active Protocol: Document 04/14/22 11:10 AB (Rec: 04/14/22 12:19 AB [id number]) PT Summary Assessment and Plan Potential Rehabilitation Potential Fair Status of Condition at Evaluation Stable Summary Impairments Balance,Gait Assessment Summary Received PT eval from ED. ED doctor stated that pt is SBA with ambulation with nursing but needed assessment if pt is needing more PT as pt will not want to go to SNF. PT eval completed and no further PT intervention indicated at this time. pt with unsteady gait but without LOB. Pt is at PLOF. Pt's unsteadiness is due to being impulsive with decrease safety awarenss. Has gait deviation but seems chronic due to body posture. pt is safe to d/c home. Frequency of Treatment Frequency Of Treatment Discharge Recommendations To Nursing Amount of Assist Needed Standby Assistance Discharge Recommendations PT Discharge Recommendations Home Transportation Needs at Discharge Private Vehicle
--- NOTE | 2022-04-14 11:27 | PC.NURSE ---
PT doing eval with patient.
--- NOTE | 2022-04-14 13:00 | CM.SWNOTE ---
FAST FOOD SUPERVISOR/DCP Note FAST FOOD SUPERVISOR enters room to meet with patient and . Patient presented to ED via EMS due to concerns for stroke. FAST FOOD SUPERVISOR reviews patient with ED provider Dr. Waters who reports that patient is medically clear for d/c, was evaluated by PT and patient is not home bound. FAST FOOD SUPERVISOR and ED provider observe patient walk out of his room with no issue. Patient sees PCP Analia Gilman, Pumper Gauger Dr. Knapp and has [employer] insurance. Present in room is patient's . Patient presents as [employer] [place], A/Ox3. Patient endorses he feels better. Patient has hx of Depression, Dementia, difficulty finding words, AFIB, stroke, atrial flutter and suicide attempt. Patient denies SI, he states I'm not playing that game. Patient endorses that he feels safe at home and safe to d/c to home. It is reported that all of their children reside in [place] near [place] and they plan to move there to be closer to them and their supports. 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 Patient endorses that he takes his medications daily, states that she sets out a pill sorter every week and pays attention to his care. FAST FOOD SUPERVISOR encourages patient to f/u with PCP and Pumper Gauger, patient and indicate agreement and understanding. Patient is medically clear for d/c, endorses he is ready and wants to go home and denies needs. It is the opinion of this FAST FOOD SUPERVISOR that patient is safe to d/c to home. FAST FOOD SUPERVISOR reviews the above with ED provider who indicates agreement and understanding. Plan: patient to d/c to home when medically clear, patient to f/u with Cardiology and PCP. Miranda Daily, MANDARIN CHINESE TEACHER
== END 2022-04-14 13:18 | disposition home or self-care (01) ==
PROVIDERS: Emergency Provider Emergency Medicine; PCP Internal Medicine
DX: F03.90 Unspecified dementia, unspecified severity, without behavioral disturbance, psychotic disturbance, mood disturbance, and anxiety (principal); R47.81 Slurred speech; R20.0 Anesthesia of skin; Z20.822 Contact with and (suspected) exposure to COVID-19
CPT/HCPCS: 70450; 70496; 70498; 80048; 80305; 81003; 81015; 82550; 82962; 83880; 84484; 85025; 85610; 85730; 87086; 87635; 93005; 96360; 96361; 97161; 99284; C9803

== ENCOUNTER 2022-06-26 16:20 | Emergency (ER) | payer MEDICARE, SELFPAY ==
[2021-06-24 20:11] VITALS: BMI 26.3
[2022-06-26] VITALS (45 sets, daily range): BP systolic 111–203; BP diastolic 54–109; PULSE 46–88; RESP 10–34; TEMP 36.4–36.9; O2SAT 93–100
--- NOTE | 2022-06-26 16:40 | DI.RAD.S_ITS ---
PROCEDURE: XR CHEST 1V INDICATIONS: chest pain TECHNIQUE: One view of the chest was acquired. COMPARISON: [facility], CR, XR CHEST 1V, 06/24/2021, 14:22. FINDINGS: Surgical changes and devices: None. Lungs and pleura: Lungs are clear. No pleural effusions or pneumothorax. Low lung volumes accentuate pulmonary interstitium and heart size. Mediastinum: Mediastinal contours appear normal. Heart size is normal. Bones and chest wall: No suspicious bony lesions. Overlying soft tissues appear unremarkable. IMPRESSION: No acute cardiopulmonary findings Approved by: Jaycob Tran M.D. on 06/26/2022 at 16:35
[2022-06-26 16:50] LABS: Add Manual Diff / Slide Review NO; Basophils Absolute Auto 0 /uL (0-100); Basophils Percent Auto 0.4 % (0-2); Eosinophils Absolute Auto 500 /uL (0-450); Eosinophils Percent Auto 6.3 % (2-4); Hematocrit 40.4 % (41-53); Hemoglobin 13.7 g/dL (13.5-17.5); Lymphocytes Absolute Auto 2400 /uL (1100-4500); Mean Corpuscular HGB Conc 33.9 % (30-36); Mean Corpuscular Hemoglobin 31.2 PG (26-34); Mean Corpuscular Volume 91.8 fL (80-100); Monocytes Absolute Auto 600 /uL (0-900); Monocytes Percent Auto 6.7 % (3-14); Neutrophils Absolute Auto 5000 /uL (1500-7000); Neutrophils Percent Auto 58.6 % (50-75); Platelet Count 172 X10^3/uL (150-400); Red Cell Distribution Width 14.9 % (11.6-14.8); White Blood Cell Count 8.5 X10^3/uL (4.5-11.0)
[2022-06-26] MEDS: ASPIRIN 81 MG CHEW TAB 324 MG PO (16:52)
[2022-06-26 16:56] LABS: Prothrombin Time 11.8 SECONDS (10.1-12.7)
[2022-06-26 16:58] LABS: PTT Partial Thromboplastin Tim 33 SECONDS (26-36)
[2022-06-26 17:00] LABS: Alanine Aminotransferase 19 IU/L (<50); Albumin 4.6 g/dL (3.5-5.0); Albumin Globulin Ratio 1.5 (1.0-2.8); Alkaline Phosphatase 101 U/L (38-126); Aspartate Aminotransferase 29 IU/L (17-59); BUN Creatinine Ratio 28.8 (6-22); Bilirubin Total 0.6 mg/dL (0.2-1.3); Blood Urea Nitrogen 30 mg/dL (9-20); Calcium 9.7 mg/dL (8.4-10.2); Carbon Dioxide 22 mmol/L (22-32); Chloride 103 mmol/L (98-107); Creatine Kinase 41 U/L (55-170); Estimated Glomerular Filt Rate > 60 mL/min (>60); Globulin 3.1 g/dL (1.7-4.1); Glucose 172 mg/dL (80-110); HEMOLYSIS 27 (0-50); Lipase 82 U/L (23-300); Potassium 3.8 mmol/L (3.4-5.1); Sodium 141 mmol/L (137-145); Total Protein 7.7 g/dL (6.3-8.2)
--- NOTE | 2022-06-26 17:52 | PC.NURSE ---
Patient and both poor historians. When asking pt about history and current symptoms, pt not clear with answers and unable to report timing. reports pt started having chest pain at lunch time. Pt reports having generalized pain everywhere. Pt reports having a baseline of unable to lift his right leg, however he is able to push his foot down against force.
--- NOTE | 2022-06-26 18:26 | ED_ITS ---
HPI - Chest Pain General Chief Complaint: Chest Pain Stated Complaint: Chest pain Time Seen by Provider: 06/26/22 17:48 Mode of arrival: Wheelchair History of Present Illness HPI narrative: Patient is an 81-year-old male history of paroxysmal atrial fibrillation m ultiple lesions on Eliquis, troponin really, Alzheimer's dementia presenting today with chest discomfort. states that after lunch she had chest pain she gave him 1 nitroglycerin at seem to help. Patient reports that he has right leg pain and left leg pain and the pain went up into his abdomen up to his epigastric area. states that he has had ongoing right leg weakness. That is not new today. Patient overall is an extremely poor historian very difficult to get any history. He does appear to be mildly tender abdomen. Not able to describe his chest pain. He was in the emergency department 04/05/2022 her possible suicide attempt. He was previously admitted in the hospital for t roponin release and chest pain of unclear etiology. During that admission 06/27/2021 he had echo, stress test which did not show any evidence of ischemia and was instructed to follow-up with PCP Related Data Home Medications Medication Instructions Recorded Confirmed allopurinol 300 mg tablet 300 mg PO BEDTIME 09/13/19 08/09/21 apixaban 5 mg tablet (Eliquis) 5 mg PO BID 09/13/19 08/09/21 lisinopril 40 mg tablet 40 mg PO BEDTIME 09/13/19 08/09/21 tamsulosin 0.4 mg capsule 0.4 mg PO BEDTIME 09/13/19 08/09/21 furosemide 20 mg tablet 20 mg PO DAILY PRN edema 06/08/21 08/09/21 Previous Rx's Medication Instructions Recorded amlodipine 5 mg tablet (Norvasc) 5 mg PO DAILY #30 tabs 03/13/21 sertraline 50 mg tablet (Zoloft) 100 mg PO BEDTIME #60 tabs 07/13/21 Allergies Allergy/AdvReac Type Severity Reaction Status Date / Time [id number]-[id number] Reductase AdvReac Mild CAUSES Verified 08/09/21 09:23 Inhibitor PAIN IN [Qplvojw-Yhf-Nij Reductase LEGS - Inhibitor] ELECTRIC SHOCK Sulfa (Sulfonamide AdvReac Mild EXACERBATES Verified 08/09/21 09:23 Antibiotics) GOUT [SULFA (SULFONAMIDE ANTIBIOTICS)] Review of Systems Review of Systems ROS Unobtainable: Unobtainable due to mental status/LOC Patient History Medical History Atrial fibrillation and flutter History of drug overdose Hyperlipidemia Hypertension Surgical History H/O cervical spine surgery History of cardiac radiofrequency ablation Family History Mother Colon cancer Father Unknown family medical history Social History household members: spouse Smoking Status: Never smoker alcohol intake: current Smoking Status: Never smoker alcohol intake frequency: holidays/special occasions only Substance Use Type: does not use Exam Initial Vital Signs Initial Vital Signs: Vital Signs Pulse Rate 54 L 06/26/22 16:43 Respiratory Rate 22 06/26/22 16:43 Pulse Oximetry 100 06/26/22 16:43 GENERAL confused 81-year-old male no acute distress HEENT: Head atraumatic,EOMI, pupils reactive, face symmetric, moist mucous membranes CARDIOVASCULAR: Regular rate and rhythm without murmurs, rubs or gallops. RESPIRATORY: Breath sounds equal bilaterally, no wheezes rales or rhonchi. ABDOMEN: Mild right upper quadrant pain no guarding no rebound EXTREMITIES: Normal range of motion, no clubbing or edema. Neurovascularly intact NEUROLOGICAL: Alert and oriented x2.. Right leg weakness chronic her white SKIN: Warm, dry, no laceration, no petechiae, no rashes or lesions. Course Orders Ordered: Discontinued Medications Aspirin (Aspirin 81 Mg Chew Tab) 324 mg PO NOW ONE Stop: 06/26/22 16:41 Last Admin: 06/26/22 16:52 Dose: 324 mg Documented By: YOBANI Vital Signs Vital signs: Vital Signs - 8 hr 06/26/22 21:27 Temperature 98.5 F Pulse Rate 50 L Respiratory Rate 16 Blood Pressure 138/63 Pulse Oximetry 98 Oxygen Delivery Method Room Air MDM - Chest Pain Lab Data Result diagrams: 06/26/22 16:38 06/26/22 16:38 Labs: Lab Results 06/26/22 06/26/22 06/26/22 Range/Units 16:38 16:38 16:38 WBC 8.5 (4.5-11.0) X10^3/uL RBC 4.40 L (4.5-5.9) X10^6/uL Hgb 13.7 (13.5-17.5) g/dL Hct 40.4 L (41-53) % MCV 91.8 (80-100) fL MCH 31.2 (26-34) PG MCHC 33.9 (30-36) % RDW 14.9 H (11.6-14.8) % Plt Count 172 (150-400) X10^3/uL Neut % (Auto) 58.6 (50-75) % Lymph % (Auto) 28.0 (25-40) % Delta % (Auto) 6.7 (3-14) % Eos % (Auto) 6.3 H (2-4) % Baso % (Auto) 0.4 (0-2) % Neut # (Auto) 5000 (6993-4824) /uL Lymph # (Auto) 2400 (1548-0382) /uL Delta # (Auto) 600 (0-900) /uL Eos # (Auto) 500 H (0-450) /uL Baso # (Auto) 0 (0-100) /uL PT 11.8 (10.1-12.7) SECONDS INR 1.0 (0.9-1.3) APTT 33 (26-36) SECONDS Sodium 141 (137-145) mmol/L Potassium 3.8 (3.4-5.1) mmol/L Chloride 103 (98-107) mmol/L Carbon Dioxide 22 (22-32) mmol/L BUN 30 H (9-20) mg/dL Creatinine 1.04 (0.66-1.25) mg/dL Estimated GFR > 60 (>60) mL/min BUN/Creatinine Ratio 28.8 H (6-22) Glucose 172 H (80-110) mg/dL Calcium 9.7 (8.4-10.2) mg/dL Magnesium 2.0 (1.6-2.3) mg/dL Total Bilirubin 0.6 (0.2-1.3) mg/dL AST 29 (17-59) IU/L ALT 19 (<50) IU/L Alkaline Phosphatase 101 (38-126) U/L Total Creatine Kinase 41 L (55-170) U/L CK-MB (CK-2) TNP CK-MB (CK-2) Rel Index TNP Troponin I 0.060 H (0.01-0.034) ng/mL Total Protein 7.7 (6.3-8.2) g/dL Albumin 4.6 (3.5-5.0) g/dL Globulin 3.1 (1.7-4.1) g/dL Albumin/Globulin Ratio 1.5 (1.0-2.8) Lipase 82 (23-300) U/L 06/26/22 Range/Units 18:45 WBC (4.5-11.0) X10^3/uL RBC (4.5-5.9) X10^6/uL Hgb (13.5-17.5) g/dL Hct (41-53) % MCV (80-100) fL MCH (26-34) PG MCHC (30-36) % RDW (11.6-14.8) % Plt Count (150-400) X10^3/uL Neut % (Auto) (50-75) % Lymph % (Auto) (25-40) % Delta % (Auto) (3-14) % Eos % (Auto) (2-4) % Baso % (Auto) (0-2) % Neut # (Auto) (9085-9594) /uL Lymph # (Auto) (1225-9222) /uL Delta # (Auto) (0-900) /uL Eos # (Auto) (0-450) /uL Baso # (Auto) (0-100) /uL PT (10.1-12.7) SECONDS INR (0.9-1.3) APTT (26-36) SECONDS Sodium (137-145) mmol/L Potassium (3.4-5.1) mmol/L Chloride (98-107) mmol/L Carbon Dioxide (22-32) mmol/L BUN (9-20) mg/dL Creatinine (0.66-1.25) mg/dL Estimated GFR (>60) mL/min BUN/Creatinine Ratio (6-22) Glucose (80-110) mg/dL Calcium (8.4-10.2) mg/dL Magnesium (1.6-2.3) mg/dL Total Bilirubin (0.2-1.3) mg/dL AST (17-59) IU/L ALT (<50) IU/L Alkaline Phosphatase (38-126) U/L Total Creatine Kinase (55-170) U/L CK-MB (CK-2) CK-MB (CK-2) Rel Index Troponin I 0.053 H (0.01-0.034) ng/mL Total Protein (6.3-8.2) g/dL Albumin (3.5-5.0) g/dL Globulin (1.7-4.1) g/dL Albumin/Globulin Ratio (1.0-2.8) Lipase (23-300) U/L Imaging Data US - abdomen: Radiologist's Impression: 1940 Acct:[id number] Age/Sex: 81 / M Date of Service: 06/26/22 Loc: ED Accession Number: [id number] ?? Procedure: US abdomen limited Ordering Provider: Darlene Lambert D.O. PROCEDURE:? US ABDOMEN LIMITED ? INDICATIONS:? ruq ? TECHNIQUE:? Real-time scanning was performed of the abdominal and retroperitoneal organs, with image documentation.? ? COMPARISON:? [facility], , US ABDOMEN LIMITED, 06/25/2021, 17:03. ? FINDINGS:? ? Liver:? Liver is normal in size and homogeneous in echotexture.? The main portal vein is dilated measuring 15.7 cm. There is hepatopetal flow. ? Gallbladder:? Status post cholecystectomy.? The common bile duct has a normal caliber measuring 4.1 mm. ? Biliary ducts:? No intrahepatic biliary ductal dilatation. ? Pancreas:? Visualized portions of the pancreas are sonographically normal.? ? IMPRESSION:? 1. No acute ultrasound abnormality. 2. The right kidney has a 5 centimeter simple cyst of the superior pole. 3. Dilated main portal vein.? This can be seen with portal venous hypertension. 4. Hepatic steatosis.? Dictated by: Jermain Bell M.D. on 06/26/2022 at 20:00? CT scan - head: Radiologist's Impression: : Delmar Hoff MR#: [id number] : 1940 Acct:[id number] Age/Sex: 81 / M Date of Service: 06/26/22 Loc: ED Accession Number: [id number] ?? Procedure: CT head/brain wo con Ordering Provider: Darlene Lambert D.O. PROCEDURE:? CT HEAD/BRAIN WO CON ? INDICATIONS:? confusion, on eliquis ? TECHNIQUE:? Noncontrast 4.5 mm thick angled axial sections acquired from the foramen magnum to the vertex, with coronal and sagittal reformats.? For radiation dose reduction, the following was used:? automated exposure control, adjustment of mA and/or kV according to patient size.? ? COMPARISON:? None. ? FINDINGS:? Image quality:? Excellent.? ? CSF spaces:? Basal cisterns are patent.? No extra-axial fluid collections.? The ventricles are symmetric in size and shape.? ? Brain:? No intracranial bleeds or masses.? There is cerebral volume loss for age, with resultant ventricular and sulcal prominence.? There are periventricular and deep white matter chronic small vessel ischemic changes.? There is intracranial internal carotid artery atherosclerosis.? ? Skull and face:? Calvarium and visualized facial bones appear intact, without suspicious lesions.? ? Sinuses:? Visualized sinuses and mastoids are clear.? ? IMPRESSION:? 1. No acute intracranial abnormality. 2. Cerebral volume loss and small vessel ischemic changes.? Dictated by: Jermain Bell M.D. on 06/26/2022 at 19:51 ? ? ECG Data Interpretation: EKG 1. Sinus rhythm rate 64 NC interval 306 QRS 130 QTC 470 abnormality noted in V3 which is similar to previous EKG no ST changes or ST depression EKG 2. Sinus rhythm rate 51 see Fox to prior [facility] Narrative Medical decision making narrative: Patient's story is overall quite confusing he is complaining of leg pain abdominal pain however states that all started with chest pain she gave him nitroglycerin. He was noted to be quite hypertensive initially but that has improved his. EKGs remained stable and unchanged initial troponin is indeterminate and trending downwards, and lower from previous troponin. Patient is no longer having pain. Because the story and history was so confusing head CT was done and is fortunately also negative. At this time there is no sign of infection the patient really does seem to be moving all extremities is on exam his left hand is weaker which is reported in previous note. He was also admitted 1 year ago for right-sided weakness is the weakness symptoms are not new today. Does not seem to be significantly worse. Chest pain may be related to hypertensive emergency blood pressure improved phone is actually lower than what was previously no significant sign of end- organ damage creatinine is within normal limits. Discussion with Cardiology Dr. Reece, states that troponin release is likely due from hypertension. His at this time patient in follow-up with his dirt shoveler whom is Dr. Harp. Discharge Plan Departure Patient Disposition: Home Clinical Impression: Atypical chest pain, Hypertension Instructions: DI for Atypical Chest Pain Activity Restrictions/Additional Instructions: *You have been diagnosed with atypical chest pain *What to do: At this time unclear what the cause of your chest pain, it may be related to pressure. Please follow-up with her cardiology *Continue to take medications as directed *Follow up with your primary care provider in 2-3 days or call [phone] Call Cardiology tomorrow to schedule follow-up appointment *Return to ER if you should have increasing chest pain confusion weakness or any new, worsening or concerning symptoms Prescriptions: No Action sertraline [Zoloft] 50 mg tablet 100 mg PO BEDTIME Qty: 60 3RF amlodipine [Norvasc] 5 mg Tablet 5 mg PO DAILY Qty: 30 0RF furosemide 20 mg tablet 20 mg PO DAILY PRN (Reason: edema) Label Comments: Patient states I take it when I notice my edema increasing tamsulosin 0.4 mg capsule 0.4 mg PO BEDTIME allopurinol 300 mg tablet 300 mg PO BEDTIME lisinopril 40 mg tablet 40 mg PO BEDTIME Eliquis 5 mg tablet 5 mg PO BID Referrals: Darryl Damon MD [Primary Care Provider] - Visit Report Forms: Patient Portal/API
--- NOTE | 2022-06-26 18:39 | DI.US.S_ITS ---
PROCEDURE: US ABDOMEN LIMITED INDICATIONS: ruq TECHNIQUE: Real-time scanning was performed of the abdominal and retroperitoneal organs, with image documentation. COMPARISON: [facility], , US ABDOMEN LIMITED, 06/25/2021, 17:03. FINDINGS: Liver: Liver is normal in size and homogeneous in echotexture. The main portal vein is dilated measuring 15.7 cm. There is hepatopetal flow. Gallbladder: Status post cholecystectomy. The common bile duct has a normal caliber measuring 4.1 mm. Biliary ducts: No intrahepatic biliary ductal dilatation. Pancreas: Visualized portions of the pancreas are sonographically normal. IMPRESSION: 1. No acute ultrasound abnormality. 2. The right kidney has a 5 centimeter simple cyst of the superior pole. 3. Dilated main portal vein. This can be seen with portal venous hypertension. 4. Hepatic steatosis. Dictated by: Jermain Bell M.D. on 06/26/2022 at 20:00 Approved by: Jermain Bell M.D. on 06/26/2022 at 20:03
--- NOTE | 2022-06-26 19:12 | DI.CT.S_ITS ---
PROCEDURE: CT HEAD/BRAIN WO CON INDICATIONS: confusion, on eliquis TECHNIQUE: Noncontrast 4.5 mm thick angled axial sections acquired from the foramen magnum to the vertex, with coronal and sagittal reformats. For radiation dose reduction, the following was used: automated exposure control, adjustment of mA and/or kV according to patient size. COMPARISON: None. FINDINGS: Image quality: Excellent. CSF spaces: Basal cisterns are patent. No extra-axial fluid collections. The ventricles are symmetric in size and shape. Brain: No intracranial bleeds or masses. There is cerebral volume loss for age, with resultant ventricular and sulcal prominence. There are periventricular and deep white matter chronic small vessel ischemic changes. There is intracranial internal carotid artery atherosclerosis. Skull and face: Calvarium and visualized facial bones appear intact, without suspicious lesions. Sinuses: Visualized sinuses and mastoids are clear. IMPRESSION: 1. No acute intracranial abnormality. 2. Cerebral volume loss and small vessel ischemic changes. Dictated by: Jermain Bell M.D. on 06/26/2022 at 19:51 Approved by: Jermain Bell M.D. on 06/26/2022 at 19:54
--- NOTE | 2022-06-26 19:41 | PC.NURSE ---
Upon repositioning pt, he was able to lift his right leg independently and was able to hold it up of the stretcher without assistance.
[2022-06-26 19:47] LABS: Troponin I 0.053 ng/mL (0.01-0.034)
--- NOTE | 2022-06-26 20:20 | PC.NURSE ---
Patient was able to ambulate to the bathroom with minimal assist and a steady gait with PAIGE Arzola.
== END 2022-06-26 21:28 | disposition home or self-care (01) ==
PROVIDERS: Emergency Medicine; Emergency Provider Emergency Medicine; PCP Internal Medicine
DX: R07.89 Other chest pain (principal); I10 Essential (primary) hypertension; R10.11 Right upper quadrant pain; R41.0 Disorientation, unspecified; I48.0 Paroxysmal atrial fibrillation; Z79.01 Long term (current) use of anticoagulants; G30.9 Alzheimer's disease, unspecified; F02.80 Dementia in other diseases classified elsewhere, unspecified severity, without behavioral disturbance, psychotic disturbance, mood disturbance, and anxiety
CPT/HCPCS: 36415; 70450; 71045; 76705; 80053; 82550; 83690; 83735; 84484; 85025; 85610; 85730; 93005; 93010; 99285

== ENCOUNTER 2022-06-28 11:44 | Emergency (ER) | payer MEDICARE, SELFPAY ==
[2021-06-24 20:11] VITALS: BMI 26.3
[2022-06-28 12:46] VITALS: BP 127/60; PULSE 50; RESP 20; TEMP 36.2; O2SAT 99; BMI 25.0
== END 2022-06-28 13:15 | disposition left against medical advice (07) ==
PROVIDERS: Emergency Provider Emergency Medicine; PCP Internal Medicine
CPT/HCPCS: 99281

== ENCOUNTER → 2022-07-11 15:59 | Outpatient (CLI) | payer MEDICARE, SELFPAY ==
[2021-06-24 20:11] VITALS: BMI 26.3
--- NOTE | 2022-07-11 16:05 | DI.RAD.S_ITS ---
PROCEDURE: XR HIP W PEL IF DONE RT 2V INDICATIONS: RIGHT HIP PAIN TECHNIQUE: AP pelvis with lateral view(s) of the right hip(s). COMPARISON: [facility], CT, ABDOMEN/PELVIS WITH CONTRAST, 07/30/2015, 9:08. FINDINGS: Bones: No fractures or dislocations. Pelvic ring appears intact. No suspicious bony lesions. Moderate axial joint space narrowing with periarticular osteophyte formation bilaterally. Degenerative disc and facet disease involves the inferior lumbar spine. Soft tissues: The visualized bowel gas pattern is normal. No suspicious soft tissue calcifications. IMPRESSION: Moderate symmetric hip joint degeneration. Dictated by: Robert Chau RR Interpreted: Holly Duff MD on 07/11/2022 at 16:41 Transcribed by: COLT on 07/11/2022 at 16:42 Approved by: Holly Duff M.D. on 07/11/2022 at 17:19
== END ==
PROVIDERS: PCP Internal Medicine; Referring Provider Internal Medicine; Visit Provider Internal Medicine
DX: M25.551 Pain in right hip (principal)
CPT/HCPCS: 73502

== ENCOUNTER 2022-07-29 15:27 | Emergency (ER) | payer MEDICARE, SELFPAY ==
[2021-06-24 20:11] VITALS: BMI 26.3
[2022-07-29 15:34] VITALS: BP 179/69; RESP 28; TEMP 36.4; O2SAT 97; BMI 26.5
--- NOTE | 2022-07-29 15:38 | DI.RAD.S_ITS ---
PROCEDURE: XR CHEST 1V INDICATIONS: chest pain TECHNIQUE: One view of the chest was acquired. COMPARISON: [facility], CR, XR CHEST 1 VIEW, 06/29/2021, 16:44. [facility], CR, XR CHEST 1V, 06/26/2022, 16:38. FINDINGS: Surgical changes and devices: Lower cervical spine fixation hardware is seen. Cholecystectomy clips are seen. Lungs and pleura: An incomplete inspiratory result is noted, causing a crowded appearance to the lung markings. No focal infiltrates are seen. No pneumothorax or significant pleural effusions are seen. Mild generalized interstitial prominence can be seen. Mediastinum: Mediastinal contours appear normal. Heart size is moderately enlarged. Bones and chest wall: No suspicious bony lesions. Overlying soft tissues appear unremarkable. IMPRESSION: Cardiomegaly with mild interstitial prominence. Please consider mild CHF. If clinically appropriate, a short-term followup chest series (with PA and lateral views) performed in deep inspiration is suggested for further evaluation. Dictated by: Amando Shoemaker M.D. on 07/29/2022 at 15:11 Approved by: Amando Shoemaker M.D. on 07/29/2022 at 15:12
[2022-07-29 15:47] LABS: Add Manual Diff / Slide Review NO; Basophils Absolute Auto 0 /uL (0-100); Basophils Percent Auto 0.5 % (0-2); Eosinophils Absolute Auto 400 /uL (0-450); Eosinophils Percent Auto 5.5 % (2-4); Hematocrit 38.9 % (41-53); Hemoglobin 13.2 g/dL (13.5-17.5); Lymphocytes Absolute Auto 2200 /uL (1100-4500); Mean Corpuscular Hemoglobin 31.4 PG (26-34); Mean Corpuscular Volume 92.3 fL (80-100); Monocytes Absolute Auto 700 /uL (0-900); Monocytes Percent Auto 9.7 % (3-14); Neutrophils Absolute Auto 4300 /uL (1500-7000); Neutrophils Percent Auto 55.3 % (50-75); Platelet Count 161 X10^3/uL (150-400); Red Blood Cell Count 4.21 X10^6/uL (4.5-5.9); Red Cell Distribution Width 15.1 % (11.6-14.8); White Blood Cell Count 7.7 X10^3/uL (4.5-11.0)
[2022-07-29 15:59] LABS: D Dimer 472 ng/ml (<500)
[2022-07-29 16:00] LABS: Alanine Aminotransferase 24 IU/L (<50); Albumin 4.2 g/dL (3.5-5.0); Albumin Globulin Ratio 1.4 (1.0-2.8); Alkaline Phosphatase 85 U/L (38-126); Aspartate Aminotransferase 24 IU/L (17-59); BUN Creatinine Ratio 27.7 (6-22); Bilirubin Total 0.4 mg/dL (0.2-1.3); Blood Urea Nitrogen 28 mg/dL (9-20); Calcium 9.7 mg/dL (8.4-10.2); Carbon Dioxide 24 mmol/L (22-32); Chloride 109 mmol/L (98-107); Creatine Kinase 46 U/L (55-170); Estimated Glomerular Filt Rate > 60 mL/min (>60); Globulin 2.9 g/dL (1.7-4.1); Glucose 96 mg/dL (80-110); HEMOLYSIS < 15 (0-50); Lipase 64 U/L (23-300); Magnesium 1.9 mg/dL (1.6-2.3); Potassium 4.3 mmol/L (3.4-5.1); Sodium 143 mmol/L (137-145); Total Protein 7.1 g/dL (6.3-8.2)
[2022-07-29 16:11] LABS: Troponin I 0.082 ng/mL (0.01-0.034)
[2022-07-29 17:00] VITALS: BP 164/70; PULSE 56; RESP 16; O2SAT 95
--- NOTE | 2022-07-29 17:51 | ED.CHESTPAIN ---
HPI - Chest Pain <Ayesha Self [facility] - Last Filed: 07/29/22 18:46> General Chief Complaint: Chest Pain Stated Complaint: Chest Pain Dyspnea distress impending doom Time Seen by Provider: 07/29/22 16:18 Source: patient Mode of arrival: Wheelchair Limitations: no limitations History of Present Illness HPI narrative: This is an 81-year-old gentleman who has a baseline history of dementia, Alzheimer's, atrial fibrillation, has chronically elevated troponins, and is anticoagulated on Eliquis currently who presents to the emergency department for onset of pain across his diaphragm from right to left with deep inspiration this morning. He denies any shortness of breath, difficulty breathing, chest pain, palpitations, weakness, nausea, vomiting or diarrhea. He has a significant cardiac history, denies any recent illness, is confused currently but states that this is normal for him. He does take furosemide 20 mg daily for edema. Patient's denies any recent change in behavior, mental status strength, p.o. intake or output. Patient denies dysuria, changes to his stool, constipation or diarrhea. He denies fevers but states that he is had a productive cough, pain with deep inspiration both along his diaphragm but also in his airway. Related Data Home Medications Medication Instructions Recorded Confirmed allopurinol 300 mg tablet 300 mg PO BEDTIME 09/13/19 08/09/21 apixaban 5 mg tablet (Eliquis) 5 mg PO BID 09/13/19 08/09/21 lisinopril 40 mg tablet 40 mg PO BEDTIME 09/13/19 08/09/21 tamsulosin 0.4 mg capsule 0.4 mg PO BEDTIME 09/13/19 08/09/21 furosemide 20 mg tablet 20 mg PO DAILY PRN edema 06/08/21 08/09/21 Previous Rx's Medication Instructions Recorded amlodipine 5 mg tablet (Norvasc) 5 mg PO DAILY #30 tabs 03/13/21 sertraline 50 mg tablet (Zoloft) 100 mg PO BEDTIME #60 tabs 07/13/21 Allergies Allergy/AdvReac Type Severity Reaction Status Date / Time [id number] Reductase AdvReac Mild CAUSES Verified 08/09/21 09:23 Inhibitor PAIN IN [Khprsvp-Fmj-Jqz Reductase LEGS - Inhibitor] ELECTRIC SHOCK Sulfa (Sulfonamide AdvReac Mild EXACERBATES Verified 08/09/21 09:23 Antibiotics) GOUT [SULFA (SULFONAMIDE ANTIBIOTICS)] Review of Systems <HUMERA Avalos - Last Filed: 07/29/22 18:46> Review of Systems Narrative: Review of systems is negative for acute abnormalities unless otherwise noted in HPI Patient History <HUMERA Avalos - Last Filed: 07/29/22 18:46> Medical History Atrial fibrillation and flutter History of drug overdose Hyperlipidemia Hypertension Surgical History H/O cervical spine surgery History of cardiac radiofrequency ablation Family History Mother Colon cancer Father Unknown family medical history Social History household members: spouse Smoking Status: Never smoker alcohol intake: current Smoking Status: Never smoker alcohol intake frequency: holidays/special occasions only Substance Use Type: does not use Exam <HUMERA Avalos - Last Filed: 07/29/22 18:46> Narrative Exam Narrative: Reviewed vitals signs and nursing notes. General: cooperative, comfortable, in no acute distress, well groomed HEENT: symmetrical facial expressions, moist mucous membranes Cardiovascular: S1-S2 with regular rate and rhythm, no peripheral edema, warm extremities Respiratory: normal effort, able to speak in complete sentences, without wheezing, stridor, or abnormal breath sounds. No retractions or tachypnea. GI: abdomen soft, nontender to palpation, nondistended, without masses, rebound tenderness or exquisite tenderness with exam. MSK: moves all extremities, neurovascularly intact, no weakness, normal tone, patient is able to stand with steady gait, voided, is without weakness bilaterally upper and lower extremities Skin: brisk capillary refill, without pallor or erythema Neuro: normal speech and cognition, A&O x1-2, ambulatory, clear speech Psych: mental status is grossly normal, congruent mood, normal affect, pleasant and cooperative Initial Vital Signs Initial Vital Signs: Vital Signs Temperature 97.6 F 07/29/22 15:34 Respiratory Rate 28 H 07/29/22 15:34 Blood Pressure 179/69 H 07/29/22 15:34 Pulse Oximetry 97 07/29/22 15:34 Oxygen Delivery Method 07/29/22 15:34 <Carey Ruiz MD - Last Filed: 07/30/22 18:41> Initial Vital Signs Initial Vital Signs: Vital Signs Temperature 97.6 F 07/29/22 15:34 Respiratory Rate 28 H 07/29/22 15:34 Blood Pressure 179/69 H 07/29/22 15:34 Pulse Oximetry 97 07/29/22 15:34 Oxygen Delivery Method 07/29/22 15:34 Course <KEHINDE AvalosP - Last Filed: 07/29/22 18:46> Orders Ordered: ED Orders 07/29/22 15:38 XR chest 1V Stat 07/29/22 15:40 Complete Blood Count AUTO DIFF Stat Comprehensive Metabolic Panel Stat D Dimer Stat Lipase Stat Magnesium Stat Troponin & CK Cardiac Panel Stat EKG-12 Lead Stat 07/29/22 17:47 Covid-19 + FLU A/B + RSV - PCR Stat Vital Signs Vital signs: Vital Signs - 8 hr 07/29/22 15:34 07/29/22 17:59 07/29/22 17:00 Temperature 97.6 F Pulse Rate 55 L 56 L Respiratory Rate 28 H 17 16 Blood Pressure 179/69 H 156/70 H 164/70 H Pulse Oximetry 97 96 95 Oxygen Delivery Method Room Air Room Air Room Air 07/29/22 18:00 07/29/22 18:07 Temperature Pulse Rate 61 60 Respiratory Rate 17 Blood Pressure Pulse Oximetry 96 97 Oxygen Delivery Method Room Air Room Air <Carey Ruiz MD - Last Filed: 07/30/22 18:41> Orders Ordered: ED Orders 07/29/22 15:38 XR chest 1V Stat 07/29/22 15:40 Complete Blood Count AUTO DIFF Stat Comprehensive Metabolic Panel Stat D Dimer Stat Lipase Stat Magnesium Stat Troponin & CK Cardiac Panel Stat EKG-12 Lead Stat 07/29/22 17:47 Covid-19 + FLU A/B + RSV - PCR Stat Vital Signs Vital signs: Vital Signs - 8 hr 07/29/22 15:34 07/29/22 17:59 07/29/22 17:00 Temperature 97.6 F Pulse Rate 55 L 56 L Respiratory Rate 28 H 17 16 Blood Pressure 179/69 H 156/70 H 164/70 H Pulse Oximetry 97 96 95 Oxygen Delivery Method Room Air Room Air Room Air 07/29/22 18:00 07/29/22 18:07 Temperature Pulse Rate 61 60 Respiratory Rate 17 Blood Pressure Pulse Oximetry 96 97 Oxygen Delivery Method Room Air Room Air MDM - Chest Pain <Ayesha Self, [facility] - Last Filed: 07/29/22 18:46> Lab Data Result diagrams: 07/29/22 15:40 07/29/22 15:40 Labs: Lab Results 07/29/22 07/29/22 07/29/22 Range/Units 15:40 15:40 15:40 WBC 7.7 (4.5-11.0) X10^3/uL RBC 4.21 L (4.5-5.9) X10^6/uL Hgb 13.2 L (13.5-17.5) g/dL Hct 38.9 L (41-53) % MCV 92.3 (80-100) fL MCH 31.4 (26-34) PG MCHC 34.0 (30-36) % RDW 15.1 H (11.6-14.8) % Plt Count 161 (150-400) X10^3/uL Neut % (Auto) 55.3 (50-75) % Lymph % (Auto) 29.0 (25-40) % [place] % (Auto) 9.7 (3-14) % Eos % (Auto) 5.5 H (2-4) % Baso % (Auto) 0.5 (0-2) % Neut # (Auto) 4300 (4557-9543) /uL Lymph # (Auto) 2200 (1512-0401) /uL [place] # (Auto) 700 (0-900) /uL Eos # (Auto) 400 (0-450) /uL Baso # (Auto) 0 (0-100) /uL D-Dimer 472 (<500) ng/ml Sodium 143 (137-145) mmol/L Potassium 4.3 (3.4-5.1) mmol/L Chloride 109 H (98-107) mmol/L Carbon Dioxide 24 (22-32) mmol/L BUN 28 H (9-20) mg/dL Creatinine 1.01 (0.66-1.25) mg/dL Estimated GFR > 60 (>60) mL/min BUN/Creatinine Ratio 27.7 H (6-22) Glucose 96 (80-110) mg/dL Calcium 9.7 (8.4-10.2) mg/dL Magnesium 1.9 (1.6-2.3) mg/dL Total Bilirubin 0.4 (0.2-1.3) mg/dL AST 24 (17-59) IU/L ALT 24 (<50) IU/L Alkaline Phosphatase 85 (38-126) U/L Total Creatine Kinase 46 L (55-170) U/L CK-MB (CK-2) TNP CK-MB (CK-2) Rel Index TNP Troponin I 0.082 H (0.01-0.034) ng/mL Total Protein 7.1 (6.3-8.2) g/dL Albumin 4.2 (3.5-5.0) g/dL Globulin 2.9 (1.7-4.1) g/dL Albumin/Globulin Ratio 1.4 (1.0-2.8) Lipase 64 (23-300) U/L SARS-CoV-2 (PCR) (Negative) Influenza A (RT-PCR) (NEGATIVE) Influenza B (RT-PCR) (NEGATIVE) RSV (PCR) (Negative) 07/29/22 Range/Units 17:59 WBC (4.5-11.0) X10^3/uL RBC (4.5-5.9) X10^6/uL Hgb (13.5-17.5) g/dL Hct (41-53) % MCV (80-100) fL MCH (26-34) PG MCHC (30-36) % RDW (11.6-14.8) % Plt Count (150-400) X10^3/uL Neut % (Auto) (50-75) % Lymph % (Auto) (25-40) % [place] % (Auto) (3-14) % Eos % (Auto) (2-4) % Baso % (Auto) (0-2) % Neut # (Auto) (8541-5951) /uL Lymph # (Auto) (8098-1698) /uL [place] # (Auto) (0-900) /uL Eos # (Auto) (0-450) /uL Baso # (Auto) (0-100) /uL D-Dimer (<500) ng/ml Sodium (137-145) mmol/L Potassium (3.4-5.1) mmol/L Chloride (98-107) mmol/L Carbon Dioxide (22-32) mmol/L BUN (9-20) mg/dL Creatinine (0.66-1.25) mg/dL Estimated GFR (>60) mL/min BUN/Creatinine Ratio (6-22) Glucose (80-110) mg/dL Calcium (8.4-10.2) mg/dL Magnesium (1.6-2.3) mg/dL Total Bilirubin (0.2-1.3) mg/dL AST (17-59) IU/L ALT (<50) IU/L Alkaline Phosphatase (38-126) U/L Total Creatine Kinase (55-170) U/L CK-MB (CK-2) CK-MB (CK-2) Rel Index Troponin I (0.01-0.034) ng/mL Total Protein (6.3-8.2) g/dL Albumin (3.5-5.0) g/dL Globulin (1.7-4.1) g/dL Albumin/Globulin Ratio (1.0-2.8) Lipase (23-300) U/L SARS-CoV-2 (PCR) Negative (Negative) Influenza A (RT-PCR) Flu a negative (NEGATIVE) Influenza B (RT-PCR) Flu b negative (NEGATIVE) RSV (PCR) Negative (Negative) Urine Dip Bedside Urine Glucose Negative Bedside Urine Bilirubin - Negative Bedside Urine Ketone - Negative Urine Specific Fosters 1.020 Bedside Urine Occult Blood - Negative Bedside Urine pH 5.5 Bedside Urine Protein + 30 Bedside Urine Urobilinogen - Negative Bedside Urine Nitrite - Negative Bedside Urine Leukocytes - Negative Esterase Imaging Data Chest x-ray: Radiologist's Impression: PROCEDURE:? XR CHEST 1V ? INDICATIONS:? chest pain ? TECHNIQUE:? One view of the chest was acquired.? ? COMPARISON:? [facility], CR, XR CHEST 1 VIEW, 06/29/2021, 16:44.? [facility], CR, XR CHEST 1V, 06/26/2022, 16:38. ? FINDINGS:? ? Surgical changes and devices:? Lower cervical spine fixation hardware is seen. Cholecystectomy clips are seen.? ? Lungs and pleura:? An incomplete inspiratory result is noted, causing a crowded appearance to the lung markings.? No focal infiltrates are seen.? No pneumothorax or significant pleural effusions are seen. ? Mild generalized interstitial prominence can be seen. ? Mediastinum:? Mediastinal contours appear normal.? Heart size is moderately enlarged.? ? Bones and chest wall:? No suspicious bony lesions.? Overlying soft tissues appear unremarkable.? ? IMPRESSION:? Cardiomegaly with mild interstitial prominence.? Please consider mild CHF. ? If clinically appropriate, a short-term followup chest series (with PA and lateral views) performed in deep inspiration is suggested for further evaluation.? Dictated by: Amando Shoemaker M.D. on 07/29/2022 at 15:11 ? ? Approved by: Amando Shoemaker M.D. on 07/29/2022 at 15:12 ? ECG Data Interpretation: EKG independently reviewed by Dr. Ruiz at 1545 reveals sinus rhythm with first-degree block, LVH, left axis deviation at [address] elevation or depression, arrhythmia or acute ischemic changes. MDM Narrative Medical decision making narrative: This is a 81-year-old gentleman who presents to the emergency department for pain across his upper abdomen/diaphragm from [id number] that he woke up with this morning, states it painful with deep inspiration and reproducible. Denies any changes to his bowels, denies nausea, vomiting, fever, chills, shortness of breath, radiation of this pain, and denies any midsternal chest pain. Denies palpitations, lightheadedness, and all other associated chest pain symptoms. He does not have any increase of lower extremity edema, no pleural effusions on chest x-ray or focal infiltrates, no pneumothorax, his chest x-ray does show cardiomegaly with mild interstitial prominence, patient has a history of CHF, he takes furosemide daily, does not appear to be fluid overload today, he is in sinus rhythm with a first-degree block, left axis deviation with out ST changes or acute ischemic changes. Lab work overall is reassuring, there is no leukocytosis, anemia, his D-dimer is 472, no electrolyte abnormalities, his creatinine is at baseline at 1.01, GFR over 60, no elevation of liver enzymes, his troponin is 0.082 which is consistent with multiple priors, lipase of 64, urine dip was positive only for protein, respiratory panel was obtained and is pending, will notify patient if it is positive for influenza, COVID, or RSV. Reviewed patient's case with Dr. Pendleton, she agrees that patient is safe to discharge home, he has Dr. Zapata and Dr. Harp for Cardiology to follow-up with, patient's life states understanding to schedule follow-up appointment. He has history of dementia, and is confused today but states that it is not new compared with baseline or worse. Patient appears well hydrated, he is anticoagulated on Eliquis without signs of bleeding, he is able to stand, ambulate with steady gait, does not have any focal neuro deficits or weakness. Multiple causes of chest pain considered including FL, PE, pneumothorax, pneumonia, aortic dissection, and pleurisy. Patient reports no radiation, no diaphoresis, no provocation with exertion, and no vomiting encouraged him to follow-up with his primary care provider, we will call if positive for respiratory illnesses. Patient is appropriate and amenable to discharge home. Vital signs are stable on repeat examination is unremarkable. Patient has been informed of results. Patient has been given strict return to ER precautions for any new or worsening symptoms. Patient understands to follow up closely with outpatient providers as instructed. Patient understands plan and agrees to discharge home. All questions and concerns answered at this time. Update, respiratory panel is negative for COVID, influenza a, B, RSV. <Carey Ruiz MD - Last Filed: 07/30/22 18:41> Lab Data Labs: Lab Results 07/29/22 07/29/22 07/29/22 Range/Units 15:40 15:40 15:40 WBC 7.7 (4.5-11.0) X10^3/uL RBC 4.21 L (4.5-5.9) X10^6/uL Hgb 13.2 L (13.5-17.5) g/dL Hct 38.9 L (41-53) % MCV 92.3 (80-100) fL MCH 31.4 (26-34) PG MCHC 34.0 (30-36) % RDW 15.1 H (11.6-14.8) % Plt Count 161 (150-400) X10^3/uL Neut % (Auto) 55.3 (50-75) % Lymph % (Auto) 29.0 (25-40) % [place] % (Auto) 9.7 (3-14) % Eos % (Auto) 5.5 H (2-4) % Baso % (Auto) 0.5 (0-2) % Neut # (Auto) 4300 (3295-6137) /uL Lymph # (Auto) 2200 (5517-2501) /uL [place] # (Auto) 700 (0-900) /uL Eos # (Auto) 400 (0-450) /uL Baso # (Auto) 0 (0-100) /uL D-Dimer 472 (<500) ng/ml Sodium 143 (137-145) mmol/L Potassium 4.3 (3.4-5.1) mmol/L Chloride 109 H (98-107) mmol/L Carbon Dioxide 24 (22-32) mmol/L BUN 28 H (9-20) mg/dL Creatinine 1.01 (0.66-1.25) mg/dL Estimated GFR > 60 (>60) mL/min BUN/Creatinine Ratio 27.7 H (6-22) Glucose 96 (80-110) mg/dL Calcium 9.7 (8.4-10.2) mg/dL Magnesium 1.9 (1.6-2.3) mg/dL Total Bilirubin 0.4 (0.2-1.3) mg/dL AST 24 (17-59) IU/L ALT 24 (<50) IU/L Alkaline Phosphatase 85 (38-126) U/L Total Creatine Kinase 46 L (55-170) U/L CK-MB (CK-2) TNP CK-MB (CK-2) Rel Index TNP Troponin I 0.082 H (0.01-0.034) ng/mL Total Protein 7.1 (6.3-8.2) g/dL Albumin 4.2 (3.5-5.0) g/dL Globulin 2.9 (1.7-4.1) g/dL Albumin/Globulin Ratio 1.4 (1.0-2.8) Lipase 64 (23-300) U/L SARS-CoV-2 (PCR) (Negative) Influenza A (RT-PCR) (NEGATIVE) Influenza B (RT-PCR) (NEGATIVE) RSV (PCR) (Negative) 07/29/22 Range/Units 17:59 WBC (4.5-11.0) X10^3/uL RBC (4.5-5.9) X10^6/uL Hgb (13.5-17.5) g/dL Hct (41-53) % MCV (80-100) fL MCH (26-34) PG MCHC (30-36) % RDW (11.6-14.8) % Plt Count (150-400) X10^3/uL Neut % (Auto) (50-75) % Lymph % (Auto) (25-40) % [place] % (Auto) (3-14) % Eos % (Auto) (2-4) % Baso % (Auto) (0-2) % Neut # (Auto) (1466-5546) /uL Lymph # (Auto) (3209-7942) /uL [place] # (Auto) (0-900) /uL Eos # (Auto) (0-450) /uL Baso # (Auto) (0-100) /uL D-Dimer (<500) ng/ml Sodium (137-145) mmol/L Potassium (3.4-5.1) mmol/L Chloride (98-107) mmol/L Carbon Dioxide (22-32) mmol/L BUN (9-20) mg/dL Creatinine (0.66-1.25) mg/dL Estimated GFR (>60) mL/min BUN/Creatinine Ratio (6-22) Glucose (80-110) mg/dL Calcium (8.4-10.2) mg/dL Magnesium (1.6-2.3) mg/dL Total Bilirubin (0.2-1.3) mg/dL AST (17-59) IU/L ALT (<50) IU/L Alkaline Phosphatase (38-126) U/L Total Creatine Kinase (55-170) U/L CK-MB (CK-2) CK-MB (CK-2) Rel Index Troponin I (0.01-0.034) ng/mL Total Protein (6.3-8.2) g/dL Albumin (3.5-5.0) g/dL Globulin (1.7-4.1) g/dL Albumin/Globulin Ratio (1.0-2.8) Lipase (23-300) U/L SARS-CoV-2 (PCR) Negative (Negative) Influenza A (RT-PCR) Flu a negative (NEGATIVE) Influenza B (RT-PCR) Flu b negative (NEGATIVE) RSV (PCR) Negative (Negative) Urine Dip Bedside Urine Glucose Negative Bedside Urine Bilirubin - Negative Bedside Urine Ketone - Negative Urine Specific [place] 1.020 Bedside Urine Occult Blood - Negative Bedside Urine pH 5.5 Bedside Urine Protein + 30 Bedside Urine Urobilinogen - Negative Bedside Urine Nitrite - Negative Bedside Urine Leukocytes - Negative Esterase Discharge Plan Departure Patient Disposition: Home Clinical Impression: Pleurisy Instructions: Costochondritis, DI for Chest Pain Activity Restrictions/Additional Instructions: *You have been diagnosed with chest pain with deep breath, this is likely related to your lungs and your ribs instead of your heart. There are no signs recent injury to your heart, everything is working as it should today. Your workup does not show infections, electrolyte abnormalities, problems with your kidneys, liver, pancreas or other. Please stay on your regular medications, stay hydrated, please schedule a follow-up appointment with your primary care provider, and Dr. Harp as needed for your cardiac needs. If this pain recurs or if it gets worse, please come back to the emergency department for another evaluation. Your urine did not show any signs of infection, we will call you if your respiratory test comes back positive for an upper respiratory viral infection. Please stay hydrated, I hope you feel better soon. *What to do: *Please continue to take your regular medications as directed. [ ] New medication prescriptions sent to your pharmacy: [ ] [ ] New medication written as a paper prescription [x ] No new medications given *Please follow up with your primary care provider in 2-3 days, call for an appointment. Let them know you were seen in the Emergency Department and that we asked that you be seen for follow-up. We will electronically transmit a record of today's note if your PCP is in our system *If you do not have a primary care provider please contact [phone] to establish care with one of the [facility] primary care providers. *Return to Emergency Department if you should have any new, worsening, or concerning symptoms, such as [fever greater than 101F, chills, worsening pain, persistent vomiting or other bothersome symptoms]. Prescriptions: No Action sertraline [Zoloft] 50 mg tablet 100 mg PO BEDTIME Qty: 60 3RF amlodipine [Norvasc] 5 mg Tablet 5 mg PO DAILY Qty: 30 0RF furosemide 20 mg tablet 20 mg PO DAILY PRN (Reason: edema) Label Comments: Patient states I take it when I notice my edema increasing tamsulosin 0.4 mg capsule 0.4 mg PO BEDTIME allopurinol 300 mg tablet 300 mg PO BEDTIME lisinopril 40 mg tablet 40 mg PO BEDTIME Eliquis 5 mg tablet 5 mg PO BID Referrals: James Zapata MD [Physician] - Darryl Damon MD [Primary Care Provider] - Laurie Harp MD [Physician] - Visit Report Forms: Patient Portal/API <Carey Ruiz MD - Last Filed: 07/30/22 18:41> Cosign ED Attending Cosignature Attestation: I was immediately available in the department for consultation throughout this patient's visit. I agree with documentation as above. Carey Ruiz MD
[2022-07-29 17:59] VITALS: BP 156/70; PULSE 55; RESP 17; O2SAT 96
[2022-07-29 18:00] VITALS: PULSE 61; RESP 17; O2SAT 96
--- NOTE | 2022-07-29 18:01 | PC.NURSE ---
Patient reports he woke up with pain from right chest/shoulder across chest and worse with deep breaths. Is resolved now, denies pain.
[2022-07-29 18:07] VITALS: PULSE 60; O2SAT 97
[2022-07-29 18:40] LABS: Influenza A - CEPHEID Flu A NEGATIVE (NEGATIVE); Influenza B - CEPHEID Flu B NEGATIVE (NEGATIVE); Respiratory Syncytial Virus Negative (Negative)
[2022-07-29 18:42] LABS: COVID-19 CEPHEID 4-PLEX PCR Negative (Negative)
== END 2022-07-29 18:08 | disposition home or self-care (01) ==
PROVIDERS: Emergency Medicine; Emergency Provider Nurse Practitioner Critical Care Medicine; PCP Internal Medicine
DX: R09.1 Pleurisy (principal); R07.9 Chest pain, unspecified; Z79.01 Long term (current) use of anticoagulants; Z20.822 Contact with and (suspected) exposure to COVID-19
CPT/HCPCS: 0241U; 36415; 71045; 80053; 81003; 82550; 83690; 83735; 84484; 85025; 85379; 93005; 99284

== ENCOUNTER 2022-07-31 16:21 | Emergency (ER) | payer MEDICARE, SELFPAY ==
[2021-06-24 20:11] VITALS: BMI 26.3
[2022-07-31] VITALS (11 sets, daily range): BP systolic 140–193; BP diastolic 63–89; PULSE 50–60; RESP 12–32; TEMP 36.7; O2SAT 95–100; BMI 23.9
--- NOTE | 2022-07-31 16:35 | DI.RAD.S_ITS ---
PROCEDURE: XR CHEST 1V INDICATIONS: chest pain TECHNIQUE: One view of the chest was acquired. COMPARISON: [facility], CR, XR CHEST 1V, 07/29/2022, 15:55. FINDINGS: Surgical changes and devices: None. Lungs and pleura: Lungs are clear. No pleural effusions or pneumothorax. Mediastinum: Mediastinal contours appear normal. Heart size is enlarged. Bones and chest wall: No suspicious bony lesions. Overlying soft tissues appear unremarkable. Lower cervical spine anterior plate and screw instrumentation IMPRESSION: Cardiomegaly without vascular congestion Approved by: Jaycob Tran M.D. on 07/31/2022 at 16:57
[2022-07-31 16:49] LABS: Add Manual Diff / Slide Review NO; Basophils Absolute Auto 0 /uL (0-100); Basophils Percent Auto 0.4 % (0-2); Eosinophils Absolute Auto 400 /uL (0-450); Eosinophils Percent Auto 4.2 % (2-4); Hematocrit 38.2 % (41-53); Hemoglobin 12.9 g/dL (13.5-17.5); Lymphocytes Absolute Auto 2200 /uL (1100-4500); Lymphocytes Percent Auto 23.5 % (25-40); Mean Corpuscular HGB Conc 33.7 % (30-36); Mean Corpuscular Hemoglobin 31.3 PG (26-34); Mean Corpuscular Volume 92.9 fL (80-100); Monocytes Absolute Auto 800 /uL (0-900); Monocytes Percent Auto 8.4 % (3-14); Neutrophils Absolute Auto 5900 /uL (1500-7000); Neutrophils Percent Auto 63.5 % (50-75); Platelet Count 162 X10^3/uL (150-400); Red Blood Cell Count 4.11 X10^6/uL (4.5-5.9); Red Cell Distribution Width 15.4 % (11.6-14.8); White Blood Cell Count 9.3 X10^3/uL (4.5-11.0)
[2022-07-31 16:53] LABS: INR 1.1 (0.9-1.3); Prothrombin Time 12.8 SECONDS (10.1-12.7)
[2022-07-31 16:58] LABS: Alanine Aminotransferase 24 IU/L (<50); Albumin 4.4 g/dL (3.5-5.0); Albumin Globulin Ratio 1.5 (1.0-2.8); Alkaline Phosphatase 88 U/L (38-126); Aspartate Aminotransferase 29 IU/L (17-59); BUN Creatinine Ratio 29.4 (6-22); Bilirubin Total 0.4 mg/dL (0.2-1.3); Blood Urea Nitrogen 30 mg/dL (9-20); Calcium 9.7 mg/dL (8.4-10.2); Carbon Dioxide 24 mmol/L (22-32); Chloride 106 mmol/L (98-107); Creatine Kinase 42 U/L (55-170); Estimated Glomerular Filt Rate > 60 mL/min (>60); Glucose 130 mg/dL (80-110); HEMOLYSIS < 15 (0-50); Lipase 71 U/L (23-300); Potassium 4.3 mmol/L (3.4-5.1); Sodium 142 mmol/L (137-145); Total Protein 7.4 g/dL (6.3-8.2)
[2022-07-31 17:10] LABS: Troponin I 0.093 ng/mL (0.01-0.034)
[2022-07-31 17:25] LABS: COVID19 -Nasal RAPID Negative (Negative)
[2022-07-31 18:58] LABS: Troponin I 0.085 ng/mL (0.01-0.034)
--- NOTE | 2022-07-31 19:19 | ED.CHESTPAIN ---
HPI - Chest Pain General Chief Complaint: Chest Pain Stated Complaint: CHEST PAIN Time Seen by Provider: 07/31/22 18:00 Source: patient and family () Mode of arrival: Wheelchair Limitations: other History of Present Illness HPI narrative: Patient is an 81-year-old male. Is on anticoagulation. Has a history of dementia/Alzheimer's disease. Initially arrived for evaluation of chest pain however the patient's states that it was more of a shortness of breath. It is difficult to obtain any history from the patient given his history of dementia. Upon my evaluation he states that he has no symptoms and he feels fine. When we talked about how he felt earlier he had a difficult time expressing himself. He did shake his head yes when asked him if he was having shortness of breath earlier. There is no apparent cough nor fevers. According to his Related Data Home Medications Medication Instructions Recorded Confirmed allopurinol 300 mg tablet 300 mg PO BEDTIME 09/13/19 08/09/21 apixaban 5 mg tablet (Eliquis) 5 mg PO BID 09/13/19 08/09/21 lisinopril 40 mg tablet 40 mg PO BEDTIME 09/13/19 08/09/21 tamsulosin 0.4 mg capsule 0.4 mg PO BEDTIME 09/13/19 08/09/21 furosemide 20 mg tablet 20 mg PO DAILY PRN edema 06/08/21 08/09/21 Previous Rx's Medication Instructions Recorded amlodipine 5 mg tablet (Norvasc) 5 mg PO DAILY #30 tabs 03/13/21 sertraline 50 mg tablet (Zoloft) 100 mg PO BEDTIME #60 tabs 07/13/21 Allergies Allergy/AdvReac Type Severity Reaction Status Date / Time Ycywkub-KVO-TrK Reductase AdvReac Mild CAUSES Verified 07/31/22 16:38 Inhibitor PAIN IN [Dkhcgja-Xys-Ncd Reductase LEGS - Inhibitor] ELECTRIC SHOCK Sulfa (Sulfonamide AdvReac Mild EXACERBATES Verified 07/31/22 16:38 Antibiotics) GOUT [SULFA (SULFONAMIDE ANTIBIOTICS)] Review of Systems Review of Systems Narrative: See HPI. Review of systems limited given his history of dementia. Constitutional Constitutional: Reports system reviewed and no additional complaints, except as documented Cardiovascular Cardiovascular: Reports system reviewed and no additional complaints, except as documented Respiratory Respiratory: Reports system reviewed and no additional complaints, except as documented Integumentary/Breasts Skin/Breast: Reports system reviewed and no additional complaints, except as documented Neurologic Neurologic: Reports system reviewed and no additional complaints, except as documented Hematologic/Lymphatic On Anticoagulants: No Patient History Medical History Atrial fibrillation and flutter History of drug overdose Hyperlipidemia Hypertension Surgical History H/O cervical spine surgery History of cardiac radiofrequency ablation Family History Mother Colon cancer Father Unknown family medical history Social History household members: spouse Smoking Status: Never smoker alcohol intake: current Smoking Status: Never smoker alcohol intake frequency: holidays/special occasions only Substance Use Type: does not use Exam Initial Vital Signs Initial Vital Signs: Vital Signs Temperature 98.0 F 07/31/22 16:33 Pulse Rate 60 07/31/22 16:33 Respiratory Rate 16 07/31/22 16:33 Blood Pressure 193/89 H 07/31/22 16:33 Pulse Oximetry 99 07/31/22 16:33 Oxygen Delivery Method 07/31/22 16:33 Const General: cooperative, comfortable and No ill appearing HENME Head: normal to inspection and normocephalic Resp Effort & Inspection: normal respiratory effort Auscultation: clear to auscultation bilaterally Cardio Rate: regular rate Rhythm: regular rhythm GI Inspection: normal to inspection Skin General: no rashes or lesions noted Neuro General: patient alert, patient awake and moves all extremities Extrem General: capillary refill normal Psych Appearance: grossly normal Course Orders Ordered: ED Orders 07/31/22 16:30 Complete Blood Count AUTO DIFF Stat Comprehensive Metabolic Panel Stat Lipase Stat Magnesium Stat Prothrombin Time INR Stat Troponin & CK Cardiac Panel Stat 07/31/22 16:35 XR chest 1V Stat COVID19 -Nasal RAPID/Pre-Proc Stat EKG-12 Lead Stat 07/31/22 18:30 Troponin I Stat Vital Signs Vital signs: Vital Signs - 8 hr 07/31/22 16:33 07/31/22 16:42 07/31/22 17:00 Temperature 98.0 F Pulse Rate 60 55 L 52 L Respiratory Rate 16 25 H 16 Blood Pressure 193/89 H Pulse Oximetry 99 100 100 Oxygen Delivery Method Room Air Room Air 07/31/22 17:01 07/31/22 17:01 07/31/22 17:30 Temperature Pulse Rate 52 L Respiratory Rate 22 Blood Pressure 159/68 H 156/68 H Pulse Oximetry 100 Oxygen Delivery Method 07/31/22 17:30 07/31/22 18:00 07/31/22 18:01 Temperature Pulse Rate 50 L 56 L 57 L Respiratory Rate 12 19 18 Blood Pressure Pulse Oximetry 98 95 95 Oxygen Delivery Method 07/31/22 18:01 07/31/22 18:30 07/31/22 18:31 Temperature Pulse Rate 59 L Respiratory Rate 32 H Blood Pressure 140/64 142/63 H Pulse Oximetry 97 Oxygen Delivery Method 07/31/22 18:31 07/31/22 19:00 07/31/22 19:01 Temperature Pulse Rate 60 57 L Respiratory Rate 27 H 23 Blood Pressure 146/65 H Pulse Oximetry 97 95 Oxygen Delivery Method 07/31/22 19:01 Temperature Pulse Rate 57 L Respiratory Rate 18 Blood Pressure Pulse Oximetry 96 Oxygen Delivery Method MDM - Chest Pain Lab Data Attestation: I reviewed the patient's lab results. Result diagrams: 07/31/22 16:30 07/31/22 16:30 Labs: Lab Results 07/31/22 07/31/22 07/31/22 Range/Units 16:30 16:30 16:30 WBC 9.3 (4.5-11.0) X10^3/uL RBC 4.11 L (4.5-5.9) X10^6/uL Hgb 12.9 L (13.5-17.5) g/dL Hct 38.2 L (41-53) % MCV 92.9 (80-100) fL MCH 31.3 (26-34) PG MCHC 33.7 (30-36) % RDW 15.4 H (11.6-14.8) % Plt Count 162 (150-400) X10^3/uL Neut % (Auto) 63.5 (50-75) % Lymph % (Auto) 23.5 L (25-40) % [place] % (Auto) 8.4 (3-14) % Eos % (Auto) 4.2 H (2-4) % Baso % (Auto) 0.4 (0-2) % Neut # (Auto) 5900 (5390-8640) /uL Lymph # (Auto) 2200 (0553-3938) /uL [place] # (Auto) 800 (0-900) /uL Eos # (Auto) 400 (0-450) /uL Baso # (Auto) 0 (0-100) /uL PT 12.8 H (10.1-12.7) SECONDS INR 1.1 (0.9-1.3) Sodium 142 (137-145) mmol/L Potassium 4.3 (3.4-5.1) mmol/L Chloride 106 (98-107) mmol/L Carbon Dioxide 24 (22-32) mmol/L BUN 30 H (9-20) mg/dL Creatinine 1.02 (0.66-1.25) mg/dL Estimated GFR > 60 (>60) mL/min BUN/Creatinine Ratio 29.4 H (6-22) Glucose 130 H (80-110) mg/dL Calcium 9.7 (8.4-10.2) mg/dL Magnesium 2.0 (1.6-2.3) mg/dL Total Bilirubin 0.4 (0.2-1.3) mg/dL AST 29 (17-59) IU/L ALT 24 (<50) IU/L Alkaline Phosphatase 88 (38-126) U/L Total Creatine Kinase 42 L (55-170) U/L CK-MB (CK-2) TNP CK-MB (CK-2) Rel Index TNP Troponin I 0.093 H (0.01-0.034) ng/mL Total Protein 7.4 (6.3-8.2) g/dL Albumin 4.4 (3.5-5.0) g/dL Globulin 3.0 (1.7-4.1) g/dL Albumin/Globulin Ratio 1.5 (1.0-2.8) Lipase 71 (23-300) U/L SARS-CoV-2 (PCR) (Negative) 07/31/22 07/31/22 Range/Units 16:35 18:30 WBC (4.5-11.0) X10^3/uL RBC (4.5-5.9) X10^6/uL Hgb (13.5-17.5) g/dL Hct (41-53) % MCV (80-100) fL MCH (26-34) PG MCHC (30-36) % RDW (11.6-14.8) % Plt Count (150-400) X10^3/uL Neut % (Auto) (50-75) % Lymph % (Auto) (25-40) % [place] % (Auto) (3-14) % Eos % (Auto) (2-4) % Baso % (Auto) (0-2) % Neut # (Auto) (6159-3677) /uL Lymph # (Auto) (0026-3690) /uL [place] # (Auto) (0-900) /uL Eos # (Auto) (0-450) /uL Baso # (Auto) (0-100) /uL PT (10.1-12.7) SECONDS INR (0.9-1.3) Sodium (137-145) mmol/L Potassium (3.4-5.1) mmol/L Chloride (98-107) mmol/L Carbon Dioxide (22-32) mmol/L BUN (9-20) mg/dL Creatinine (0.66-1.25) mg/dL Estimated GFR (>60) mL/min BUN/Creatinine Ratio (6-22) Glucose (80-110) mg/dL Calcium (8.4-10.2) mg/dL Magnesium (1.6-2.3) mg/dL Total Bilirubin (0.2-1.3) mg/dL AST (17-59) IU/L ALT (<50) IU/L Alkaline Phosphatase (38-126) U/L Total Creatine Kinase (55-170) U/L CK-MB (CK-2) CK-MB (CK-2) Rel Index Troponin I 0.085 H (0.01-0.034) ng/mL Total Protein (6.3-8.2) g/dL Albumin (3.5-5.0) g/dL Globulin (1.7-4.1) g/dL Albumin/Globulin Ratio (1.0-2.8) Lipase (23-300) U/L SARS-CoV-2 (PCR) Negative (Negative) Imaging Data Chest x-ray: Radiologist's Impression: [address] [address] XRay Report Signed Patient: Delmar Hoff MR#: [id number] : 1940 Acct:[id number] Age/Sex: 81 / M Date of Service: 07/31/22 Loc: ED Accession Number: [id number] ?? Procedure: XR chest 1V Ordering Provider: Cierra Waters D.O. PROCEDURE:? XR CHEST 1V ? INDICATIONS:? chest pain ? TECHNIQUE:? One view of the chest was acquired.? ? COMPARISON:? [facility], CR, XR CHEST 1V, 07/29/2022, 15:55. ? FINDINGS:? ? Surgical changes and devices:? None.? ? Lungs and pleura:? Lungs are clear.? No pleural effusions or pneumothorax.? ? Mediastinum:? Mediastinal contours appear normal.? Heart size is enlarged.? ? Bones and chest wall:? No suspicious bony lesions.? Overlying soft tissues appear unremarkable.? Lower cervical spine anterior plate and screw instrumentation ? IMPRESSION:? Cardiomegaly without vascular congestion ? ? ? Approved by: Jaycob Tran M.D. on 07/31/2022 at 16:57? ECG Data Attestation: I personally reviewed and interpreted this ECG as follows: Interpretation: Sinus rhythm Ventricular rate of 60 First-degree AV block MA interval 3-8 milliseconds Left axis deviation LVH Nonspecific ST T wave changes MDM Narrative Medical decision making narrative: Patient reports no symptoms upon my evaluation. EKG has nonspecific changes. Troponins negative x2. No respiratory distress. Will hold on further workup for now. I did discuss this with the patient's . We discussed return precautions and follow-up instructions. expressed understanding and agreement. Discharge Plan Departure Patient Disposition: Home Clinical Impression: Shortness of breath, Chest pain Instructions: DI for Atypical Chest Pain Activity Restrictions/Additional Instructions: Delmar can continue to take all of his medications as directed. Contact his primary provider for follow-up. Return to the emergency department for any new or worsening symptoms. Prescriptions: No Action sertraline [Zoloft] 50 mg tablet 100 mg PO BEDTIME Qty: 60 3RF amlodipine [Norvasc] 5 mg Tablet 5 mg PO DAILY Qty: 30 0RF furosemide 20 mg tablet 20 mg PO DAILY PRN (Reason: edema) Label Comments: Patient states I take it when I notice my edema increasing tamsulosin 0.4 mg capsule 0.4 mg PO BEDTIME allopurinol 300 mg tablet 300 mg PO BEDTIME lisinopril 40 mg tablet 40 mg PO BEDTIME Eliquis 5 mg tablet 5 mg PO BID Referrals: Darryl Damon MD [Primary Care Provider] - Visit Report Forms: Patient Portal/API
== END 2022-07-31 19:30 | disposition home or self-care (01) ==
PROVIDERS: Emergency Medicine; Emergency Provider Emergency Medicine; PCP Internal Medicine
DX: R07.9 Chest pain, unspecified (principal); R06.02 Shortness of breath; G30.9 Alzheimer's disease, unspecified; F02.80 Dementia in other diseases classified elsewhere, unspecified severity, without behavioral disturbance, psychotic disturbance, mood disturbance, and anxiety; Z79.01 Long term (current) use of anticoagulants; Z20.822 Contact with and (suspected) exposure to COVID-19
CPT/HCPCS: 36415; 71045; 80053; 82550; 83690; 83735; 84484; 85025; 85610; 87635; 93005; 93010; 99284; C9803

== ENCOUNTER → 2022-09-01 09:52 | Outpatient (CLI) | payer MEDICARE, SELFPAY ==
[2021-06-24 20:11] VITALS: BMI 26.3
--- NOTE | 2022-09-01 09:55 | DI.RAD.S_ITS ---
PROCEDURE: XR CHEST 2V INDICATIONS: RIB PAIN ON LEFT SIDE TECHNIQUE: 2 views of the chest were acquired. COMPARISON: [facility], , XR CHEST 1V, 07/31/2022, 16:54. [facility], CR, XR CHEST 1V, 07/29/2022, 15:55. FINDINGS: Surgical changes and devices: ACDF. Spring of projecting over the left inferior chest wall. Lungs and pleura: Lungs are clear. No pleural effusions or pneumothorax. Mediastinum: Mediastinal contours are normal. Heart size is normal. Bones and chest wall: No suspicious bony abnormalities. Soft tissues appear unremarkable. IMPRESSION: No acute cardiopulmonary abnormality identified. Dictated by: Lenin Jain M.D. on 09/01/2022 at 11:53 Approved by: Lenin Jain M.D. on 09/01/2022 at 11:54
== END ==
PROVIDERS: PCP Internal Medicine; Referring Provider Internal Medicine; Visit Provider Internal Medicine
DX: R07.81 Pleurodynia (principal)
CPT/HCPCS: 71046

== ENCOUNTER 2022-09-28 14:10 | Emergency (ER) | payer MEDICARE, SELFPAY ==
[2021-06-24 20:11] VITALS: BMI 26.3
[2022-09-28] VITALS (14 sets, daily range): BP systolic 130–158; BP diastolic 61–70; PULSE 51–61; RESP 15; TEMP 36.3–36.4; O2SAT 96–100; BMI 24.1
--- NOTE | 2022-09-28 15:16 | DI.CT.S_ITS ---
PROCEDURE: CT HEAD/BRAIN WO CON INDICATIONS: falling TECHNIQUE: Noncontrast 4.5 mm thick angled axial sections acquired from the foramen magnum to the vertex, with coronal and sagittal reformats. For radiation dose reduction, the following was used: automated exposure control, adjustment of mA and/or kV according to patient size. COMPARISON: [facility], CT, CT HEAD/BRAIN WO CON, 06/26/2022, 19:31. FINDINGS: Image quality: Excellent. CSF spaces: Basal cisterns are patent. No extra-axial fluid collections. The ventricles are symmetric in size and shape. Brain: No intracranial bleeds or masses. There is cerebral volume loss for age, with resultant ventricular and sulcal prominence. There are periventricular and deep white matter chronic small vessel ischemic changes. There is intracranial internal carotid artery atherosclerosis. Skull and face: Calvarium and visualized facial bones appear intact, without suspicious lesions. Sinuses: Visualized sinuses and mastoids are clear. IMPRESSION: No acute intracranial abnormality. Dictated by: Lauren Fajardo M.D. on 09/28/2022 at 15:50 Approved by: Lauren Fajardo M.D. on 09/28/2022 at 15:51
--- NOTE | 2022-09-28 15:16 | DI.RAD.S_ITS ---
PROCEDURE: XR CHEST 1V INDICATIONS: chest pain TECHNIQUE: One view of the chest was acquired. COMPARISON: [facility], CR, XR CHEST 1V, 07/31/2022, 16:54. [facility], CR, XR CHEST 1V, 07/29/2022, 15:55. [facility], CR, XR CHEST 1V, 06/26/2022, 16:38. FINDINGS: Surgical changes and devices: None. Lungs and pleura: Lungs are clear. No pleural effusions or pneumothorax. Mediastinum: Mediastinal contours appear normal. Heart size is enlarged. Bones and chest wall: No suspicious bony lesions. Overlying soft tissues appear unremarkable. IMPRESSION: 1. Cardiomegaly. This could be further assessed with echocardiography, if clinically indicated. Dictated by: Lauren Fajardo M.D. on 09/28/2022 at 15:49 Approved by: Lauren Fajardo M.D. on 09/28/2022 at 15:49
[2022-09-28 15:23] LABS: Add Manual Diff / Slide Review NO; Basophils Absolute Auto 0 /uL (0-100); Basophils Percent Auto 0.4 % (0-2); Eosinophils Absolute Auto 500 /uL (0-450); Eosinophils Percent Auto 6.2 % (2-4); Hemoglobin 13.4 g/dL (13.5-17.5); Lymphocytes Absolute Auto 2200 /uL (1100-4500); Lymphocytes Percent Auto 28.6 % (25-40); Mean Corpuscular HGB Conc 34.4 % (30-36); Mean Corpuscular Hemoglobin 31.6 PG (26-34); Monocytes Absolute Auto 600 /uL (0-900); Neutrophils Absolute Auto 4400 /uL (1500-7000); Neutrophils Percent Auto 56.8 % (50-75); Platelet Count 139 X10^3/uL (150-400); Red Blood Cell Count 4.24 X10^6/uL (4.5-5.9); Red Cell Distribution Width 14.9 % (11.6-14.8); White Blood Cell Count 7.7 X10^3/uL (4.5-11.0)
[2022-09-28 16:41] LABS: Alanine Aminotransferase 28 IU/L (<50); Albumin 4.3 g/dL (3.5-5.0); Albumin Globulin Ratio 1.5 (1.0-2.8); Alkaline Phosphatase 84 U/L (38-126); Aspartate Aminotransferase 32 IU/L (17-59); BUN Creatinine Ratio 30.8 (6-22); Bilirubin Total 0.4 mg/dL (0.2-1.3); Blood Urea Nitrogen 33 mg/dL (9-20); Calcium 9.6 mg/dL (8.4-10.2); Carbon Dioxide 23 mmol/L (22-32); Chloride 107 mmol/L (98-107); Creatine Kinase 41 U/L (55-170); Estimated Glomerular Filt Rate > 60 mL/min (>60); Globulin 2.8 g/dL (1.7-4.1); Glucose 100 mg/dL (80-110); HEMOLYSIS 17 (0-50); Lipase 71 U/L (23-300); Sodium 142 mmol/L (137-145); Total Protein 7.1 g/dL (6.3-8.2)
--- NOTE | 2022-09-28 16:53 | ED_ITS ---
HPI - Head Injury General Chief complaint: Head Injury Stated complaint: losing feeling in face from fall 1 wk ago Time Seen by Provider: 09/28/22 14:32 Source: patient Mode of arrival: Wheelchair History of Present Illness HPI Narrative: Patient is an 81-year-old male history of paroxysmal atrial fibrillation on Eliquis, Alzheimer's dementia presenting today with fall. A bit confusing why they are actually here today. According to who is the primary historian he fell on a sidewalk number of weeks ago. He did hit his head but did not lose any consciousness. Presents today sometimes his legs he is a little bit weak. No fever chills or chest pain. Overall very poor historian is the primary historian. He is afebrile does not really appear to be in any pain. No nausea vomiting. Related Data Home Medications Medication Instructions Recorded Confirmed allopurinol 300 mg tablet 300 mg PO BEDTIME 09/13/19 08/09/21 apixaban 5 mg tablet (Eliquis) 5 mg PO BID 09/13/19 08/09/21 lisinopril 40 mg tablet 40 mg PO BEDTIME 09/13/19 08/09/21 tamsulosin 0.4 mg capsule 0.4 mg PO BEDTIME 09/13/19 08/09/21 furosemide 20 mg tablet 20 mg PO DAILY PRN edema 06/08/21 08/09/21 Previous Rx's Medication Instructions Recorded amlodipine 5 mg tablet (Norvasc) 5 mg PO DAILY #30 tabs 03/13/21 sertraline 50 mg tablet (Zoloft) 100 mg PO BEDTIME #60 tabs 07/13/21 Allergies Allergy/AdvReac Type Severity Reaction Status Date / Time Qztghjc-GJA-PvH Reductase AdvReac Mild CAUSES Verified 09/28/22 14:22 Inhibitor PAIN IN [Yzjrppx-Yud-Npt Reductase LEGS - Inhibitor] ELECTRIC SHOCK Sulfa (Sulfonamide AdvReac Mild EXACERBATES Verified 09/28/22 14:22 Antibiotics) GOUT [SULFA (SULFONAMIDE ANTIBIOTICS)] Review of Systems Review of Systems ROS Unobtainable: All systems reviewed & are unremarkable except as noted in HPI and below Patient History Medical History Atrial fibrillation and flutter History of drug overdose Hyperlipidemia Hypertension Surgical History H/O cervical spine surgery History of cardiac radiofrequency ablation Family History Mother Colon cancer Father Unknown family medical history Social History household members: spouse Smoking Status: Never smoker alcohol intake: current Smoking Status: Never smoker alcohol intake frequency: holidays/special occasions only Substance Use Type: does not use Exam Initial Vital Signs Initial Vital Signs: Vital Signs Temperature 97.4 F L 09/28/22 14:15 Pulse Rate 59 L 09/28/22 14:15 Respiratory Rate 15 09/28/22 14:15 Blood Pressure 158/70 H 09/28/22 14:15 Pulse Oximetry 98 09/28/22 14:15 Oxygen Delivery Method 09/28/22 14:15 GENERAL: Alert pleasant confused 81-year-old male and in no acute distress. HEENT: Head atraumatic,EOMI, pupils reactive, face symmetric, moist mucous membranes CARDIOVASCULAR: Regular rate and rhythm without murmurs, rubs or gallops. RESPIRATORY: Breath sounds equal bilaterally, no wheezes rales or rhonchi. ABDOMEN: Soft, nontender. Normoactive bowel sounds all 4 quadrants. No guarding or rebound. EXTREMITIES: Normal range of motion, no clubbing or edema. Neurovascularly intact NEUROLOGICAL: Alert and oriented x1.Normal gait and speech. Cranial nerves II through XII grossly intact. Good ekcwms-so-jgyg, good swtj-dc-iatm, strength equal bilaterally, no dysarthria or aphasia, sensation in tact to soft touch bilaterally, no visual changes, no facial droop SKIN: Warm, dry, no laceration, no petechiae, no rashes or lesions. Course Orders Ordered: ED Orders 09/28/22 14:30 Complete Blood Count AUTO DIFF Stat Comprehensive Metabolic Panel Stat Lipase Stat Troponin & CK Cardiac Panel Stat 09/28/22 15:16 CT head/brain wo con Stat XR chest 1V Stat EKG-12 Lead Stat 09/28/22 17:16 Troponin & CK Cardiac Panel Stat Vital Signs Vital signs: Vital Signs - 8 hr 09/28/22 14:15 09/28/22 14:18 09/28/22 14:19 Temperature 97.4 F L Pulse Rate 59 L Respiratory Rate 15 Blood Pressure 158/70 H 158/70 H Pulse Oximetry 98 99 Oxygen Delivery Method Room Air 09/28/22 14:19 09/28/22 14:30 09/28/22 14:32 Temperature Pulse Rate 57 L 51 L Respiratory Rate Blood Pressure 143/65 H Pulse Oximetry 98 99 Oxygen Delivery Method 09/28/22 14:32 09/28/22 15:00 09/28/22 15:01 Temperature Pulse Rate 51 L 52 L Respiratory Rate Blood Pressure 140/68 Pulse Oximetry 100 97 Oxygen Delivery Method 09/28/22 15:01 09/28/22 15:33 09/28/22 16:00 Temperature Pulse Rate 53 L 54 L 52 L Respiratory Rate Blood Pressure Pulse Oximetry 97 100 98 Oxygen Delivery Method 09/28/22 16:30 09/28/22 17:00 09/28/22 17:30 Temperature Pulse Rate 54 L 56 L 55 L Respiratory Rate Blood Pressure Pulse Oximetry 99 98 99 Oxygen Delivery Method 09/28/22 18:00 Temperature 97.6 F Pulse Rate 51 L Respiratory Rate Blood Pressure Pulse Oximetry 98 Oxygen Delivery Method MDM - Head Injury Lab Data Result diagrams: 09/28/22 14:30 09/28/22 14:30 Labs: Lab Results 09/28/22 09/28/22 09/28/22 Range/Units 14:30 14:30 17:16 WBC 7.7 (4.5-11.0) X10^3/uL RBC 4.24 L (4.5-5.9) X10^6/uL Hgb 13.4 L (13.5-17.5) g/dL Hct 39.0 L (41-53) % MCV 92.0 (80-100) fL MCH 31.6 (26-34) PG MCHC 34.4 (30-36) % RDW 14.9 H (11.6-14.8) % Plt Count 139 L (150-400) X10^3/uL Neut % (Auto) 56.8 (50-75) % Lymph % (Auto) 28.6 (25-40) % Brewster % (Auto) 8.0 (3-14) % Eos % (Auto) 6.2 H (2-4) % Baso % (Auto) 0.4 (0-2) % Neut # (Auto) 4400 (1162-7570) /uL Lymph # (Auto) 2200 (0834-4707) /uL Brewster # (Auto) 600 (0-900) /uL Eos # (Auto) 500 H (0-450) /uL Baso # (Auto) 0 (0-100) /uL Sodium 142 (137-145) mmol/L Potassium 5.0 (3.4-5.1) mmol/L Chloride 107 (98-107) mmol/L Carbon Dioxide 23 (22-32) mmol/L BUN 33 H (9-20) mg/dL Creatinine 1.07 (0.66-1.25) mg/dL Estimated GFR > 60 (>60) mL/min BUN/Creatinine Ratio 30.8 H (6-22) Glucose 100 (80-110) mg/dL Calcium 9.6 (8.4-10.2) mg/dL Total Bilirubin 0.4 (0.2-1.3) mg/dL AST 32 (17-59) IU/L ALT 28 (<50) IU/L Alkaline Phosphatase 84 (38-126) U/L Total Creatine Kinase 41 L 38 L (55-170) U/L CK-MB (CK-2) TNP TNP CK-MB (CK-2) Rel Index TNP TNP Troponin I 0.070 H 0.070 H (0.01-0.034) ng/mL Total Protein 7.1 (6.3-8.2) g/dL Albumin 4.3 (3.5-5.0) g/dL Globulin 2.8 (1.7-4.1) g/dL Albumin/Globulin Ratio 1.5 (1.0-2.8) Lipase 71 (23-300) U/L Imaging Data Chest x-ray: Radiologist's Impression: Signed Patient: Delmar Hoff MR#: [id number] : 1940 Acct:[id number] Age/Sex: 81 / M Date of Service: 09/28/22 Loc: ED Accession Number: [id number] ?? Procedure: XR chest 1V Ordering Provider: Darlene Lambert D.O. PROCEDURE:? XR CHEST 1V ? INDICATIONS:? chest pain ? TECHNIQUE:? One view of the chest was acquired.? ? COMPARISON:? [facility], CR, XR CHEST 1V, 07/31/2022, 16:54.? [facility], CR, XR CHEST 1V, 07/29/2022, 15:55.? [facility], CR, XR CHEST 1V, 06/26/2022, 16:38. ? FINDINGS:? ? Surgical changes and devices:? None.? ? Lungs and pleura:? Lungs are clear.? No pleural effusions or pneumothorax.? ? Mediastinum:? Mediastinal contours appear normal.? Heart size is enlarged. ? Bones and chest wall:? No suspicious bony lesions.? Overlying soft tissues appear unremarkable.? ? IMPRESSION:? 1. Cardiomegaly.? This could be further assessed with echocardiography, if clinically indicated. ? ? Dictated by: Lauren Fajardo M.D. on 09/28/2022 at 15:49 ? ? Approved by: Lauren Fajardo M.D. on 09/28/2022 at 15:49 ? CT scan - head: Radiologist's Impression: CT Scan Report Signed Patient: Delmar Hoff MR#: [id number] : 1940 Acct:[id number] Age/Sex: 81 / M Date of Service: 09/28/22 Loc: ED Accession Number: [id number] ?? Procedure: CT head/brain wo con Ordering Provider: Darlene Lambert D.O. PROCEDURE:? CT HEAD/BRAIN WO CON ? INDICATIONS:? falling ? TECHNIQUE:? Noncontrast 4.5 mm thick angled axial sections acquired from the foramen magnum to the vertex, with coronal and sagittal reformats.? For radiation dose reduction, the following was used:? automated exposure control, adjustment of mA and/or kV according to patient size.? ? COMPARISON:? [facility], CT, CT HEAD/BRAIN WO CON, 06/26/2022, 19:31. ? FINDINGS:? Image quality:? Excellent.? ? CSF spaces:? Basal cisterns are patent.? No extra-axial fluid collections.? The ventricles are symmetric in size and shape.? ? Brain:? No intracranial bleeds or masses.? There is cerebral volume loss for age, with resultant ventricular and sulcal prominence.? There are periventricular and deep white matter chronic small vessel ischemic changes.? There is intracranial internal carotid artery atherosclerosis.? ? Skull and face:? Calvarium and visualized facial bones appear intact, without suspicious lesions.? ? Sinuses:? Visualized sinuses and mastoids are clear.? ? IMPRESSION:? No acute intracranial abnormality. ? ? Dictated by: Lauren Fajardo M.D. on 09/28/2022 at 15:50 ? ? ECG Data Interpretation: Normal sinus rhythm rate 61 AR interval Re 42 QRS 124 QTC [address] changes MDM Narrative Medical decision making narrative: Patient 81-year-old male history of paroxysmal atrial fibrillation on Eliquis presenting with vague complaints today sounds like he is having headache. Workup in the emergency department included a head CT which was negative blood work which did show indeterminate troponins which are stable. At 0.[address] has mildly indeterminate troponins. There are no changes. EKG shows some PVCs. No evidence of infection. Other causes of headache does include COVID. We did not do a COVID swab. He states that he has been vaccinated I encouraged him to do a home COVID test. He is not hypoxic there is no treatment needed. He has no leukocytosis or fever no painful or frequent urination. Patient seems to be at his baseline. 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 He is offered pain medication here but declines at this time they would like to go home. MDM CC: Headache Complicating co-morbidities: Dementia Corroborating data: From Data collected from: [ ] Medical records reviewed: Previous visits Differential considered: Intracranial hemorrhage CVA sepsis infection Exam documented above, pertinent findings include: Baseline confusion Lab Test results independently reviewed as above. Pertinent findings: As above Independently reviewed EKG as above Imaging studies independently reviewed: Consultations: [ ] Treatments: None Re-evaluations: The same Discussion:[ ] Diagnosis: Headache Disposition: see below, along with detailed discharge instructions that have been reviewed with patient as well as indications for ED re-evaluation and additional outpatient follow up Discharge Plan Departure Patient Disposition: Home Clinical Impression: Headache Instructions: DI for Headache Activity Restrictions/Additional Instructions: *You have been diagnosed with headache *What to do: At this time blood work and CT scan are reassuring. You may take a COVID test at home if you feel like it is necessary *Continue to take medications as directed Tylenol 650 mg every 4-6 hours if needed for joty-xu-ziuexjij *Follow up with your primary care provider in 2-3 days or call [phone] *Return to ER if you should have increasing headache weakness confusion vomiting or any new, worsening or concerning symptoms Prescriptions: No Action sertraline [Zoloft] 50 mg tablet 100 mg PO BEDTIME Qty: 60 3RF amlodipine [Norvasc] 5 mg Tablet 5 mg PO DAILY Qty: 30 0RF furosemide 20 mg tablet 20 mg PO DAILY PRN (Reason: edema) Label Comments: Patient states I take it when I notice my edema increasing tamsulosin 0.4 mg capsule 0.4 mg PO BEDTIME allopurinol 300 mg tablet 300 mg PO BEDTIME lisinopril 40 mg tablet 40 mg PO BEDTIME Eliquis 5 mg tablet 5 mg PO BID Referrals: Darryl Damon MD [Primary Care Provider] - Stand Alone Forms: Patient Portal/API
[2022-09-28 17:36] LABS: Creatine Kinase 38 U/L (55-170)
== END 2022-09-28 18:48 | disposition home or self-care (01) ==
PROVIDERS: Emergency Provider Emergency Medicine; PCP Internal Medicine
DX: R51.9 Headache, unspecified (principal); R07.9 Chest pain, unspecified; I48.20 Chronic atrial fibrillation, unspecified; Z79.01 Long term (current) use of anticoagulants; F03.90 Unspecified dementia, unspecified severity, without behavioral disturbance, psychotic disturbance, mood disturbance, and anxiety
CPT/HCPCS: 36415; 70450; 71045; 80053; 82550; 83690; 84484; 85025; 93005; 93010; 99284

== ENCOUNTER 2022-10-17 16:42 | Emergency (ER) | payer MEDICARE, SELFPAY ==
[2021-06-24 20:11] VITALS: BMI 26.3
[2022-10-17] VITALS (48 sets, daily range): BP systolic 119–168; BP diastolic 60–103; PULSE 53–73; RESP 13–24; TEMP 36.6; O2SAT 91–100
--- NOTE | 2022-10-17 | DI.MRI.S_ITS ---
PROCEDURE: MR LUMBAR SPINE WO CON INDICATIONS: RECENT FALL - LEG WEAKNESS TECHNIQUE: The patient terminated this examination early, after the sagittal T2 weighted images were performed. An attempt was made at the sagittal T1 weighted images, yet there is prominent motion artifact. COMPARISON: None. FINDINGS: Image quality: Excellent. Alignment and Curvature: There is normal bony alignment. Bone Marrow: Marrow is of normal overall signal. No acute vertebral body compression fractures. Spinal Cord: Conus medullaris terminates at the L1 level. Visualized cord demonstrates normal signal and size. Paraspinous Soft Tissues: No paravertebral masses. Generalized degenerative changes are seen, with at least moderate disc space narrowing throughout the lumbar spine. Each lumbar level demonstrates at least moderate neural foraminal narrowing. At least moderate central canal narrowing can be seen at C3-C4, with milder degrees of central canal narrowing seen elsewhere IMPRESSION: Highly limited study, which was terminated early by the patient. Multiple levels of prominent lumbar spine degenerative change can be seen. Dictated by: Amando Shoemaker M.D. on 10/17/2022 at 18:16 Approved by: Amando Shoemaker M.D. on 10/17/2022 at 18:18
--- NOTE | 2022-10-17 17:03 | DI.CT.S_ITS ---
PROCEDURE: CT HEAD/BRAIN WO CON INDICATIONS: fall t-2, extrem weakness. TECHNIQUE: Noncontrast 4.5 mm thick angled axial sections acquired from the foramen magnum to the vertex, with coronal and sagittal reformats. For radiation dose reduction, the following was used: automated exposure control, adjustment of mA and/or kV according to patient size. COMPARISON: [facility], CT, CT HEAD/BRAIN WO CON, 06/26/2022, 19:31. [facility], CT, CT STROKE, 04/13/2022, 17:11. [facility], CT, CT CERVICAL SPINE WO CON, 10/17/2022, 17:17. [facility], CT, CT HEAD/BRAIN WO CON, 09/28/2022, 15:26. FINDINGS: Image quality: Excellent. CSF spaces: Basal cisterns are patent. No extra-axial fluid collections. The ventricles are symmetric in size and shape. Brain: No intracranial bleeds or masses. There is cerebral volume loss for age, with resultant ventricular and sulcal prominence. There are periventricular and deep white matter chronic small vessel ischemic changes. There is intracranial internal carotid artery atherosclerosis. Skull and face: Calvarium and visualized facial bones appear intact, without suspicious lesions. Sinuses: There is moderate mucosal thickening within the left maxillary sinus. The paranasal sinuses are otherwise relatively clear. The frontal sinuses are poorly developed. No abnormal fluid is seen within the mastoid air cells. IMPRESSION: No acute intracranial hemorrhage is seen. No acute intracranial process is seen. Dictated by: Amando Shoemaker M.D. on 10/17/2022 at 16:30 Approved by: Amando Shoemaker M.D. on 10/17/2022 at 16:31
--- NOTE | 2022-10-17 17:05 | DI.RAD.S_ITS ---
PROCEDURE: XR CHEST 1V INDICATIONS: fall, shortness of breath TECHNIQUE: One view of the chest was acquired. COMPARISON: [facility], CR, XR CHEST 2V, 09/01/2022, 10:12. [facility], CR, XR CHEST 1V, 09/28/2022, 15:20. FINDINGS: Surgical changes and devices: None. Lungs and pleura: Lungs are clear. No pleural effusions or pneumothorax. Mediastinum: Mediastinal contours appear normal. Heart size is moderately increased. Bones and chest wall: No suspicious bony lesions. Overlying soft tissues appear unremarkable. IMPRESSION: Moderate cardiomegaly. No confluent pulmonary edema. Dictated by: Salma Moyer M.D. on 10/17/2022 at 17:24 Approved by: Salma Moyer M.D. on 10/17/2022 at 17:25
--- NOTE | 2022-10-17 17:19 | DI.CT.S_ITS ---
PROCEDURE: CT CERVICAL SPINE WO CON INDICATIONS: fall t-2, extrem weakness. TECHNIQUE: Noncontrast 3 mm thick sections acquired from the skull base to the T4 level. Sagittal and coronal reformats were then constructed. For radiation dose reduction, the following was used: automated exposure control, adjustment of mA and/or kV according to patient size. COMPARISON: [facility], CERVICAL SPINE 2 OR 3 VIEWS, 07/13/2009, 15:10. FINDINGS: Image quality: Excellent. Bones: No fractures or dislocations. There is grade 1 anterolisthesis of C2 on C3. There are postsurgical changes with discectomy and surgical fusion at C3-C4. Degenerative disc disease is present, jvqrwxvr-id-zhvxym at C4-C5, C5-C6, C6-C7 and C7-T1. Ifya-rf-diuznzog facet arthropathy in cervical spine bilaterally at multiple levels, most pronounced at C2-C3. Ftddkquq-iu-olrsql atlantoaxial joint degeneration. Visualized superior ribs are intact. Soft tissues: Prevertebral soft tissues are normal in thickness. No paravertebral hematomas. No apical pneumothoraces. IMPRESSION: 1. No acute osseous injuries in cervical spine. 2. 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 Dictated by: Salma Moyer M.D. on 10/17/2022 at 17:25 Approved by: Salma Moyer M.D. on 10/17/2022 at 17:32
[2022-10-17 17:21] LABS: Add Manual Diff / Slide Review NO; Basophils Absolute Auto 0 /uL (0-100); Basophils Percent Auto 0.3 % (0-2); Eosinophils Absolute Auto 600 /uL (0-450); Eosinophils Percent Auto 6.7 % (2-4); Hemoglobin 12.9 g/dL (13.5-17.5); Lymphocytes Absolute Auto 2100 /uL (1100-4500); Lymphocytes Percent Auto 24.4 % (25-40); Mean Corpuscular HGB Conc 33.9 % (30-36); Mean Corpuscular Hemoglobin 31.5 PG (26-34); Mean Corpuscular Volume 92.8 fL (80-100); Monocytes Absolute Auto 700 /uL (0-900); Neutrophils Absolute Auto 5100 /uL (1500-7000); Neutrophils Percent Auto 60.6 % (50-75); Platelet Count 151 X10^3/uL (150-400); Red Blood Cell Count 4.09 X10^6/uL (4.5-5.9); Red Cell Distribution Width 15.2 % (11.6-14.8); White Blood Cell Count 8.4 X10^3/uL (4.5-11.0)
[2022-10-17 17:29] LABS: Prothrombin Time 11.7 SECONDS (10.1-12.7)
[2022-10-17 17:31] LABS: PTT Partial Thromboplastin Tim 32 SECONDS (26-36)
[2022-10-17 17:32] LABS: Creatine Kinase 42 U/L (55-170)
[2022-10-17 17:34] LABS: Alanine Aminotransferase 53 IU/L (<50); Albumin 4.3 g/dL (3.5-5.0); Albumin Globulin Ratio 1.6 (1.0-2.8); Alkaline Phosphatase 81 U/L (38-126); Aspartate Aminotransferase 39 IU/L (17-59); BUN Creatinine Ratio 37.6 (6-22); Bilirubin Total 0.4 mg/dL (0.2-1.3); Blood Urea Nitrogen 41 mg/dL (9-20); Calcium 9.2 mg/dL (8.4-10.2); Carbon Dioxide 23 mmol/L (22-32); Chloride 106 mmol/L (98-107); Estimated Glomerular Filt Rate > 60 mL/min (>60); Globulin 2.7 g/dL (1.7-4.1); Glucose 141 mg/dL (80-110); HEMOLYSIS < 15 (0-50); Lactate (Lactic Acid) 1.5 mmol/L (0.7-2.1); Potassium 4.7 mmol/L (3.4-5.1); Sodium 138 mmol/L (137-145)
[2022-10-17 17:45] LABS: NT-proBNP (BNP-Adult 18+) 625 pg/mL (<450); Troponin I 0.069 ng/mL (0.01-0.034)
--- NOTE | 2022-10-17 18:10 | DI.MRI.S_ITS ---
PROCEDURE: MR CERVICAL SPINE WO CON INDICATIONS: fall, neck pain, upper extremity weakness TECHNIQUE: Noncontrast sagittal T1 spin echo and T2 fast spin echo, sagittal STIR, foraminal oblique sagittal T2 fast spin echo, and axial gradient echo or T2 fast spin echo through the cervical spine. COMPARISON: [facility], MR, MR LUMBAR SPINE WO CON, 10/17/2022, 18:41. [facility], CT, CT CERVICAL SPINE WO CON, 10/17/2022, 17:17. FINDINGS: Image quality: This examination is limited by involuntary motion artifact. There is artifact associated with the metallic hardware. Alignment and Curvature: There is normal bony alignment. Bone Marrow: Marrow demonstrates normal overall signal. Spinal Cord: Visualized spinal cord has normal size and signal. No cerebellar tonsillar herniation. Paraspinous Soft Tissues: No paravertebral masses. Prevertebral soft tissues are normal in thickness. C2-C3: Moderate loss of disc height is seen. Loss of disc signal is seen. Moderate generalized disc osteophyte complex is seen. There is hypertrophy of the posterior elements seen at this level. There is a central disc osteophyte protrusion seen. At least moderate facet hypertrophy is seen. There is at least moderate bilateral neural foraminal narrowing seen. Moderate to severe central canal narrowing is seen, with associated cord flattening, as on series 4, image 14 and on series 3, image 7. C3-C4: There is a degree of vertebral body fusion at this level, with severe disc space narrowing. At least moderate disc osteophyte complex is seen. There is at least moderate facet hypertrophy. There is moderate to severe right-sided and at least moderate left-sided neural foraminal narrowing. Moderate central canal narrowing is seen. There is associated mass effect upon the ventral spinal cord. C4-C5: Anterior fusion hardware is seen at this level. Moderate disc osteophyte complex is seen, with a central/left disc osteophyte protrusion. Moderate facet joint hypertrophy is seen. There is at least moderate right-sided and moderate to severe left-sided neural foraminal narrowing. At least moderate central canal narrowing is seen, with associated mass effect upon the ventral spinal cord. C5-C6: Moderate to severe loss of disc height and disc signal can be seen at this level. There is at least moderate disc osteophyte complex seen, which is eccentric to the left. Uncovertebral joint hypertrophy is seen at this level. At least moderate facet hypertrophy is seen. There is moderate to severe bilateral neural foraminal narrowing seen. Moderate to severe central canal narrowing is seen, with associated cord flattening, as on series 4, image 24 and on series 3, image 7. C6-C7: There is at least moderate loss of disc height and disc signal seen. Reactive marrow endplate changes are seen, which are hyperintense on T1-weighted and T2-weighted imaging and most consistent with fatty metaplasia (Modic type II changes). At least moderate disc bulge is seen. There is a central/left disc osteophyte protrusion. At least moderate facet hypertrophy can be seen at this level. Moderate to severe bilateral neural foraminal narrowing can be seen. At least moderate central canal narrowing is seen. There is associated mass effect upon the ventral spinal cord. C7-T1: At least moderate loss of disc height and disc signal is seen at this level. At least moderate disc bulge is seen. Moderate facet joint hypertrophy is seen. There is at least moderate bilateral neural foraminal narrowing seen. Mild to moderate central canal narrowing is seen. IMPRESSION: Focal degenerative change with associated cord flattening at the C2-C3 level and at the C5-C6 level. No definite abnormal cord signal can be seen at this site. Anterior fixation hardware is seen at C4-C5. Severe disc space narrowing with a degree of bony fusion can be seen at C3-C4. Dictated by: Amando Shoemaker M.D. on 10/17/2022 at 18:10 Approved by: Amando Shoemaker M.D. on 10/17/2022 at 18:16
--- NOTE | 2022-10-17 18:22 | ED.WEAKNESS ---
HPI - Weakness General Chief complaint: Weakness Stated complaint: fell and hit head, difficulty breathing Time Seen by Provider: 10/17/22 17:04 Source: patient and family Mode of arrival: Wheelchair History of Present Illness HPI Narrative: 81M non smoker with history of dementia, CAD with prior NSTEMI, Alzheimers, AFib on eliquis presents with his in the chief complaint some head pain after a fall a few days ago. He is a very poor historian and confused at baseline, at the bedside states he is acting at his baseline she has little concern but is here because of a fall with head injury on blood thinners. Is unclear exactly how the fall happened but he has been complaining of some right-sided head pain. He is had no vomiting and been acting at baseline as noted above. He has no chest pain or shortness of breath and denies any extremity injury. Related Data Home Medications Medication Instructions Recorded Confirmed allopurinol 300 mg tablet 300 mg PO BEDTIME 09/13/19 08/09/21 apixaban 5 mg tablet (Eliquis) 5 mg PO BID 09/13/19 08/09/21 lisinopril 40 mg tablet 40 mg PO BEDTIME 09/13/19 08/09/21 tamsulosin 0.4 mg capsule 0.4 mg PO BEDTIME 09/13/19 08/09/21 furosemide 20 mg tablet 20 mg PO DAILY PRN edema 06/08/21 08/09/21 Previous Rx's Medication Instructions Recorded amlodipine 5 mg tablet (Norvasc) 5 mg PO DAILY #30 tabs 03/13/21 sertraline 50 mg tablet (Zoloft) 100 mg PO BEDTIME #60 tabs 07/13/21 Allergies Allergy/AdvReac Type Severity Reaction Status Date / Time Pfldoqo-OUC-WuH Reductase AdvReac Mild CAUSES Verified 10/17/22 17:14 Inhibitor PAIN IN [Fchsfhw-Zeh-Fvf Reductase LEGS - Inhibitor] ELECTRIC SHOCK Sulfa (Sulfonamide AdvReac Mild EXACERBATES Verified 10/17/22 17:14 Antibiotics) GOUT [SULFA (SULFONAMIDE ANTIBIOTICS)] Review of Systems Review of Systems Narrative: GENERAL: See HPI HEENT: Denies sinus pain, ear pain, sore throat, difficulty swallowing, dizziness. RESPIRATORY: Denies dyspnea, cough, wheezing, hemoptysis, sputum. CARDIOVASCULAR: Denies chest pain, palpitations, orthopnea, edema, GASTROINTESTINAL: Denies nausea, vomiting, abdominal pain, diarrhea, constipation, melena. : Denies dysuria, frequency, incontinence, hematuria, urinary retention. MUSCULOSKELETAL: denies weakness, joint pain, or bony pain SKIN: Denies rash, skin lesions, or other NEUROLOGIC: See HPI PSYCHIATRIC: No concerning psychosocial issues. 12 point review of systems is negative except for those stated above Patient History Medical History Atrial fibrillation and flutter History of drug overdose Hyperlipidemia Hypertension Surgical History H/O cervical spine surgery History of cardiac radiofrequency ablation Family History Mother Colon cancer Father Unknown family medical history Social History household members: spouse Smoking Status: Never smoker alcohol intake: current Smoking Status: Never smoker alcohol intake frequency: holidays/special occasions only Substance Use Type: does not use Exam Narrative Exam Narrative: GENERAL: [81] year old patient appears stated age. Well-developed patient, in mild distress. Confused (GCS 14 but at baseline per ) HEAD: Atraumatic. Normocephalic. No contusion, abrasion or hematoma. No evidence of depressed skull fracture EYES: Pupils equal round and reactive. Extraocular motions intact. No scleral icterus. No injection or drainage. ENT: Nose without bleeding, purulent drainage. Throat without erythema, tonsillar hypertrophy or exudate. Airway patent. NECK: Trachea midline. Non tender CARDIOVASCULAR: Regular rate and rhythm without murmurs, gallops, or rubs. RESPIRATORY: Clear to auscultation. Breath sounds equal bilaterally. No wheezes, rales, or rhonchi. GASTROINTESTINAL: Abdomen soft, non-tender, nondistended. EXTREMITIES: No edema or joint tenderness. BACK: Nontender without deformity or crepitance. No flank tenderness. NEURO: Cranial nerves 2-12 grossly intact SKIN: No rash or erythema of visible areas Initial Vital Signs Initial Vital Signs: Vital Signs Temperature 97.8 F 10/17/22 17:00 Pulse Rate 55 L 10/17/22 17:00 Respiratory Rate 16 10/17/22 17:00 Pulse Oximetry 100 10/17/22 17:00 Oxygen Delivery Method 10/17/22 17:00 Course Orders Ordered: ED Orders 10/17/22 17:03 CT head/brain wo con Stat 10/17/22 17:05 XR chest 1V Stat 10/17/22 17:06 EKG-12 Lead Stat 10/17/22 17:10 BNP [NT-proBNP (BNP-Adult 18+)] Stat Complete Blood Count AUTO DIFF Stat Comprehensive Metabolic Panel Stat Lactate (Lactic Acid) Stat Partial Thromboplastin Time Stat Prothrombin Time INR Stat Troponin & CK Cardiac Panel Stat 10/17/22 17:19 CT cervical spine wo con Stat 10/17/22 17:30 Type and Screen Stat 10/17/22 18:10 MR cervical spine wo con Stat Vital Signs Vital signs: Vital Signs - 8 hr 10/17/22 17:50 10/17/22 17:50 10/17/22 17:55 Pulse Rate 54 L 53 L Respiratory Rate 22 24 Blood Pressure 146/66 H Pulse Oximetry 99 99 10/17/22 18:00 10/17/22 18:00 10/17/22 18:05 Pulse Rate 55 L 57 L Respiratory Rate 17 23 Blood Pressure 137/68 Pulse Oximetry 99 98 10/17/22 18:10 10/17/22 18:11 10/17/22 18:11 Pulse Rate 65 65 Respiratory Rate 21 Blood Pressure 134/64 Pulse Oximetry 100 99 10/17/22 18:15 10/17/22 18:20 10/17/22 19:10 Pulse Rate 59 L 60 53 L Respiratory Rate 20 Blood Pressure Pulse Oximetry 98 91 97 10/17/22 19:12 10/17/22 19:12 10/17/22 19:15 Pulse Rate 53 L 53 L Respiratory Rate 13 Blood Pressure 119/86 Pulse Oximetry 98 99 10/17/22 19:20 10/17/22 19:21 10/17/22 19:21 Pulse Rate 59 L 53 L Respiratory Rate 23 19 Blood Pressure 131/103 H Pulse Oximetry 97 98 10/17/22 19:25 10/17/22 19:30 10/17/22 19:33 Pulse Rate 53 L 56 L 55 L Respiratory Rate 17 17 18 Blood Pressure Pulse Oximetry 97 98 95 10/17/22 19:33 10/17/22 19:35 10/17/22 19:40 Pulse Rate 53 L 61 Respiratory Rate 15 18 Blood Pressure 151/65 H Pulse Oximetry 97 96 10/17/22 19:41 10/17/22 19:41 10/17/22 19:45 Pulse Rate 55 L 63 Respiratory Rate 14 19 Blood Pressure 130/60 Pulse Oximetry 97 97 10/17/22 19:50 10/17/22 19:50 10/17/22 19:55 Pulse Rate 57 L 55 L Respiratory Rate 16 16 Blood Pressure 145/65 H Pulse Oximetry 96 97 10/17/22 20:00 10/17/22 20:05 10/17/22 20:10 Pulse Rate 53 L 53 L 55 L Respiratory Rate 18 17 22 Blood Pressure Pulse Oximetry 97 96 95 10/17/22 20:15 10/17/22 20:20 10/17/22 20:25 Pulse Rate 53 L 54 L 54 L Respiratory Rate 15 24 18 Blood Pressure Pulse Oximetry 96 97 97 10/17/22 20:30 10/17/22 20:31 10/17/22 20:35 Pulse Rate 63 59 L 54 L Respiratory Rate 18 Blood Pressure Pulse Oximetry 96 96 96 10/17/22 20:40 10/17/22 20:45 10/17/22 20:50 Pulse Rate 56 L 57 L 71 Respiratory Rate 21 20 Blood Pressure Pulse Oximetry 96 96 98 10/17/22 20:51 10/17/22 20:51 10/17/22 20:55 Pulse Rate 73 72 Respiratory Rate Blood Pressure 168/77 H Pulse Oximetry 94 97 10/17/22 21:00 10/17/22 21:01 10/17/22 21:01 Pulse Rate 61 59 L Respiratory Rate Blood Pressure 155/68 H Pulse Oximetry 97 97 10/17/22 21:05 Pulse Rate 67 Respiratory Rate 18 Blood Pressure Pulse Oximetry 97 MDM - Weakness Lab Data 10/17/22 17:10 10/17/22 17:10 Labs: Lab Results 10/17/22 10/17/22 10/17/22 Range/Units 17:10 17:10 17:10 WBC 8.4 (4.5-11.0) X10^3/uL RBC 4.09 L (4.5-5.9) X10^6/uL Hgb 12.9 L (13.5-17.5) g/dL Hct 38.0 L (41-53) % MCV 92.8 (80-100) fL MCH 31.5 (26-34) PG MCHC 33.9 (30-36) % RDW 15.2 H (11.6-14.8) % Plt Count 151 (150-400) X10^3/uL Neut % (Auto) 60.6 (50-75) % Lymph % (Auto) 24.4 L (25-40) % [place] % (Auto) 8.0 (3-14) % Eos % (Auto) 6.7 H (2-4) % Baso % (Auto) 0.3 (0-2) % Neut # (Auto) 5100 (3324-3048) /uL Lymph # (Auto) 2100 (5414-5852) /uL [place] # (Auto) 700 (0-900) /uL Eos # (Auto) 600 H (0-450) /uL Baso # (Auto) 0 (0-100) /uL PT 11.7 (10.1-12.7) SECONDS INR 1.0 (0.9-1.3) APTT 32 (26-36) SECONDS Sodium 138 (137-145) mmol/L Potassium 4.7 (3.4-5.1) mmol/L Chloride 106 (98-107) mmol/L Carbon Dioxide 23 (22-32) mmol/L BUN 41 H (9-20) mg/dL Creatinine 1.09 (0.66-1.25) mg/dL Estimated GFR > 60 (>60) mL/min BUN/Creatinine Ratio 37.6 H (6-22) Glucose 141 H (80-110) mg/dL Lactate (0.7-2.1) mmol/L Calcium 9.2 (8.4-10.2) mg/dL Total Bilirubin 0.4 (0.2-1.3) mg/dL AST 39 (17-59) IU/L ALT 53 H (<50) IU/L Alkaline Phosphatase 81 (38-126) U/L Total Creatine Kinase (55-170) U/L CK-MB (CK-2) CK-MB (CK-2) Rel Index Troponin I (0.01-0.034) ng/mL NT-Pro-B Natriuret Pep (<450) pg/mL Total Protein 7.0 (6.3-8.2) g/dL Albumin 4.3 (3.5-5.0) g/dL Globulin 2.7 (1.7-4.1) g/dL Albumin/Globulin Ratio 1.6 (1.0-2.8) Blood Type Antibody Screen 10/17/22 10/17/22 10/17/22 Range/Units 17:10 17:10 17:30 WBC (4.5-11.0) X10^3/uL RBC (4.5-5.9) X10^6/uL Hgb (13.5-17.5) g/dL Hct (41-53) % MCV (80-100) fL MCH (26-34) PG MCHC (30-36) % RDW (11.6-14.8) % Plt Count (150-400) X10^3/uL Neut % (Auto) (50-75) % Lymph % (Auto) (25-40) % [place] % (Auto) (3-14) % Eos % (Auto) (2-4) % Baso % (Auto) (0-2) % Neut # (Auto) (5287-7455) /uL Lymph # (Auto) (1414-4037) /uL [place] # (Auto) (0-900) /uL Eos # (Auto) (0-450) /uL Baso # (Auto) (0-100) /uL PT (10.1-12.7) SECONDS INR (0.9-1.3) APTT (26-36) SECONDS Sodium (137-145) mmol/L Potassium (3.4-5.1) mmol/L Chloride (98-107) mmol/L Carbon Dioxide (22-32) mmol/L BUN (9-20) mg/dL Creatinine (0.66-1.25) mg/dL Estimated GFR (>60) mL/min BUN/Creatinine Ratio (6-22) Glucose (80-110) mg/dL Lactate 1.5 (0.7-2.1) mmol/L Calcium (8.4-10.2) mg/dL Total Bilirubin (0.2-1.3) mg/dL AST (17-59) IU/L ALT (<50) IU/L Alkaline Phosphatase (38-126) U/L Total Creatine Kinase 42 L (55-170) U/L CK-MB (CK-2) TNP CK-MB (CK-2) Rel Index TNP Troponin I 0.069 H (0.01-0.034) ng/mL NT-Pro-B Natriuret Pep 625 H (<450) pg/mL Total Protein (6.3-8.2) g/dL Albumin (3.5-5.0) g/dL Globulin (1.7-4.1) g/dL Albumin/Globulin Ratio (1.0-2.8) Blood Type O Positive Antibody Screen Negative Urine Dip Bedside Urine Glucose Negative Bedside Urine Bilirubin - Negative Bedside Urine Ketone - Negative Urine Specific [place] 1.015 Bedside Urine Occult Blood - Negative Bedside Urine pH 6.0 Bedside Urine Protein - Negative Bedside Urine Urobilinogen 0.2 Bedside Urine Nitrite - Negative Bedside Urine Leukocytes - Negative Esterase MDM Narrative Medical decision making narrative: CC: 81-year-old with ground level fall and head injury on anticoagulation, confused at baseline but acting normal per . At times does complaint of neck pain Complicating co-morbidities: Age, anticoagulation, AFib, cardiac disease Data collected from: Patient and Medical records reviewed: multiple prior ED visits in EMR Differential considered, but not limited to: Scalp contusion, intracranial hemorrhage, neck sprain, fracture versus other Exam documented above, pertinent findings include: Lab Test results independently reviewed as above. Pertinent findings: No significant findings requiring intervention Imaging studies independently reviewed: Head CT without intracranial hemorrhage, C-spine without fracture, MR obtained given brief complaint of arm weakness a few days ago Discussion: 81-year-old male with multiple comorbidities on anticoagulation presents for evaluation of headache after ground level fall with head injury. Patient has very little complaint, has been acting at baseline per . Imaging very reassuring, labs without significant abnormalities. No indication that further evaluation or treatment is indicated Disposition: see below, along with detailed discharge instructions that have been reviewed with patient as well as indications for ED re-evaluation and additional outpatient follow up Discharge Plan Departure Patient Disposition: Home Clinical Impression: Headache, Fall Instructions: How to Prevent Falls Activity Restrictions/Additional Instructions: *You have been diagnosed with [fall with headache, as we discussed your history and physical exam as well as pictures are very reassuring and there is no evidence of bleeding in your brain or any fracture] *What to do: *Please continue to take your regular medications as directed. *Please follow up with your primary care provider in 2-3 days, call for an appointment. Let them know you were seen in the Emergency Department and that we ask that you be seen in follow up. We will electronically transmit a record of today's note if your PCP is in our system *If you do not have a primary care provider please contact the [facility] Resource line at [phone]. They will ask some questions about your medical history and help get you set up with a doctor in the community. *Return to Emergency Department if you should have any new, worsening or concerning symptoms, such as [fever greater than 101 F, shaking chills, worsening pain, persistent vomiting or other bothersome symptoms] Prescriptions: No Action sertraline [Zoloft] 50 mg tablet 100 mg PO BEDTIME Qty: 60 3RF amlodipine [Norvasc] 5 mg Tablet 5 mg PO DAILY Qty: 30 0RF furosemide 20 mg tablet 20 mg PO DAILY PRN (Reason: edema) Label Comments: Patient states I take it when I notice my edema increasing tamsulosin 0.4 mg capsule 0.4 mg PO BEDTIME allopurinol 300 mg tablet 300 mg PO BEDTIME lisinopril 40 mg tablet 40 mg PO BEDTIME Eliquis 5 mg tablet 5 mg PO BID Referrals: Darryl Damon MD [Primary Care Provider] - Stand Alone Forms: Patient Portal/API
== END 2022-10-17 21:18 | disposition home or self-care (01) ==
PROVIDERS: Emergency Medicine; Emergency Provider Emergency Medicine; PCP Internal Medicine
DX: R51.9 Headache, unspecified (principal); S09.90XA Unspecified injury of head, initial encounter; M54.2 Cervicalgia; R07.9 Chest pain, unspecified; Z79.01 Long term (current) use of anticoagulants
CPT/HCPCS: 36415; 70450; 71045; 72125; 72141; 72148; 80053; 81003; 82550; 83605; 83880; 84484; 85025; 85610; 85730; 86850; 86900; 86901; 93005; 99284

== ENCOUNTER 2022-12-16 14:57 | Emergency (ER) | payer MEDICARE, SELFPAY ==
[2021-06-24 20:11] VITALS: BMI 26.3
[2022-12-16] VITALS (16 sets, daily range): BP systolic 132–192; BP diastolic 62–88; PULSE 55–80; RESP 11–29; TEMP 36.6; O2SAT 93–100
--- NOTE | 2022-12-16 15:12 | DI.RAD.S_ITS ---
PROCEDURE: XR CHEST 1V INDICATIONS: chest pain TECHNIQUE: One view of the chest was acquired. COMPARISON: [facility], CR, XR CHEST 2V, 09/01/2022, 10:12. [facility], CR, XR CHEST 1V, 09/28/2022, 15:20. [facility], CR, XR CHEST 1V, 10/17/2022, 17:04. FINDINGS: Surgical changes and devices: Cervical fixation hardware is partially seen. Lungs and pleura: On this semiupright portable chest examination, no large pneumothorax or large pleural effusions are seen. No focal infiltrates are seen. Interstitial prominence can be seen. Mediastinum: Mediastinal contours appear normal. Heart size is moderately enlarged. Bones and chest wall: No suspicious bony lesions. Age-appropriate bony degenerative changes are seen. Overlying soft tissues appear unremarkable. IMPRESSION: Cardiomegaly and mild interstitial prominence can be seen. Please consider mild/early CHF. Postoperative and degenerative changes are seen. Dictated by: Amando Shoemaker M.D. on 12/16/2022 at 14:46 Approved by: Amando Shoemaker M.D. on 12/16/2022 at 14:47
[2022-12-16 15:22] LABS: Add Manual Diff / Slide Review NO; Basophils Absolute Auto 100 /uL (0-100); Basophils Percent Auto 0.6 % (0-2); Eosinophils Absolute Auto 600 /uL (0-450); Eosinophils Percent Auto 6.9 % (2-4); Hematocrit 36.6 % (41-53); Hemoglobin 12.3 g/dL (13.5-17.5); Lymphocytes Absolute Auto 2300 /uL (1100-4500); Lymphocytes Percent Auto 25.4 % (25-40); Mean Corpuscular HGB Conc 33.7 % (30-36); Mean Corpuscular Hemoglobin 31.9 PG (26-34); Mean Corpuscular Volume 94.7 fL (80-100); Monocytes Absolute Auto 900 /uL (0-900); Monocytes Percent Auto 9.5 % (3-14); Neutrophils Absolute Auto 5200 /uL (1500-7000); Neutrophils Percent Auto 57.6 % (50-75); Platelet Count 147 X10^3/uL (150-400); Red Blood Cell Count 3.86 X10^6/uL (4.5-5.9)
[2022-12-16 15:26] LABS: INR 1.1 (0.9-1.3); Prothrombin Time 12.1 SECONDS (10.1-12.7)
--- NOTE | 2022-12-16 15:27 | PC.NURSE ---
Addendum entered by Carlos Rollins R.N. 12/16/22 15:31: Pt states pain on his right side has been going on for about a week. Provider aware of patient presentation. Original Note: Pt is poor historian, also confused on some details of his health history, but reporting her has early stages of Alzheimer. Pt main complaint is pain from his right toe up my leg, up my (right) arm, up my (right) neck, along with some LEFT sided chest pain. Pt unable to lift right leg. Pt repeatedly touches left chest and says the pain goes across, and points to upper abdomen. Pt has episodes of tearfulness then outbursts of anger. Encouraged to use call light for needs.
[2022-12-16 15:29] LABS: PTT Partial Thromboplastin Tim 33 SECONDS (26-36)
[2022-12-16 15:30] LABS: Alanine Aminotransferase 28 IU/L (<50); Albumin 4.3 g/dL (3.5-5.0); Albumin Globulin Ratio 1.5 (1.0-2.8); Alkaline Phosphatase 92 U/L (38-126); Aspartate Aminotransferase 27 IU/L (17-59); Bilirubin Total 0.4 mg/dL (0.2-1.3); Blood Urea Nitrogen 23 mg/dL (9-20); Calcium 9.7 mg/dL (8.4-10.2); Carbon Dioxide 24 mmol/L (22-32); Chloride 108 mmol/L (98-107); Creatine Kinase 38 U/L (55-170); Estimated Glomerular Filt Rate > 60 mL/min (>60); Globulin 2.9 g/dL (1.7-4.1); Glucose 103 mg/dL (80-110); HEMOLYSIS < 15 (0-50); Lipase 69 U/L (23-300); Magnesium 2.1 mg/dL (1.6-2.3); Potassium 4.3 mmol/L (3.4-5.1); Sodium 141 mmol/L (137-145); Total Protein 7.2 g/dL (6.3-8.2)
--- NOTE | 2022-12-16 15:38 | ED.CHESTPAIN ---
HPI - Chest Pain General Chief Complaint: Chest Pain Stated Complaint: chest pain Time Seen by Provider: 12/16/22 15:03 Source: patient Mode of arrival: Wheelchair Limitations: other History of Present Illness HPI narrative: Patient is a 82-year-old male history of Alzheimer's dementia, coronary artery disease with NSTEMI, AFib on Eliquis presenting today with left-sided chest pain. is the primary historian she reports the use complaining of pain last night. She gave him a nitroglycerin and he went back to sleep. This morning he apparently was still complaining of it he says that he can touch it and it hurts. He does not seem to be short of breath no fever. Related Data Home Medications Medication Instructions Recorded Confirmed allopurinol 300 mg tablet 300 mg PO BEDTIME 09/13/19 08/09/21 apixaban 5 mg tablet (Eliquis) 5 mg PO BID 09/13/19 08/09/21 lisinopril 40 mg tablet 40 mg PO BEDTIME 09/13/19 08/09/21 tamsulosin 0.4 mg capsule 0.4 mg PO BEDTIME 09/13/19 08/09/21 furosemide 20 mg tablet 20 mg PO DAILY PRN edema 06/08/21 08/09/21 Previous Rx's Medication Instructions Recorded amlodipine 5 mg tablet (Norvasc) 5 mg PO DAILY #30 tabs 03/13/21 sertraline 50 mg tablet (Zoloft) 100 mg PO BEDTIME #60 tabs 07/13/21 Allergies Allergy/AdvReac Type Severity Reaction Status Date / Time [id number] Reductase AdvReac Mild CAUSES Verified 12/16/22 15:13 Inhibitor PAIN IN [Egoazpo-Chv-Jnq Reductase LEGS - Inhibitor] ELECTRIC SHOCK Sulfa (Sulfonamide AdvReac Mild EXACERBATES Verified 12/16/22 15:13 Antibiotics) GOUT [SULFA (SULFONAMIDE ANTIBIOTICS)] Review of Systems Review of Systems ROS Unobtainable: All systems reviewed & are unremarkable except as noted in HPI and below Patient History Medical History Atrial fibrillation and flutter History of drug overdose Hyperlipidemia Hypertension Surgical History H/O cervical spine surgery History of cardiac radiofrequency ablation Family History Mother Colon cancer Father Unknown family medical history Social History household members: spouse Smoking Status: Never smoker alcohol intake: current Smoking Status: Never smoker alcohol intake frequency: holidays/special occasions only Substance Use Type: does not use Exam Initial Vital Signs Initial Vital Signs: Vital Signs Pulse Rate 68 12/16/22 15:03 Respiratory Rate 29 H 12/16/22 15:03 Pulse Oximetry 97 12/16/22 15:03 GENERAL: Alert pleasantly confused 82-year-old male HEENT: Head atraumatic,EOMI, pupils reactive, face symmetric, moist mucous membranes CARDIOVASCULAR: Regular rate and rhythm without murmurs, rubs or gallops. RESPIRATORY: Breath sounds equal bilaterally, no wheezes rales or rhonchi. ABDOMEN: Soft, nontender. Normoactive bowel sounds all 4 quadrants. No guarding or rebound. EXTREMITIES: Normal range of motion, no clubbing or edema. Neurovascularly intact NEUROLOGICAL: Alert and oriented x1. Value Advisor strength equal bilaterally SKIN: Warm, dry, no laceration, no petechiae, no rashes or lesions. Course Orders Ordered: ED Orders 12/16/22 15:05 Complete Blood Count AUTO DIFF Stat Comprehensive Metabolic Panel Stat Lipase Stat Magnesium Stat PTT Partial Thromboplastin Gautam Stat Prothrombin Time INR Stat Troponin & CK Cardiac Panel Stat 12/16/22 15:12 XR chest 1V Stat 12/16/22 15:21 EKG-12 Lead Stat 12/16/22 16:57 COVID19 -Nasal RAPID Stat 12/16/22 17:05 Trop I [Troponin I] Stat Vital Signs Vital signs: Vital Signs - 8 hr 12/16/22 15:09 12/16/22 15:03 12/16/22 15:08 Temperature 97.9 F Pulse Rate 80 68 Respiratory Rate 20 29 H Blood Pressure 176/81 H 176/81 H Pulse Oximetry 99 97 Oxygen Delivery Method Room Air 12/16/22 15:08 12/16/22 15:10 12/16/22 15:10 Temperature Pulse Rate 59 L 61 Respiratory Rate 22 25 H Blood Pressure 176/80 H Pulse Oximetry 97 100 Oxygen Delivery Method 12/16/22 15:21 12/16/22 15:21 12/16/22 15:30 Temperature Pulse Rate 59 L Respiratory Rate 19 Blood Pressure 185/76 H 175/88 H Pulse Oximetry 100 Oxygen Delivery Method 12/16/22 15:30 12/16/22 15:40 12/16/22 15:40 Temperature Pulse Rate 57 L 55 L Respiratory Rate 24 11 L Blood Pressure 175/78 H Pulse Oximetry 99 98 Oxygen Delivery Method 12/16/22 15:51 12/16/22 15:51 12/16/22 16:00 Temperature Pulse Rate 61 Respiratory Rate 15 Blood Pressure 188/84 H 192/85 H Pulse Oximetry 98 Oxygen Delivery Method 12/16/22 16:00 12/16/22 16:30 12/16/22 16:58 Temperature Pulse Rate 58 L 64 Respiratory Rate 13 21 Blood Pressure 141/67 H Pulse Oximetry 94 97 Oxygen Delivery Method Room Air 12/16/22 16:58 12/16/22 17:00 12/16/22 17:14 Temperature Pulse Rate 63 63 Respiratory Rate Blood Pressure 140/72 Pulse Oximetry 95 94 Oxygen Delivery Method 12/16/22 17:30 Temperature Pulse Rate 79 Respiratory Rate Blood Pressure Pulse Oximetry 93 Oxygen Delivery Method MDM - Chest Pain Lab Data 12/16/22 15:05 12/16/22 15:05 Labs: Lab Results 12/16/22 12/16/22 12/16/22 Range/Units 15:05 15:05 15:05 WBC 9.0 (4.5-11.0) X10^3/uL RBC 3.86 L (4.5-5.9) X10^6/uL Hgb 12.3 L (13.5-17.5) g/dL Hct 36.6 L (41-53) % MCV 94.7 (80-100) fL MCH 31.9 (26-34) PG MCHC 33.7 (30-36) % RDW 15.0 H (11.6-14.8) % Plt Count 147 L (150-400) X10^3/uL Neut % (Auto) 57.6 (50-75) % Lymph % (Auto) 25.4 (25-40) % [place] % (Auto) 9.5 (3-14) % Eos % (Auto) 6.9 H (2-4) % Baso % (Auto) 0.6 (0-2) % Neut # (Auto) 5200 (0647-6375) /uL Lymph # (Auto) 2300 (0828-9445) /uL [place] # (Auto) 900 (0-900) /uL Eos # (Auto) 600 H (0-450) /uL Baso # (Auto) 100 (0-100) /uL PT 12.1 (10.1-12.7) SECONDS INR 1.1 (0.9-1.3) APTT 33 (26-36) SECONDS Sodium 141 (137-145) mmol/L Potassium 4.3 (3.4-5.1) mmol/L Chloride 108 H (98-107) mmol/L Carbon Dioxide 24 (22-32) mmol/L BUN 23 H (9-20) mg/dL Creatinine 0.82 (0.66-1.25) mg/dL Estimated GFR > 60 (>60) mL/min BUN/Creatinine Ratio 28.0 H (6-22) Glucose 103 (80-110) mg/dL Calcium 9.7 (8.4-10.2) mg/dL Magnesium 2.1 (1.6-2.3) mg/dL Total Bilirubin 0.4 (0.2-1.3) mg/dL AST 27 (17-59) IU/L ALT 28 (<50) IU/L Alkaline Phosphatase 92 (38-126) U/L Total Creatine Kinase 38 L (55-170) U/L CK-MB (CK-2) TNP CK-MB (CK-2) Rel Index TNP Troponin I 0.077 H (0.01-0.034) ng/mL Total Protein 7.2 (6.3-8.2) g/dL Albumin 4.3 (3.5-5.0) g/dL Globulin 2.9 (1.7-4.1) g/dL Albumin/Globulin Ratio 1.5 (1.0-2.8) Lipase 69 (23-300) U/L SARS-CoV-2 (PCR) (Negative) 12/16/22 12/16/22 Range/Units 16:57 17:05 WBC (4.5-11.0) X10^3/uL RBC (4.5-5.9) X10^6/uL Hgb (13.5-17.5) g/dL Hct (41-53) % MCV (80-100) fL MCH (26-34) PG MCHC (30-36) % RDW (11.6-14.8) % Plt Count (150-400) X10^3/uL Neut % (Auto) (50-75) % Lymph % (Auto) (25-40) % [place] % (Auto) (3-14) % Eos % (Auto) (2-4) % Baso % (Auto) (0-2) % Neut # (Auto) (3771-2438) /uL Lymph # (Auto) (4815-4150) /uL [place] # (Auto) (0-900) /uL Eos # (Auto) (0-450) /uL Baso # (Auto) (0-100) /uL PT (10.1-12.7) SECONDS INR (0.9-1.3) APTT (26-36) SECONDS Sodium (137-145) mmol/L Potassium (3.4-5.1) mmol/L Chloride (98-107) mmol/L Carbon Dioxide (22-32) mmol/L BUN (9-20) mg/dL Creatinine (0.66-1.25) mg/dL Estimated GFR (>60) mL/min BUN/Creatinine Ratio (6-22) Glucose (80-110) mg/dL Calcium (8.4-10.2) mg/dL Magnesium (1.6-2.3) mg/dL Total Bilirubin (0.2-1.3) mg/dL AST (17-59) IU/L ALT (<50) IU/L Alkaline Phosphatase (38-126) U/L Total Creatine Kinase (55-170) U/L CK-MB (CK-2) CK-MB (CK-2) Rel Index Troponin I 0.078 H (0.01-0.034) ng/mL Total Protein (6.3-8.2) g/dL Albumin (3.5-5.0) g/dL Globulin (1.7-4.1) g/dL Albumin/Globulin Ratio (1.0-2.8) Lipase (23-300) U/L SARS-CoV-2 (PCR) Negative (Negative) Imaging Data Chest x-ray: Radiologist's Impression: PROCEDURE:? XR CHEST 1V ? INDICATIONS:? chest pain ? TECHNIQUE:? One view of the chest was acquired.? ? COMPARISON:? [facility], CR, XR CHEST 2V, 09/01/2022, 10:12.? [facility], CR, XR CHEST 1V, 09/28/2022, 15:20.? [facility], CR, XR CHEST 1V, 10/17/2022, 17:04. ? FINDINGS:? ? Surgical changes and devices:? Cervical fixation hardware is partially seen. ? Lungs and pleura:? On this semiupright portable chest examination, no large pneumothorax or large pleural effusions are seen.? No focal infiltrates are seen.? Interstitial prominence can be seen. ? Mediastinum:? Mediastinal contours appear normal.? Heart size is moderately enlarged.? ? Bones and chest wall:? No suspicious bony lesions.? Age-appropriate bony degenerative changes are seen. ? Overlying soft tissues appear unremarkable.? IMPRESSION:? Cardiomegaly and mild interstitial prominence can be seen.? Please consider mild/early CHF. ? Postoperative and degenerative changes are seen.? ? Dictated by: Amando Shoemaker M.D. on 12/16/2022 at 14:46? ECG Data Interpretation: Junctional rhythm rate [address] changes very similar to previous EKG 10/17/2022 MDM Narrative Medical decision making narrative: Patient 82-year-old male history of atrial fibrillation on Eliquis coronary artery disease presenting today with chest pain. History is extremely difficult to obtain both from and patient. But he apparently did have some chest discomfort he is able to pinpoint it himself and reproduce it is not appear in any sort of pain or distress at this time. gave him nitroglycerin previously a now he seems better. Blood work is overall reassuring he has stable indeterminate troponins which did not change in the emergency department. He has no leukocytosis no anemia no significant electrolyte abnormality or BEATRIZ. Chest x-ray has also been reviewed by myself and is negative. EKGs appear similar possible bradycardia versus junctional rhythm it is very similar to previous EKGs he has not had any syncopal episodes. This time I really do not see need for evaluation further workup. They are both requesting to go home. Discharge Plan Departure Patient Disposition: Home Clinical Impression: Atypical chest pain Instructions: DI for Atypical Chest Pain Activity Restrictions/Additional Instructions: *You have been diagnosed with atypical chest pain *What to do: At this time blood work is overall reassuring *Continue to take medications as directed *Follow up with your primary care provider in 2-3 days or call [phone] *Return to ER if you should have increasing chest pain, palpitations dizziness lightheadedness or any new, worsening or concerning symptoms Prescriptions: No Action sertraline [Zoloft] 50 mg tablet 100 mg PO BEDTIME Qty: 60 3RF amlodipine [Norvasc] 5 mg Tablet 5 mg PO DAILY Qty: 30 0RF furosemide 20 mg tablet 20 mg PO DAILY PRN (Reason: edema) Patient Comments: Patient states I take it when I notice my edema increasing tamsulosin 0.4 mg capsule 0.4 mg PO BEDTIME allopurinol 300 mg tablet 300 mg PO BEDTIME lisinopril 40 mg tablet 40 mg PO BEDTIME Eliquis 5 mg tablet 5 mg PO BID Referrals: Darryl Damon MD [Primary Care Provider] - Stand Alone Forms: Patient Portal/API
[2022-12-16 15:42] LABS: Troponin I 0.077 ng/mL (0.01-0.034)
[2022-12-16 17:32] LABS: COVID19 -Nasal RAPID Negative (Negative)
[2022-12-16 17:37] LABS: Troponin I 0.078 ng/mL (0.01-0.034)
== END 2022-12-16 18:27 | disposition home or self-care (01) ==
PROVIDERS: Emergency Provider Emergency Medicine; PCP Internal Medicine
DX: R07.89 Other chest pain (principal); I48.91 Unspecified atrial fibrillation; I25.10 Atherosclerotic heart disease of native coronary artery without angina pectoris; Z79.01 Long term (current) use of anticoagulants; Z20.822 Contact with and (suspected) exposure to COVID-19
CPT/HCPCS: 36415; 71045; 80053; 82550; 83690; 83735; 84484; 85025; 85610; 85730; 87635; 93005; 99283; 99284; C9803

== ENCOUNTER 2023-01-12 16:43 | Emergency (ER) | payer MEDICARE, SELFPAY ==
[2021-06-24 20:11] VITALS: BMI 26.3
[2023-01-12] VITALS (17 sets, daily range): BP systolic 140; BP diastolic 62; PULSE 55–77; RESP 8–33; TEMP 36.6; O2SAT 94–100
--- NOTE | 2023-01-12 16:45 | DI.RAD.S_ITS ---
PROCEDURE: XR CHEST 1V INDICATIONS: chest pain TECHNIQUE: One view of the chest was acquired. COMPARISON: [facility], CR, XR CHEST 1V, 09/28/2022, 15:20. [facility], CR, XR CHEST 1V, 10/17/2022, 17:04. [facility], CR, XR CHEST 1V, 12/16/2022, 15:25. FINDINGS: Surgical changes and devices: There is partial visualization of cervical spine fixation hardware. Lungs and pleura: On this semiupright portable chest examination, no large pneumothorax or large pleural effusions are seen. No focal infiltrates are seen. Low lung volumes are noted. This causes a crowded appearance to the lung markings and limits evaluation. Mediastinum: Mediastinal contours appear normal. Heart size is moderately enlarged. Bones and chest wall: No suspicious bony lesions. Age-appropriate bony degenerative changes are seen. Overlying soft tissues appear unremarkable. IMPRESSION: Low lung volumes, without an acute pulmonary abnormality seen. Moderate cardiomegaly. Dictated by: Amando Shoemaker M.D. on 01/12/2023 at 16:24 Approved by: Amando Shoemaker M.D. on 01/12/2023 at 16:25
[2023-01-12 17:19] LABS: Alanine Aminotransferase 19 IU/L (<50); Albumin Globulin Ratio 1.7 (1.0-2.8); Alkaline Phosphatase 84 U/L (38-126); Aspartate Aminotransferase 21 IU/L (17-59); BUN Creatinine Ratio 31.9 (6-22); Bilirubin Total 0.4 mg/dL (0.2-1.3); Blood Urea Nitrogen 30 mg/dL (9-20); Calcium 9.3 mg/dL (8.4-10.2); Carbon Dioxide 26 mmol/L (22-32); Chloride 105 mmol/L (98-107); Creatine Kinase 29 U/L (55-170); Estimated Glomerular Filt Rate > 60 mL/min (>60); Globulin 2.4 g/dL (1.7-4.1); Glucose 191 mg/dL (80-110); HEMOLYSIS < 15 (0-50); Lipase 53 U/L (23-300); Magnesium 2.1 mg/dL (1.6-2.3); Potassium 4.2 mmol/L (3.4-5.1); Sodium 138 mmol/L (137-145); Total Protein 6.4 g/dL (6.3-8.2)
[2023-01-12 17:20] LABS: Add Manual Diff / Slide Review NO; Basophils Absolute Auto 0 /uL (0-100); Basophils Percent Auto 0.3 % (0-2); Eosinophils Absolute Auto 300 /uL (0-450); Eosinophils Percent Auto 3.3 % (2-4); Hematocrit 35.1 % (41-53); Hemoglobin 12.2 g/dL (13.5-17.5); Lymphocytes Absolute Auto 2200 /uL (1100-4500); Lymphocytes Percent Auto 21.7 % (25-40); Mean Corpuscular HGB Conc 34.7 % (30-36); Mean Corpuscular Hemoglobin 32.5 PG (26-34); Mean Corpuscular Volume 93.6 fL (80-100); Monocytes Absolute Auto 700 /uL (0-900); Monocytes Percent Auto 6.9 % (3-14); Neutrophils Absolute Auto 6900 /uL (1500-7000); Neutrophils Percent Auto 67.8 % (50-75); Platelet Count 165 X10^3/uL (150-400); Red Blood Cell Count 3.75 X10^6/uL (4.5-5.9); Red Cell Distribution Width 13.8 % (11.6-14.8); White Blood Cell Count 10.1 X10^3/uL (4.5-11.0)
[2023-01-12 17:29] LABS: INR 1.1 (0.9-1.3); Prothrombin Time 12.5 SECONDS (10.1-12.7)
[2023-01-12 17:31] LABS: Troponin I 0.075 ng/mL (0.01-0.034)
[2023-01-12 18:12] LABS: PTT Partial Thromboplastin Tim 29 SECONDS (26-36)
--- NOTE | 2023-01-12 18:46 | ED_ITS ---
HPI - Chest Pain <Darlene Lambert DO - Last Filed: 01/22/23 08:06> General Chief Complaint: Chest Pain Stated Complaint: Chest pain, Took NTG and ASA Time Seen by Provider: 01/12/23 17:54 Source: EMS Mode of arrival: EMS History of Present Illness HPI narrative: Patient is a 79 male history of atrial flutter on Eliquis, dementia, coronary artery disease presenting today with left-sided chest pain. Paste mental status fluctuates quite a bit he is currently very confused and is primary historian. She reports that he was complaining of chest pain sometime during the day she gave him a nitroglycerin they are here for evaluation. He points to his sternum pain does not seem to be reproducible. He is not in any obvious respiratory distress. He has been at his normal baseline. Patient has been to the ED multiple times for some atypical chest pain here December 16 for the same and previously fall. He has chronic indeterminate troponins. Related Data Home Medications Medication Instructions Recorded Confirmed allopurinol 300 mg tablet 300 mg PO BEDTIME 09/13/19 08/09/21 apixaban 5 mg tablet (Eliquis) 5 mg PO BID 09/13/19 08/09/21 lisinopril 40 mg tablet 40 mg PO BEDTIME 09/13/19 08/09/21 tamsulosin 0.4 mg capsule 0.4 mg PO BEDTIME 09/13/19 08/09/21 furosemide 20 mg tablet 20 mg PO DAILY PRN edema 06/08/21 08/09/21 Previous Rx's Medication Instructions Recorded amlodipine 5 mg tablet (Norvasc) 5 mg PO DAILY #30 tabs 03/13/21 sertraline 50 mg tablet (Zoloft) 100 mg PO BEDTIME #60 tabs 07/13/21 Allergies Allergy/AdvReac Type Severity Reaction Status Date / Time Vmpqlij-MAN-PoA Reductase AdvReac Mild CAUSES Verified 01/12/23 16:55 Inhibitor PAIN IN [Cdzyyzt-Lem-Wty Reductase LEGS - Inhibitor] ELECTRIC SHOCK Sulfa (Sulfonamide AdvReac Mild EXACERBATES Verified 01/12/23 16:55 Antibiotics) GOUT [SULFA (SULFONAMIDE ANTIBIOTICS)] Review of Systems <DO Jessika Schwartz Last Filed: 01/22/23 08:06> Review of Systems ROS Unobtainable: All systems reviewed & are unremarkable except as noted in HPI and below Patient History <Darlene Lambert DO - Last Filed: 01/22/23 08:06> Medical History Atrial fibrillation and flutter History of drug overdose Hyperlipidemia Hypertension Surgical History H/O cervical spine surgery History of cardiac radiofrequency ablation Family History Mother Colon cancer Father Unknown family medical history Social History household members: spouse Smoking Status: Never smoker alcohol intake: current Smoking Status: Never smoker alcohol intake frequency: holidays/special occasions only Substance Use Type: does not use Exam <Darlene Lambert DO - Last Filed: 01/22/23 08:06> Initial Vital Signs Initial Vital Signs: Vital Signs Temperature 98 F 01/12/23 16:52 Pulse Rate 64 01/12/23 16:52 Respiratory Rate 17 01/12/23 16:52 Blood Pressure 140/62 01/12/23 16:52 Pulse Oximetry 99 01/12/23 16:52 Oxygen Delivery Method Room Air 01/12/23 16:52 GENERAL: Alert pleasantly confused 82-year-old male HEENT: Head atraumatic,EOMI, pupils reactive, face symmetric, moist mucous membranes CARDIOVASCULAR: Regular rate and rhythm without murmurs, rubs or gallops. RESPIRATORY: Breath sounds equal bilaterally, no wheezes rales or rhonchi. ABDOMEN: Soft, nontender. Normoactive bowel sounds all 4 quadrants. No guarding or rebound. EXTREMITIES: Normal range of motion, no clubbing or edema. Neurovascularly intact NEUROLOGICAL: Alert and oriented x1. Moving all extremities SKIN: Warm, dry, no laceration, no petechiae, no rashes or lesions. <Andrew Macias DO - Last Filed: 01/13/23 17:35> Initial Vital Signs Initial Vital Signs: Vital Signs Temperature 98 F 01/12/23 16:52 Pulse Rate 64 01/12/23 16:52 Respiratory Rate 17 01/12/23 16:52 Blood Pressure 140/62 01/12/23 16:52 Pulse Oximetry 99 01/12/23 16:52 Oxygen Delivery Method Room Air 01/12/23 16:52 Course <Darlene Lambert, DO - Last Filed: 01/22/23 08:06> Orders Ordered: Discontinued Medications Haloperidol (Haloperidol 5 Mg Tablet) 5 mg PO NOW ONE Stop: 01/13/23 01:31 Last Admin: 01/13/23 08:33 Dose: Not Given Documented By: ALEXIS Haloperidol (Haloperidol 5 Mg/Ml Vial) 5 mg IM NOW ONE Stop: 01/13/23 01:33 Last Admin: 01/13/23 01:39 Dose: 5 mg Documented By: LISBETH Vital Signs Vital signs: Vital Signs - 8 hr 01/13/23 11:19 01/13/23 10:00 01/13/23 10:30 Pulse Rate 60 62 64 Respiratory Rate 16 Blood Pressure 136/95 H Pulse Oximetry 97 95 95 Oxygen Delivery Method Room Air 01/13/23 11:00 01/13/23 11:16 01/13/23 11:16 Pulse Rate 65 59 L Respiratory Rate 18 Blood Pressure 136/95 H Pulse Oximetry 95 95 Oxygen Delivery Method 01/13/23 11:30 01/13/23 11:31 01/13/23 11:31 Pulse Rate 80 71 Respiratory Rate Blood Pressure 182/96 H Pulse Oximetry 94 96 Oxygen Delivery Method 01/13/23 12:00 01/13/23 12:01 01/13/23 12:01 Pulse Rate 59 L 60 Respiratory Rate Blood Pressure 143/65 H Pulse Oximetry 96 95 Oxygen Delivery Method 01/13/23 12:30 01/13/23 12:31 01/13/23 12:31 Pulse Rate 62 65 Respiratory Rate 28 H Blood Pressure 157/67 H Pulse Oximetry 96 96 Oxygen Delivery Method 01/13/23 13:00 01/13/23 13:30 01/13/23 13:30 Pulse Rate 70 60 Respiratory Rate 24 14 Blood Pressure 147/62 H Pulse Oximetry 93 Oxygen Delivery Method Room Air 01/13/23 14:00 01/13/23 14:00 01/13/23 14:30 Pulse Rate 59 L 63 Respiratory Rate 26 H Blood Pressure 148/65 H Pulse Oximetry 96 95 Oxygen Delivery Method 01/13/23 14:31 01/13/23 14:31 01/13/23 15:00 Pulse Rate 65 83 Respiratory Rate Blood Pressure 164/67 H Pulse Oximetry 97 97 Oxygen Delivery Method <Andrew Macias DO - Last Filed: 01/13/23 17:35> Orders Ordered: Discontinued Medications Haloperidol (Haloperidol 5 Mg Tablet) 5 mg PO NOW ONE Stop: 01/13/23 01:31 Last Admin: 01/13/23 08:33 Dose: Not Given Documented By: ALEXIS Haloperidol (Haloperidol 5 Mg/Ml Vial) 5 mg IM NOW ONE Stop: 01/13/23 01:33 Last Admin: 01/13/23 01:39 Dose: 5 mg Documented By: GC Vital Signs Vital signs: Vital Signs - 8 hr 01/13/23 11:19 01/13/23 10:00 01/13/23 10:30 Pulse Rate 60 62 64 Respiratory Rate 16 Blood Pressure 136/95 H Pulse Oximetry 97 95 95 Oxygen Delivery Method Room Air 01/13/23 11:00 01/13/23 11:16 01/13/23 11:16 Pulse Rate 65 59 L Respiratory Rate 18 Blood Pressure 136/95 H Pulse Oximetry 95 95 Oxygen Delivery Method 01/13/23 11:30 01/13/23 11:31 01/13/23 11:31 Pulse Rate 80 71 Respiratory Rate Blood Pressure 182/96 H Pulse Oximetry 94 96 Oxygen Delivery Method 01/13/23 12:00 01/13/23 12:01 01/13/23 12:01 Pulse Rate 59 L 60 Respiratory Rate Blood Pressure 143/65 H Pulse Oximetry 96 95 Oxygen Delivery Method 01/13/23 12:30 01/13/23 12:31 01/13/23 12:31 Pulse Rate 62 65 Respiratory Rate 28 H Blood Pressure 157/67 H Pulse Oximetry 96 96 Oxygen Delivery Method 01/13/23 13:00 01/13/23 13:30 01/13/23 13:30 Pulse Rate 70 60 Respiratory Rate 24 14 Blood Pressure 147/62 H Pulse Oximetry 93 Oxygen Delivery Method Room Air 01/13/23 14:00 01/13/23 14:00 01/13/23 14:30 Pulse Rate 59 L 63 Respiratory Rate 26 H Blood Pressure 148/65 H Pulse Oximetry 96 95 Oxygen Delivery Method 01/13/23 14:31 01/13/23 14:31 01/13/23 15:00 Pulse Rate 65 83 Respiratory Rate Blood Pressure 164/67 H Pulse Oximetry 97 97 Oxygen Delivery Method MDM - Chest Pain <Darlene Botnick, DO - Last Filed: 01/22/23 08:06> Lab Data 01/12/23 16:52 01/12/23 16:52 Labs: Lab Results 01/12/23 01/12/23 01/12/23 Range/Units 16:52 16:52 16:52 WBC 10.1 (4.5-11.0) X10^3/uL RBC 3.75 L (4.5-5.9) X10^6/uL Hgb 12.2 L (13.5-17.5) g/dL Hct 35.1 L (41-53) % MCV 93.6 (80-100) fL MCH 32.5 (26-34) PG MCHC 34.7 (30-36) % RDW 13.8 (11.6-14.8) % Plt Count 165 (150-400) X10^3/uL Neut % (Auto) 67.8 (50-75) % Lymph % (Auto) 21.7 L (25-40) % Roberts % (Auto) 6.9 (3-14) % Eos % (Auto) 3.3 (2-4) % Baso % (Auto) 0.3 (0-2) % Neut # (Auto) 6900 (6940-1713) /uL Lymph # (Auto) 2200 (5922-5305) /uL Roberts # (Auto) 700 (0-900) /uL Eos # (Auto) 300 (0-450) /uL Baso # (Auto) 0 (0-100) /uL ESR (0-15) MM/HR PT 12.5 (10.1-12.7) SECONDS INR 1.1 (0.9-1.3) APTT 29 (26-36) SECONDS Sodium 138 (137-145) mmol/L Potassium 4.2 (3.4-5.1) mmol/L Chloride 105 (98-107) mmol/L Carbon Dioxide 26 (22-32) mmol/L BUN 30 H (9-20) mg/dL Creatinine 0.94 (0.66-1.25) mg/dL Estimated GFR > 60 (>60) mL/min BUN/Creatinine Ratio 31.9 H (6-22) Glucose 191 H (80-110) mg/dL Calcium 9.3 (8.4-10.2) mg/dL Magnesium 2.1 (1.6-2.3) mg/dL Total Bilirubin 0.4 (0.2-1.3) mg/dL AST 21 (17-59) IU/L ALT 19 (<50) IU/L Alkaline Phosphatase 84 (38-126) U/L Total Creatine Kinase 29 L (55-170) U/L CK-MB (CK-2) TNP CK-MB (CK-2) Rel Index TNP Troponin I 0.075 H (0.01-0.034) ng/mL C-Reactive Protein (<1.0) mg/dL Total Protein 6.4 (6.3-8.2) g/dL Albumin 4.0 (3.5-5.0) g/dL Globulin 2.4 (1.7-4.1) g/dL Albumin/Globulin Ratio 1.7 (1.0-2.8) Lipase 53 (23-300) U/L 01/12/23 01/13/23 01/13/23 Range/Units 18:55 15:02 15:05 WBC (4.5-11.0) X10^3/uL RBC (4.5-5.9) X10^6/uL Hgb (13.5-17.5) g/dL Hct (41-53) % MCV (80-100) fL MCH (26-34) PG MCHC (30-36) % RDW (11.6-14.8) % Plt Count (150-400) X10^3/uL Neut % (Auto) (50-75) % Lymph % (Auto) (25-40) % Roberts % (Auto) (3-14) % Eos % (Auto) (2-4) % Baso % (Auto) (0-2) % Neut # (Auto) (5351-5005) /uL Lymph # (Auto) (5931-5545) /uL Roberts # (Auto) (0-900) /uL Eos # (Auto) (0-450) /uL Baso # (Auto) (0-100) /uL ESR 20 H (0-15) MM/HR PT (10.1-12.7) SECONDS INR (0.9-1.3) APTT (26-36) SECONDS Sodium (137-145) mmol/L Potassium (3.4-5.1) mmol/L Chloride (98-107) mmol/L Carbon Dioxide (22-32) mmol/L BUN (9-20) mg/dL Creatinine (0.66-1.25) mg/dL Estimated GFR (>60) mL/min BUN/Creatinine Ratio (6-22) Glucose (80-110) mg/dL Calcium (8.4-10.2) mg/dL Magnesium (1.6-2.3) mg/dL Total Bilirubin (0.2-1.3) mg/dL AST (17-59) IU/L ALT (<50) IU/L Alkaline Phosphatase (38-126) U/L Total Creatine Kinase (55-170) U/L CK-MB (CK-2) CK-MB (CK-2) Rel Index Troponin I 0.077 H (0.01-0.034) ng/mL C-Reactive Protein 1.5 H (<1.0) mg/dL Total Protein (6.3-8.2) g/dL Albumin (3.5-5.0) g/dL Globulin (1.7-4.1) g/dL Albumin/Globulin Ratio (1.0-2.8) Lipase (23-300) U/L Imaging Data Chest x-ray: Radiologist's Impression: PROCEDURE:? XR CHEST 1V ? INDICATIONS:? chest pain ? TECHNIQUE:? One view of the chest was acquired.? ? COMPARISON:? [facility], , XR CHEST 1V, 09/28/2022, 15:20.? [facility], XR CHEST 1V, 10/17/2022, 17:04.? [facility], , XR CHEST 1V, 12/16/2022, 15:25. ? FINDINGS:? ? Surgical changes and devices:? There is partial visualization of cervical spine fixation hardware. ? Lungs and pleura:? On this semiupright portable chest examination, no large pneumothorax or large pleural effusions are seen.? No focal infiltrates are seen.? Low lung volumes are noted. This causes a crowded appearance to the lung markings and limits evaluation.? ? Mediastinum:? Mediastinal contours appear normal.? Heart size is moderately enlarged.? ? Bones and chest wall:? No suspicious bony lesions.? Age-appropriate bony degenerative changes are seen. ? Overlying soft tissues appear unremarkable.? IMPRESSION:? Low lung volumes, without an acute pulmonary abnormality seen. ? Moderate cardiomegaly.? ? Dictated by: Amando Shoemaker M.D. on 01/12/2023 at 16:24 ? ? ECG Data Interpretation: Sinus rhythm rate 65 OK interval 328 QRS 134 QTC [address] changes similar to previous EKGs MDM Narrative Medical decision making narrative: Patient 82-year-old male with Alzheimer's dementia coronary artery disease atrial flutter on Eliquis presents today with chest pain. He is had a few ED visits for chest pain. He continues to have chronically stable indeterminate troponins and no EKG changes. Blood work today is reassuring without leukocytosis anemia electrolyte abnormality or BEATRIZ. Discussion with Dr. Knight who reviewed his chart. He is not seen Dr. Hobson for about 1 year lots of discussion about Alzheimer's dementia and cognitive issues. He does have atrial flutter he has a remote history of pericarditis. Patient is not a candidate for any aggressive intervention reasonable to get a repeat echo he is not had an echo for about a year. does not need a stress test. , updated symptoms test results and cardiology recommendations however echo will not necessarily twisting frame changer does not need to stay in the hospital. Unfortunately has already left. Patient will be monitored here in the emergency department. Will get echo in the morning. He has been slightly agitated throughout the night requiring 1 dose of Haldol. Patient signed out to Dr. Macias, awaiting echo and disposition <Andrew Macias DO - Last Filed: 01/13/23 17:35> Lab Data Labs: Lab Results 01/12/23 01/12/23 01/12/23 Range/Units 16:52 16:52 16:52 WBC 10.1 (4.5-11.0) X10^3/uL RBC 3.75 L (4.5-5.9) X10^6/uL Hgb 12.2 L (13.5-17.5) g/dL Hct 35.1 L (41-53) % MCV 93.6 (80-100) fL MCH 32.5 (26-34) PG MCHC 34.7 (30-36) % RDW 13.8 (11.6-14.8) % Plt Count 165 (150-400) X10^3/uL Neut % (Auto) 67.8 (50-75) % Lymph % (Auto) 21.7 L (25-40) % Roberts % (Auto) 6.9 (3-14) % Eos % (Auto) 3.3 (2-4) % Baso % (Auto) 0.3 (0-2) % Neut # (Auto) 6900 (1434-5962) /uL Lymph # (Auto) 2200 (1881-7772) /uL Roberts # (Auto) 700 (0-900) /uL Eos # (Auto) 300 (0-450) /uL Baso # (Auto) 0 (0-100) /uL ESR (0-15) MM/HR PT 12.5 (10.1-12.7) SECONDS INR 1.1 (0.9-1.3) APTT 29 (26-36) SECONDS Sodium 138 (137-145) mmol/L Potassium 4.2 (3.4-5.1) mmol/L Chloride 105 (98-107) mmol/L Carbon Dioxide 26 (22-32) mmol/L BUN 30 H (9-20) mg/dL Creatinine 0.94 (0.66-1.25) mg/dL Estimated GFR > 60 (>60) mL/min BUN/Creatinine Ratio 31.9 H (6-22) Glucose 191 H (80-110) mg/dL Calcium 9.3 (8.4-10.2) mg/dL Magnesium 2.1 (1.6-2.3) mg/dL Total Bilirubin 0.4 (0.2-1.3) mg/dL AST 21 (17-59) IU/L ALT 19 (<50) IU/L Alkaline Phosphatase 84 (38-126) U/L Total Creatine Kinase 29 L (55-170) U/L CK-MB (CK-2) TNP CK-MB (CK-2) Rel Index TNP Troponin I 0.075 H (0.01-0.034) ng/mL C-Reactive Protein (<1.0) mg/dL Total Protein 6.4 (6.3-8.2) g/dL Albumin 4.0 (3.5-5.0) g/dL Globulin 2.4 (1.7-4.1) g/dL Albumin/Globulin Ratio 1.7 (1.0-2.8) Lipase 53 (23-300) U/L 01/12/23 01/13/23 01/13/23 Range/Units 18:55 15:02 15:05 WBC (4.5-11.0) X10^3/uL RBC (4.5-5.9) X10^6/uL Hgb (13.5-17.5) g/dL Hct (41-53) % MCV (80-100) fL MCH (26-34) PG MCHC (30-36) % RDW (11.6-14.8) % Plt Count (150-400) X10^3/uL Neut % (Auto) (50-75) % Lymph % (Auto) (25-40) % Roberts % (Auto) (3-14) % Eos % (Auto) (2-4) % Baso % (Auto) (0-2) % Neut # (Auto) (9461-8703) /uL Lymph # (Auto) (9170-9007) /uL Roberts # (Auto) (0-900) /uL Eos # (Auto) (0-450) /uL Baso # (Auto) (0-100) /uL ESR 20 H (0-15) MM/HR PT (10.1-12.7) SECONDS INR (0.9-1.3) APTT (26-36) SECONDS Sodium (137-145) mmol/L Potassium (3.4-5.1) mmol/L Chloride (98-107) mmol/L Carbon Dioxide (22-32) mmol/L BUN (9-20) mg/dL Creatinine (0.66-1.25) mg/dL Estimated GFR (>60) mL/min BUN/Creatinine Ratio (6-22) Glucose (80-110) mg/dL Calcium (8.4-10.2) mg/dL Magnesium (1.6-2.3) mg/dL Total Bilirubin (0.2-1.3) mg/dL AST (17-59) IU/L ALT (<50) IU/L Alkaline Phosphatase (38-126) U/L Total Creatine Kinase (55-170) U/L CK-MB (CK-2) CK-MB (CK-2) Rel Index Troponin I 0.077 H (0.01-0.034) ng/mL C-Reactive Protein 1.5 H (<1.0) mg/dL Total Protein (6.3-8.2) g/dL Albumin (3.5-5.0) g/dL Globulin (1.7-4.1) g/dL Albumin/Globulin Ratio (1.0-2.8) Lipase (23-300) U/L MDM Narrative Medical decision making narrative: Patient 82-year-old male with Alzheimer's dementia coronary artery disease atrial flutter on Eliquis presents today with chest pain. He is had a few ED visits for chest pain. He continues to have chronically stable indeterminate troponins and no EKG changes. Blood work today is reassuring without leukocytosis anemia electrolyte abnormality or BEATRIZ. Discussion with Dr. Knight who reviewed his chart. He is not seen Dr. Hobson for about 1 year lots of discussion about Alzheimer's dementia and cognitive issues. He does have atrial flutter he has a remote history of pericarditis. Patient is not a candidate for any aggressive intervention reasonable to get a repeat echo he is not had an echo for about a year. does not need a stress test. , updated symptoms test results and cardiology recommendations however echo will not necessarily twisting frame changer does not need to stay in the hospital. Unfortunately has already left. Patient will be monitored here in the emergency department. Will get echo in the morning. He has been slightly agitated throughout the night requiring 1 dose of Haldol. Patient signed out to Dr. Macias, awaiting echo and disposition Dr Macias: Received turned over. Review patient's history and physical up to this point. Plan was for a echocardiogram today and then disposition home as the patient has already been determined not to be a candidate for cardiovascular intervention. We were unable to obtain a echocardiogram today. Apparently after telling us that they would be here earlier this afternoon there were too many patients for them to get to today and so the patient will be unable to obtain an echocardiogram. I feel that it is unlikely that the patient has pericarditis. He does not have leukocytosis. His EKG is not consistent with pericarditis. I did discuss the case with Dr. Ronquillo on-call for Cardiology. We discussed the situation today. She was able to look up his prior medical records. He does have a prior history of pericarditis. Patient is stable. Plan will be is to discharge patient home. Dr. Ronquillo will message the patient's homemaking rehabilitation consultant that they can obtain an echocardiogram as an outpatient. I did discuss this with the patient and his who is at bedside. Patient understands the situation. She was given instructions to contact his homemaking rehabilitation consultant on Sunday for follow-up. She was given return precautions. She expressed understanding and agreement with plan. Discharge Plan Departure Patient Disposition: Home Clinical Impression: Chest pain Instructions: DI for Chest Pain Activity Restrictions/Additional Instructions: I recommend that you continue to take all of your medications as directed. On Sunday I recommend you contact your homemaking rehabilitation consultant's office for a follow-up. Return to the emergency department for new or worsening symptoms. Prescriptions: No Action sertraline [Zoloft] 50 mg tablet 100 mg PO BEDTIME Qty: 60 3RF amlodipine [Norvasc] 5 mg Tablet 5 mg PO DAILY Qty: 30 0RF furosemide 20 mg tablet 20 mg PO DAILY PRN (Reason: edema) Patient Comments: Patient states I take it when I notice my edema increasing tamsulosin 0.4 mg capsule 0.4 mg PO BEDTIME allopurinol 300 mg tablet 300 mg PO BEDTIME lisinopril 40 mg tablet 40 mg PO BEDTIME Eliquis 5 mg tablet 5 mg PO BID Referrals: Darryl Damon MD [Primary Care Provider] - Laurie Harp MD [Physician] - Stand Alone Forms: Patient Portal/API
[2023-01-12 19:23] LABS: Troponin I 0.077 ng/mL (0.01-0.034)
[2023-01-13] VITALS (47 sets, daily range): BP systolic 135–194; BP diastolic 62–103; PULSE 52–93; RESP 13–31; TEMP 36.6; O2SAT 93–99
[2023-01-13] MEDS: HALOPERIDOL 5 MG/ML VIAL IM (01:39)
[2023-01-13 17:38] LABS: C-Reactive Protein Quant 1.5 mg/dL (<1.0)
[2023-01-13 17:59] LABS: Erythrocyte Sedimentation Rate 20 MM/HR (0-15)
== END 2023-01-13 18:08 | disposition home or self-care (01) ==
PROVIDERS: Emergency Medicine; Emergency Provider Emergency Medicine; PCP Internal Medicine
DX: R07.9 Chest pain, unspecified (principal); Z79.01 Long term (current) use of anticoagulants; Z79.899 Other long term (current) drug therapy
CPT/HCPCS: 36415; 71045; 80053; 82550; 83690; 83735; 84484; 85025; 85610; 85651; 85730; 86140; 93005; 93010; 96372; 99284; J1630

== ENCOUNTER 2023-02-20 15:36 | Emergency (ER) | payer MEDICARE, SELFPAY ==
[2021-06-24 20:11] VITALS: BMI 26.3
[2023-02-20 15:46] VITALS: BP 163/73; PULSE 92; RESP 19; TEMP 36.7; O2SAT 99
--- NOTE | 2023-02-20 17:01 | DI.CT.S_ITS ---
PROCEDURE: CT HEAD/BRAIN WO CON INDICATIONS: headache; dementia TECHNIQUE: Noncontrast 4.5 mm thick angled axial sections acquired from the foramen magnum to the vertex, with coronal and sagittal reformats. For radiation dose reduction, the following was used: automated exposure control, adjustment of mA and/or kV according to patient size. COMPARISON: [facility], CT, CT HEAD/BRAIN WO CON, 10/17/2022, 17:17. FINDINGS: CSF spaces: Basal cisterns are patent. No extra-axial fluid collections. The ventricles are symmetric in size and shape. Brain: No intracranial bleeds or masses. There is cerebral volume loss for age, with resultant ventricular and sulcal prominence. There are periventricular and deep white matter chronic small vessel ischemic changes. There is intracranial internal carotid artery atherosclerosis. Skull and face: Calvarium and visualized facial bones appear intact, without suspicious lesions. Sinuses: Minimal mucosal thickening left maxillary sinus. IMPRESSION: No intracranial hemorrhage or other acute intracranial abnormality. Dictated by: Wilfredo Bustillos M.D. on 02/20/2023 at 17:36 Approved by: Wilfredo Bustillos M.D. on 02/20/2023 at 17:40
--- NOTE | 2023-02-20 17:52 | ED.HA ---
HPI - Headache <Denise Linder PA-C - Last Filed: 02/20/23 18:04> General Chief Complaint: Headache Stated Complaint: Hit head, pain Time Seen by Provider: 02/20/23 16:37 Mode of arrival: Family Vehicle History of Present Illness HPI Narrative: 82-year-old male past medical history atrial fibrillation, stroke, hyperlipidemia, NSTEMI, dementia presents to the ED with his complaining of a right-sided headache. Patient has advanced dementia, and therefore unable to get history or ROS from the patient. His provided history, confirms that patient did not recently have a fall or head injury. Patient also is not currently on Eliquis anymore. Patient is only on aspirin. Patient's states that he has been complaining of a headache, she is been giving him ibuprofen at night for it. Patient does not complain of headaches during the day. They came to the ED today since patient was insistent that they come to the ED. patient's denies that patient has been experiencing any other symptoms such as chest pain, shortness of breath, cough, vomiting, abdominal pain, dysuria. Related Data Home Medications Medication Instructions Recorded Confirmed allopurinol 300 mg tablet 300 mg PO BEDTIME 09/13/19 08/09/21 apixaban 5 mg tablet (Eliquis) 5 mg PO BID 09/13/19 08/09/21 lisinopril 40 mg tablet 40 mg PO BEDTIME 09/13/19 08/09/21 tamsulosin 0.4 mg capsule 0.4 mg PO BEDTIME 09/13/19 08/09/21 furosemide 20 mg tablet 20 mg PO DAILY PRN edema 06/08/21 08/09/21 Previous Rx's Medication Instructions Recorded amlodipine 5 mg tablet (Norvasc) 5 mg PO DAILY #30 tabs 03/13/21 sertraline 50 mg tablet (Zoloft) 100 mg PO BEDTIME #60 tabs 07/13/21 Allergies Allergy/AdvReac Type Severity Reaction Status Date / Time Larknco-CPM-CeB Reductase AdvReac Mild CAUSES Verified 02/20/23 16:13 Inhibitor PAIN IN [Ddazuqp-[id number]-Mhn Reductase LEGS - Inhibitor] ELECTRIC SHOCK Sulfa (Sulfonamide AdvReac Mild EXACERBATES Verified 02/20/23 16:13 Antibiotics) GOUT [SULFA (SULFONAMIDE ANTIBIOTICS)] Review of Systems <Denise Linder PA-C - Last Filed: 02/20/23 18:04> Review of Systems ROS Unobtainable: All systems reviewed & are unremarkable except as noted in HPI and below Constitutional Constitutional: Denies chills, Denies fatigue, Denies fever(s), Denies frequent falls, Reports headache(s), Denies lethargy and Denies weakness Eyes Eyes: Denies change in vision, Denies eye discharge, Denies irritation and Denies loss of vision ENT Ears, Nose, Mouth, and Throat: Denies change in voice, Denies dizziness, Reports headache(s), Denies neck pain, Denies sore throat and Denies throat swelling Cardiovascular Cardiovascular: Denies chest pain, Denies irregular heart rhythm, Denies lightheadedness, Denies palpitations, Denies dyspnea, Denies dyspnea on exertion and Denies orthopnea Respiratory Respiratory: Denies cough, Denies dyspnea, Denies dyspnea on exertion and Denies wheezing Gastrointestinal Gastrointestinal: Denies abdominal pain, Denies change in bowel habits, Denies diarrhea, Denies nausea and Denies vomiting Genitourinary Genitourinary: Denies hematuria, Denies flank pain, Denies urinary incontinence and Denies urinary urgency Musculoskeletal Musculoskeletal: Denies back pain, Denies muscle weakness, Denies neck pain, Denies numbness and Denies tingling Integumentary/Breasts Skin/Breast: Denies pruritus, Denies erythema, Denies rash and Denies wounds Neurologic Neurologic: Denies behavioral changes, Denies confusion, Denies dizziness, Denies frequent falls, Reports headache(s), Denies loss of vision, Denies numbness, Denies tingling and Denies weakness Psychiatric Psychiatric: Denies anxiety, Denies behavioral changes, Denies confusion, Denies depression, Denies homicidal ideation and Denies suicidal ideation Endocrine Endocrine: Denies fatigue, Denies flushing and Denies palpitations Hematologic/Lymphatic Hematologic/Lymphatic: Denies easy bruising Allergic/Immunologic Allergic/Immunologic: Denies urticaria, Denies throat swelling and Denies wheezing Patient History <Denise Linder PA-C - Last Filed: 02/20/23 18:04> Medical History Atrial fibrillation and flutter History of drug overdose Hyperlipidemia Hypertension Surgical History H/O cervical spine surgery History of cardiac radiofrequency ablation Family History Mother Colon cancer Father Unknown family medical history Social History household members: spouse Smoking Status: Never smoker alcohol intake: current Smoking Status: Never smoker alcohol intake frequency: holidays/special occasions only Substance Use Type: does not use Exam <Denise Linder PA-C - Last Filed: 02/20/23 18:04> Narrative Exam Narrative: Const General:?cooperative, healthy appearing and comfortable HENMT Head:?normal to inspection Ears:?hearing grossly normal bilaterally Nose:?external nose normal Face and sinus:?normal facial exam and sinuses nontender Mouth:?oral mucosae normal Throat:?posterior oropharynx normal Eyes General:?appearance normal, both eyes and all related structures Neck Neck:?normal visual inspection and no lymphadenopathy noted Resp Effort & Inspection:?normal respiratory effort Auscultation:?clear to auscultation bilaterally Cardio Rate:?regular rate Rhythm:?regular rhythm Neuro General:?patient alert, patient awake, demented, sometimes agitated Initial Vital Signs Initial Vital Signs: Vital Signs Temperature 98.1 F 02/20/23 15:46 Pulse Rate 92 H 02/20/23 15:46 Respiratory Rate 19 02/20/23 15:46 Blood Pressure 163/73 H 02/20/23 15:46 Pulse Oximetry 99 02/20/23 15:46 Oxygen Delivery Method Room Air 02/20/23 15:46 <Darlene Lambert DO - Last Filed: 02/26/23 09:37> Initial Vital Signs Initial Vital Signs: Vital Signs Temperature 98.1 F 02/20/23 15:46 Pulse Rate 92 H 02/20/23 15:46 Respiratory Rate 19 02/20/23 15:46 Blood Pressure 163/73 H 02/20/23 15:46 Pulse Oximetry 99 02/20/23 15:46 Oxygen Delivery Method Room Air 02/20/23 15:46 Course <Denise Linder PA-C - Last Filed: 02/20/23 18:04> Orders Ordered: ED Orders 02/20/23 17:01 CT head/brain wo con Stat Vital Signs Vital signs: Vital Signs - 8 hr 02/20/23 15:46 Temperature 98.1 F Pulse Rate 92 H Respiratory Rate 19 Blood Pressure 163/73 H Pulse Oximetry 99 Oxygen Delivery Method Room Air <Darlene Lambert DO - Last Filed: 02/26/23 09:37> Orders Ordered: ED Orders 02/20/23 17:01 CT head/brain wo con Stat Vital Signs Vital signs: Vital Signs - 8 hr 02/20/23 15:46 Temperature 98.1 F Pulse Rate 92 H Respiratory Rate 19 Blood Pressure 163/73 H Pulse Oximetry 99 Oxygen Delivery Method Room Air MDM - Headache <Denise Linder PA-C - Last Filed: 02/20/23 18:04> MDM Narrative Medical decision making narrative: 82-year-old male past medical history atrial fibrillation, stroke, hyperlipidemia, NSTEMI, dementia presents to the ED with his complaining of a right-sided headache. Patient and patient's decline medications such as ibuprofen or Tylenol in the ED. a CT head was performed which shows no acute findings. Recommend follow-up with PCP and Neurology for further evaluation of the dementia. Discharged patient home with ED return precautions. Patient's verbalized understandings. Medical records reviewed: Yes Discharge Plan Departure Patient Disposition: Home Clinical Impression: Headache Instructions: DI for Headache Activity Restrictions/Additional Instructions: You were evaluated in the ED today for a headache. Your CT head did not show any acute findings such as brain bleeds or fractures. You may continue to take ibuprofen at home. Please follow-up with your PCP and Neurology regarding the progressive dementia. Return to the ED if you have worsening symptoms, chest pain, shortness of breath. Prescriptions: No Action sertraline [Zoloft] 50 mg tablet 100 mg PO BEDTIME Qty: 60 3RF amlodipine [Norvasc] 5 mg Tablet 5 mg PO DAILY Qty: 30 0RF furosemide 20 mg tablet 20 mg PO DAILY PRN (Reason: edema) Patient Comments: Patient states I take it when I notice my edema increasing tamsulosin 0.4 mg capsule 0.4 mg PO BEDTIME allopurinol 300 mg tablet 300 mg PO BEDTIME lisinopril 40 mg tablet 40 mg PO BEDTIME Eliquis 5 mg tablet 5 mg PO BID Referrals: Darryl Damon MD [Primary Care Provider] - Stand Alone Forms: Patient Portal/API <Darlene Lambert DO - Last Filed: 02/26/23 09:37> Cosign ED Attending Cosignature Attestation: I was immediately available in the department for consultation. Documentation has been reviewed.
[2023-02-20 18:00] VITALS: BP 165/70; PULSE 57; RESP 18; O2SAT 98
== END 2023-02-20 18:00 | disposition home or self-care (01) ==
PROVIDERS: Emergency Provider Student in an Organized Health Care Education/Training Program; PCP Internal Medicine
DX: R51.9 Headache, unspecified (principal)
CPT/HCPCS: 70450; 99283